=== PATIENT | male | born 1940 | race Caucasian/White ===

== ENCOUNTER 2019-12-25 21:37 | Emergency (ER) | payer MEDICARE, SELFPAY ==
[2019-12-25 21:41] VITALS: PULSE 103; RESP 22; TEMP 36.8; O2SAT 95; BMI 41.1
--- NOTE | 2019-12-25 21:55 | CTR_ITS ---
PROCEDURE INFORMATION: Exam: CT Abdomen And Pelvis With Contrast Exam date and time: 12/25/2019 10:38 PM Age: 79 years old Clinical indication: Abdominal pain; Generalized; Prior surgery; Surgery type: Gb TECHNIQUE: Imaging protocol: Computed tomography of the abdomen and pelvis with intravenous contrast. Radiation optimization: All CT scans at this facility use at least one of these dose optimization techniques: automated exposure control; mA and/or kV adjustment per patient size (includes targeted exams where dose is matched to clinical indication); or iterative reconstruction. Contrast material: 1853.59; Contrast volume: 95 ml; Contrast route: INTRAVENOUS (IV); COMPARISON: No relevant prior studies available. RADIATION DOSE METRICS: Total DLP (mGy-cm): 1853.59 FINDINGS: Lungs: Bilateral dependent atelectasis. Mediastinal space: Large hiatal hernia. Liver: Normal. No mass. Gallbladder and bile ducts: Cholecystectomy. Pancreas: Normal. No ductal dilation. Spleen: Normal. No splenomegaly. Adrenals: Normal. No mass. Kidneys and ureters: Left kidney benign cyst, negative for follow-up advised. Stomach and bowel: Constipation. Appendix: No evidence of appendicitis. Intraperitoneal space: Unremarkable. No free air. No significant fluid collection. Vasculature: Unremarkable. No abdominal aortic aneurysm. Lymph nodes: Unremarkable. No enlarged lymph nodes. Urinary bladder: Right posterior urinary bladder wall 8.8 mm subtle soft tissue density lesion somewhat concerning for mass, consider direct visualization. Reproductive: Unremarkable as visualized. Bones/joints: Unremarkable. No acute fracture. Soft tissues: Unremarkable. CT/CT abdomen pelvis w con* [id number] IMPRESSION: 1. Negative for acute inflammatory process in the abdomen or pelvis 2. Bilateral dependent atelectasis. 3. Cholecystectomy. 4. Large hiatal hernia. 5. Constipation. 6. Right posterior urinary bladder wall 8.8 mm subtle soft tissue density lesion somewhat concerning for mass, consider direct visualization. Radiation Dose CTDIVOL = (mGy): DLP = 1853.59 (mGy-cm)
--- NOTE | 2019-12-25 22:03 | W.ED.ABDPA2 ---
Documented by User: Tereza Borges 12/25/19 23:45 HPI - Abdominal Pain General: Chief Complaint: Abdominal Pain Stated Complaint: constipation Time Seen by Provider: 12/25/19 21:50 Source: patient Mode of arrival: ambulatory Limitations: no limitations History of Present Illness: HPI narrative: Ming is a 79-year-old male who comes in complaining of abdominal pain for the past 2 to 3 days. He has associated vomiting. He states anytime he eats or drinks makes his symptoms worse. He denies any fevers or chills. He also states he is had significant diarrhea. He does not describe any blood in his vomit or blood in his stools. Patient does not report any chest pain or shortness of breath. Patient denies having anything similar in the past. He denies any other complaints at this time. Associated Symptoms: Denies chills, coffee ground emesis, constipation, GI cramping, diarrhea, dysuria, fever(s), heartburn, hematochezia, hematuria, hematemesis, melena and syncope Review of Systems Const: Denies: fever(s), chills, body aches, fatigue, malaise or diaphoresis Eyes: Denies: change in vision, blurry vision, photophobia, eye discomfort, eye discharge, eye redness or yellow eyes ENMT: Denies: throat pain, odynophagia, hoarseness, swelling of lips/tongue, ear or mastoid pain, ear discharge, change in hearing or nasal discharge Card: Denies: chest pain, palpitations, irregular heart rhythm, edema, lightheadedness, syncope, pre-syncope, dyspnea on exertion or orthopnea Resp: Denies: dyspnea, productive cough, non-productive cough, wheezing, hemoptysis or chest congestion GI: Denies: hematemesis, coffee ground emesis, heartburn, diarrhea, constipation, GI cramping, hematochezia or melena : Denies: flank pain, dysuria, urinary frequency, urinary urgency or hematuria Musc: Denies: neck pain, back pain, extremity pain, extremity swelling, joint pain, joint swelling, joint redness, joint warmth or joint stiffness Skin/Breast: Denies: rash, pruritus, erythema, skin pain or skin tenderness Neuro: Denies: headache(s), numbness in extremities, weakness in extremities, sensory changes, lack of coordination, difficulty walking, dizziness, vertigo, confusion, Slurred speech present or seizure-like activity Alex/Lymph: Denies: easy bruising, easy bleeding, petechiae, purpura or enlarged lymph nodes All/Imm: Denies: urticaria, throat swelling, tongue swelling, facial swelling or acute wheezing PFSH ED PFSH: Medical History COPD (chronic obstructive pulmonary disease) Diabetes Hypertension Family History Other Cancer Diabetes Social History Smoking and tobacco status: never smoked Alcohol intake: never Current occupational status: unemployed and retired Financial difficulty paying for basics: Somewhat Hard Physical Exam Const: COMMON NORMALS: no acute distress, patient oriented x3, no limitations and alert GENERAL APPEARANCE: cooperative HENMT: COMMON NORMALS: normocephalic, atraumatic, external ears normal, EAC's normal and Normal external nose present HEAD & SCALP: normal to inspection, normocephalic and atraumatic FACE & SINUS: normal facial exam and face symmetric NOSE: Normal external nose present and Normal nares present EXTERNAL EAR: Yes external ears normal EXTERNAL AUDITORY CANAL: EAC's normal MOUTH: Normal oral and palatal mucosa present, lip normal and tongue normal Eye: COMMON NORMALS: Equal, round and reactive pupils present and conjunctivae normal GENERAL EYE: appearance normal, both eyes and all related structures ALIGNMENT: Yes alignment normal PERIORBITAL: periorbital findings normal EYELID: eyelids normal CONJUNCTIVA: Yes conjunctivae normal SCLERA: sclerae normal PUPIL: Yes Equal, round and reactive pupils present Neck/C-Spine: COMMON NORMALS: full ROM, no lymphadenopathy, supple, no meningeal signs and no JVD GENERAL: Yes normal visual inspection and Yes trachea midline Chest: COMMONS NORMALS: normal inspection of the chest and normal palpation of entire chest wall Resp: COMMON NORMALS: normal respiratory effort, No retractions, No use of accessory muscles and clear to auscultation bilaterally EFFORT & INSPECTION: Yes able to speak in complete sentences and Yes symmetric chest movement AUSCULTATION: clear to auscultation bilaterally, no crackles, no rales, no rhonchi and no wheezes Cardio: COMMON NORMALS: no JVD, regular rate, regular rhythm, S1 normal heart sound present and S2 normal heart sound present RATE: regular rate RHYTHM: regular rhythm HEART SOUNDS: S1 normal heart sound present, S2 normal heart sound present, no click, no gallops, no murmurs and no rubs GI: COMMON NORMALS: Soft to palpation and No hepatosplenomegaly present PALPATION: Yes Soft to palpation, Yes Tenderness to palpation present (GI) Details: other (Moderately throughout the abdomen. Patient states worse in the right lower quadrant), No Guarding due to palpation present (GI), No Rigid due to palpation, Yes No hepatosplenomegaly present, No Hernia present, No Palpable mass present and No Pulsatile mass present : COMMON NORMALS: Yes no CVA tenderness BLADDER/KIDNEY EXAM: Yes no CVA tenderness Back/Pelvis: COMMON NORMALS: no CVA tenderness, thoracic and lumbar spine normal to inspection, no thoracic nor lumbar tenderness and thoraco-lumbar ROM normal Extremity: COMMON NORMALS: normal to inspection, full ROM, capillary refill normal, no joint enlargement, no clubbing, cyanosis or edema and no calf tenderness Neuro: COMMON NORMALS: patient oriented x3, CN's II-XII intact bilaterally, moves all extremities, no focal motor deficits and no sensory deficits noted SENSORIUM/ORIENTATION: Yes alert MENINGEAL SIGNS: Yes no meningeal signs SPEECH: speech normal Psych: COMMON NORMALS: mental status grossly normal, Normal thought process present, cooperative, normal affect, speech normal and activity/motor behavior normal SPEECH: Yes normal speech THOUGHT PROCESS: Normal thought process present Skin: COMMON NORMALS: no rashes or lesions noted, turgor normal, no jaundice, no petechiae and no mottling GENERAL SKIN EXAM: no rashes or lesions noted and turgor normal Course Vital Signs: Vital signs: Vital Signs Temperature 98.3 F 12/25/19 21:41 Pulse Rate 87 12/26/19 02:40 Respiratory Rate 16 12/26/19 02:40 Blood Pressure 101/72 12/26/19 02:40 Pulse Oximetry 96 12/26/19 02:40 MDM - Abdominal Pain Lab Data: Attestation: I reviewed the patient's lab results. Labs: Lab Results 12/25/19 12/25/19 12/25/19 Range/Units 22:12 22:12 22:12 WBC 4.1 (4.0-10.0) 10^3/ uL RBC 4.89 (4.1-5.3) 10^6/u L Hgb 14.9 (11.7-16.6) g/dL Hct 44.7 (42.0-52.0) % MCV 91.4 (80-94) fL MCH 30.5 (28.0-34.0) pg MCHC 33.3 (30.0-36.0) g/dL RDW 12.8 (12.1-15.1) % Plt Count 163 (130-400) 10^3/c mm MPV 9.7 (7.4-10.4) fL Neut % (Auto) 71.2 % Lymph % (Auto) 19.8 % [place] % (Auto) 8.6 % Eos % (Auto) 0.0 % Baso % (Auto) 0.2 % Neut # (Auto) 2.91 (1.8-7.7) 10^3/u L Lymph # (Auto) 0.8 (0.8-4.8) 10^3/u L [place] # (Auto) 0.4 (0.2-0.9) 10^3/u L Eos # (Auto) 0.0 (0.0-0.8) 10^3/u L Baso # (Auto) 0.0 (0.0-0.1) 10^3/u L Nucleated RBC % (a uto) 0 % Nucleated RBCs # 0.0 /100WBC Sodium 130 L (136-145) mmol/L Potassium 4.3 (3.5-5.1) mmol/L Chloride 95 L (98-107) mmol/L Carbon Dioxide 19 L (22-29) mmol/L Anion Gap 20.3 H (5-19) BUN 20 (8-23) mg/dL Creatinine 1.6 H (0.7-1.2) mg/dL GFR Calculation Not Reportable Glucose 286 H (65-115) mg/dL Calculated Osmolal ity 283 L (285-295) mOsm/k g Lactic Acid 3.7 H (0.5-2.2) mmol/L Lactic Acid (Sepsi s) (0.5-2.2) mmol/L Calcium 9.1 (8.5-10.5) mg/dL Magnesium 1.7 (1.7-2.3) mg/dL Total Bilirubin 0.5 (0.15-1.2) mg/dL AST 20 (0-40) U/L ALT 14 (0-41) U/L Alkaline Phosphata se 69 (40-130) IU/L Troponin T Baselin e (0-15) ng/L Troponin T 120 Min [place] (0-15) ng/L Delta Troponin T (0-10) ABS# Total Protein 7.1 (6.6-8.7) g/dL Albumin 4.0 (3.5-5.2) g/dL Globulin 3.1 (1.3-4.6) g/dL Lipase 15 (13-60) U/L Urine Color (Yellow) Urine Appearance (CLEAR) Urine pH (5-7) Ur Specific Gravit y (1.005-1.030) Urine Protein (Negative) Urine Glucose (UA) (Normal) Urine Ketones (Negative) Urine Blood (Negative) Urine Nitrate (Negative) Urine Bilirubin (Negative) Urine Urobilinogen (Negative) mg/dL Ur Leukocyte Berenice ase (Negative) Urine RBC (0-2) /hpf Urine WBC (0-5) /hpf Ur Squamous Epith Cells (0-5) /hpf Amorphous Sediment Urine Bacteria (NONE) /hpf 12/25/19 12/26/19 12/26/19 Range/Units 22:12 00:38 01:02 WBC (4.0-10.0) 10^3/ uL RBC (4.1-5.3) 10^6/u L Hgb (11.7-16.6) g/dL Hct (42.0-52.0) % MCV (80-94) fL MCH (28.0-34.0) pg MCHC (30.0-36.0) g/dL RDW (12.1-15.1) % Plt Count (130-400) 10^3/c mm MPV (7.4-10.4) fL Neut % (Auto) % Lymph % (Auto) % [place] % (Auto) % Eos % (Auto) % Baso % (Auto) % Neut # (Auto) (1.8-7.7) 10^3/u L Lymph # (Auto) (0.8-4.8) 10^3/u L [place] # (Auto) (0.2-0.9) 10^3/u L Eos # (Auto) (0.0-0.8) 10^3/u L Baso # (Auto) (0.0-0.1) 10^3/u L Nucleated RBC % (a uto) % Nucleated RBCs # /100WBC Sodium (136-145) mmol/L Potassium (3.5-5.1) mmol/L Chloride (98-107) mmol/L Carbon Dioxide (22-29) mmol/L Anion Gap (5-19) BUN (8-23) mg/dL Creatinine (0.7-1.2) mg/dL GFR Calculation Glucose (65-115) mg/dL Calculated Osmolal ity (285-295) mOsm/k g Lactic Acid (0.5-2.2) mmol/L Lactic Acid (Sepsi s) (0.5-2.2) mmol/L Calcium (8.5-10.5) mg/dL Magnesium (1.7-2.3) mg/dL Total Bilirubin (0.15-1.2) mg/dL AST (0-40) U/L ALT (0-41) U/L Alkaline Phosphata se (40-130) IU/L Troponin T Baselin e 34 H (0-15) ng/L Troponin T 120 Min [place] 28.44 H (0-15) ng/L Delta Troponin T -5.56 L (0-10) ABS# Total Protein (6.6-8.7) g/dL Albumin (3.5-5.2) g/dL Globulin (1.3-4.6) g/dL Lipase (13-60) U/L Urine Color Yellow (Yellow) Urine Appearance Clear (CLEAR) Urine pH 5 (5-7) Ur Specific Gravit y 1.015 (1.005-1.030) Urine Protein Neg (Negative) Urine Glucose (UA) 4+ H (Normal) Urine Ketones Negative (Negative) Urine Blood 2+ H (Negative) Urine Nitrate Negative (Negative) Urine Bilirubin Neg (Negative) Urine Urobilinogen Norm (Negative) mg/dL Ur Leukocyte Berenice ase Negative (Negative) Urine RBC 0-4 H (0-2) /hpf Urine WBC None (0-5) /hpf Ur Squamous Epith Cells None (0-5) /hpf Amorphous Sediment Not Reportable Urine Bacteria None (NONE) /hpf 12/26/19 Range/Units 01:35 WBC (4.0-10.0) 10^3/ uL RBC (4.1-5.3) 10^6/u L Hgb (11.7-16.6) g/dL Hct (42.0-52.0) % MCV (80-94) fL MCH (28.0-34.0) pg MCHC (30.0-36.0) g/dL RDW (12.1-15.1) % Plt Count (130-400) 10^3/c mm MPV (7.4-10.4) fL Neut % (Auto) % Lymph % (Auto) % [place] % (Auto) % Eos % (Auto) % Baso % (Auto) % Neut # (Auto) (1.8-7.7) 10^3/u L Lymph # (Auto) (0.8-4.8) 10^3/u L [place] # (Auto) (0.2-0.9) 10^3/u L Eos # (Auto) (0.0-0.8) 10^3/u L Baso # (Auto) (0.0-0.1) 10^3/u L Nucleated RBC % (a uto) % Nucleated RBCs # /100WBC Sodium (136-145) mmol/L Potassium (3.5-5.1) mmol/L Chloride (98-107) mmol/L Carbon Dioxide (22-29) mmol/L Anion Gap (5-19) BUN (8-23) mg/dL Creatinine (0.7-1.2) mg/dL GFR Calculation Glucose (65-115) mg/dL Calculated Osmolal ity (285-295) mOsm/k g Lactic Acid (0.5-2.2) mmol/L Lactic Acid (Sepsi s) 1.6 (0.5-2.2) mmol/L Calcium (8.5-10.5) mg/dL Magnesium (1.7-2.3) mg/dL Total Bilirubin (0.15-1.2) mg/dL AST (0-40) U/L ALT (0-41) U/L Alkaline Phosphata se (40-130) IU/L Troponin T Baselin e (0-15) ng/L Troponin T 120 Min [place] (0-15) ng/L Delta Troponin T (0-10) ABS# Total Protein (6.6-8.7) g/dL Albumin (3.5-5.2) g/dL Globulin (1.3-4.6) g/dL Lipase (13-60) U/L Urine Color (Yellow) Urine Appearance (CLEAR) Urine pH (5-7) Ur Specific Gravit y (1.005-1.030) Urine Protein (Negative) Urine Glucose (UA) (Normal) Urine Ketones (Negative) Urine Blood (Negative) Urine Nitrate (Negative) Urine Bilirubin (Negative) Urine Urobilinogen (Negative) mg/dL Ur Leukocyte Berenice ase (Negative) Urine RBC (0-2) /hpf Urine WBC (0-5) /hpf Ur Squamous Epith Cells (0-5) /hpf Amorphous Sediment Urine Bacteria (NONE) /hpf Imaging Data ^: CT Abd/Pel: Radiologist's impression: [place] [address] CT Scan Report Signed Patient: Brad Blank Unit #: [id number] : 11/21/1977 Age/Sex: 42 / M ADM Date: 12/25/19 Loc: ER Room/Bed: Attending Dr: Ordering Provider/Ordering MD: Tereza Borges DO Date of Service: 12/25/19 Procedure(s): CT lumbar spine wo con* [id number] Accession Number(s): [id number] Report Number: [id number] PROCEDURE INFORMATION: Exam: CT Lumbar Spine Without Contrast Exam date and time: 12/25/2019 8:25 PM Age: 42 years old Clinical indication: Low back pain TECHNIQUE: Imaging protocol: Computed tomography images of the lumbar spine without contrast. Radiation optimization: All CT scans at this facility use at least one of these dose optimization techniques: automated exposure control; mA and/or kV adjustment per patient size (includes targeted exams where dose is matched to clinical indication); or iterative reconstruction. COMPARISON: [place] [id number] 01/12/2019 3:02 PM RADIATION DOSE METRICS: Total DLP (mGy-cm): 1523.99 FINDINGS: Vertebrae: No acute fracture. Normal alignment. No canal stenosis or neural foraminal narrowing is seen in the lumbar spine. Soft tissues: Unremarkable. Other findings: Chronic pancreatitis changes are appreciated. CT/CT lumbar spine wo con* [id number] IMPRESSION: 1. No acute abnormality is seen. 2. Chronic pancreatitis. Radiation Dose CTDIVOL = (mGy): DLP = 1523.99 (mGy-cm) Dictated By: Thanh Pinon MD Signed By: Thanh Pinon MD Signed Date/Time: 12/25/192057 DD/ 55 EKG Data ^: EKG 1: Attestation: I personally reviewed and interpreted this EKG as follows: EKG interpretation date: 12/25/19 EKG interpretation time: 23:38 Interpretation: Normal sinus rhythm with a ventricular rate of 92 beats a minute, nonspecific ST-T wave changes. Q waves inferiorly. No acute ST or T wave segment changes. Discharge Plan Discharge Patient Disposition: Home Clinical Impression: Acute dehydration Vomiting Qualifiers: Vomiting type: unspecified Vomiting Intractability: non-intractable Nausea presence: with nausea Qualified Code(s): R11.2 - Nausea with vomiting, unspecified Condition: Stable Prescriptions: New Zofran 4 mg tablet 4 mg PO Q6H PRN (Reason: nausea and vomiting) Qty: 10 RF: 0 No Action metformin 500 mg tablet 1,000 mg PO BID RF: 0 citalopram 20 mg tablet 20 mg PO DAILY RF: 0 oxycodone 5 mg capsule 5 mg PO DAILY PRNRF: 0 enoxaparin 30 mg/0.3 mL syringe 30 mg SUBCUT Q12H RF: 0 oxycodone-acetaminophen [Percocet] 5-325 mg tablet 1 tab PO Q6H PRNRF: 0 multivitamin Capsule 1 cap PO DAILY RF: 0 amlodipine 10 mg tablet 10 mg PO DAILY RF: 0 tramadol 50 mg tablet 100 mg PO BID PRNRF: 0 magnesium oxide 400 mg (241.3 mg magnesium) tablet 400 mg PO .hs RF: 0 ropinirole 1 mg tablet 1 mg PO .HS RF: 0 atorvastatin 40 mg tablet 40 mg PO .HS RF: 0 furosemide [Lasix] 20 mg tablet 10 mg PO QAM RF: 0 triamcinolone acetonide 0.1 % ointment 1 applic TOPICAL BID RF: 0 potassium chloride 20 mEq tablet,ER particles/crystals 20 meq PO DAILY RF: 0 valsartan-hydrochlorothiazide 320-12.5 mg tablet 1 tab PO DAILY RF: 0 terbinafine HCl 250 mg tablet 250 mg PO DAILY RF: 0 fluticasone propionate [Flonase Allergy Relief] 50 mcg/actuation spray,suspension 2 spray INTRANASAL DAILY RF: 0 loratadine [Allergy Relief (loratadine)] 10 mg tablet 10 mg PO DAILY RF: 0 aspirin 325 mg tablet 325 mg PO DAILY RF: 0 Levemir FlexTouch U-100 Insuln 100 unit/mL (3 mL) insulin pen 35 unit SUBCUT BID PRN (Reason: Diabetes) Qty: 15 RF: 3 insulin lispro [Humalog U-100 Insulin] 100 unit/mL solution 3 unit SUBCUT TID Qty: 10 RF: 3 Discharge Orders: Discharge Order (Routine); Ordered 12/26/19 Ordered By: Vladislav Shaw Discharge Diet: Advance as tolerated and Clear Liquid Discharge Activity: Increase activity as tolerated Patient Instructions: Dehydration (ED), Acute Nausea and Vomiting (ED) Activity Restrictions/Additional Instructions: Return for fever greater than 100, worsening pain despite treatment, worsening vomiting despite treatment, other concerning symptoms. Your CT scan showed a small possible growth on the bladder that will need further investigation at a later date. You should tell your primary care physician about this. 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 Comprehensive Documented by User: Vladislav Shaw DO 12/26/19 05:24 HPI - Abdominal Pain General: Chief Complaint: Abdominal Pain Stated Complaint: constipation Time Seen by Provider: 12/25/19 21:50 PFSH ED PFSH: Medical History COPD (chronic obstructive pulmonary disease) Diabetes Hypertension Family History Other Cancer Diabetes Social History Smoking and tobacco status: never smoked Alcohol intake: never Current occupational status: unemployed and retired Financial difficulty paying for basics: Somewhat Hard Course Vital Signs: Vital signs: Vital Signs Temperature 98.3 F 12/25/19 21:41 Pulse Rate 87 12/26/19 02:40 Respiratory Rate 16 12/26/19 02:40 Blood Pressure 101/72 12/26/19 02:40 Pulse Oximetry 96 12/26/19 02:40 MDM - Abdominal Pain MDM Narrative: Medical decision making narrative: 79-year-old male checked out to me by Dr. Caputo. He is experienced intractable vomiting with some belly pain. His white blood cell count is 4.1. His bicarbonate level is 19. He is received IV fluid. His initial lactic acid was elevated at 3.7, but repeat after fluid bolus is down to 1.6. CT of the abdomen pelvis is negative, save a possible spot on the posterior wall of his bladder which she was informed of. He will be discharged home with Zoan. Lab Data: Labs: Lab Results 12/25/19 12/25/19 12/25/19 Range/Units 22:12 22:12 22:12 WBC 4.1 (4.0-10.0) 10^3/ uL RBC 4.89 (4.1-5.3) 10^6/u L Hgb 14.9 (11.7-16.6) g/dL Hct 44.7 (42.0-52.0) % MCV 91.4 (80-94) fL MCH 30.5 (28.0-34.0) pg MCHC 33.3 (30.0-36.0) g/dL RDW 12.8 (12.1-15.1) % Plt Count 163 (130-400) 10^3/c mm MPV 9.7 (7.4-10.4) fL Neut % (Auto) 71.2 % Lymph % (Auto) 19.8 % [place] % (Auto) 8.6 % Eos % (Auto) 0.0 % Baso % (Auto) 0.2 % Neut # (Auto) 2.91 (1.8-7.7) 10^3/u L Lymph # (Auto) 0.8 (0.8-4.8) 10^3/u L [place] # (Auto) 0.4 (0.2-0.9) 10^3/u L Eos # (Auto) 0.0 (0.0-0.8) 10^3/u L Baso # (Auto) 0.0 (0.0-0.1) 10^3/u L Nucleated RBC % (a uto) 0 % Nucleated RBCs # 0.0 /100WBC Sodium 130 L (136-145) mmol/L Potassium 4.3 (3.5-5.1) mmol/L Chloride 95 L (98-107) mmol/L Carbon Dioxide 19 L (22-29) mmol/L Anion Gap 20.3 H (5-19) BUN 20 (8-23) mg/dL Creatinine 1.6 H (0.7-1.2) mg/dL GFR Calculation Not Reportable Glucose 286 H (65-115) mg/dL Calculated Osmolal ity 283 L (285-295) mOsm/k g Lactic Acid 3.7 H (0.5-2.2) mmol/L Lactic Acid (Sepsi s) (0.5-2.2) mmol/L Calcium 9.1 (8.5-10.5) mg/dL Magnesium 1.7 (1.7-2.3) mg/dL Total Bilirubin 0.5 (0.15-1.2) mg/dL AST 20 (0-40) U/L ALT 14 (0-41) U/L Alkaline Phosphata se 69 (40-130) IU/L Troponin T Baselin e (0-15) ng/L Troponin T 120 Min [place] (0-15) ng/L Delta Troponin T (0-10) ABS# Total Protein 7.1 (6.6-8.7) g/dL Albumin 4.0 (3.5-5.2) g/dL Globulin 3.1 (1.3-4.6) g/dL Lipase 15 (13-60) U/L Urine Color (Yellow) Urine Appearance (CLEAR) Urine pH (5-7) Ur Specific Gravit y (1.005-1.030) Urine Protein (Negative) Urine Glucose (UA) (Normal) Urine Ketones (Negative) Urine Blood (Negative) Urine Nitrate (Negative) Urine Bilirubin (Negative) Urine Urobilinogen (Negative) mg/dL Ur Leukocyte Berenice ase (Negative) Urine RBC (0-2) /hpf Urine WBC (0-5) /hpf Ur Squamous Epith Cells (0-5) /hpf Amorphous Sediment Urine Bacteria (NONE) /hpf 12/25/19 12/26/19 12/26/19 Range/Units 22:12 00:38 01:02 WBC (4.0-10.0) 10^3/ uL RBC (4.1-5.3) 10^6/u L Hgb (11.7-16.6) g/dL Hct (42.0-52.0) % MCV (80-94) fL MCH (28.0-34.0) pg MCHC (30.0-36.0) g/dL RDW (12.1-15.1) % Plt Count (130-400) 10^3/c mm MPV (7.4-10.4) fL Neut % (Auto) % Lymph % (Auto) % [place] % (Auto) % Eos % (Auto) % Baso % (Auto) % Neut # (Auto) (1.8-7.7) 10^3/u L Lymph # (Auto) (0.8-4.8) 10^3/u L [place] # (Auto) (0.2-0.9) 10^3/u L Eos # (Auto) (0.0-0.8) 10^3/u L Baso # (Auto) (0.0-0.1) 10^3/u L Nucleated RBC % (a uto) % Nucleated RBCs # /100WBC Sodium (136-145) mmol/L Potassium (3.5-5.1) mmol/L Chloride (98-107) mmol/L Carbon Dioxide (22-29) mmol/L Anion Gap (5-19) BUN (8-23) mg/dL Creatinine (0.7-1.2) mg/dL GFR Calculation Glucose (65-115) mg/dL Calculated Osmolal ity (285-295) mOsm/k g Lactic Acid (0.5-2.2) mmol/L Lactic Acid (Sepsi s) (0.5-2.2) mmol/L Calcium (8.5-10.5) mg/dL Magnesium (1.7-2.3) mg/dL Total Bilirubin (0.15-1.2) mg/dL AST (0-40) U/L ALT (0-41) U/L Alkaline Phosphata se (40-130) IU/L Troponin T Baselin e 34 H (0-15) ng/L Troponin T 120 Min [place] 28.44 H (0-15) ng/L Delta Troponin T -5.56 L (0-10) ABS# Total Protein (6.6-8.7) g/dL Albumin (3.5-5.2) g/dL Globulin (1.3-4.6) g/dL Lipase (13-60) U/L Urine Color Yellow (Yellow) Urine Appearance Clear (CLEAR) Urine pH 5 (5-7) Ur Specific Gravit y 1.015 (1.005-1.030) Urine Protein Neg (Negative) Urine Glucose (UA) 4+ H (Normal) Urine Ketones Negative (Negative) Urine Blood 2+ H (Negative) Urine Nitrate Negative (Negative) Urine Bilirubin Neg (Negative) Urine Urobilinogen Norm (Negative) mg/dL Ur Leukocyte Berenice ase Negative (Negative) Urine RBC 0-4 H (0-2) /hpf Urine WBC None (0-5) /hpf Ur Squamous Epith Cells None (0-5) /hpf Amorphous Sediment Not Reportable Urine Bacteria None (NONE) /hpf 12/25/ Range/Units 01:35 WBC (4.0-10.0) 10^3/ uL RBC (4.1-5.3) 10^6/u L Hgb (11.7-16.6) g/dL Hct (42.0-52.0) % MCV (80-94) fL MCH (28.0-34.0) pg MCHC (30.0-36.0) g/dL RDW (12.1-15.1) % Plt Count (130-400) 10^3/c mm MPV (7.4-10.4) fL Neut % (Auto) % Lymph % (Auto) % [place] % (Auto) % Eos % (Auto) % Baso % (Auto) % Neut # (Auto) (1.8-7.7) 10^3/u L Lymph # (Auto) (0.8-4.8) 10^3/u L [place] # (Auto) (0.2-0.9) 10^3/u L Eos # (Auto) (0.0-0.8) 10^3/u L Baso # (Auto) (0.0-0.1) 10^3/u L Nucleated RBC % (a uto) % Nucleated RBCs # /100WBC Sodium (136-145) mmol/L Potassium (3.5-5.1) mmol/L Chloride (98-107) mmol/L Carbon Dioxide (22-29) mmol/L Anion Gap (5-19) BUN (8-23) mg/dL Creatinine (0.7-1.2) mg/dL GFR Calculation Glucose (65-115) mg/dL Calculated Osmolal ity (285-295) mOsm/k g Lactic Acid (0.5-2.2) mmol/L Lactic Acid (Sepsi s) 1.6 (0.5-2.2) mmol/L Calcium (8.5-10.5) mg/dL Magnesium (1.7-2.3) mg/dL Total Bilirubin (0.15-1.2) mg/dL AST (0-40) U/L ALT (0-41) U/L Alkaline Phosphata se (40-130) IU/L Troponin T Baselin e (0-15) ng/L Troponin T 120 Min [place] (0-15) ng/L Delta Troponin T (0-10) ABS# Total Protein (6.6-8.7) g/dL Albumin (3.5-5.2) g/dL Globulin (1.3-4.6) g/dL Lipase (13-60) U/L Urine Color (Yellow) Urine Appearance (CLEAR) Urine pH (5-7) Ur Specific Gravit y (1.005-1.030) Urine Protein (Negative) Urine Glucose (UA) (Normal) Urine Ketones (Negative) Urine Blood (Negative) Urine Nitrate (Negative) Urine Bilirubin (Negative) Urine Urobilinogen (Negative) mg/dL Ur Leukocyte Berenice ase (Negative) Urine RBC (0-2) /hpf Urine WBC (0-5) /hpf Ur Squamous Epith Cells (0-5) /hpf Amorphous Sediment Urine Bacteria (NONE) /hpf Discharge Plan Discharge Patient Disposition: Home Clinical Impression: Acute dehydration Vomiting Qualifiers: Vomiting type: unspecified Vomiting Intractability: non-intractable Nausea presence: with nausea Qualified Code(s): R11.2 - Nausea with vomiting, unspecified Condition: Stable Prescriptions: New Zofran 4 mg tablet 4 mg PO Q6H PRN (Reason: nausea and vomiting) Qty: 10 RF: 0 No Action metformin 500 mg tablet 1,000 mg PO BID RF: 0 citalopram 20 mg tablet 20 mg PO DAILY RF: 0 oxycodone 5 mg capsule 5 mg PO DAILY PRNRF: 0 enoxaparin 30 mg/0.3 mL syringe 30 mg SUBCUT Q12H RF: 0 oxycodone-acetaminophen [Percocet] 5-325 mg tablet 1 tab PO Q6H PRNRF: 0 multivitamin Capsule 1 cap PO DAILY RF: 0 amlodipine 10 mg tablet 10 mg PO DAILY RF: 0 tramadol 50 mg tablet 100 mg PO BID PRNRF: 0 magnesium oxide 400 mg (241.3 mg magnesium) tablet 400 mg PO .hs RF: 0 ropinirole 1 mg tablet 1 mg PO .HS RF: 0 atorvastatin 40 mg tablet 40 mg PO .HS RF: 0 furosemide [Lasix] 20 mg tablet 10 mg PO QAM RF: 0 triamcinolone acetonide 0.1 % ointment 1 applic TOPICAL BID RF: 0 potassium chloride 20 mEq tablet,ER particles/crystals 20 meq PO DAILY RF: 0 valsartan-hydrochlorothiazide 320-12.5 mg tablet 1 tab PO DAILY RF: 0 terbinafine HCl 250 mg tablet 250 mg PO DAILY RF: 0 fluticasone propionate [Flonase Allergy Relief] 50 mcg/actuation spray,suspension 2 spray INTRANASAL DAILY RF: 0 loratadine [Allergy Relief (loratadine)] 10 mg tablet 10 mg PO DAILY RF: 0 aspirin 325 mg tablet 325 mg PO DAILY RF: 0 Levemir FlexTouch U-100 Insuln 100 unit/mL (3 mL) insulin pen 35 unit SUBCUT BID PRN (Reason: Diabetes) Qty: 15 RF: 3 insulin lispro [Humalog U-100 Insulin] 100 unit/mL solution 3 unit SUBCUT TID Qty: 10 RF: 3 Discharge Orders: Discharge Order (Routine); Ordered 12/26/19 Ordered By: Vladislav Shaw Discharge Diet: Advance as tolerated and Clear Liquid Discharge Activity: Increase activity as tolerated Patient Instructions: Dehydration (ED), Acute Nausea and Vomiting (ED) Activity Restrictions/Additional Instructions: Return for fever greater than 100, worsening pain despite treatment, worsening vomiting despite treatment, other concerning symptoms. Your CT scan showed a small possible growth on the bladder that will need further investigation at a later date. You should tell your primary care physician about this. 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
[2019-12-25 22:16] LABS: Basophils % 0.2 %; Hematocrit 44.7 % (42.0-52.0); Hemoglobin 14.9 g/dL (11.7-16.6); Lymphocytes # 0.8 10^3/uL (0.8-4.8); Lymphocytes % 19.8 %; Mean Corpuscular HGB Conc 33.3 g/dL (30.0-36.0); Mean Corpuscular Hemoglobin 30.5 pg (28.0-34.0); Mean Corpuscular Volume 91.4 fL (80-94); Mean Platelet Volume 9.7 fL (7.4-10.4); Monocytes # 0.4 10^3/uL (0.2-0.9); Monocytes % 8.6 %; Neutrophils # 2.91 10^3/uL (1.8-7.7); Neutrophils % 71.2 %; Nucleated Red Blood Cells % 0 %; Platelet Count 163 10^3/cmm (130-400); Red Blood Count 4.89 10^6/uL (4.1-5.3); Red Cell Distribution Width 12.8 % (12.1-15.1); White Blood Count 4.1 10^3/uL (4.0-10.0)
[2019-12-25 22:19] VITALS: RESP 18
[2019-12-25] MEDS: sodium chloride 0.9% 1,000 ML 999 ML IV (22:19)
[2019-12-25] MEDS: ondansetron 2 mg/ML SDV 2 mL 4 MG IVP (22:19)
[2019-12-25] MEDS: morphine 4 mg/mL SDV 1 mL IVP (22:19)
[2019-12-25 22:26] VITALS: BP 95/66; PULSE 82; RESP 20; O2SAT 88
[2019-12-25 22:27] VITALS: RESP 18; O2SAT 92
[2019-12-25 22:35] LABS: Anion Gap 20.3 (5-19); Blood Urea Nitrogen 20 mg/dL (8-23); Carbon Dioxide 19 mmol/L (22-29); Chloride 95 mmol/L (98-107); Potassium 4.3 mmol/L (3.5-5.1); Sodium 130 mmol/L (136-145)
[2019-12-25 22:36] LABS: Alanine Aminotransferase 14 U/L (0-41); Alkaline Phosphatase 69 IU/L (40-130); Aspartate Amino Transferase 20 U/L (0-40); Calcium 9.1 mg/dL (8.5-10.5); Globulin 3.1 g/dL (1.3-4.6); Glucose 286 mg/dL (65-115); Lipase 15 U/L (13-60); Magnesium 1.7 mg/dL (1.7-2.3); Osmolality Calculated 283 mOsm/kg (285-295); Total Bilirubin 0.5 mg/dL (0.15-1.2); Total Protein 7.1 g/dL (6.6-8.7)
[2019-12-25 22:37] LABS: Lactic Sepsis W/Reflex 3.7 mmol/L (0.5-2.2)
[2019-12-25] MEDS: iodixanol 320 mg/mL 100mL Btl IV (22:53)
--- NOTE | 2019-12-25 23:21 | ECG_ITS ---
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 Measurements Intervals [place] Rate: 92 P: 1 W[place]: 199 QRS: -9 QRSD: 100 T: -7 QT: 396 QTc: 490 Interpretive Statements SINUS RHYTHM WITH OCCASIONAL SUPRAVENTRICULAR PREMATURE COMPLEXES IN A BIGEMINAL PATTERN LOW QRS VOLTAGE IN PRECORDIAL LEADS [QRS DEFLECTION < 1.0 mV IN CHEST LEADS] NONSPECIFIC T-WAVE ABNORMALITY ABNORMAL RHYTHM ECG Compared to ECG 03/07/2018 08:54:17 T-wave abnormality now present Electronically Signed On 12-26-2019 16:37:04 CDT by Terry Dudley M.D. [id number] f
[2019-12-25] MEDS: ciprofloxacin 400 MG/200 ML PREMIX 200 MG IV (23:24)
[2019-12-26] LABS: Troponin(5th) Baseline 34 ng/L (0-15)
[2019-12-26 00:02] LABS: Reflex Lactate Order REFLEX LACTIC ORDERD
[2019-12-26 00:44] VITALS: BP 112/65; PULSE 76; RESP 16; O2SAT 94
[2019-12-26] MEDS: metroNIDAZOLE IV 500 MG/100 ML PREMIX 100 MG IV (00:45)
[2019-12-26 01:11] LABS: Troponin 5 2HR 28.44 ng/L (0-15)
[2019-12-26 01:17] LABS: Troponin 5 2HR Delta -5.56 ABS# (0-10)
--- NOTE | 2019-12-26 01:21 | ECG_ITS ---
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 Measurements Intervals [place] Rate: 91 P: 2 MS: 184 QRS: -4 QRSD: 91 T: -35 QT: 358 QTc: 442 Interpretive Statements SINUS RHYTHM WITH FREQUENT SUPRAVENTRICULAR PREMATURE COMPLEXES IN A BIGEMINAL PATTERN LOW QRS VOLTAGE IN PRECORDIAL LEADS [QRS DEFLECTION < 1.0 mV IN CHEST LEADS] INFERIOR MYOCARDIAL INFARCTION [40+ ms Q WAVE AND/OR ST/T ABNORMALITY IN II/aVF], OF INDETERMINATE AGE Compared to ECG 03/07/2018 08:54:17 Myocardial infarct finding now present Electronically Signed On 12-26-2019 16:40:09 CDT by Terry Dudley M.D. [email or web address] Consultingthree [email or web address]/store/[id number] f
[2019-12-26 01:23] VITALS: BP 138/83; PULSE 78; RESP 16; O2SAT 92
[2019-12-26 01:29] LABS: Bilirubin Urine Neg (Negative); Blood Urine 2+ (Negative); Glucose Urine UA 4+ (Normal); Ketones Urine Negative (Negative); Leukocyte Esterase Urine Negative (Negative); Nitrate Urine Negative (Negative); Protein Urine Neg (Negative); RBC Urine 0-4 /hpf (0-2); Specific Gravity, Urine 1.015 (1.005-1.030); Urine Appearance Clear (CLEAR); Urine Color Yellow (Yellow); Urobilinogen Urine Norm (Negative); pH Urine 5 (5-7)
[2019-12-26 01:59] LABS: Lactic Acid level (Lactate) 1.6 mmol/L (0.5-2.2)
[2019-12-26 02:40] VITALS: BP 101/72; PULSE 87; RESP 16; O2SAT 96
== END 2019-12-26 02:41 | disposition home or self-care (01) ==
PROVIDERS: Emergency Medicine; Emergency Provider Emergency Medicine
DX: R11.2 Nausea with vomiting, unspecified (principal); E86.0 Dehydration; Z79.82 Long term (current) use of aspirin; Z79.4 Long term (current) use of insulin; J44.9 Chronic obstructive pulmonary disease, unspecified; E11.9 Type 2 diabetes mellitus without complications; I10 Essential (primary) hypertension
CPT/HCPCS: 12345; 74177; 80053; 81001; 83605; 83690; 83735; 84484; 85025; 87040; 93005; 96361; 96365; 96367; 96375; 99283; 99284; J0744; J2270; J2405; J7030; Q9967; S0030

== ENCOUNTER 2019-12-29 13:27 | Emergency (ER) | payer MEDICARE, SELFPAY ==
[2019-12-29] VITALS (16 sets, daily range): BP systolic 95–144; BP diastolic 62–104; PULSE 87–134; RESP 14–36; TEMP 36.8–37.4; O2SAT 67–94; BMI 51.6
[2019-12-29] MEDS: succinylcholine 20 mg/mL SDV 10mL 120 MG IVP (13:43)
[2019-12-29] MEDS: dexamethasone 4 mg/mL INJ 6 MG IVP (13:50)
--- NOTE | 2019-12-29 13:50 | XRR_ITS ---
PROCEDURE INFORMATION: Exam: XR Chest, 1 View Exam date and time: 12/29/2019 2:11 PM Age: 79 years old Clinical indication: Condition or disease; Lung condition and disease; Respiratory failure; Status not specified; Patient HX: PT intubated; Additional info: Resp failure TECHNIQUE: Imaging protocol: XR of the chest Views: 1 view. COMPARISON: CR Chest 2 views* [id number] 03/07/2018 9:23 AM FINDINGS: Tubes, catheters and devices: NG tube is in the subdiaphragmatic tissues the tip is not visible. Endotracheal tube is in place 3.6 cm above the anne-marie Lungs: Bilateral perihilar and lower lobe parenchymal densities consistent with pneumonia or pulmonary edema. Pleural space: Unremarkable. No pleural effusion. No pneumothorax. Heart/Mediastinum: Unremarkable. No cardiomegaly. Bones/joints: Unremarkable. XR/XR chest 1V portable [id number] IMPRESSION: 1. Bilateral perihilar and lower lobe pneumonia or pulmonary edema 2. Endotracheal tube is in good position. 3. NG tube distal aspect is not visible
--- NOTE | 2019-12-29 13:55 | CT_ITS ---
WS: [id number] CT HEAD NONCONTRAST HISTORY: AMS TECHNIQUE: Contiguous axial imaging performed through the brain in 2.5 mm imaging. Bone and soft tiss ue windows. Sagittal and coronal reformats reviewed. All CT scans at [facility] use at le ast one of these dose optimization techniques: automated exposure control; mA and/or kV adjustment pe r patient size (includes targeted exams where dose is matched to clinical indication); or iterative r econstruction. DLP: 874.62 mGy.cm COMPARISON: None available. No acute intracranial hemorrhage, midline shift or mass effect. Moderate atrophy and chronic microvascular ischemic disease. 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 Mild cerebellar atrophy also. Ventricles: Normal size with no hydrocephalus. No inferior displacement of cerebellar tonsils. Paranasal sinuses: Complete opacification RIGHT maxillary sinus. Variable density within the maxillar y opacification. Small mucous retention cyst in the LEFT maxillary sinus. Mastoid air cells: Well pneumatized. Calvarium and scalp: Skull is intact with no soft tissue edema or swelling. Extensive calcification in the intracranial cerebral arteries and distal vertebral arteries. CT/CT head wo con* [id number] IMPRESSION: 1. No acute intracranial hemorrhage or edema. 2. Moderate atrophy and chronic microvascular ischemic disease. 3. RIGHT maxillary sinus opacification. Consider inspissated mucus secretions or fungal sinusitis based upon the appearance.
--- NOTE | 2019-12-29 13:55 | ECG_ITS ---
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 Measurements Intervals [place] Rate: 113 P: [place]: -1 QRS: -23 QRSD: 91 T: -29 QT: 309 QTc: 424 Interpretive Statements ATRIAL FIBRILLATION WITH RAPID VENTRICULAR RESPONSE LOW QRS VOLTAGE IN PRECORDIAL LEADS [QRS DEFLECTION < 1.0 mV IN CHEST LEADS] INFERIOR MYOCARDIAL INFARCTION [40+ ms Q WAVE AND/OR ST/T ABNORMALITY IN II/aVF], PROBABLY OLD Compared to ECG 12/26/2019 01:18:38 Sinus rhythm no longer present Myocardial infarct finding still present Electronically Signed On 12-29-2019 17:58:14 CDT by Edna Valentin M.D. [id number] f
[2019-12-29 14:08] LABS: Hemoglobin 13.9 g/dL (11.7-16.6); Lymphocytes # 0.6 10^3/uL (0.8-4.8); Lymphocytes % 11.8 %; Mean Corpuscular HGB Conc 33.1 g/dL (30.0-36.0); Mean Corpuscular Hemoglobin 30.7 pg (28.0-34.0); Mean Corpuscular Volume 92.7 fL (80-94); Mean Platelet Volume 10.6 fL (7.4-10.4); Monocytes # 0.4 10^3/uL (0.2-0.9); Monocytes % 7.8 %; Neutrophils % 79.5 %; Nucleated Red Blood Cells % 0 %; Platelet Count 193 10^3/cmm (130-400); Red Blood Count 4.53 10^6/uL (4.1-5.3); Red Cell Distribution Width 12.8 % (12.1-15.1); White Blood Count 5.4 10^3/uL (4.0-10.0)
[2019-12-29 14:10] LABS: ABG PCO2 38.7 mmHg (35-45); ABG PH Result 7.28 (7.35-7.45); Arterial Blood Gas Hematocrit 44.1 % (42-52); Base Excess ABG -8.1 mmol/L (-2.0-2.0); Blood Gas Allen Test Pos; Blood Gas Operator Identificat GD; Blood Gas Sample Site Radial, left; Blood Gas Sample Type Arterial; Blood Gas Tidal Volume 0.55; HCO3 ABG 18.1 mmol/L (22-26); Oxygen Device VENT; PO2 ABG 54.6 mmHg (80.0-100.0)
[2019-12-29] MEDS: vecuronium 10 mg SDV IVP (14:10)
[2019-12-29 14:14] LABS: Urine Appearance SL Hazy (CLEAR); Urine Color Yellow (Yellow)
[2019-12-29 14:15] LABS: Add Urine Microscopic? YES; Bilirubin Urine 1+ (Negative); Blood Urine Neg (Negative); Glucose Urine UA 4+ (Normal); Ketones Urine Negative (Negative); Leukocyte Esterase Urine Negative (Negative); Nitrate Urine Negative (Negative); Protein Urine 1+ (Negative); Urobilinogen Urine Norm (Negative); pH Urine 5 (5-7)
[2019-12-29 14:16] LABS: Add Urine Culture? No; Amorphous Sediment Urine 4+ /hpf; Bacteria Urine 1+ /hpf; Squamous Epithelial Cell Urine 0-4 /hpf (0-5); WBC Urine 0-4 /hpf (0-5)
[2019-12-29 14:23] LABS: INR 0.96 (0.8-1.2)
[2019-12-29 14:24] LABS: Fibrinogen 801 mg/dL (174-498)
[2019-12-29 14:27] LABS: D Dimer 1.61 ug/mIFEU (0-0.59); Lactic Sepsis W/Reflex 3.2 mmol/L (0.5-2.2)
[2019-12-29 14:28] LABS: SARS Covid-2 Antigen Positive (Negative)
[2019-12-29 14:31] LABS: Troponin(5th) Baseline 129 ng/L (0-15)
[2019-12-29 14:37] LABS: NT Pro B Type Natriuretic Pept 2892 pg/mL (0-450); Procalcitonin 1.06 ng/mL (0-0.5)
[2019-12-29 14:49] LABS: Alanine Aminotransferase 19 U/L (0-41); Albumin Level 3.5 g/dL (3.5-5.2); Alkaline Phosphatase 54 IU/L (40-130); Anion Gap 22.4 (5-19); Aspartate Amino Transferase 46 U/L (0-40); Blood Urea Nitrogen 36 mg/dL (8-23); Calcium 8.2 mg/dL (8.5-10.5); Carbon Dioxide 19 mmol/L (22-29); Chloride 96 mmol/L (98-107); Globulin 2.5 g/dL (1.3-4.6); Glucose 317 mg/dL (65-115); Magnesium 2.1 mg/dL (1.7-2.3); Osmolality Calculated 294 mOsm/kg (285-295); Potassium 5.4 mmol/L (3.5-5.1); Sodium 132 mmol/L (136-145); Total Bilirubin 0.6 mg/dL (0.15-1.2)
[2019-12-29 15:00] LABS: Creatine Phosphokinase 622 U/L (39-308); Ferritin 1541 ng/mL (30-400); Lactate Dehydrogenase 469 U/L (135-225)
[2019-12-29] MEDS: fentaNYL 50 mcg/mL INJ 2mL IVP (15:00)
--- NOTE | 2019-12-29 15:28 | ED_ITS ---
Documented by User: Jameel Isidro DO 12/31/19 16:26 HPI - Altered Mental Status General: Chief Complaint: Altered Mental Status Stated Complaint: AMS, HYPOTENSION Time Seen by Provider: 12/29/19 13:28 History of Present Illness: HPI narrative: 79-year-old male presents to the emergency room with complaint significant hypotension and hypoxia. He was emergently intubated of altered mental status. brought in by EMS. He is unable to answer questions when he arrives here he has further history received from old records and family members. MD complaint: altered mental status and decreased responsiveness Onset (ago): hour(s) Severity: severe Consistency of symptoms: Getting Worse Treatments prior to arrival: other (Acute respiratory failure) Review of Systems General: Reports: ROS unobtainable due to endotracheal tube and ROS unobtainable due to medical condition PFS ED PFSH: Medical History COPD (chronic obstructive pulmonary disease) Diabetes Hypertension Family History Other Cancer Diabetes Social History Smoking and tobacco status: never smoked Alcohol intake: never Current occupational status: unemployed and retired Financial difficulty paying for basics: Somewhat Hard Physical Exam HENMT: COMMON NORMALS: normocephalic and atraumatic HEAD & SCALP: normocephalic and atraumatic Neck/C-Spine: COMMON NORMALS: no JVD Resp: EFFORT & INSPECTION: Yes abnormal respiratory pattern, Yes respiratory distress and Yes decreased respiratory effort AUSCULTATION: crackles and diminished lung sounds Cardio: COMMON NORMALS: no JVD, regular rate, regular rhythm and No murmurs present (Cardio) RATE: regular rate RHYTHM: regular rhythm GI: COMMON NORMALS: Soft to palpation and No hepatosplenomegaly present AUSCULTATION: Yes normoactive bowel sounds PALPATION: Yes Soft to palpation, No Tenderness to palpation present (GI), No Guarding due to palpation present (GI) and Yes No hepatosplenomegaly present Extremity: COMMON NORMALS: capillary refill normal GENERAL: Yes edema (2+ lower extremity edema) Procedures Intubation Time out performed: Yes sedative: Etomidate Mg Given: 40 paralytic: Succinylcholine Mg Given: 120 Laryngoscope: fiber optic video scope Assist Device Used: fiber optic device ET Tube Size: 8 ET Tube Uncuffed: No Tube Secured Depth (cm): 22 Tube Placement Confirmation: visualized tube passing through cords, equal breath sounds bilaterally, no breath sounds over epigastrium and confirmation by capnometry Patient Tolerated Procedure: well Intubation Complications: none Course ED course: Patient remained with a marginal status throughout his stay in the emergency room he was intubated almost immediately upon arrival. His blood pressure improved with improved oxygenation and then his heart rate continued to stay elevated due to his A. fib Cardizem was started that controlled his A. fib and his blood pressure remained stable care turned over to Dr. Caputo at change of shift. Vital Signs: Vital signs: Vital Signs Temperature 98.2 F 12/29/19 18:15 Pulse Rate 87 12/29/19 21:24 Respiratory Rate 24 H 12/29/19 21:24 Blood Pressure 106/72 12/29/19 21:24 Pulse Oximetry 89 L 12/29/19 21:24 MDM - Altered Mental Status Lab Data: Labs: Lab Results 12/29/19 12/29/19 12/29/19 Range/Units 13:40 13:40 13:40 WBC 5.4 (4.0-10.0) 10^3/ uL RBC 4.53 (4.1-5.3) 10^6/u L Hgb 13.9 (11.7-16.6) g/dL Hct 42.0 (42.0-52.0) % MCV 92.7 (80-94) fL MCH 30.7 (28.0-34.0) pg MCHC 33.1 (30.0-36.0) g/dL RDW 12.8 (12.1-15.1) % Plt Count 193 (130-400) 10^3/c mm MPV 10.6 H (7.4-10.4) fL Neut % (Auto) 79.5 % Lymph % (Auto) 11.8 % [place] % (Auto) 7.8 % Eos % (Auto) 0.0 % Baso % (Auto) 0.0 % Neut # (Auto) 4.30 (1.8-7.7) 10^3/u L Lymph # (Auto) 0.6 L (0.8-4.8) 10^3/u L [place] # (Auto) 0.4 (0.2-0.9) 10^3/u L Eos # (Auto) 0.0 (0.0-0.8) 10^3/u L Baso # (Auto) 0.0 (0.0-0.1) 10^3/u L Nucleated RBC % (a uto) 0 % Nucleated RBCs # 0.0 /100WBC PT 13.10 (12.1-14.9) SECO NDS INR 0.96 (0.8-1.2) Fibrinogen 801 H (174-498) mg/dL D-Dimer 1.61 H (0-0.59) ug/mIFE U Specimen Type Sample Site ABG pH (7.35-7.45) ABG pCO2 (35-45) mmHg ABG pO2 (80.0-100.0) mmH g ABG HCO3 (22-26) mmol/L ABG Base Excess (-2.0-2.0) mmol/ L Manjeet Test Hematocrit (42-52) % O2 Delivery Device FiO2 % Tidal Volume PEEP cmH20 Teletypewriter Operator ID Sodium 132 L (136-145) mmol/L Potassium 5.4 H (3.5-5.1) mmol/L Chloride 96 L (98-107) mmol/L Carbon Dioxide 19 L (22-29) mmol/L Anion Gap 22.4 H (5-19) BUN 36 H (8-23) mg/dL Creatinine 2.6 H (0.7-1.2) mg/dL GFR Calculation Not Reportable Glucose 317 H (65-115) mg/dL Calculated Osmolal ity 294 (285-295) mOsm/k g Lactic Acid (0.5-2.2) mmol/L Lactic Acid (Sepsi s) (0.5-2.2) mmol/L Calcium 8.2 L (8.5-10.5) mg/dL Magnesium 2.1 (1.7-2.3) mg/dL Ferritin 1541 H (30-400) ng/mL Total Bilirubin 0.6 (0.15-1.2) mg/dL AST 46 H (0-40) U/L ALT 19 (0-41) U/L Alkaline Phosphata se 54 (40-130) IU/L Lactate Dehydrogen ase 469 H (135-225) U/L Creatine Kinase 622 H* (39-308) U/L Troponin T Baselin e (0-15) ng/L Troponin T 120 Min [place] (0-15) ng/L Delta Troponin T (0-10) ABS# C-Reactive Protein 191.0 H (0.0-4.9) mg/L NT-Pro-B Natriuret Pep 2892 H (0-450) pg/mL Total Protein 6.0 L (6.6-8.7) g/dL Albumin 3.5 (3.5-5.2) g/dL Globulin 2.5 (1.3-4.6) g/dL Procalcitonin 1.06 H (0-0.5) ng/mL Urine Color (Yellow) Urine Appearance (CLEAR) Urine pH (5-7) Ur Specific Gravit y (1.005-1.030) Urine Protein (Negative) Urine Glucose (UA) (Normal) Urine Ketones (Negative) Urine Blood (Negative) Urine Nitrate (Negative) Urine Bilirubin (Negative) Urine Urobilinogen (Negative) mg/dL Ur Leukocyte Berenice ase (Negative) Urine RBC (0-2) /hpf Urine WBC (0-5) /hpf Ur Squamous Epith Cells (0-5) /hpf Amorphous Sediment /hpf Urine Bacteria (NONE) /hpf SARS-CoV-2 Ag (Rap id) (Negative) 12/29/19 12/29/19 12/29/19 Range/Units 13:40 13:40 13:50 WBC (4.0-10.0) 10^3/ uL RBC (4.1-5.3) 10^6/u L Hgb (11.7-16.6) g/dL Hct (42.0-52.0) % MCV (80-94) fL MCH (28.0-34.0) pg MCHC (30.0-36.0) g/dL RDW (12.1-15.1) % Plt Count (130-400) 10^3/c mm MPV (7.4-10.4) fL Neut % (Auto) % Lymph % (Auto) % [place] % (Auto) % Eos % (Auto) % Baso % (Auto) % Neut # (Auto) (1.8-7.7) 10^3/u L Lymph # (Auto) (0.8-4.8) 10^3/u L [place] # (Auto) (0.2-0.9) 10^3/u L Eos # (Auto) (0.0-0.8) 10^3/u L Baso # (Auto) (0.0-0.1) 10^3/u L Nucleated RBC % (a uto) % Nucleated RBCs # /100WBC PT (12.1-14.9) SECO NDS INR (0.8-1.2) Fibrinogen (174-498) mg/dL D-Dimer (0-0.59) ug/mIFE U Specimen Type Sample Site ABG pH (7.35-7.45) ABG pCO2 (35-45) mmHg ABG pO2 (80.0-100.0) mmH g ABG HCO3 (22-26) mmol/L ABG Base Excess (-2.0-2.0) mmol/ L Manjeet Test Hematocrit (42-52) % O2 Delivery Device FiO2 % Tidal Volume PEEP cmH20 Teletypewriter Operator ID Sodium (136-145) mmol/L Potassium (3.5-5.1) mmol/L Chloride (98-107) mmol/L Carbon Dioxide (22-29) mmol/L Anion Gap (5-19) BUN (8-23) mg/dL Creatinine (0.7-1.2) mg/dL GFR Calculation Glucose (65-115) mg/dL Calculated Osmolal ity (285-295) mOsm/k g Lactic Acid 3.2 H (0.5-2.2) mmol/L Lactic Acid (Sepsi s) (0.5-2.2) mmol/L Calcium (8.5-10.5) mg/dL Magnesium (1.7-2.3) mg/dL Ferritin (30-400) ng/mL Total Bilirubin (0.15-1.2) mg/dL AST (0-40) U/L ALT (0-41) U/L Alkaline Phosphata se (40-130) IU/L Lactate Dehydrogen ase (135-225) U/L Creatine Kinase (39-308) U/L Troponin T Baselin e 129 H* (0-15) ng/L Troponin T 120 Min [place] (0-15) ng/L Delta Troponin T (0-10) ABS# C-Reactive Protein (0.0-4.9) mg/L NT-Pro-B Natriuret Pep (0-450) pg/mL Total Protein (6.6-8.7) g/dL Albumin (3.5-5.2) g/dL Globulin (1.3-4.6) g/dL Procalcitonin (0-0.5) ng/mL Urine Color (Yellow) Urine Appearance (CLEAR) Urine pH (5-7) Ur Specific Gravit y (1.005-1.030) Urine Protein (Negative) Urine Glucose (UA) (Normal) Urine Ketones (Negative) Urine Blood (Negative) Urine Nitrate (Negative) Urine Bilirubin (Negative) Urine Urobilinogen (Negative) mg/dL Ur Leukocyte Berenice ase (Negative) Urine RBC (0-2) /hpf Urine WBC (0-5) /hpf Ur Squamous Epith Cells (0-5) /hpf Amorphous Sediment /hpf Urine Bacteria (NONE) /hpf SARS-CoV-2 Ag (Rap id) Positive H (Negative) 12/29/19 12/29/19 12/29/19 Range/Units 13:50 13:52 15:52 WBC (4.0-10.0) 10^3/ uL RBC (4.1-5.3) 10^6/u L Hgb (11.7-16.6) g/dL Hct (42.0-52.0) % MCV (80-94) fL MCH (28.0-34.0) pg MCHC (30.0-36.0) g/dL RDW (12.1-15.1) % Plt Count (130-400) 10^3/c mm MPV (7.4-10.4) fL Neut % (Auto) % Lymph % (Auto) % [place] % (Auto) % Eos % (Auto) % Baso % (Auto) % Neut # (Auto) (1.8-7.7) 10^3/u L Lymph # (Auto) (0.8-4.8) 10^3/u L [place] # (Auto) (0.2-0.9) 10^3/u L Eos # (Auto) (0.0-0.8) 10^3/u L Baso # (Auto) (0.0-0.1) 10^3/u L Nucleated RBC % (a uto) % Nucleated RBCs # /100WBC PT (12.1-14.9) SECO NDS INR (0.8-1.2) Fibrinogen (174-498) mg/dL D-Dimer (0-0.59) ug/mIFE U Specimen Type Arterial Sample Site Radial, left ABG pH 7.28 L (7.35-7.45) ABG pCO2 38.7 (35-45) mmHg ABG pO2 54.6 L (80.0-100.0) mmH g ABG HCO3 18.1 L (22-26) mmol/L ABG Base Excess -8.1 L (-2.0-2.0) mmol/ L Manjeet Test Pos Hematocrit 44.1 (42-52) % O2 Delivery Device Vent FiO2 100.0 % Tidal Volume 0.55 PEEP 14.0 cmH20 Teletypewriter Operator ID Gd Sodium (136-145) mmol/L Potassium (3.5-5.1) mmol/L Chloride (98-107) mmol/L Carbon Dioxide (22-29) mmol/L Anion Gap (5-19) BUN (8-23) mg/dL Creatinine (0.7-1.2) mg/dL GFR Calculation Glucose (65-115) mg/dL Calculated Osmolal ity (285-295) mOsm/k g Lactic Acid (0.5-2.2) mmol/L Lactic Acid (Sepsi s) 3.3 H (0.5-2.2) mmol/L Calcium (8.5-10.5) mg/dL Magnesium (1.7-2.3) mg/dL Ferritin (30-400) ng/mL Total Bilirubin (0.15-1.2) mg/dL AST (0-40) U/L ALT (0-41) U/L Alkaline Phosphata se (40-130) IU/L Lactate Dehydrogen ase (135-225) U/L Creatine Kinase (39-308) U/L Troponin T Baselin e (0-15) ng/L Troponin T 120 Min [place] (0-15) ng/L Delta Troponin T (0-10) ABS# C-Reactive Protein (0.0-4.9) mg/L NT-Pro-B Natriuret Pep (0-450) pg/mL Total Protein (6.6-8.7) g/dL Albumin (3.5-5.2) g/dL Globulin (1.3-4.6) g/dL Procalcitonin (0-0.5) ng/mL Urine Color Yellow (Yellow) Urine Appearance Sl hazy (CLEAR) Urine pH 5 (5-7) Ur Specific Gravit y 1.020 (1.005-1.030) Urine Protein 1+ H (Negative) Urine Glucose (UA) 4+ H (Normal) Urine Ketones Negative (Negative) Urine Blood Neg (Negative) Urine Nitrate Negative (Negative) Urine Bilirubin 1+ H (Negative) Urine Urobilinogen Norm (Negative) mg/dL Ur Leukocyte Berenice ase Negative (Negative) Urine RBC None (0-2) /hpf Urine WBC 0-4 H (0-5) /hpf Ur Squamous Epith Cells 0-4 H (0-5) /hpf Amorphous Sediment 4+ /hpf Urine Bacteria 1+ H (NONE) /hpf SARS-CoV-2 Ag (Rap id) (Negative) 12/29/19 Range/Units 16:03 WBC (4.0-10.0) 10^3/ uL RBC (4.1-5.3) 10^6/u L Hgb (11.7-16.6) g/dL Hct (42.0-52.0) % MCV (80-94) fL MCH (28.0-34.0) pg MCHC (30.0-36.0) g/dL RDW (12.1-15.1) % Plt Count (130-400) 10^3/c mm MPV (7.4-10.4) fL Neut % (Auto) % Lymph % (Auto) % [place] % (Auto) % Eos % (Auto) % Baso % (Auto) % Neut # (Auto) (1.8-7.7) 10^3/u L Lymph # (Auto) (0.8-4.8) 10^3/u L [place] # (Auto) (0.2-0.9) 10^3/u L Eos # (Auto) (0.0-0.8) 10^3/u L Baso # (Auto) (0.0-0.1) 10^3/u L Nucleated RBC % (a uto) % Nucleated RBCs # /100WBC PT (12.1-14.9) SECO NDS INR (0.8-1.2) Fibrinogen (174-498) mg/dL D-Dimer (0-0.59) ug/mIFE U Specimen Type Sample Site ABG pH (7.35-7.45) ABG pCO2 (35-45) mmHg ABG pO2 (80.0-100.0) mmH g ABG HCO3 (22-26) mmol/L ABG Base Excess (-2.0-2.0) mmol/ L Manjeet Test Hematocrit (42-52) % O2 Delivery Device FiO2 % Tidal Volume PEEP cmH20 Teletypewriter Operator ID Sodium (136-145) mmol/L Potassium (3.5-5.1) mmol/L Chloride (98-107) mmol/L Carbon Dioxide (22-29) mmol/L Anion Gap (5-19) BUN (8-23) mg/dL Creatinine (0.7-1.2) mg/dL GFR Calculation Glucose (65-115) mg/dL Calculated Osmolal ity (285-295) mOsm/k g Lactic Acid (0.5-2.2) mmol/L Lactic Acid (Sepsi s) (0.5-2.2) mmol/L Calcium (8.5-10.5) mg/dL Magnesium (1.7-2.3) mg/dL Ferritin (30-400) ng/mL Total Bilirubin (0.15-1.2) mg/dL AST (0-40) U/L ALT (0-41) U/L Alkaline Phosphata se (40-130) IU/L Lactate Dehydrogen ase (135-225) U/L Creatine Kinase (39-308) U/L Troponin T Baselin e (0-15) ng/L Troponin T 120 [address] [place] 345.6 H (0-15) ng/L Delta Troponin T 216.6 H* (0-10) ABS# C-Reactive Protein (0.0-4.9) mg/L NT-Pro-B Natriuret Pep (0-450) pg/mL Total Protein (6.6-8.7) g/dL Albumin (3.5-5.2) g/dL Globulin (1.3-4.6) g/dL Procalcitonin (0-0.5) ng/mL Urine Color (Yellow) Urine Appearance (CLEAR) Urine pH (5-7) Ur Specific Gravit y (1.005-1.030) Urine Protein (Negative) Urine Glucose (UA) (Normal) Urine Ketones (Negative) Urine Blood (Negative) Urine Nitrate (Negative) Urine Bilirubin (Negative) Urine Urobilinogen (Negative) mg/dL Ur Leukocyte Berenice ase (Negative) Urine RBC (0-2) /hpf Urine WBC (0-5) /hpf Ur Squamous Epith Cells (0-5) /hpf Amorphous Sediment /hpf Urine Bacteria (NONE) /hpf SARS-CoV-2 Ag (Rap id) (Negative) Critical Care Time Critical Care Time: Critical Care Time: Yes Total Critical Care Time: 60 Attestation: This case had a high probability of a clinically significant, sudden, or life threatening deterioration of this patient's condition which required my full and direct attention, intervention and personal management. Discharge Plan Discharge Patient Disposition: Xfer Short-Term Hosp Clinical Impression: COVID-19 virus infection, Diabetes mellitus case management patient, COPD (chronic obstructive pulmonary disease), Acute respiratory failure, Hypertension, Morbid obesity, Atrial fibrillation with rapid ventricular response Condition: Stable Discharge Date/Time: 12/29/19 21:26 Coding Level of Care Code ED Process Safety Engineering Technologist for g Fwd Exam Detailed Documented by User: Katie Hernandez MD 01/01/20 06:20 HPI - Altered Mental Status General: Chief Complaint: Altered Mental Status Stated Complaint: AMS, HYPOTENSION Time Seen by Provider: 12/29/19 13:28 PFSH ED PFSH: Medical History COPD (chronic obstructive pulmonary disease) Diabetes Hypertension Family History Other Cancer Diabetes Social History Smoking and tobacco status: never smoked Alcohol intake: never Current occupational status: unemployed and retired Financial difficulty paying for basics: Somewhat Hard Course ED course: I assumed care of this patient from Dr. Oates while he was waiting for a bed assignment at [facility]. His was given updates regarding his condition and plan of care. She understands that he is to be transferred to [facility]. I was quite honest with her and telling her that he is not doing well and that he may not survive. While waiting for the bed assignment his oxygen requirements increased. He is currently on 100% FiO2 with a PEEP of 14 on the vent and his sats are in the high 80s ranging from about 87-89. His blood pressure also dropped into the 60s systolic. I had him stop his Cardizem drip and gave another 500 mL bolus of normal saline. That improved his blood pressure slightly into the 70s and then we started a Levophed drip. His blood pressure currently is 97/72. Heart rate is still 88. It appears to be sinus on the monitor with some PACs. His said they have never discussed end-of-life issues and he does not have an advanced directive for healthcare. I asked her to start thinking about these issues as that is possible that this will come up over the next few days. At this point he is a full code. He has had remdesivir here. He is on a Versed and fentanyl drip for sedation. Vital Signs: Vital signs: Vital Signs Temperature 98.2 F 12/29/19 18:15 Pulse Rate 87 12/29/19 21:24 Respiratory Rate 24 H 12/29/19 21:24 Blood Pressure 106/72 12/29/19 21:24 Pulse Oximetry 89 L 12/29/19 21:24 MDM - Altered Mental Status Lab Data: Labs: Lab Results 12/29/19 12/29/19 12/29/19 Range/Units 13:40 13:40 13:40 WBC 5.4 (4.0-10.0) 10^3/ uL RBC 4.53 (4.1-5.3) 10^6/u L Hgb 13.9 (11.7-16.6) g/dL Hct 42.0 (42.0-52.0) % MCV 92.7 (80-94) fL MCH 30.7 (28.0-34.0) pg MCHC 33.1 (30.0-36.0) g/dL RDW 12.8 (12.1-15.1) % Plt Count 193 (130-400) 10^3/c mm MPV 10.6 H (7.4-10.4) fL Neut % (Auto) 79.5 % Lymph % (Auto) 11.8 % [place] % (Auto) 7.8 % Eos % (Auto) 0.0 % Baso % (Auto) 0.0 % Neut # (Auto) 4.30 (1.8-7.7) 10^3/u L Lymph # (Auto) 0.6 L (0.8-4.8) 10^3/u L [place] # (Auto) 0.4 (0.2-0.9) 10^3/u L Eos # (Auto) 0.0 (0.0-0.8) 10^3/u L Baso # (Auto) 0.0 (0.0-0.1) 10^3/u L Nucleated RBC % (a uto) 0 % Nucleated RBCs # 0.0 /100WBC PT 13.10 (12.1-14.9) SECO NDS INR 0.96 (0.8-1.2) Fibrinogen 801 H (174-498) mg/dL D-Dimer 1.61 H (0-0.59) ug/mIFE U Specimen Type Sample Site ABG pH (7.35-7.45) ABG pCO2 (35-45) mmHg ABG pO2 (80.0-100.0) mmH g ABG HCO3 (22-26) mmol/L ABG Base Excess (-2.0-2.0) mmol/ L Manjeet Test Hematocrit (42-52) % O2 Delivery Device FiO2 % Tidal Volume PEEP cmH20 Teletypewriter Operator ID Sodium 132 L (136-145) mmol/L Potassium 5.4 H (3.5-5.1) mmol/L Chloride 96 L (98-107) mmol/L Carbon Dioxide 19 L (22-29) mmol/L Anion Gap 22.4 H (5-19) BUN 36 H (8-23) mg/dL Creatinine 2.6 H (0.7-1.2) mg/dL GFR Calculation Not Reportable Glucose 317 H (65-115) mg/dL Calculated Osmolal ity 294 (285-295) mOsm/k g Lactic Acid (0.5-2.2) mmol/L Lactic Acid (Sepsi s) (0.5-2.2) mmol/L Calcium 8.2 L (8.5-10.5) mg/dL Magnesium 2.1 (1.7-2.3) mg/dL Ferritin 1541 H (30-400) ng/mL Total Bilirubin 0.6 (0.15-1.2) mg/dL AST 46 H (0-40) U/L ALT 19 (0-41) U/L Alkaline Phosphata se 54 (40-130) IU/L Lactate Dehydrogen ase 469 H (135-225) U/L Creatine Kinase 622 H* (39-308) U/L Troponin T Baselin e (0-15) ng/L Troponin T 120 Min [place] (0-15) ng/L Delta Troponin T (0-10) ABS# C-Reactive Protein 191.0 H (0.0-4.9) mg/L NT-Pro-B Natriuret Pep 2892 H (0-450) pg/mL Total Protein 6.0 L (6.6-8.7) g/dL Albumin 3.5 (3.5-5.2) g/dL Globulin 2.5 (1.3-4.6) g/dL Procalcitonin 1.06 H (0-0.5) ng/mL Urine Color (Yellow) Urine Appearance (CLEAR) Urine pH (5-7) Ur Specific Gravit y (1.005-1.030) Urine Protein (Negative) Urine Glucose (UA) (Normal) Urine Ketones (Negative) Urine Blood (Negative) Urine Nitrate (Negative) Urine Bilirubin (Negative) Urine Urobilinogen (Negative) mg/dL Ur Leukocyte Berenice ase (Negative) Urine RBC (0-2) /hpf Urine WBC (0-5) /hpf Ur Squamous Epith Cells (0-5) /hpf Amorphous Sediment /hpf Urine Bacteria (NONE) /hpf SARS-CoV-2 Ag (Rap id) (Negative) 12/29/19 12/29/19 12/29/19 Range/Units 13:40 13:40 13:50 WBC (4.0-10.0) 10^3/ uL RBC (4.1-5.3) 10^6/u L Hgb (11.7-16.6) g/dL Hct (42.0-52.0) % MCV (80-94) fL MCH (28.0-34.0) pg MCHC (30.0-36.0) g/dL RDW (12.1-15.1) % Plt Count (130-400) 10^3/c mm MPV (7.4-10.4) fL Neut % (Auto) % Lymph % (Auto) % [place] % (Auto) % Eos % (Auto) % Baso % (Auto) % Neut # (Auto) (1.8-7.7) 10^3/u L Lymph # (Auto) (0.8-4.8) 10^3/u L [place] # (Auto) (0.2-0.9) 10^3/u L Eos # (Auto) (0.0-0.8) 10^3/u L Baso # (Auto) (0.0-0.1) 10^3/u L Nucleated RBC % (a uto) % Nucleated RBCs # /100WBC PT (12.1-14.9) SECO NDS INR (0.8-1.2) Fibrinogen (174-498) mg/dL D-Dimer (0-0.59) ug/mIFE U Specimen Type Sample Site ABG pH (7.35-7.45) ABG pCO2 (35-45) mmHg ABG pO2 (80.0-100.0) mmH g ABG HCO3 (22-26) mmol/L ABG Base Excess (-2.0-2.0) mmol/ L Manjeet Test Hematocrit (42-52) % O2 Delivery Device FiO2 % Tidal Volume PEEP cmH20 Teletypewriter Operator ID Sodium (136-145) mmol/L Potassium (3.5-5.1) mmol/L Chloride (98-107) mmol/L Carbon Dioxide (22-29) mmol/L Anion Gap (5-19) BUN (8-23) mg/dL Creatinine (0.7-1.2) mg/dL GFR Calculation Glucose (65-115) mg/dL Calculated Osmolal ity (285-295) mOsm/k g Lactic Acid 3.2 H (0.5-2.2) mmol/L Lactic Acid (Sepsi s) (0.5-2.2) mmol/L Calcium (8.5-10.5) mg/dL Magnesium (1.7-2.3) mg/dL Ferritin (30-400) ng/mL Total Bilirubin (0.15-1.2) mg/dL AST (0-40) U/L ALT (0-41) U/L Alkaline Phosphata se (40-130) IU/L Lactate Dehydrogen ase (135-225) U/L Creatine Kinase (39-308) U/L Troponin T Baselin e 129 H* (0-15) ng/L Troponin T 120 Min [place] (0-15) ng/L Delta Troponin T (0-10) ABS# C-Reactive Protein (0.0-4.9) mg/L NT-Pro-B Natriuret Pep (0-450) pg/mL Total Protein (6.6-8.7) g/dL Albumin (3.5-5.2) g/dL Globulin (1.3-4.6) g/dL Procalcitonin (0-0.5) ng/mL Urine Color (Yellow) Urine Appearance (CLEAR) Urine pH (5-7) Ur Specific Gravit y (1.005-1.030) Urine Protein (Negative) Urine Glucose (UA) (Normal) Urine Ketones (Negative) Urine Blood (Negative) Urine Nitrate (Negative) Urine Bilirubin (Negative) Urine Urobilinogen (Negative) mg/dL Ur Leukocyte Berenice ase (Negative) Urine RBC (0-2) /hpf Urine WBC (0-5) /hpf Ur Squamous Epith Cells (0-5) /hpf Amorphous Sediment /hpf Urine Bacteria (NONE) /hpf SARS-CoV-2 Ag (Rap id) Positive H (Negative) 12/29/19 12/29/19 12/29/19 Range/Units 13:50 13:52 15:52 WBC (4.0-10.0) 10^3/ uL RBC (4.1-5.3) 10^6/u L Hgb (11.7-16.6) g/dL Hct (42.0-52.0) % MCV (80-94) fL MCH (28.0-34.0) pg MCHC (30.0-36.0) g/dL RDW (12.1-15.1) % Plt Count (130-400) 10^3/c mm MPV (7.4-10.4) fL Neut % (Auto) % Lymph % (Auto) % [place] % (Auto) % Eos % (Auto) % Baso % (Auto) % Neut # (Auto) (1.8-7.7) 10^3/u L Lymph # (Auto) (0.8-4.8) 10^3/u L [place] # (Auto) (0.2-0.9) 10^3/u L Eos # (Auto) (0.0-0.8) 10^3/u L Baso # (Auto) (0.0-0.1) 10^3/u L Nucleated RBC % (a uto) % Nucleated RBCs # /100WBC PT (12.1-14.9) SECO NDS INR (0.8-1.2) Fibrinogen (174-498) mg/dL D-Dimer (0-0.59) ug/mIFE U Specimen Type Arterial Sample Site Radial, left ABG pH 7.28 L (7.35-7.45) ABG pCO2 38.7 (35-45) mmHg ABG pO2 54.6 L (80.0-100.0) mmH g ABG HCO3 18.1 L (22-26) mmol/L ABG Base Excess -8.1 L (-2.0-2.0) mmol/ L Manjeet Test Pos Hematocrit 44.1 (42-52) % O2 Delivery Device Vent FiO2 100.0 % Tidal Volume 0.55 PEEP 14.0 cmH20 Teletypewriter Operator ID Gd Sodium (136-145) mmol/L Potassium (3.5-5.1) mmol/L Chloride (98-107) mmol/L Carbon Dioxide (22-29) mmol/L Anion Gap (5-19) BUN (8-23) mg/dL Creatinine (0.7-1.2) mg/dL GFR Calculation Glucose (65-115) mg/dL Calculated Osmolal ity (285-295) mOsm/k g Lactic Acid (0.5-2.2) mmol/L Lactic Acid (Sepsi s) 3.3 H (0.5-2.2) mmol/L Calcium (8.5-10.5) mg/dL Magnesium (1.7-2.3) mg/dL Ferritin (30-400) ng/mL Total Bilirubin (0.15-1.2) mg/dL AST (0-40) U/L ALT (0-41) U/L Alkaline Phosphata se (40-130) IU/L Lactate Dehydrogen ase (135-225) U/L Creatine Kinase (39-308) U/L Troponin T Baselin e (0-15) ng/L Troponin T 120 Min [place] (0-15) ng/L Delta Troponin T (0-10) ABS# C-Reactive Protein (0.0-4.9) mg/L NT-Pro-B Natriuret Pep (0-450) pg/mL Total Protein (6.6-8.7) g/dL Albumin (3.5-5.2) g/dL Globulin (1.3-4.6) g/dL Procalcitonin (0-0.5) ng/mL Urine Color Yellow (Yellow) Urine Appearance Sl hazy (CLEAR) Urine pH 5 (5-7) Ur Specific Gravit y 1.020 (1.005-1.030) Urine Protein 1+ H (Negative) Urine Glucose (UA) 4+ H (Normal) Urine Ketones Negative (Negative) Urine Blood Neg (Negative) Urine Nitrate Negative (Negative) Urine Bilirubin 1+ H (Negative) Urine Urobilinogen Norm (Negative) mg/dL Ur Leukocyte Berenice ase Negative (Negative) Urine RBC None (0-2) /hpf Urine WBC 0-4 H (0-5) /hpf Ur Squamous Epith Cells 0-4 H (0-5) /hpf Amorphous Sediment 4+ /hpf Urine Bacteria 1+ H (NONE) /hpf SARS-CoV-2 Ag (Rap id) (Negative) 12/29/19 Range/Units 16:03 WBC (4.0-10.0) 10^3/ uL RBC (4.1-5.3) 10^6/u L Hgb (11.7-16.6) g/dL Hct (42.0-52.0) % MCV (80-94) fL MCH (28.0-34.0) pg MCHC (30.0-36.0) g/dL RDW (12.1-15.1) % Plt Count (130-400) 10^3/c mm MPV (7.4-10.4) fL Neut % (Auto) % Lymph % (Auto) % [place] % (Auto) % Eos % (Auto) % Baso % (Auto) % Neut # (Auto) (1.8-7.7) 10^3/u L Lymph # (Auto) (0.8-4.8) 10^3/u L [place] # (Auto) (0.2-0.9) 10^3/u L Eos # (Auto) (0.0-0.8) 10^3/u L Baso # (Auto) (0.0-0.1) 10^3/u L Nucleated RBC % (a uto) % Nucleated RBCs # /100WBC PT (12.1-14.9) SECO NDS INR (0.8-1.2) Fibrinogen (174-498) mg/dL D-Dimer (0-0.59) ug/mIFE U Specimen Type Sample Site ABG pH (7.35-7.45) ABG pCO2 (35-45) mmHg ABG pO2 (80.0-100.0) mmH g ABG HCO3 (22-26) mmol/L ABG Base Excess (-2.0-2.0) mmol/ L Manjeet Test Hematocrit (42-52) % O2 Delivery Device FiO2 % Tidal Volume PEEP cmH20 Teletypewriter Operator ID Sodium (136-145) mmol/L Potassium (3.5-5.1) mmol/L Chloride (98-107) mmol/L Carbon Dioxide (22-29) mmol/L Anion Gap (5-19) BUN (8-23) mg/dL Creatinine (0.7-1.2) mg/dL GFR Calculation Glucose (65-115) mg/dL Calculated Osmolal ity (285-295) mOsm/k g Lactic Acid (0.5-2.2) mmol/L Lactic Acid (Sepsi s) (0.5-2.2) mmol/L Calcium (8.5-10.5) mg/dL Magnesium (1.7-2.3) mg/dL Ferritin (30-400) ng/mL Total Bilirubin (0.15-1.2) mg/dL AST (0-40) U/L ALT (0-41) U/L Alkaline Phosphata se (40-130) IU/L Lactate Dehydrogen ase (135-225) U/L Creatine Kinase (39-308) U/L Troponin T Baselin e (0-15) ng/L Troponin T 120 Min [place] 345.6 H (0-15) ng/L Delta Troponin T 216.6 H* (0-10) ABS# C-Reactive Protein (0.0-4.9) mg/L NT-Pro-B Natriuret Pep (0-450) pg/mL Total Protein (6.6-8.7) g/dL Albumin (3.5-5.2) g/dL Globulin (1.3-4.6) g/dL Procalcitonin (0-0.5) ng/mL Urine Color (Yellow) Urine Appearance (CLEAR) Urine pH (5-7) Ur Specific Gravit y (1.005-1.030) Urine Protein (Negative) Urine Glucose (UA) (Normal) Urine Ketones (Negative) Urine Blood (Negative) Urine Nitrate (Negative) Urine Bilirubin (Negative) Urine Urobilinogen (Negative) mg/dL Ur Leukocyte Berenice ase (Negative) Urine RBC (0-2) /hpf Urine WBC (0-5) /hpf Ur Squamous Epith Cells (0-5) /hpf Amorphous Sediment /hpf Urine Bacteria (NONE) /hpf SARS-CoV-2 Ag (Rap id) (Negative) Discharge Plan Discharge Patient Disposition: Xfer Short-Term Hosp Clinical Impression: COVID-19 virus infection, Diabetes mellitus case management patient, COPD (chronic obstructive pulmonary disease), Acute respiratory failure, Hypertension, Morbid obesity, Atrial fibrillation with rapid ventricular response Condition: Stable Discharge Date/Time: 12/29/19 21:26 Coding Level of Care Code ED Process Safety Engineering Technologist for Malcolm Fwd Exam Detailed
[2019-12-29 15:47] LABS: Reflex Lactate Order REFLEX LACTIC ORDERD
--- NOTE | 2019-12-29 15:55 | ECG_ITS ---
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 Measurements Intervals [place] Rate: 132 P: VT: -1 QRS: 2 QRSD: 95 T: 28 QT: 290 QTc: 430 Interpretive Statements ATRIAL FIBRILLATION WITH RAPID VENTRICULAR RESPONSE LOW QRS VOLTAGE IN PRECORDIAL LEADS [QRS DEFLECTION < 1.0 mV IN CHEST LEADS] ABNORMAL RHYTHM ECG Compared to ECG 12/29/2019 13:40:48 Myocardial infarct finding no longer present Electronically Signed On 12-29-2019 18:03:04 CDT by Edna Valentin M.D. [id number]
[2019-12-29] MEDS: enoxaparin 80 mg/0.8 mL Syringe 150 MG SUBCUT (16:20)
[2019-12-29 16:22] LABS: Lactic Acid level (Lactate) 3.3 mmol/L (0.5-2.2)
[2019-12-29 16:58] LABS: Troponin 5 2HR 345.6 ng/L (0-15); Troponin 5 2HR Delta 216.6 ABS# (0-10)
--- NOTE | 2019-12-29 17:01 | PC.NURSE ---
Read and agree with assessment.
[2019-12-29] MEDS: sodium chloride 0.9% 1,000 ML 75 ML IV (19:31)
--- NOTE | 2019-12-29 19:55 | ECG_ITS ---
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 Measurements Intervals [place] Rate: 116 P: IN: -1 QRS: 12 QRSD: 99 T: 53 QT: 296 QTc: 412 Interpretive Statements ATRIAL FIBRILLATION WITH RAPID VENTRICULAR RESPONSE LOW QRS VOLTAGE [QRS DEFLECTION < 0.5/1.0 mV IN LIMB/CHEST LEADS] Compared to ECG 12/29/2019 15:48:57 No significant changes Electronically Signed On 12-30-2019 10:51:58 CDT by Terry Dudley M.D. [email or web address]/[id number] f
[2019-12-29] MEDS: sodium chloride 0.9% 500 ML 999 ML IV (20:07)
--- NOTE | 2019-12-29 21:21 | PC.NURSE ---
patient on arrival into room, was not sedated, orders received for sedation, after sedation medication started patient started to become hypotensive, MD stated order for levophed,, drip started patient became more stable, EMS arrived, able to take patient to [facility]
--- NOTE | 2019-12-31 08:36 | PC.NURSE ---
Skip mccormick called and informed of the preliminary blood culture results. results given to
== END 2019-12-29 21:26 | disposition short-term general hospital (02) ==
PROVIDERS: Family Medicine; Emergency Provider Emergency Medicine; PCP Family Medicine
DX: U07.1 COVID-19 (principal); E11.9 Type 2 diabetes mellitus without complications; J44.9 Chronic obstructive pulmonary disease, unspecified; J96.00 Acute respiratory failure, unspecified whether with hypoxia or hypercapnia; I10 Essential (primary) hypertension; E66.01 Morbid (severe) obesity due to excess calories; I48.20 Chronic atrial fibrillation, unspecified
CPT/HCPCS: 12345; 31500; 36600; 70450; 71045; 80053; 81001; 82550; 82728; 82803; 83605; 83615; 83735; 83880; 84145; 84484; 85025; 85378; 85384; 85610; 86140; 87040; 87070; 87205; 87426; 93005; 94002; 94799; 96365; 96366; 96367; 96368; 96375; 96376; 99284; 99291; J0330; J1100; J1650; J2250; J3010; J3490; J7030; J7040

== ENCOUNTER 2020-03-30 23:09 | Inpatient (IN) | payer MEDICARE, SELFPAY ==
[2020-03-30 23:14] VITALS: BP 114/75; PULSE 97; RESP 32; TEMP 37.6; O2SAT 94; BMI 42.3
--- NOTE | 2020-03-30 23:19 | XRR_ITS ---
PROCEDURE INFORMATION: Exam: XR Chest, 1 View Exam date and time: 03/30/2020 11:27 PM Age: 80 years old Clinical indication: Shortness of breath; Patient HX: SOB. Prior covid + history. Tracheostomy in place. TECHNIQUE: Imaging protocol: XR of the chest Views: 1 view. COMPARISON: CR XR chest 1V portable [id number] 12/29/2019 1:43 PM FINDINGS: Lungs: There is increasing airspace opacity in the right lung especially the right lower lobe and right middle lobe compared to the prior exam. There is continued but improving airspace opacity in the left lung. There is vascular congestion with cephalization of flow, interstitial edema and ground-glass opacities compatible with CHF. Pleural space: There are trace pleural effusions. Heart/Mediastinum: The heart is enlarged. There is a tracheostomy in good position. Bones/joints: No acute abnormality. XR/XR chest 1V portable [id number] IMPRESSION: 1. There is vascular congestion with cephalization of flow, interstitial edema and ground-glass opacities compatible with CHF. 2. Waxing and waning airspace opacities in the lungs.
[2020-03-30 23:23] VITALS: BP 114/75; PULSE 94; RESP 22; O2SAT 100
--- NOTE | 2020-03-30 23:30 | W.ED.SOB ---
HPI - SOB/Dyspnea General: Chief Complaint: Shortness of Breath/Dyspnea Stated Complaint: RESP DISTRESS Time Seen by Provider: 03/30/20 23:12 Source: patient and EMS Mode of arrival: EMS Limitations: no limitations History of Present Illness: HPI Narrative: 80-year-old male has history of Covid months ago and was intubated for quite a while and had a trach. Patient states that he had difficulty breathing and his trach was filled with secretions. Patient had suction on the way here and is feeling improved. He states he has had increasing dyspnea. He denies any cough or fever. Associated symptoms: Deny abdominal pain, chest pain, fever(s), nausea or vomiting Review of Systems Const: Denies: fever(s), chills, body aches or change in appetite Eyes: Denies: blurry vision or eye discomfort ENMT: Denies: throat pain or dental pain Card: Denies: chest pain Resp: Reports: dyspnea GI: Denies: abdominal pain, nausea, vomiting or diarrhea : Denies: dysuria Musc: Denies: neck pain or back pain Skin/Breast: Denies: rash Neuro: Denies: headache(s) Psych: Denies: depression Alex/Lymph: Denies: easy bruising All/Imm: Denies: urticaria PFSH ED PFSH: Medical History (Updated 03/31/20 @ 02:57 by Jj Harley MD) COPD (chronic obstructive pulmonary disease) Diabetes Hypertension Family History Other Cancer Diabetes Social History Smoking and tobacco status: never smoked Alcohol intake: never Current occupational status: unemployed and retired Financial difficulty paying for basics: Somewhat Hard Physical Exam Const: COMMON NORMALS: no acute distress, patient oriented x3 and healthy appearing HENMT: COMMON NORMALS: normocephalic and atraumatic HEAD & SCALP: normocephalic and atraumatic Eye: COMMON NORMALS: Equal, round and reactive pupils present and EOMs intact bilaterally PUPIL: Yes Equal, round and reactive pupils present Neck/C-Spine: COMMON NORMALS: full ROM and supple Chest: COMMONS NORMALS: normal inspection of the chest and normal palpation of entire chest wall Resp: COMMON NORMALS: normal respiratory effort, No retractions, No use of accessory muscles and clear to auscultation bilaterally AUSCULTATION: clear to auscultation bilaterally OTHER: Trach in place with no distress at this time. Cardio: COMMON NORMALS: regular rate, regular rhythm and No murmurs present (Cardio) RATE: regular rate RHYTHM: regular rhythm GI: COMMON NORMALS: Normal to inspection, nondistended, normoactive bowel sounds present, Soft to palpation, non-tender and no masses PALPATION: Yes Soft to palpation Extremity: COMMON NORMALS: normal to inspection and full ROM Neuro: COMMON NORMALS: patient oriented x3, moves all extremities and no focal motor deficits Psych: COMMON NORMALS: mental status grossly normal, Normal thought process present and cooperative THOUGHT PROCESS: Normal thought process present Skin: COMMON NORMALS: no rashes or lesions noted and no wounds GENERAL SKIN EXAM: no rashes or lesions noted Course Vital Signs: Vital signs: Vital Signs Temperature 100.0 F H 03/31/20 02:02 Pulse Rate 89 03/31/20 02:02 Respiratory Rate 28 H 03/31/20 02:02 Blood Pressure 103/68 03/31/20 02:02 Pulse Oximetry 94 03/31/20 02:02 MDM - SOB/Dyspnea MDM Narrative: Medical decision making narrative: Patient presents here with congestive heart failure along with acute cystitis. Patient does have a slightly elevated white count and x-ray shows congestive heart failure. Worried patient could have a pneumonia as well and he does have a cystitis. Patient had blood cultures drawn and IV antibiotics started. Patient admitted at this time and has no signs of sepsis. Lab Data: Labs: Lab Results 03/30/20 03/30/20 03/31/20 Range/Units 22:52 22:52 00:30 WBC 10.9 H (4.0-10.0) 10^3/ uL RBC 3.49 L (4.1-5.3) 10^6/u L Hgb 10.5 L (11.7-16.6) g/dL Hct 32.9 L (42.0-52.0) % MCV 94.3 H (80-94) fL MCH 30.1 (28.0-34.0) pg MCHC 31.9 (30.0-36.0) g/dL RDW 14.8 (12.1-15.1) % Plt Count 419 H (130-400) 10^3/c mm MPV 9.0 (7.4-10.4) fL Neut % (Auto) 78.6 % Lymph % (Auto) 10.4 % [place] % (Auto) 9.7 % Eos % (Auto) 0.5 % Baso % (Auto) 0.4 % Neut # (Auto) 8.58 H (1.8-7.7) 10^3/u L Lymph # (Auto) 1.1 (0.8-4.8) 10^3/u L [place] # (Auto) 1.1 H (0.2-0.9) 10^3/u L Eos # (Auto) 0.1 (0.0-0.8) 10^3/u L Baso # (Auto) 0.0 (0.0-0.1) 10^3/u L Nucleated RBC % (a uto) 0 % Nucleated RBCs # 0.0 /100WBC Sodium 137 (136-145) mmol/L Potassium 4.5 (3.5-5.1) mmol/L Chloride 103 (98-107) mmol/L Carbon Dioxide 23 (22-29) mmol/L Anion Gap 15.5 (5-19) BUN 12 (8-23) mg/dL Creatinine 0.8 (0.7-1.2) mg/dL GFR Calculation Not Reportable Glucose 174 H (65-115) mg/dL Calculated Osmolal ity 288 (285-295) mOsm/k g Calcium 8.7 (8.5-10.5) mg/dL NT-Pro-B Natriuret Pep 1185 H (0-450) pg/mL Urine Color Yellow (Yellow) Urine Appearance Cloudy A (CLEAR) Urine pH 5.0 (5-7) Ur Specific Gravit y 1.020 (1.005-1.030) Urine Protein 2+ H (Negative) Urine Glucose (UA) Norm (Normal) Urine Ketones 1+ H (Negative) Urine Blood 3+ H (Negative) Urine Nitrate Positive H (Negative) Urine Bilirubin Neg (Negative) Urine Urobilinogen 1 H (Negative) mg/dL Ur Leukocyte Berenice ase 2+ H (Negative) Urine RBC None (0-2) /hpf Urine WBC Too numerous to c nt H (0-5) /hpf Ur Squamous Epith Cells None (0-5) /hpf Amorphous Sediment Not Reportable Urine Bacteria 3+ H (NONE) /hpf Urine Yeast Trace /hpf Imaging Data^: CXR: Attestation: I personally reviewed and interpreted this imaging study as follows: Radiologist's impression: [facility] [address] [place] [address] XRay Report Signed Patient: Ming Sanchez Unit #: [id number] : 1940 Age/Sex: 80 / M ADM Date: 03/30/20 Loc: ER Room/Bed: Attending Dr: Ordering Provider/Ordering MD: Jj Harley MD Date of Service: 03/30/20 Procedure(s): XR chest 1V portable [id number] Accession Number(s): [id number] Report Number: [id number] PROCEDURE INFORMATION: Exam: XR Chest, 1 View Exam date and time: 03/30/2020 11:27 PM Age: 80 years old Clinical indication: Shortness of breath; Patient HX: SOB. Prior covid + history. Tracheostomy in place. TECHNIQUE: Imaging protocol: XR of the chest Views: 1 view. COMPARISON: CR XR chest 1V portable [id number] 12/29/2019 1:43 PM FINDINGS: Lungs: There is increasing airspace opacity in the right lung especially the right lower lobe and right middle lobe compared to the prior exam. There is continued but improving airspace opacity in the left lung. There is vascular congestion with cephalization of flow, interstitial edema and ground-glass opacities compatible with CHF. Pleural space: There are trace pleural effusions. Heart/Mediastinum: The heart is enlarged. There is a tracheostomy in good position. Bones/joints: No acute abnormality. XR/XR chest 1V portable [id number] IMPRESSION: 1. There is vascular congestion with cephalization of flow, interstitial edema and ground-glass opacities compatible with CHF. 2. Waxing and waning airspace opacities in the lungs. Discharge Plan Discharge Patient Disposition: Admitted As Inpatient Admit Provider: Mag Cain Clinical Impression: Congestive heart failure, Acute cystitis Condition: Stable Coding Level of Care Code ED Director Of Community Education for Chg Fwd Exam Comprehensive
[2020-03-30 23:36] LABS: Basophils % 0.4 %; Eosinophils # 0.1 10^3/uL (0.0-0.8); Eosinophils % 0.5 %; Hematocrit 32.9 % (42.0-52.0); Hemoglobin 10.5 g/dL (11.7-16.6); Lymphocytes # 1.1 10^3/uL (0.8-4.8); Lymphocytes % 10.4 %; Mean Corpuscular HGB Conc 31.9 g/dL (30.0-36.0); Mean Corpuscular Hemoglobin 30.1 pg (28.0-34.0); Mean Corpuscular Volume 94.3 fL (80-94); Monocytes # 1.1 10^3/uL (0.2-0.9); Monocytes % 9.7 %; Neutrophils # 8.58 10^3/uL (1.8-7.7); Neutrophils % 78.6 %; Nucleated Red Blood Cells % 0 %; Platelet Count 419 10^3/cmm (130-400); Red Blood Count 3.49 10^6/uL (4.1-5.3); Red Cell Distribution Width 14.8 % (12.1-15.1); White Blood Count 10.9 10^3/uL (4.0-10.0)
[2020-03-30 23:45] VITALS: PULSE 77; O2SAT 98
[2020-03-30 23:54] LABS: Blood Urea Nitrogen 12 mg/dL (8-23); Calcium 8.7 mg/dL (8.5-10.5); Carbon Dioxide 23 mmol/L (22-29); Chloride 103 mmol/L (98-107); Glucose 174 mg/dL (65-115); NT Pro B Type Natriuretic Pept 1185 pg/mL (0-450); Osmolality Calculated 288 mOsm/kg (285-295); Sodium 137 mmol/L (136-145)
[2020-03-31] VITALS (27 sets, daily range): BP systolic 93–169; BP diastolic 49–97; PULSE 82–106; RESP 12–30; TEMP 35.9–37.9; O2SAT 88–100
[2020-03-31 00:04] LABS: Anion Gap 15.5 (5-19); Potassium 4.5 mmol/L (3.5-5.1)
[2020-03-31] MEDS: FUROsemide 10 mg/mL SDV 4mL 40 MG IVP ×2 (00:32→18:35)
[2020-03-31 00:43] LABS: Glucose Urine UA Norm (Normal); Protein Urine 2+ (Negative); Urine Appearance Cloudy (CLEAR); Urine Color Yellow (Yellow)
[2020-03-31 00:44] LABS: Add Urine Microscopic? YES; Bilirubin Urine Neg (Negative); Blood Urine 3+ (Negative); Ketones Urine 1+ (Negative); Leukocyte Esterase Urine 2+ (Negative); Nitrate Urine Positive (Negative); Urobilinogen Urine 1 mg/dL (Negative); WBC Urine TOO NUMEROUS TO CNT /hpf (0-5)
[2020-03-31 00:45] LABS: Add Urine Culture? Yes; Bacteria Urine 3+ /hpf
[2020-03-31] MEDS: vancomycin 1,000 MG in sodium chloride 0.9% 250 ML 250 MG IV (01:46)
[2020-03-31] MEDS: aztreonam 2,000 MG in sodium chloride 0.9% (plus) 100 ML 200 MG IV (03:08)
--- NOTE | 2020-03-31 04:48 | PC.NURSE ---
NURSE NOTE: ADMISSION: PT ARRIVED TO UNIT AT 0230 TODAY. ALERT AND ORIENTED X4, MOVES ALL EXTREMITIES AND FOLLOWS COMMANDS. DENIES PAIN AT THIS TIME. 02 PER TRACHEOSTOMY /28% 02. CURRENTLY RESTING WITH EYES CLOSED; ALL VS AND ASSESSMENTS CHARTED. DENIES NEEDS AT THIS TIME.
--- NOTE | 2020-03-31 13:26 | CTR_ITS ---
PROCEDURE INFORMATION: Exam: CT Chest Without Contrast; Diagnostic Exam date and time: 03/31/2020 1:36 PM Age: 80 years old Clinical indication: Shortness of breath; Prior surgery; Surgery type: Trach; Additional info: Hypoxia, b/l chets infiltrates TECHNIQUE: Imaging protocol: Diagnostic computed tomography of the chest without contrast. Radiation optimization: All CT scans at this facility use at least one of these dose optimization techniques: automated exposure control; mA and/or kV adjustment per patient size (includes targeted exams where dose is matched to clinical indication); or iterative reconstruction. COMPARISON: CR XR chest 1V portable [id number] 03/30/2020 11:19 PM RADIATION DOSE METRICS: Total DLP (mGy-cm): 1035.16 FINDINGS: Tubes, catheters and devices: Trach tube with tip in the midthoracic trachea. Lungs: Diffuse mixed interstitial and ground-glass opacities in both lungs. No consolidation. Pleural space: Small right and trace left pleural effusions. Heart: Coronary artery calcifications. Mild cardiomegaly. Mediastinal space: Large hiatal hernia. Aorta: Unremarkable. No aortic aneurysm. Lymph nodes: Prominent mediastinal and hilar lymph nodes are most likely reactive. Gallbladder and bile ducts: Cholecystectomy. Kidneys and ureters: Perinephric stranding is most likely chronic. Bones/joints: Old healed left rib fractures. Soft tissues: Unremarkable. CT/CT chest wo con [id number] IMPRESSION: 1. Mixed interstitial and ground-glass opacities in both lungs is most likely congestive heart failure with pulmonary edema. Less likely this could represent pneumonia. 2. Small right and trace left pleural effusions. Radiation Dose CTDIVOL = (mGy): DLP = 1035.16 (mGy-cm)
--- NOTE | 2020-03-31 13:33 | P.HP_ITS ---
Providers/Chief Complaint Admitting Physician: Karen Marroquin MD Primary Care Provider: Rudi Lima MD Chief Complaint: RESP DISTRESS History of Present Illness Ming Sanchez is a 80 year old male Medications/Allergies Home Medications Medication Instructions Recorded Confirmed Last Taken Type amlodipine 10 mg tablet 10 mg PO DAILY 12/11/19 03/31/20 Unknown History atorvastatin 40 mg tablet 40 mg PO BEDTIME tab 12/11/19 03/31/20 Unknown History citalopram 20 mg tablet 20 mg PO DAILY 12/11/19 03/31/20 Unknown History enoxaparin 30 mg/0.3 mL 30 mg SUBCUT Q12H 12/11/19 03/31/20 Unknown History subcutaneous syringe fluticasone propionate 50 2 spray INTRANASAL DAILY 12/11/19 03/31/20 Unknown History mcg/actuation nasal spray,suspension furosemide 20 mg tablet 20 mg PO EVERY OTHER DAY 12/11/19 03/31/20 Unknown History insulin detemir U-100 100 unit/mL 35 unit SUBCUT BID PRN #15 ml 12/11/19 03/31/20 Unknown Rx (3 mL) subcutaneous pen insulin lispro 100 unit/mL 3 unit SUBCUT TID #10 ml 12/11/19 03/31/20 Unknown Rx subcutaneous solution loratadine 10 mg tablet 10 mg PO DAILY 12/11/19 03/31/20 Unknown History magnesium oxide 400 mg (241.3 mg 400 mg PO BEDTIME tab 12/11/19 03/31/20 Unknown History magnesium) tablet metformin 500 mg tablet 1,000 mg PO BID tab 12/11/19 03/31/20 Unknown History multivitamin 1 cap PO DAILY 12/11/19 03/31/20 Unknown History potassium chloride 20 mEq 20 meq PO EVERY OTHER DAY 12/11/19 03/31/20 Unknown History tablet,extended release(part/cryst) ropinirole 1 mg tablet 1 mg PO BEDTIME tab 12/11/19 03/31/20 Unknown History tramadol 50 mg tablet 100 mg PO BID PRN tab 12/11/19 03/31/20 Unknown History valsartan 320 1 tab PO DAILY 12/11/19 03/31/20 Unknown History mg-hydrochlorothiazide 12.5 mg tablet ondansetron HCl [Zofran] 4 mg PO Q6H PRN #10 tab 12/26/19 03/31/20 Unknown Rx apixaban [Eliquis] 5 mg PO BID 03/31/20 03/31/20 Unknown History diltiazem HCl [Cartia XT] 240 mg PO DAILY 03/31/20 03/31/20 Unknown History gabapentin 200 mg PO Q8H 03/31/20 03/31/20 Unknown History losartan 100 mg PO DAILY 03/31/20 03/31/20 Unknown History tamsulosin [Flomax] 0.4 mg PO DAILY 03/31/20 03/31/20 Unknown History Allergies Allergy/AdvReac Type Severity Reaction Status Date / Time Penicillins Allergy Unknown Verified 12/25/19 22:18 PFSH Acute PFSH: Medical History (Updated 03/31/20 @ 02:57 by Jj Harley MD) COPD (chronic obstructive pulmonary disease) Diabetes Hypertension Family History Other Cancer Diabetes Social History Smoking and tobacco status: never smoked Alcohol intake: never Current occupational status: unemployed and retired Financial difficulty paying for basics: Somewhat Hard Vitals/I&O/Wt Last Vital Signs Temp 96.8 F L 03/31/20 11:17 Pulse 94 03/31/20 11:17 Resp 12 03/31/20 11:17 BP 169/96 03/31/20 11:17 Pulse Ox 95 03/31/20 11:17 03/30/20 03/31/20 03/31/20 22:59 06:59 14:59 Intake Total 470 / 470 Output Total 1250 / 1250 Balance 470 / 470 -1250 / -1250 Weight last 48 hrs Weight 133.81 kg Data : 03/30/20 22:52 03/30/20 22:52 Micro: Microbiology 03/31/20 01:25 Blood Culture - Preliminary Blood SPECIMEN COLLECTED 03/31/20 01:20 Blood Culture - Preliminary Blood SPECIMEN COLLECTED Coding Level of Care Code Acute Minibus Driver for Malcolm Tenorio
[2020-03-31] MEDS: amlodipine 10 mg Tablet PO (14:59)
[2020-03-31] MEDS: gabapentin 100 mg Capsule 200 MG PO ×2 (14:59→21:07)
[2020-03-31] MEDS: cefepime 2,000 MG in sodium chloride 0.9% (plus) 50 ML 100 MG IV (15:29)
--- NOTE | 2020-03-31 15:35 | P.HP_ITS ---
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 Daughter stated that he had quit breathing and had to stand him up to get him to breathe, and then he coughed something up that flew across the room; the daughter saved that and gave it to the paramedics when they arrived. Daughter stated he had been coughing more than usual starting yesterday morning and had to clean his suction mask that morning because it had gooey, sticky gunk in it with red splotches that looked like blood. She reported that he been having trouble breathing all day, and later that afternoon he had a fever of 100.2 to 100.4. She was going to give him some oxygen to calm him down before suctioning him, but he started choking and that was when she called EMS. Pt was unable to give me a complete history, so I called his daughter to get more information. She said he was being [place] for [place] [facility] [place] he was flown to [facility] in [place] for COVID infection on December 28. Pt stated he was at 20% oxygen saturation at one point. Daughter reports he was then transferred to [facility] in [place], and then was transferred again to [facility] for rehab for his tracheostomy. The duration of his entire hospital stay was 3 months, where he underwent a tracheostomy, and was diagnosed with CHF. He also underwent catherization about 1 month ago due to cystitis, which lead to urinary retention. Both he and his daughter said that they had to drain 2-3 L of urine from his bladder. Pt stated his catherization required a urologist and had to be done in the ED at [facility]. He is supposed to see a urologist in [place] next month to discuss it, but his catheter has not been changed since then. Daughter reports that he also had a PEG tube inserted during his hospital stay, which was removed on March 26 before he was discharged on March 27. His daughter says that the pt is allowed to eat anything as long as it is mashed or ground up into fine pieces; she said that's how they fed him at [facility]. She also states that he will mix food with sour cream and gravy to help his food slide down his throat better. As mentioned above, he uses a suction machine at home to help him with his secretions. Daughter reports that he uses oxygen at night through a CPAP mask, the one that has a moisturizer bottle attached. She says he has oxygen for the daytime but he doesn't use it. She also reports that he has had a hydrocele for over 10 years and he has never gotten it drained. She also reports that he has had diarrhea since getting out of the hospital but that he has always had soft stools. She says he occasionally has accidents when he can't make it to the bathroom, so he wears pull up briefs. Review of Systems General: Reports: 10 or more systems reviewed and unremarkable except in HPI and below Const: Reports: fever(s); Denies: chills Card: Reports: edema, swelling of feet/ankles and orthopnea Resp: Reports: dyspnea and productive cough GI: Reports: dysphagia and other (diarrhea); Denies: abdominal pain or vomiting : Reports: difficulty urinating and scrotal swelling Medications/Allergies Home Medications Medication Instructions Recorded Confirmed Last Taken Type atorvastatin 40 mg tablet 40 mg PO BEDTIME tab 12/11/19 03/31/20 Unknown History citalopram 20 mg tablet 20 mg PO DAILY 12/11/19 03/31/20 Unknown History fluticasone propionate 50 2 spray INTRANASAL DAILY 12/11/19 03/31/20 Unknown History mcg/actuation nasal spray,suspension furosemide 20 mg tablet 20 mg PO EVERY OTHER DAY 12/11/19 03/31/20 Unknown History insulin lispro 100 unit/mL 3 unit SUBCUT TID #10 ml 12/11/19 03/31/20 Unknown Rx subcutaneous solution multivitamin 1 cap PO DAILY 12/11/19 03/31/20 Unknown History apixaban [Eliquis] 5 mg PO BID 03/31/20 03/31/20 Unknown History aspirin 81 mg PO DAILY 03/31/20 03/31/20 Unknown History calcium polycarbophil [FiberCon] 625 mg PO DAILY 03/31/20 03/31/20 Unknown History cholecalciferol (vitamin D3) 100 mcg PO DAILY 03/31/20 03/31/20 Unknown History [Vitamin D3] diltiazem HCl [Cartia XT] 240 mg PO DAILY 03/31/20 03/31/20 Unknown History famotidine 20 mg PO BID 03/31/20 03/31/20 Unknown History gabapentin 200 mg PO Q8H 03/31/20 03/31/20 Unknown History guaifenesin [Mucinex] 600 mg PO Q12H PRN 03/31/20 03/31/20 Unknown History guaifenesin [Robitussin] 200 mg PO Q6H PRN 03/31/20 03/31/20 Unknown History insulin glargine [Lantus Solostar 20 unit SUBCUT BID 03/31/20 03/31/20 Unknown History U-100 Insulin] ketotifen fumarate [Refresh Eye 1 drp OPHTHALMIC (EYE) Q8H PRN 03/31/20 03/31/20 Unknown History Itch Relief] losartan 100 mg PO DAILY 03/31/20 03/31/20 Unknown History magnesium oxide 400 mg PO BID 03/31/20 03/31/20 Unknown History potassium bicarb-citric acid 20 meq PO DAILY 03/31/20 03/31/20 Unknown History tamsulosin [Flomax] 0.4 mg PO DAILY 03/31/20 03/31/20 Unknown History thiamine HCl (vitamin B1) [Vitamin 100 mg PO DAILY 03/31/20 03/31/20 Unknown History B-1] Allergies Allergy/AdvReac Type Severity Reaction Status Date / Time Penicillins Allergy Unknown Verified 12/25/19 22:18 PFSH Acute PFSH: Medical History COPD (chronic obstructive pulmonary disease) Diabetes Hypertension Family History Other Cancer Diabetes Social History Smoking and tobacco status: never smoked Alcohol intake: never Current occupational status: unemployed and retired Financial difficulty paying for basics: Somewhat Hard Supplemental PFSH Information: Pt is taken care of by and daughter. Daughter checks on him in the mornings and after she gets off work. Vitals/I&O/Wt Last Vital Signs Temp 96.6 F L 03/31/20 14:31 Pulse 106 H 03/31/20 14:31 Resp 22 H 03/31/20 14:31 BP 156/97 03/31/20 14:31 Pulse Ox 94 03/31/20 14:31 03/31/20 03/31/20 03/31/20 06:59 14:59 22:59 Intake Total 470 / 470 Output Total 1250 / 1250 Balance 470 / 470 -1250 / -1250 Weight last 48 hrs Weight 133.81 kg Physical Exam Const: COMMON NORMALS: patient oriented x3 GENERAL APPEARANCE: cooperative, in distress and Edematous NUTRITIONAL APPEARANCE: obese HENMT: COMMON NORMALS: normocephalic, atraumatic and hearing grossly normal bilaterally HEAD & SCALP: normal to inspection NOSE: Normal external nose present, Normal nares present and Normal nasal mucous membranes and turbinates present Eye: COMMON NORMALS: Equal, round and reactive pupils present, EOMs intact bilaterally, conjunctivae normal, no scleral icterus and no papilledema GENERAL EYE: appearance normal, both eyes and all related structures and normal light reflex Resp: COMMON NORMALS: clear to auscultation bilaterally; negative for normal respiratory effort EFFORT & INSPECTION: No able to speak in complete sentences, Yes labored, Yes uses accessory muscles and Yes other (Pt will say one word, and has to take a deep breath to say the next word) AUSCULTATION: clear to auscultation bilaterally Cardio: COMMON NORMALS: regular rate, regular rhythm, S1 normal heart sound present, S2 normal heart sound present and Peripheral pulses 2+ throughout PERIPHERAL PULSES: Peripheral pulses 2+ throughout OTHER: 2+ pitting edema GI: COMMON NORMALS: Normal to inspection, nondistended, normoactive bowel sounds present, Soft to palpation, non-tender, No hepatosplenomegaly present and no masses INSPECTION: Yes normal to inspection PALPATION: Yes Soft to palpation and No Guarding due to palpation present (GI) : COMMON NORMALS: No scrotum normal and No no scrotal swelling SCROTUM: Yes erythematous and Yes scrotal swelling TESTES: Yes testicular swelling Data : 03/30/20 22:52 03/30/20 22:52 Micro: Microbiology 03/31/20 01:25 Blood Culture - Preliminary Blood SPECIMEN COLLECTED 03/31/20 01:20 Blood Culture - Preliminary Blood SPECIMEN COLLECTED Attestations Medical Necessity Statement*: Pt will need continued hospitalization until his fever resolves and will need to be evaluated for aspiration pneumonia. Coding Level of Care Code Acute Leading Firefighter for Chg Fwd Exam Detailed Documented by User: Karen Marroquin MD 03/31/20 17:28 Providers/Chief Complaint Chief Complaint: RESP DISTRESS Medications/Allergies Home Medications Medication Instructions Recorded Confirmed Last Taken Type atorvastatin 40 mg tablet 40 mg PO BEDTIME tab 12/11/19 03/31/20 Unknown History citalopram 20 mg tablet 20 mg PO DAILY 12/11/19 03/31/20 Unknown History fluticasone propionate 50 2 spray INTRANASAL DAILY 12/11/19 03/31/20 Unknown History mcg/actuation nasal spray,suspension furosemide 20 mg tablet 20 mg PO EVERY OTHER DAY 12/11/19 03/31/20 Unknown History insulin lispro 100 unit/mL 3 unit SUBCUT TID #10 ml 12/11/19 03/31/20 Unknown Rx subcutaneous solution multivitamin 1 cap PO DAILY 12/11/19 03/31/20 Unknown History apixaban [Eliquis] 5 mg PO BID 03/31/20 03/31/20 Unknown History aspirin 81 mg PO DAILY 03/31/20 03/31/20 Unknown History calcium polycarbophil [FiberCon] 625 mg PO DAILY 03/31/20 03/31/20 Unknown History cholecalciferol (vitamin D3) 100 mcg PO DAILY 03/31/20 03/31/20 Unknown History [Vitamin D3] diltiazem HCl [Cartia XT] 240 mg PO DAILY 03/31/20 03/31/20 Unknown History famotidine 20 mg PO BID 03/31/20 03/31/20 Unknown History gabapentin 200 mg PO Q8H 03/31/20 03/31/20 Unknown History guaifenesin [Mucinex] 600 mg PO Q12H PRN 03/31/20 03/31/20 Unknown History guaifenesin [Robitussin] 200 mg PO Q6H PRN 03/31/20 03/31/20 Unknown History insulin glargine [Lantus Solostar 20 unit SUBCUT BID 03/31/20 03/31/20 Unknown History U-100 Insulin] ketotifen fumarate [Refresh Eye 1 drp OPHTHALMIC (EYE) Q8H PRN 03/31/20 03/31/20 Unknown History Itch Relief] losartan 100 mg PO DAILY 03/31/20 03/31/20 Unknown History magnesium oxide 400 mg PO BID 03/31/20 03/31/20 Unknown History potassium bicarb-citric acid 20 meq PO DAILY 03/31/20 03/31/20 Unknown History tamsulosin [Flomax] 0.4 mg PO DAILY 03/31/20 03/31/20 Unknown History thiamine HCl (vitamin B1) [Vitamin 100 mg PO DAILY 03/31/20 03/31/20 Unknown History B-1] Allergies Allergy/AdvReac Type Severity Reaction Status Date / Time Penicillins Allergy Unknown Verified 12/25/19 22:18 PFSH Acute PFSH: Medical History COPD (chronic obstructive pulmonary disease) Diabetes Hypertension Family History Other Cancer Diabetes Social History Smoking and tobacco status: never smoked Alcohol intake: never Current occupational status: unemployed and retired Financial difficulty paying for basics: Somewhat Hard Data : 03/30/20 22:52 03/30/20 22:52 A&P Additional A&P Information Patient seen and examined with medical student. Agree with H&P as noted above. 80-year-old male with Covid pneumonia 3 months ago with a protracted illness course and prolonged hospitalization initially at [facility] followed by a month-long stay at [facility] rehab. Her hospital course has been complicated by respiratory failure, he is now trach dependent, had a PEG up until about Marisabel, had been started feeds in a modified GI soft consistency over the past 2 months, came in yesterday with chief complaint of choking episode noted at 8 PM by the daughter. Apparently he was eating very before this episode. He has also been noted to have low-grade fever of 100.4 earlier during the day. He has had increasing lower extremity edema orthopnea over the same timeframe. Reportedly course of admission was also complicated by what sounds like NSTEMI, following which his last known EF per the daughter is at 30%. He is on Lasix per review of home medications. States he has not missed any medications however just came home on 27 March and does not know if any recent medication changes were made at the rehab. He also is known to have complications associated with urinary retention, states that the urologist had to place a Carlson at [facility] about 2 months ago. He does not believe his catheter has been changed in the last month. UA over here is noted to be with positive leuk esterase positive nitrates and innumerable WBCs, however this has been taken from an indwelling catheter that has been in for about a month therefore may or may not correlate necessarily with a UTI. Cultures from this are expected to be polymicrobial. # fever, source under evaluation # likely aspiration PNA given history, CXR with B/L infiltrates, pre existing since 12/2019, may be residual fibrosis from COVID. Chect CT chest for better characterization supplemental 02 cefepime 2g iv q12h sputum cx, bacterial ag , flu a & B ag, speech eval PEG removed 03/26 # UA +, however from chronic Carlson ?cannot exclude UTI , will need change, requested records, reportedly placed by urologist at [facility] # CHF, systolic last known EF 30% , LE edema , lasix 40mg iv q12h # CAD continue ASA, statin # A fib, rate controlled, continue diltiazem and eliquis full code DVT ppx: eliquis Admission expected to cross >2MN Karen Marroquin MD Hospitalist Coding Level of Care Code Acute Leading Firefighter for Chg Fwd Exam Detailed
[2020-03-31 15:52] LABS: Influenza A by IFA Negative (Negative); Influenza B by IFA Negative (Negative)
[2020-03-31 17:11] LABS: Glucose Point of Care 276 mg/dL (70-110)
[2020-03-31] MEDS: apixaban 5 mg Tablet PO (18:35)
--- NOTE | 2020-03-31 20:33 | PC.NURSE ---
[facility] around trach changed using sterile technique.
[2020-03-31] MEDS: TRAMadol 50 mg Tablet 100 MG PO (21:06)
[2020-03-31] MEDS: atorvastatin 40 mg Tablet PO (21:07)
[2020-03-31] MEDS: ropinirole 1 mg Tablet PO (21:07)
[2020-03-31 21:19] LABS: Glucose Point of Care 177 mg/dL (70-110)
--- NOTE | 2020-03-31 21:56 | PC.NURSE ---
Patient is currently alert and oriented x 4. Bed alarm is set.
--- NOTE | 2020-03-31 22:13 | ECG_ITS ---
[facility] Test Date: 2020-04-01 Pat Name: Ming Sanchez Department: Room: 104 Gender: Male Vice President Of Nursing: : 1940 Requested By: Karen Marroquin Order Number: [id number] Gustavo MD: Terry Dudley M.D. Measurements Intervals [place] Rate: 86 P: 5 TN: 163 QRS: -17 QRSD: 105 T: -11 QT: 412 QTc: 494 Interpretive Statements Atrial fibrillation NONSPECIFIC T-WAVE ABNORMALITY ABNORMAL RHYTHM ECG Compared to ECG 12/29/2019 17:26:03 T-wave abnormality now present Electronically Signed On 04-01-2020 15:12:16 SQL MANAGER by Terry Dudley M.D. [email or web address] Beautyselect specialty hospitalAudigencemer[facility].[email or web address]/[id number]
[2020-04-01] VITALS (14 sets, daily range): BP systolic 83–150; BP diastolic 47–88; PULSE 74–95; RESP 18–26; TEMP 35.6–36.7; O2SAT 93–99
[2020-04-01] MEDS: cefepime 2,000 MG in sodium chloride 0.9% (plus) 50 ML 100 MG IV ×2 (02:21→14:54)
[2020-04-01 03:52] LABS: Basophils % 0.5 %; Eosinophils # 0.1 10^3/uL (0.0-0.8); Eosinophils % 0.9 %; Hematocrit 33.7 % (42.0-52.0); Hemoglobin 10.3 g/dL (11.7-16.6); Lymphocytes # 0.9 10^3/uL (0.8-4.8); Lymphocytes % 12.8 %; Mean Corpuscular HGB Conc 30.6 g/dL (30.0-36.0); Mean Corpuscular Hemoglobin 29.1 pg (28.0-34.0); Mean Corpuscular Volume 95.2 fL (80-94); Mean Platelet Volume 8.9 fL (7.4-10.4); Monocytes # 0.9 10^3/uL (0.2-0.9); Monocytes % 11.9 %; Neutrophils # 5.41 10^3/uL (1.8-7.7); Neutrophils % 73.5 %; Nucleated Red Blood Cells % 0 %; Platelet Count 369 10^3/cmm (130-400); Red Blood Count 3.54 10^6/uL (4.1-5.3); Red Cell Distribution Width 14.5 % (12.1-15.1); White Blood Count 7.4 10^3/uL (4.0-10.0)
[2020-04-01 04:20] LABS: Alanine Aminotransferase 9 U/L (0-41); Albumin Level 3.1 g/dL (3.5-5.2); Alkaline Phosphatase 67 IU/L (40-130); Aspartate Amino Transferase 8 U/L (0-40); Blood Urea Nitrogen 16 mg/dL (8-23); Calcium 8.4 mg/dL (8.5-10.5); Carbon Dioxide 27 mmol/L (22-29); Chloride 104 mmol/L (98-107); Glucose 150 mg/dL (65-115); Osmolality Calculated 294 mOsm/kg (285-295); Sodium 140 mmol/L (136-145); Total Bilirubin 0.4 mg/dL (0.15-1.2); Total Protein 6.1 g/dL (6.6-8.7)
[2020-04-01 04:25] LABS: Iron 34 ug/dL (59-158); Percent Saturation 19.3 % (20-50); Total Iron Binding Capacity 176 mcg/dl; Unsaturated Iron Binding 142 ug/dL (112-347)
[2020-04-01 04:34] LABS: Vitamin B12 761 pg/mL (232-1245)
[2020-04-01] MEDS: FUROsemide 10 mg/mL SDV 4mL 40 MG IVP ×2 (04:52→17:17)
[2020-04-01] MEDS: gabapentin 100 mg Capsule 200 MG PO ×3 (04:52→20:41)
--- NOTE | 2020-04-01 04:56 | PC.NURSE ---
[facility] around trach changed using sterile technique.
[2020-04-01 06:08] LABS: Folate Level 10.2 ng/mL (4.5-32.2)
[2020-04-01 06:50] LABS: Glucose Point of Care 133 mg/dL (70-110)
[2020-04-01] MEDS: tamsulosin 0.4 mg Capsule PO (08:45)
[2020-04-01] MEDS: losartan 50 mg Tablet 100 MG PO (08:45)
[2020-04-01] MEDS: citalopram 20 mg Tablet PO (08:46)
[2020-04-01] MEDS: dilTIAZem ER (24HR) 240 mg Capsule PO (08:46)
[2020-04-01] MEDS: amlodipine 10 mg Tablet PO (08:46)
[2020-04-01] MEDS: apixaban 5 mg Tablet PO ×2 (08:46→17:17)
[2020-04-01 11:56] LABS: Glucose Point of Care 339 mg/dL (70-110)
--- NOTE | 2020-04-01 13:20 | P.PN_ITS ---
Documented by User: ZE Knutson STDNT 04/01/20 15:37 Subjective Subjective: Interval history: Mr. Sanchez is a 80 yo male with h/o CHF, COVID pneumonia, and tracheostomy presented to ED March 30 for choking. Today he says he feels okay. He denies fever, headache, SOB, chest pain, dyspnea, nausea, vomiting, diarrhea, or abdominal pain. Dr. Marroquin discussed with patient about having a speech therapist evaluate him for swallowing function and to talk to h im about how he eats his food. Vitals/I&O/Wt Last Vital Signs Temp 96.2 F L 04/01/20 11:10 Pulse 95 04/01/20 11:10 Resp 24 H 04/01/20 11:10 BP 95/72 04/01/20 11:10 Pulse Ox 96 04/01/20 11:10 03/31/20 04/01/20 04/01/20 22:59 06:59 14:59 Intake Total 710 / 710 46.667 / 756.667 240 / 240 Output Total 1600 / 2850 1000 / 3850 Balance -890 / -2140 -953.333 / -3093.333 240 / 240 Weight last 48 hrs Weight 133.81 kg Physical Exam Const: COMMON NORMALS: no acute distress, patient oriented x3 and healthy appearing GENERAL APPEARANCE: cooperative, in distress and Edematous NUTRITIONAL APPEARANCE: obese HENMT: COMMON NORMALS: normocephalic, atraumatic, hearing grossly normal bilaterally, Normal external nose present and Normal nasal mucous membranes and turbinates present HEAD & SCALP: normal to inspection, normocephalic and atraumatic NOSE: Normal external nose present, Normal nares present and Normal nasal mucous membranes and turbinates present Eye: COMMON NORMALS: Equal, round and reactive pupils present, EOMs intact bilaterally, conjunctivae normal, no scleral icterus and no papilledema GENERAL EYE: appearance normal, both eyes and all related structures and normal light reflex CONJUNCTIVA: Yes conjunctivae normal PUPIL: Yes Equal, round and reactive pupils present DIRECT OPHTHALMOSCOPY: Yes normal light reflex and Yes no papilledema Neck/C-Spine: COMMON NORMALS: full ROM and supple Chest: COMMONS NORMALS: normal inspection of the chest and normal palpation of entire chest wall Resp: COMMON NORMALS: No retractions, No use of accessory muscles and clear to auscultation bilaterally; negative for normal respiratory effort EFFORT & INSPECTION: No able to speak in complete sentences, Yes labored, Yes uses accessory muscles and Yes other (Pt will say one word, and has to take a deep breath to say the next word) AUSCULTATION: clear to auscultation bilaterally Cardio: COMMON NORMALS: regular rate, regular rhythm, S1 normal heart sound present, S2 normal heart sound present, No murmurs present (Cardio) and Peripheral pulses 2+ throughout RATE: regular rate RHYTHM: regular rhythm HEART SOUNDS: S1 normal heart sound present and S2 normal heart sound present PERIPHERAL PULSES: Peripheral pulses 2+ throughout OTHER: 1+ pitting edema GI: COMMON NORMALS: Normal to inspection, nondistended, normoactive bowel sounds present, Soft to palpation, non-tender, No hepatosplenomegaly present and no masses INSPECTION: Yes normal to inspection PALPATION: Yes Soft to palpation, No Guarding due to palpation present (GI) and Yes No hepatosplenomegaly present : COMMON NORMALS: No scrotum normal and No no scrotal swelling SCROTUM: Yes erythematous and Yes scrotal swelling TESTES: Yes testicular swelling OTHER: Scrotal swelling has decreased from yesterday Extremity: COMMON NORMALS: normal to inspection and full ROM Neuro: COMMON NORMALS: patient oriented x3, moves all extremities and no focal motor deficits Psych: COMMON NORMALS: mental status grossly normal, Normal thought process present and cooperative THOUGHT PROCESS: Normal thought process present Skin: COMMON NORMALS: no rashes or lesions noted and no wounds GENERAL SKIN EXAM: no rashes or lesions noted Data : 04/01/20 03:30 04/01/20 03:30 Micro: Microbiology 03/31/20 01:20 Blood Culture - Preliminary Blood Coagulase negativ staphylococc 03/31/20 00:30 Urine Culture - Preliminary Urine,Clean Catch Gram Negative Rods 03/31/20 01:25 Blood Culture - Preliminary Blood NEGATIVE TO DATE 03/31/20 15:00 Bacterial Antigens - Final Urine,Clean Catch 03/31/20 15:00 Legionella Urinary Antigen - Final Urine Catheterized A&P Additional A&P Information # fever, source under evaluation #Aspiration PNA-chest CT was more consistent of CHF with pulmonary edema, less likely this is PNA Continue supplemental 02 Continue cefepime 2g iv q12h sputum cx, bacterial ag , flu a & B ag, speech eval for swallow function and adjusting dietary habits PEG removed 03/26 # UA +, however from chronic Pickering cannot exclude UTI. Chronic pickering will need to be changed, pt has appointment with his urologist in April, requested records, reportedly placed by urologist at [facility] # CHF, systolic last known EF 30% , LE edema , lasix 40mg iv q12h # CAD continue ASA, statin # A fib, rate controlled, continue diltiazem and eliquis full code DVT ppx: eliquis Attestations Medical Necessity Statement*: will need 2 more midnights Coding Level of Care Code Acute Gas Engine Operator Compressors for Chg Fwd Exam Comprehensive Documented by User: Karen Marroquin MD 04/01/20 17:06 Data : 04/01/20 03:30 04/01/20 03:30 A&P Additional A&P Information patient seen and examined with medical student. Agree with A&P as above Continue lasix 40mg iv q12h for CHF Encourage PT/OT ambulation Cefepime to continue to cover for aspiration Coding Level of Care Code Acute Gas Engine Operator Compressors for Chg Fwd Exam Comprehensive
[2020-04-01 17:23] LABS: Glucose Point of Care 318 mg/dL (70-110)
--- NOTE | 2020-04-01 17:58 | PC.NURSE ---
pickering bag not closed so leak all over floor
[2020-04-01] MEDS: ropinirole 1 mg Tablet PO (20:41)
[2020-04-01] MEDS: atorvastatin 40 mg Tablet PO (20:41)
[2020-04-01 21:10] LABS: Glucose Point of Care 228 mg/dL (70-110)
[2020-04-02] VITALS (11 sets, daily range): BP systolic 95–127; BP diastolic 60–88; PULSE 76–110; RESP 17–32; TEMP 36.3–36.8; O2SAT 91–98
[2020-04-02] MEDS: cefepime 2,000 MG in sodium chloride 0.9% (plus) 50 ML 100 MG IV ×2 (02:13→15:00)
[2020-04-02] MEDS: FUROsemide 10 mg/mL SDV 4mL 40 MG IVP (04:35)
[2020-04-02] MEDS: gabapentin 100 mg Capsule 200 MG PO ×3 (04:35→21:38)
[2020-04-02 04:43] LABS: Basophils % 0.3 %; Eosinophils # 0.1 10^3/uL (0.0-0.8); Eosinophils % 1.1 %; Hematocrit 34.3 % (42.0-52.0); Hemoglobin 10.5 g/dL (11.7-16.6); Lymphocytes # 0.8 10^3/uL (0.8-4.8); Lymphocytes % 12.5 %; Mean Corpuscular HGB Conc 30.6 g/dL (30.0-36.0); Mean Corpuscular Hemoglobin 29.1 pg (28.0-34.0); Mean Platelet Volume 8.8 fL (7.4-10.4); Monocytes # 0.7 10^3/uL (0.2-0.9); Monocytes % 11.1 %; Neutrophils # 4.64 10^3/uL (1.8-7.7); Neutrophils % 74.4 %; Nucleated Red Blood Cells % 0 %; Platelet Count 342 10^3/cmm (130-400); Red Blood Count 3.61 10^6/uL (4.1-5.3); Red Cell Distribution Width 14.4 % (12.1-15.1); White Blood Count 6.2 10^3/uL (4.0-10.0)
[2020-04-02 05:16] LABS: Alanine Aminotransferase 8 U/L (0-41); Alkaline Phosphatase 59 IU/L (40-130); Anion Gap 13.8 (5-19); Aspartate Amino Transferase 8 U/L (0-40); Blood Urea Nitrogen 20 mg/dL (8-23); Calcium 8.5 mg/dL (8.5-10.5); Carbon Dioxide 26 mmol/L (22-29); Chloride 104 mmol/L (98-107); Globulin 2.9 g/dL (1.3-4.6); Glucose 167 mg/dL (65-115); Osmolality Calculated 296 mOsm/kg (285-295); Potassium 3.8 mmol/L (3.5-5.1); Sodium 140 mmol/L (136-145); Total Bilirubin 0.4 mg/dL (0.15-1.2); Total Protein 5.9 g/dL (6.6-8.7)
[2020-04-02 06:56] LABS: Glucose Point of Care 159 mg/dL (70-110)
[2020-04-02] MEDS: tamsulosin 0.4 mg Capsule PO (09:14)
[2020-04-02] MEDS: apixaban 5 mg Tablet PO ×2 (09:15→17:22)
[2020-04-02] MEDS: losartan 50 mg Tablet 100 MG PO (09:15)
[2020-04-02] MEDS: dilTIAZem ER (24HR) 240 mg Capsule PO (09:15)
[2020-04-02] MEDS: citalopram 20 mg Tablet PO (09:15)
[2020-04-02 12:11] LABS: Glucose Point of Care 320 mg/dL (70-110)
--- NOTE | 2020-04-02 13:54 | PM.PN ---
Subjective Subjective: Interval history: Patient states feeling better, however objectively he is now on 10 L/min supplemental O2. He is noted to be suctioning intermittently. He is afebrile, hemodynamically stable. No acute events on telemetry. Medications: Reviewed: Yes Vitals/I&O/Wt Last Vital Signs Temp 97.4 F L 04/02/20 08:00 Pulse 110 H 04/02/20 08:00 Resp 22 H 04/02/20 08:00 BP 95/62 04/02/20 09:15 Pulse Ox 94 04/02/20 08:00 04/01/20 04/02/20 04/02/20 22:59 06:59 14:59 Intake Total 50 / 650 480 / 480 Output Total 450 / 450 800 / 1250 Balance -400 / 200 -800 / -600 480 / 480 Weight last 48 hrs Weight 134.263 kg Physical Exam Narrative: EXAM NARRATIVE: GEN: Awake, alert and oriented, no acute distress CVS: S1S2 N RS: CTA B/L except crackles over RUL Abd: Soft, nt/nd , bs+ STAFF RADIATION THERAPIST: no focal neuro deficits Data : 04/02/20 04:20 04/02/20 04:20 Micro: Microbiology 03/31/20 00:30 Urine Culture - Final Urine,Clean Catch Pseudomonas aeruginosa 03/31/20 01:20 Blood Culture - Preliminary Blood Coagulase negativ staphylococc A&P Additional A&P Information # fever, now resolved Likely secondary to aspiration pneumonia versus UTI from chronic suprapubic catheter. Urine culture growing Pseudomonas aeruginosa, which is currently appropriately covered with cefepime. Cefepime also additionally following for possible aspiration pneumonia, will add Flagyl at this time given increased oxygen requirement, will do believe this is secondary to needing aggressive pulmonary toilet. Underwent swallow evaluation, appreciate recommendations. Blood culture from admission showing coagulase-negative staph, likely to be a contaminant. Bacterial antigen panel and urine Legionella antigen negative. MRSA screen unable to be obtained as the analyzer is currently not working. #Aspiration PNA-chest CT was more consistent of CHF with pulmonary edema, less likely this is PNA Continue supplemental 02 Continue cefepime 2g iv q12h # UA +, however from chronic Pickering cannot exclude UTI. Chronic pickering will need to be changed, pt has appointment with his urologist in April, requested records, reportedly placed by urologist at [facility]. Unable to obtain changing of the suprapubic catheter right now as Dr. Navarro is presently away. Will defer this to as an outpatient. # CHF, systolic last known EF 30% , LE edema , lasix 40mg iv q12h, changed to 60 mg p.o. every 12 hours today. # CAD continue ASA, statin # A fib, rate controlled, continue diltiazem and eliquis Attestations Medical Necessity Statement*: Need for ongoing diuresis, change IV Lasix to oral and monitor for response, likely discharge in the upcoming 24 to 48 hours. Coding Level of Care Code Acute Metal Engraver for Malcolm Tenorio
[2020-04-02 17:02] LABS: Glucose Point of Care 151 mg/dL (70-110)
[2020-04-02] MEDS: TRAMadol 50 mg Tablet 100 MG PO (17:22)
[2020-04-02] MEDS: FUROsemide 40 mg Tablet 60 MG PO (17:23)
[2020-04-02] MEDS: metroNIDAZOLE 500 MG Tablet PO (17:23)
[2020-04-02 20:27] LABS: Glucose Point of Care 201 mg/dL (70-110)
[2020-04-02] MEDS: ropinirole 1 mg Tablet PO (21:38)
[2020-04-02] MEDS: atorvastatin 40 mg Tablet PO (21:38)
[2020-04-03] VITALS (11 sets, daily range): BP systolic 90–114; BP diastolic 49–93; PULSE 72–111; RESP 16–30; TEMP 36.6–36.7; O2SAT 93–100
[2020-04-03] MEDS: cefepime 2,000 MG in sodium chloride 0.9% (plus) 50 ML 100 MG IV ×2 (01:23→18:18)
--- NOTE | 2020-04-03 01:51 | PC.NURSE ---
PT IS RESTING IN BED. PT DENIES PAIN. SUCTION DONE. WILL CONTINUE TO MONITOR.
--- NOTE | 2020-04-03 04:29 | PC.NURSE ---
PT HAD AN UNEVENTFUL NIGHT. PT DENIES PAIN. WILL CONTINUE TO MONITOR.
[2020-04-03 04:32] LABS: Basophils % 0.5 %; Eosinophils # 0.1 10^3/uL (0.0-0.8); Eosinophils % 1.1 %; Hematocrit 34.3 % (42.0-52.0); Hemoglobin 10.7 g/dL (11.7-16.6); Lymphocytes # 0.9 10^3/uL (0.8-4.8); Lymphocytes % 15.1 %; Mean Corpuscular HGB Conc 31.2 g/dL (30.0-36.0); Mean Corpuscular Hemoglobin 29.8 pg (28.0-34.0); Mean Corpuscular Volume 95.5 fL (80-94); Mean Platelet Volume 9.1 fL (7.4-10.4); Monocytes # 0.8 10^3/uL (0.2-0.9); Monocytes % 12.7 %; Neutrophils # 4.31 10^3/uL (1.8-7.7); Neutrophils % 70.1 %; Nucleated Red Blood Cells % 0 %; Platelet Count 356 10^3/cmm (130-400); Red Blood Count 3.59 10^6/uL (4.1-5.3); Red Cell Distribution Width 14.4 % (12.1-15.1); White Blood Count 6.2 10^3/uL (4.0-10.0)
[2020-04-03 05:18] LABS: Alanine Aminotransferase 7 U/L (0-41); Alkaline Phosphatase 58 IU/L (40-130); Anion Gap 11.7 (5-19); Aspartate Amino Transferase 7 U/L (0-40); Blood Urea Nitrogen 24 mg/dL (8-23); Calcium 8.4 mg/dL (8.5-10.5); Carbon Dioxide 28 mmol/L (22-29); Chloride 103 mmol/L (98-107); Globulin 2.9 g/dL (1.3-4.6); Glucose 176 mg/dL (65-115); Osmolality Calculated 296 mOsm/kg (285-295); Potassium 3.7 mmol/L (3.5-5.1); Sodium 139 mmol/L (136-145); Total Bilirubin 0.3 mg/dL (0.15-1.2); Total Protein 5.9 g/dL (6.6-8.7)
[2020-04-03] MEDS: gabapentin 100 mg Capsule 200 MG PO ×3 (05:43→21:11)
[2020-04-03 06:43] LABS: Glucose Point of Care 187 mg/dL (70-110)
[2020-04-03] MEDS: losartan 50 mg Tablet 100 MG PO (08:23)
[2020-04-03] MEDS: citalopram 20 mg Tablet PO (08:24)
[2020-04-03] MEDS: dilTIAZem ER (24HR) 240 mg Capsule PO (08:24)
[2020-04-03] MEDS: amlodipine 10 mg Tablet PO (08:24)
[2020-04-03] MEDS: metroNIDAZOLE 500 MG Tablet PO ×2 (08:24→18:14)
[2020-04-03] MEDS: FUROsemide 40 mg Tablet 60 MG PO ×2 (08:24→18:00)
[2020-04-03] MEDS: tamsulosin 0.4 mg Capsule PO (08:24)
[2020-04-03] MEDS: apixaban 5 mg Tablet PO ×2 (08:24→18:17)
--- NOTE | 2020-04-03 09:32 | PC.SOCIAL ---
IM reviewed with patient and he verbalized understanding. States when I am discharged will be ready to go . No questions.
--- NOTE | 2020-04-03 10:40 | XRR_ITS ---
PROCEDURE INFORMATION: Exam: XR Chest, 1 View Exam date and time: 04/03/2020 10:41 AM Age: 80 years old Clinical indication: Shortness of breath; Additional info: Follow up infiltrates TECHNIQUE: Imaging protocol: XR of the chest Views: 1 view. COMPARISON: CT chest con [id number] 03/31/2020 7:57 PM FINDINGS: Lungs: The lung volumes are low. There is patchy lung opacification which has improved in the interval. Pleural space: Unremarkable. No pleural effusion. No pneumothorax. Heart/Mediastinum: There is a tracheostomy. Cardiomegaly is identified. Bones/joints: Unremarkable. XR/XR chest 1V portable [id number] IMPRESSION: There is patchy lung opacification which has improved when compared with 03/30/20
[2020-04-03 11:53] LABS: Glucose Point of Care 235 mg/dL (70-110)
--- NOTE | 2020-04-03 13:50 | PC.NURSE ---
Patient's son has arrived. Discussed concerns that patient has about going home and if son's friend will be able to help. Son states friend will probably have to work. Informed son that patient needed to people to assist her to BSC and back to bed. Patient and son were previously offered opportunity for patient to be referred to SNF for rehhab. They want to reconsider this option. I called the physician regarding their request for patient to go to SNF.
[2020-04-03] MEDS: vancomycin 1,500 MG/300 ML PIGGYBACK 200 MG IV (14:05)
--- NOTE | 2020-04-03 16:23 | PM.PN ---
Subjective Subjective: Interval history: Oxygen requirement up at 10 L/min today, however patient appears to be comfortable overall. Afebrile, hemodynamically stable MRSA PCR from nares returned positive today. Urine output at 1.1 L today net -3.5 L since admission Medications: Reviewed: Yes Vitals/I&O/Wt Last Vital Signs Temp 98.0 F 04/03/20 08:00 Pulse 82 04/03/20 14:00 Resp 20 H 04/03/20 14:00 BP 97/49 04/03/20 14:00 Pulse Ox 93 04/03/20 14:00 04/03/20 04/03/20 04/03/20 06:59 14:59 22:59 Intake Total 50 / 1180 720 / 720 Output Total 800 / 2270 Balance -750 / -1090 720 / 720 Weight last 48 hrs Weight 126.099 kg Weight 134.263 kg Physical Exam Narrative: EXAM NARRATIVE: GEN: Awake, alert and oriented, no acute distress CVS: S1S2 N RS: Bilateral coarse conducted sounds to auscultation Abd: Soft, nt/nd , bs+ 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 Urine culture growing Pseudomonas aeruginosa, which is currently appropriately covered with cefepime. Cefepime also additionally following for possible aspiration pneumonia, will add Flagyl at this time given increased oxygen requirement, will do believe this is secondary to needing aggressive pulmonary toilet. MRSA nasal PCR test returned positive today, vancomycin added given increasing oxygen requirements Underwent swallow evaluation, appreciate recommendations. Blood culture from admission showing coagulase-negative staph, likely to be a contaminant. Bacterial antigen panel and urine Legionella antigen negative. #Aspiration PNA-chest CT was more consistent of CHF with pulmonary edema, less likely this is PNA Continue supplemental 02 Continue cefepime 2g iv q12h # UA +, however from chronic Pickering cannot exclude UTI. Chronic pickering will need to be changed, pt has appointment with his urologist in April, requested records, reportedly placed by urologist at [facility]. Unable to obtain changing of the suprapubic catheter right now as Dr. Navarro is presently away. Will defer this to as an outpatient. # CHF, systolic last known EF 30% , LE edema , lasix 40mg iv q12h, changed to 60 mg p.o. every 12 hours. Continue to monitor urine output and daily weight # CAD continue ASA, statin # A fib, rate controlled, continue diltiazem and eliquis Dispo plan for discharge back to home with home health Attestations Medical Necessity Statement*: Addition of vancomycin given MRSA nares positive, increasing oxygen requirement Coding Level of Care Code Acute Eligibility Examiner for Malcolm Tenorio
[2020-04-03 17:06] LABS: Glucose Point of Care 244 mg/dL (70-110)
[2020-04-03 20:50] LABS: Glucose Point of Care 287 mg/dL (70-110)
[2020-04-03] MEDS: atorvastatin 40 mg Tablet PO (21:11)
[2020-04-03] MEDS: ropinirole 1 mg Tablet PO (21:11)
[2020-04-04] VITALS (12 sets, daily range): BP systolic 105–137; BP diastolic 50–91; PULSE 70–98; RESP 18–24; TEMP 36.1–36.8; O2SAT 92–98
[2020-04-04] MEDS: cefepime 2,000 MG in sodium chloride 0.9% (plus) 50 ML 100 MG IV ×2 (02:18→14:53)
--- NOTE | 2020-04-04 04:14 | PC.NURSE ---
PT HAD AN UNEVENTFUL NIGHT. PT DENIES PAIN. WILL CONTINUE TO MONITOR.
[2020-04-04 06:24] LABS: Glucose Point of Care 187 mg/dL (70-110)
[2020-04-04] MEDS: gabapentin 100 mg Capsule 200 MG PO ×3 (06:33→21:11)
--- NOTE | 2020-04-04 07:20 | PC.NURSE ---
patient resting in bed. patient dirty and cleaned up. new linens placed and daya care done.
[2020-04-04] MEDS: vancomycin 1,500 MG/300 ML PIGGYBACK 200 MG IV (07:59)
[2020-04-04] MEDS: FUROsemide 40 mg Tablet 60 MG PO (07:59)
[2020-04-04] MEDS: metroNIDAZOLE 500 MG Tablet PO ×2 (08:00→17:26)
[2020-04-04] MEDS: apixaban 5 mg Tablet PO ×2 (08:00→17:26)
[2020-04-04] MEDS: amlodipine 10 mg Tablet PO (08:00)
[2020-04-04] MEDS: losartan 50 mg Tablet 100 MG PO (08:00)
[2020-04-04] MEDS: citalopram 20 mg Tablet PO (08:00)
[2020-04-04] MEDS: dilTIAZem ER (24HR) 240 mg Capsule PO (08:00)
[2020-04-04] MEDS: tamsulosin 0.4 mg Capsule PO (08:00)
--- NOTE | 2020-04-04 08:30 | PC.NURSE ---
patient worked with physical therapy and had several accidents of loose bowel movement. patient was cleaned up each time. patient resting in the chair at this time.
[2020-04-04 11:51] LABS: Glucose Point of Care 272 mg/dL (70-110)
[2020-04-04] MEDS: FUROsemide 10 mg/mL SDV 4mL 40 MG IVP (16:43)
--- NOTE | 2020-04-04 17:06 | PC.NURSE ---
patient resting on the side of the bed with family at bedside. patient is sitting up to eat dinner. call light and table within reach.
--- NOTE | 2020-04-04 17:24 | PM.PN ---
Subjective Subjective: Interval history: 02 requirements incrased to 12lpm on HAG, increased LE swelling today, afebrile, urine output 1.4L . reports multipel episodes of diarrhea overnight and since this am Medications: Reviewed: Yes Vitals/I&O/Wt Last Vital Signs Temp 97.0 F L 04/04/20 08:00 Pulse 80 04/04/20 16:10 Resp 18 04/04/20 16:10 BP 110/67 04/04/20 13:20 Pulse Ox 94 04/04/20 16:10 04/04/20 04/04/20 04/04/20 06:59 14:59 22:59 Intake Total 50 / 1580 780 / 780 Output Total 800 / 800 Balance 50 / 920 -20 / -20 Weight last 48 hrs Weight 126.734 kg Weight 126.099 kg Physical Exam Narrative: EXAM NARRATIVE: GEN: Awake, alert and oriented, no acute distress HEENT: copious secretions at trach site CVS: S1S2 N RS: Bilateral coarse conducted sounds to auscultation Abd: Soft, nt/nd , bs+ 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 Urine culture growing Pseudomonas aeruginosa, which is currently appropriately covered with cefepime. Cefepime also additionally following for possible aspiration pneumonia, will add Flagyl at this time given increased oxygen requirement, will do believe this is secondary to needing aggressive pulmonary toilet. MRSA nasal PCR test returned positive, vancomycin added given increasing oxygen requirements Underwent swallow evaluation, appreciate recommendations. suspect ongoing aspiration, modified ba swallow ordered Blood culture from admission showing coagulase-negative staph, likely to be a contaminant. Bacterial antigen panel and urine Legionella antigen negative. #Aspiration PNA-chest CT was more consistent of CHF with pulmonary edema, less likely this is PNA Continue supplemental 02 Continue cefepime 2g iv q12h,flagyl and vancomycin improving CXR but incraesing 02 requirements ,check procal # UA +, however from chronic Pickering cannot exclude UTI. Chronic pickering will need to be changed, pt has appointment with his urologist in April, requested records, reportedly placed by urologist at [facility]. Unable to obtain changing of the suprapubic catheter right now as Dr. Navarro is presently away. Will defer this to as an outpatient. # CHF, systolic last known EF 30% , LE edema , lasix 40mg iv q12h, changed to 60 mg p.o. every 12 hours, however now with incrased swelling, change to iv lasix 40mg iv q12h Continue to monitor urine output and daily weight records requested from [facility] [place], awaited # CAD continue ASA, statin # A fib, rate controlled, continue diltiazem and eliquis Dispo plan for discharge back to home with home health Attestations Medical Necessity Statement*: increasing 02 requirements, incrased swelling , needs iv diuresis, swallow studies Coding Level of Care Code Acute Customer Care Coordinator for Malcolm Tenorio
[2020-04-04 18:11] LABS: Glucose Point of Care 368 mg/dL (70-110)
[2020-04-04] MEDS: atorvastatin 40 mg Tablet PO (21:11)
[2020-04-04] MEDS: ropinirole 1 mg Tablet PO (21:11)
[2020-04-04 21:15] LABS: Glucose Point of Care 284 mg/dL (70-110)
--- NOTE | 2020-04-04 21:25 | PC.NURSE ---
PT RESTING IN BED. RT SUCTIONED PT. PT WAS REPOSITIONED. PT DENIES PAIN. WILL CONTINUE TO MONITOR.
[2020-04-05] VITALS (17 sets, daily range): BP systolic 100–122; BP diastolic 52–70; PULSE 77–93; RESP 12–32; TEMP 36.3–36.6; O2SAT 95–99
[2020-04-05] MEDS: vancomycin 1,500 MG/300 ML PIGGYBACK 200 MG IV ×2 (00:26→19:39)
--- NOTE | 2020-04-05 00:30 | PC.RESP ---
0010: PT called stating he was having trouble breathing. Suctioned pt's trach twice producing a fair amount of yellow/pink tinged sputum. Pt still complained of shortness of breath, breath sounds were wheezy. Albuterol neb given. Wheezing cleared up and pt stated he felt better. Pt now has albuterol tx prn. Pt is resting quietly will continue to monitor.
[2020-04-05] MEDS: ipratropium-albuterol 3 mL Neb INHALATION ×2 (00:35→09:35)
[2020-04-05] MEDS: cefepime 2,000 MG in sodium chloride 0.9% (plus) 50 ML 100 MG IV ×2 (02:50→15:41)
[2020-04-05] MEDS: FUROsemide 10 mg/mL SDV 4mL 40 MG IVP ×2 (04:13→15:41)
[2020-04-05 04:41] LABS: Basophils # 0.1 10^3/uL (0.0-0.1); Basophils % 0.8 %; Eosinophils # 0.1 10^3/uL (0.0-0.8); Eosinophils % 1.2 %; Hematocrit 33.4 % (42.0-52.0); Lymphocytes # 1.1 10^3/uL (0.8-4.8); Lymphocytes % 14.2 %; Mean Corpuscular HGB Conc 29.9 g/dL (30.0-36.0); Mean Corpuscular Hemoglobin 29.2 pg (28.0-34.0); Mean Corpuscular Volume 97.4 fL (80-94); Mean Platelet Volume 8.9 fL (7.4-10.4); Monocytes # 0.7 10^3/uL (0.2-0.9); Monocytes % 9.5 %; Neutrophils % 73.9 %; Nucleated Red Blood Cells % 0 %; Platelet Count 320 10^3/cmm (130-400); Red Blood Count 3.43 10^6/uL (4.1-5.3); Red Cell Distribution Width 14.3 % (12.1-15.1); White Blood Count 7.6 10^3/uL (4.0-10.0)
--- NOTE | 2020-04-05 05:07 | PC.NURSE ---
PT HAD AN EPISODE LAST NIGHT. PT KEPT COUGHING AND FELT LIKE HE COULDN'T CATCH HIS BREATH. RT CAME AND SUCTIONED PT. PT O2 STATS REMAINED ABOVE 90%. AFTER PT CALMED DOWN STATS WERE ABOVE 95%. WILL CONTINUE TO MONITOR.
[2020-04-05 05:20] LABS: Procalcitonin 0.32 ng/mL (0-0.5)
[2020-04-05 05:31] LABS: Alanine Aminotransferase 6 U/L (0-41); Alkaline Phosphatase 54 IU/L (40-130); Anion Gap 15.4 (5-19); Aspartate Amino Transferase 8 U/L (0-40); Blood Urea Nitrogen 18 mg/dL (8-23); Calcium 8.5 mg/dL (8.5-10.5); Carbon Dioxide 23 mmol/L (22-29); Chloride 104 mmol/L (98-107); Globulin 2.7 g/dL (1.3-4.6); Glucose 154 mg/dL (65-115); Osmolality Calculated 293 mOsm/kg (285-295); Potassium 3.4 mmol/L (3.5-5.1); Sodium 139 mmol/L (136-145); Total Bilirubin 0.3 mg/dL (0.15-1.2); Total Protein 5.7 g/dL (6.6-8.7)
[2020-04-05] MEDS: gabapentin 100 mg Capsule 200 MG PO ×3 (05:50→21:17)
[2020-04-05 06:43] LABS: Glucose Point of Care 171 mg/dL (70-110)
--- NOTE | 2020-04-05 07:21 | PC.RESP ---
0030: Pt had an episode of shortness of breath and harsh coughing. Pt was suctioned twice with a large amount of yellow secretions present. Pt still complained of shortness of breath, breath sounds were wheezy throughout. Received order from Dr. Cain to give duoneb Q6prn. Pt's breath sounds cleared up and pt stated he felt better. Will continue to monitor.
[2020-04-05] MEDS: apixaban 5 mg Tablet PO ×2 (08:42→17:09)
[2020-04-05] MEDS: metroNIDAZOLE 500 MG Tablet PO ×2 (08:42→17:09)
[2020-04-05] MEDS: citalopram 20 mg Tablet PO (08:43)
[2020-04-05] MEDS: tamsulosin 0.4 mg Capsule PO (08:43)
[2020-04-05] MEDS: dilTIAZem ER (24HR) 240 mg Capsule PO (08:43)
[2020-04-05] MEDS: losartan 50 mg Tablet 100 MG PO (08:44)
[2020-04-05] MEDS: amlodipine 10 mg Tablet PO (08:44)
[2020-04-05 12:02] LABS: Glucose Point of Care 297 mg/dL (70-110)
--- NOTE | 2020-04-05 13:44 | PM.PN ---
Documented by User: ZE Knutson STDNT 04/05/20 14:07 Subjective Subjective: Interval history: Mr. Sanchez is a 80 yo male who presented March 30 for respiratory distress secondary to choking. Today he noted that he was having trouble breathing at 4am this morning; he said that he felt like he couldn't breathe. One of the nurses told me that the night worker nurse had found a mucus plug in his trach, but his oxygen saturation had stayed the same the entire time. When I was in the room, some white mucus came out of his trach. He has no other complaints at this time. Medications: Reviewed: Yes Vitals/I&O/Wt Last Vital Signs Temp 97.4 F L 04/05/20 08:00 Pulse 84 04/05/20 09:39 Resp 20 H 04/05/20 09:35 BP 109/68 04/05/20 08:44 Pulse Ox 98 04/05/20 09:35 04/04/20 04/05/20 04/05/20 22:59 06:59 14:59 Intake Total 340 / 1120 50 / 1170 240 / 240 Output Total 950 / 1750 1600 / 3350 775 / 775 Balance -610 / -630 -1550 / -2180 -535 / -535 Weight last 48 hrs Weight 126.552 kg Weight 126.734 kg Physical Exam Narrative: EXAM NARRATIVE: GEN: Awake, alert and oriented, no acute distress HEENT: copious secretions at trach site CVS: S1S2 N RS: Bilateral coarse conducted sounds to auscultation Abd: Soft, nt/nd , bs+ 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 Const: COMMON NORMALS: patient oriented x3 GENERAL APPEARANCE: cooperative and in distress NUTRITIONAL APPEARANCE: obese ORIENTATION/CONSCIOUSNESS: Yes awake, Yes oriented to person, Yes oriented to place and Yes oriented to time HENMT: COMMON NORMALS: normocephalic, atraumatic, hearing grossly normal bilaterally, Normal external nose present and Normal nasal mucous membranes and turbinates present HEAD & SCALP: normal to inspection, normocephalic and atraumatic NOSE: Normal external nose present, Normal nares present and Normal nasal mucous membranes and turbinates present Eye: COMMON NORMALS: Equal, round and reactive pupils present, EOMs intact bilaterally, conjunctivae normal, no scleral icterus and no papilledema GENERAL EYE: appearance normal, both eyes and all related structures and normal light reflex CONJUNCTIVA: Yes conjunctivae normal PUPIL: Yes Equal, round and reactive pupils present DIRECT OPHTHALMOSCOPY: Yes normal light reflex and Yes no papilledema Neck/C-Spine: COMMON NORMALS: full ROM and supple Chest: COMMONS NORMALS: normal inspection of the chest and normal palpation of entire chest wall Resp: COMMON NORMALS: No retractions, No use of accessory muscles and clear to auscultation bilaterally; negative for normal respiratory effort EFFORT & INSPECTION: No able to speak in complete sentences, Yes labored, Yes uses accessory muscles and Yes other (Pt will say one word, and has to take a deep breath to say the next word) AUSCULTATION: clear to auscultation bilaterally Cardio: COMMON NORMALS: regular rate, regular rhythm, S1 normal heart sound present, S2 normal heart sound present, No murmurs present (Cardio) and Peripheral pulses 2+ throughout RATE: regular rate RHYTHM: regular rhythm HEART SOUNDS: S1 normal heart sound present and S2 normal heart sound present PERIPHERAL PULSES: Peripheral pulses 2+ throughout OTHER: 1+ pitting edema GI: COMMON NORMALS: Normal to inspection, nondistended, normoactive bowel sounds present, Soft to palpation, non-tender, No hepatosplenomegaly present and no masses INSPECTION: Yes normal to inspection PALPATION: Yes Soft to palpation, No Guarding due to palpation present (GI) and Yes No hepatosplenomegaly present : COMMON NORMALS: No scrotum normal and No no scrotal swelling SCROTUM: Yes erythematous and Yes scrotal swelling TESTES: Yes testicular swelling OTHER: Scrotal swelling has decreased from yesterday Extremity: COMMON NORMALS: normal to inspection and full ROM Neuro: COMMON NORMALS: patient oriented x3, moves all extremities and no focal motor deficits SENSORIUM/ORIENTATION: Yes oriented to person, Yes oriented to place and Yes oriented to time Psych: COMMON NORMALS: mental status grossly normal, Normal thought process present and cooperative THOUGHT PROCESS: Normal thought process present Skin: COMMON NORMALS: no rashes or lesions noted and no wounds GENERAL SKIN EXAM: no rashes or lesions noted Urinary Catheter Management^: Pickering: Cath Placed During This Visit: no Reason for Continuing Indwelling Catheter: Acute Urinary Retention or Obstruction Data : 04/05/20 04:32 04/05/20 04:32 Micro: Microbiology 03/31/20 01:25 Blood Culture - Final Blood NO GROWTH AFTER 5 DAYS A&P Additional A&P Information # fever, now resolved Likely secondary to aspiration pneumonia versus UTI from chronic suprapubic catheter. Urine culture growing Pseudomonas aeruginosa, which is currently appropriately covered with cefepime. Cefepime also additionally following for possible aspiration pneumonia, will add Flagyl at this time given increased oxygen requirement, will do believe this is secondary to needing aggressive pulmonary toilet. MRSA nasal PCR test returned positive, vancomycin added given increasing oxygen requirements Underwent swallow evaluation, appreciate recommendations. suspect ongoing aspiration, modified ba swallow ordered Blood culture from admission showing coagulase-negative staph, likely to be a contaminant. Bacterial antigen panel and urine Legionella antigen negative. #Aspiration PNA-chest CT was more consistent of CHF with pulmonary edema, less likely this is PNA Continue supplemental 02 Continue cefepime 2g iv q12h,flagyl and vancomycin improving CXR but incraesing 02 requirements ,check procal Will consult seed yeast operator about recurrent mucus plugs and trach. # UA +, however from chronic Pickering cannot exclude UTI. Chronic pickering will need to be changed, pt has appointment with his urologist in April, requested records, reportedly placed by urologist at [facility]. Unable to obtain changing of the suprapubic catheter right now as Dr. Navarro is presently away. Will defer this to as an outpatient. # CHF, systolic last known EF 30% , LE edema , lasix 40mg iv q12h, changed to 60 mg p.o. every 12 hours, however now with incrased swelling, change to iv lasix 40mg iv q12h Continue to monitor urine output and daily weight records requested from [facility], awaited # CAD continue ASA, statin # A fib, rate controlled, continue diltiazem and eliquis Dispo plan for discharge back to home with home health patient seen and examined with medical student. Agree with A&P as above Continue lasix 40mg iv q12h for CHF Encourage PT/OT ambulation Cefepime to continue to cover for aspiration Attestations Medical Necessity Statement*: Increasing oxygen need, medical need for diuresis Coding Level of Care Code Acute Fuel House Attendant for Chg Fwd Exam Comprehensive Documented by User: Karen Marroquin MD 04/05/20 17:33 Physical Exam Urinary Catheter Management^: Pickering: Cath Placed During This Visit: no Data : 04/05/20 04:32 04/05/20 04:32 A&P Additional A&P Information Agree with A&P as above by medical student Increasing copious secretions, add chest PT and glycopyrrolate, pulmonary consult [facility] Coding Level of Care Code Acute Fuel House Attendant for Chg Fwd Exam Comprehensive
--- NOTE | 2020-04-05 14:06 | DCPLANNER ---
IMM completed 04/05/20 at 1344. Copy of rights given to pt.
[2020-04-05 16:35] LABS: Glucose Point of Care 284 mg/dL (70-110)
--- NOTE | 2020-04-05 17:29 | USCV_ITS ---
Ming Sanchez Age: 80 Gender: M : 1940 Exam Date: 04/05/2020 06:39 Ordering Phys: Karen Marroquin MD Technologist: Noemi Easton Exam Location: [facility] [place] Indication: EF EVALUATION BP: 105 / 79 HR: 78 Rhythm: Sinus Technical Quality: Adequate MEASUREMENTS (Male / Female) Normal Values 2D ECHO LV Diastolic Diameter PLAX 5.0 cm 4.2 - 5.9 / 3.9 - 5.3 cm LV Systolic Diameter PLAX 3.6 cm LV Chamber Size 4.5 cm IVS Diastolic Thickness 1.3 cm 0.6 - 1.0 / 0.6 - 0.9 cm IVS Systolic Thickness 2.0 cm LVPW Diastolic Thickness 1.3 cm 0.6 - 1.0 / 0.6 - 0.9 cm LVPW Systolic Thickness 2.0 cm RV Chamber Size 1.9 cm LVOT Diameter 2.0 cm LV Ejection Fraction 2D Teich 54.7 % LV Ejection Fraction MOD 2C 72.9 % LV Ejection Fraction 2C AL 74.5 % LA Diameter 4.4 cm LA Width 3.0 cm LA Height 5.2 cm RA Width 3.5 cm RA Height 4.2 cm Aorta at Sinotubular Diameter 3.6 cm M-MODE LV Diastolic Diameter MM 7.0 cm 4.2 - 5.9 / 3.9 - 5.3 cm LV Systolic Diameter MM 5.4 cm LV Ejection Fraction MM Teich 44.6 % IVS Diastolic Thickness MM 1.3 cm 0.6 - 1.0 / 0.6 - 0.9 cm IVS Systolic Thickness MM 1.4 cm LVPW Diastolic Thickness MM 1.5 cm 0.6 - 1.0 / 0.6 - 0.9 cm LVPW Systolic Thickness MM 1.6 cm RV Diastolic Diameter MM 1.3 cm Aortic Annulus Diameter 4.1 cm LA Ao Ratio MM 1.4 MV E Point Septal Separation 0.7 cm FINDINGS Left Ventricle Normal left ventricular cavity size. Moderately reduced left ventricular systolic function. Left ventricular ejection fraction is estimated at 44 %. Global left ventricular hypokinesis. Right Ventricle The right ventricle is normal in size and function. RVSP could not be calculated due to incomplete tricuspid regurgitation velocity profile. Right Atrium The right atrium is normal in size. Left Atrium The left atrium is normal in size. Mitral Valve Structurally normal mitral valve without significant stenosis or prolapse. There is no mitral regurgitation. Aortic Valve Moderate aortic valve calcification. No aortic valve stenosis. No aortic valve regurgitation. Tricuspid Valve Structurally normal tricuspid valve without significant stenosis or regurgitation. Pulmonic Valve Structurally normal pulmonic valve without significant stenosis. There is no pulmonic regurgitation. Pericardium Normal pericardium without effusion. Aorta Normal ascending aorta dimension. CONCLUSIONS 1-Normal left ventricular cavity size. Moderately reduced left ventricular systolic function. Left ventricular ejection fraction is estimated at 44 %. Global left ventricular hypokinesis. 2-No significant valve abnormalities. 3-There is no pericardial effusion. 4-The right ventricle is normal in size and function. RVSP could not be calculated due to incomplete tricuspid regurgitation velocity profile. 5-Right atrial pressure is around 5 mm of mercury. 6-There are no prior echocardiogram studies to compare. Mag Arita MD (Electronically Signed) Final Date: 05 April 2020 20:28 S
[2020-04-05 18:58] LABS: Vancomycin Trough 14.8 ug/mL (10-15)
[2020-04-05 21:15] LABS: Glucose Point of Care 261 mg/dL (70-110)
[2020-04-05] MEDS: ropinirole 1 mg Tablet PO (21:17)
[2020-04-05] MEDS: atorvastatin 40 mg Tablet PO (21:17)
[2020-04-06] VITALS (13 sets, daily range): BP systolic 100–129; BP diastolic 55–70; PULSE 55–94; RESP 18–21; TEMP 36.2–36.8; O2SAT 92–100
[2020-04-06] MEDS: cefepime 2,000 MG in sodium chloride 0.9% (plus) 50 ML 100 MG IV ×2 (00:56→15:56)
--- NOTE | 2020-04-06 03:34 | PC.NURSE ---
NURSES NOTE: SHIFT SUMMARY: PT ALERT AND ORIENTED X4; MOVES ALL EXTREMITIES AND FOLLOWS COMMANDS. HRR IN THE 70'S MOST OF SHIFT. SHOWED BRADYCARDIC IN THE 30'S A FEW TIMES, BUT WHEN CHECKED ON PT, ALL LEADS WERE OFF. WHEN PUT BACK ON, HR MAINTAINED IN THE 70'S . PT DENIES PAIN. RESTED WITH EYES CLOSED MOST OF SHIFT. ALL VS AND ASSESSMENTS CHARTED. NO DISTRESS NOTED AT THIS TIME.
[2020-04-06] MEDS: FUROsemide 10 mg/mL SDV 4mL 40 MG IVP ×2 (05:49→15:56)
[2020-04-06] MEDS: gabapentin 100 mg Capsule 200 MG PO ×3 (05:50→22:12)
[2020-04-06 06:45] LABS: Glucose Point of Care 177 mg/dL (70-110)
[2020-04-06] MEDS: ipratropium-albuterol 3 mL Neb INHALATION ×2 (08:43→23:38)
[2020-04-06] MEDS: dilTIAZem ER (24HR) 240 mg Capsule PO (09:19)
[2020-04-06] MEDS: losartan 50 mg Tablet 100 MG PO (09:19)
[2020-04-06] MEDS: apixaban 5 mg Tablet PO ×2 (09:19→17:22)
[2020-04-06] MEDS: metroNIDAZOLE 500 MG Tablet PO ×2 (09:19→17:22)
[2020-04-06] MEDS: amlodipine 10 mg Tablet PO (09:19)
[2020-04-06] MEDS: citalopram 20 mg Tablet PO (09:19)
[2020-04-06] MEDS: tamsulosin 0.4 mg Capsule PO (09:27)
[2020-04-06 12:26] LABS: Glucose Point of Care 346 mg/dL (70-110)
--- NOTE | 2020-04-06 13:04 | P.PN_ITS ---
Documented by User: ZE Knutson STDNT 04/06/20 14:03 Subjective Subjective: Interval history: Mr. Sanchez is a 80 yo male with h/o COVID pneumonia, tracheostomy, and CHF who presented on March 30 due to respiratory distress. Today he says he feels better and was able to walk down the hallway without his trach collar. He says he spit up a 2 in mucus glob this morning, which was sent for sputum culture. He denies SOB, chest pain, nausea, vomiting, and diarrhea. Preliminary sputum culture shows gram positive diplococci, a rare gram positive tetrade, and many WBCs. Medications: Reviewed: Yes Vitals/I&O/Wt Last Vital Signs Temp 97.1 F L 04/06/20 11:40 Pulse 82 04/06/20 11:40 Resp 20 H 04/06/20 11:40 BP 109/55 04/06/20 11:40 Pulse Ox 100 04/06/20 11:40 04/05/20 04/06/20 04/06/20 22:59 06:59 14:59 Intake Total 830 / 1310 50 / 1360 360 / 360 Output Total 1700 / 2475 1000 / 3475 1800 / 1800 Balance -870 / -1165 -950 / -2115 -1440 / -1440 Weight last 48 hrs Weight 125.963 kg Weight 126.552 kg Physical Exam Narrative: EXAM NARRATIVE: GEN: Awake, alert and oriented, no acute distress CVS: S1S2 N RS: Bilateral coarse conducted sounds to auscultation Abd: Soft, nt/nd , bs+ 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 Const: COMMON NORMALS: no acute distress, patient oriented x3 and healthy appearing GENERAL APPEARANCE: cooperative, in distress and Edematous NUTRITIONAL APPEARANCE: obese ORIENTATION/CONSCIOUSNESS: Yes awake, Yes oriented to person, Yes oriented to place and Yes oriented to time HENMT: COMMON NORMALS: normocephalic, atraumatic, hearing grossly normal bilaterally, Normal external nose present and Normal nasal mucous membranes and turbinates present HEAD & SCALP: normal to inspection, normocephalic and atraumatic NOSE: Normal external nose present, Normal nares present and Normal nasal mucous membranes and turbinates present Eye: COMMON NORMALS: Equal, round and reactive pupils present, EOMs intact bilaterally, conjunctivae normal, no scleral icterus and no papilledema GENERAL EYE: appearance normal, both eyes and all related structures and normal light reflex CONJUNCTIVA: Yes conjunctivae normal PUPIL: Yes Equal, round and reactive pupils present DIRECT OPHTHALMOSCOPY: Yes normal light reflex and Yes no papilledema Neck/C-Spine: COMMON NORMALS: full ROM and supple Chest: COMMONS NORMALS: normal inspection of the chest and normal palpation of entire chest wall Resp: COMMON NORMALS: No retractions, No use of accessory muscles and clear to auscultation bilaterally; negative for normal respiratory effort EFFORT & INSPECTION: No able to speak in complete sentences, Yes labored, Yes uses accessory muscles and Yes other (Pt will say one word, and has to take a deep breath to say the next word) AUSCULTATION: clear to auscultation bilaterally Cardio: COMMON NORMALS: regular rate, regular rhythm, S1 normal heart sound present, S2 normal heart sound present, No murmurs present (Cardio) and Peripheral pulses 2+ throughout RATE: regular rate RHYTHM: regular rhythm HEART SOUNDS: S1 normal heart sound present and S2 normal heart sound present PERIPHERAL PULSES: Peripheral pulses 2+ throughout OTHER: No pitting edema GI: COMMON NORMALS: Normal to inspection, nondistended, normoactive bowel so unds present, Soft to palpation, non-tender, No hepatosplenomegaly present and no masses INSPECTION: Yes normal to inspection PALPATION: Yes Soft to palpation, No Guarding due to palpation present (GI) and Yes No hepatosplenomegaly present : COMMON NORMALS: No scrotum normal and No no scrotal swelling SCROTUM: Yes erythematous and Yes scrotal swelling TESTES: Yes testicular swelling Extremity: COMMON NORMALS: normal to inspection and full ROM Neuro: COMMON NORMALS: patient oriented x3, moves all extremities and no focal motor deficits SENSORIUM/ORIENTATION: Yes oriented to person, Yes oriented to place and Yes oriented to time Psych: COMMON NORMALS: mental status grossly normal, Normal thought process present and cooperative THOUGHT PROCESS: Normal thought process present Skin: COMMON NORMALS: no rashes or lesions noted and no wounds GENERAL SKIN EXAM: no rashes or lesions noted Urinary Catheter Management^: Pickering: Cath Placed During This Visit: no Reason for Continuing Indwelling Catheter: Accurate Measurement of Urinary Output in Critically Ill Patients Data : 04/05/20 04:32 04/05/20 04:32 Micro: Microbiology 04/05/20 22:45 Sputum Culture - Preliminary Sputum - Expectorated Sputum A&P Additional A&P Information # fever, now resolved Likely secondary to aspiration pneumonia versus UTI from chronic suprapubic catheter. Urine culture growing Pseudomonas aeruginosa, which is currently appropriately covered with cefepime. Cefepime also additionally following for possible aspiration pneumonia, will add Flagyl at this time given increased oxygen requirement, will do believe this is secondary to needing aggressive pulmonary toilet. MRSA nasal PCR test returned positive, vancomycin added given increasing oxygen requirements Underwent swallow evaluation, pt is able to swallow. Records from [facility] show b arium swallow w/o esophagram on 01-29-20 that says barium swallow shows pentration. There is transient penetration. There is no evidence of aspiration. Impression: Oropharyngeal dysphagia with penetration. Blood culture from admission showing coagulase-negative staph, likely to be a contaminant. Bacterial antigen panel and urine Legionella antigen negative. #Aspiration PNA-chest CT was more consistent of CHF with pulmonary edema, less likely this is PNA Continue supplemental 02 Continue cefepime 2g iv q12h,flagyl and vancomycin Procalcitonin levels normal, pt is off HAG and is using trach collar Add chest PT and glycopyrrolate for increasing copious secretions per pulmonology consult. I reviewed his previous medical records from [facility] and found that thick hendrickson mucous secretions are normal for him (noted on 03-04-20). Pt had been put on a trial of decannulation (02-29-20) but ended up with having his trach downsized (02-20-20). 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 The ENT note said, Due to stridor, TVC paralysis and subglottic granulation tissue with stenosis will not atttempt to progress to decannulation at this time. New 5XLTUP [place] proximal trach placed this visit. ENT f/u in 6-[address] Valencia to determine need for surgery to improve airway. Pt has been scheduled for ENT f/u with Keeley Bravo NP on 04-28 for trach decannulation and scheduled for pulmonology f/u 1- [address] Rik Jenkins. # UA +, however from chronic Pickering cannot exclude UTI. Chronic pickering will need to be changed, pt has appointment with his urologist Dr. Lakia Miranda on 04-08-20. Unable to obtain changing of the suprapubic catheter right now as Dr. Navarro is presently away. Will defer this to as an outpatient. # CHF-Echo findings Left Ventricle Normal left ventricular cavity size. Moderately reduced left ventricular systolic function. Left ventricular ejection fraction is estimated at 44 %. Global left ventricular hypokinesis. Right Ventricle The right ventricle is normal in size and function. RVSP could not be calculated due to incomplete tricuspid regurgitation velocity profile. Right Atrium The right atrium is normal in size. Left Atrium The left atrium is normal in size. Mitral Valve Structurally normal mitral valve without significant stenosis or prolapse. There is no mitral regurgitation. Aortic Valve Moderate aortic valve calcification. No aortic valve stenosis. No aortic valve regurgitation. Tricuspid Valve Structurally normal tricuspid valve without significant stenosis or regurgitation. Pulmonic Valve Structurally normal pulmonic valve without significant stenosis. There is no pulmonic regurgitation. Pericardium Normal pericardium without effusion. Aorta Normal ascending aorta dimension. CONCLUSIONS 1-Normal left ventricular cavity size. Moderately reduced left ventricular systolic function. Left ventricular ejection fraction is estimated at 44 %. Global left ventricular hypokinesis. 2-No significant valve abnormalities. 3-There is no pericardial effusion. 4-The right ventricle is normal in size and function. RVSP could not be calculated due to incomplete tricuspid regurgitation velocity profile. 5-Right atrial pressure is around 5 mm of mercury. 6-There are no prior echocardiogram studies to compare. Decreased LE edema today, continue lasix 40mg iv q12h. Continue to monitor urine output and daily weight [facility] records say pt had moderate to severe aortic stenosis per echo 12-30-19 per juárez. Normal LVEF per limited echo 01-14-20 Juárez. Awaiting echo results from [facility] and EKG records from [facility]. 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 [facility] Fwd Exam Comprehensive Diagnoses Congestive heart failure I50.9 COPD (chronic obstructive pulmonary disease) J44.9 Aspiration into lower respiratory tract T17.800A Ischemic cardiomyopathy I25.5 Diabetes mellitus E11.9 Documented by User: Karen Marroquin MD 04/06/20 16:58 Physical Exam Urinary Catheter Management^: Pickering: Cath Placed During This Visit: no Data : 04/05/20 04:32 04/05/20 04:32 A&P Assessment and plan (1) Congestive heart failure: Status: Acute (2) COPD (chronic obstructive pulmonary disease): Status: Acute (3) Aspiration into lower respiratory tract: Status: Acute (4) Ischemic cardiomyopathy: Status: Acute (5) Diabetes mellitus: Status: Acute Additional A&P Information Agree with assessment and plan as documented by medical student above. Change 40 mg IV every 12 hours Lasix to 80 mg p.o. every 12 hours Patient reports significant improvement with addition of glycopyrrolate and starting chest PT. At home would likely benefit from chest PT. 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
[2020-04-06] MEDS: vancomycin 1,500 MG/300 ML PIGGYBACK 200 MG IV (13:09)
[2020-04-06 16:59] LABS: Glucose Point of Care 248 mg/dL (70-110)
[2020-04-06] MEDS: lidocaine 1% 5 ML in potassium chloride premix 100 ML 25 ML IV (17:28)
--- NOTE | 2020-04-06 19:24 | PC.NURSE ---
patient had an unevenful shift. patient up to chair this am and respiratory titrating oxygen down.
--- NOTE | 2020-04-06 20:01 | PM.CONSULT ---
Providers/Reason For Consult Consulting Physican/Specialty*: Alek Darby MD /Pulmonology Reason for Consult*: Patient with trach s/p Covid with copious secretions Attending Physician: Karen Marroquin MD Primary Care Provider: Rudi Lima MD History of Present Illness History of Present Illness Ming Sanchez is a 80 year old male with h/o DM, HTN, COVID pneumonia 12/29/2019, CHF with LVEF of 30% (as of late December/early February 2020), and tracheostomy due to COVID that presented to ED with dyspnea due to choking and built up secretions from his trach.Daughter stated he had been coughing more than usual starting yesterday morning and had to clean his suction mask that morning because it had gooey, sticky gunk in it with red splotches that looked like blood. She reported that he been having trouble breathing all day, and later that afternoon he had a fever of 100.2 to 100.4. And he started choking and that was when she called EMS. Pt treated for an MA at [facility] before he was flown to [facility] in [place] for COVID infection on December 28. Later transferred to [facility] in [place], and then was transferred again to [facility] for rehab for his tracheostomy. The duration of his entire hospital stay was 3 months, where he underwent a tracheostomy, and was diagnosed with CHF. He also underwent catherization about 1 month ago due to cystitis, which lead to urinary retention and had to drain 2-3 L of urine from his bladder.He is supposed to see a urologist in [place] next month to discuss it, but his catheter has not been changed since then. Daughter reports that he also had a PEG tube inserted during his hospital stay, which was removed on March 26 before he was discharged on March 27. As mentioned above, he uses a suction machine at home to help him with his secretions.Daughter reports that he uses oxygen at night through a CPAP mask,. Patient is currently on 10 L supplemental oxygen, afebrile and hemodynamically stable. MRSA PCR nares positive. Currently on cefepime, Flagyl and vancomycin for suspected aspiration pneumonia although CT chest is more consistent with CHF with pulmonary edema. Pulmonary consulted for recurrent mucous plugs and trach. Patient seen at bedside, on 6 L trach collar, denied any new complaints. Says that his breathing is better and improving Review of Systems General: Reports: 10 or more systems reviewed and unremarkable except in HPI and below Meds/Allergies Home Medications and Allergies Home Medications Medication Instructions Recorded Confirmed Last Taken Type atorvastatin 40 mg tablet 40 mg PO BEDTIME tab 12/11/19 03/31/20 Unknown History citalopram 20 mg tablet 20 mg PO DAILY 12/11/19 03/31/20 Unknown History fluticasone propionate 50 2 spray INTRANASAL DAILY 12/11/19 03/31/20 Unknown History mcg/actuation nasal spray,suspension furosemide 20 mg tablet 20 mg PO EVERY OTHER DAY 12/11/19 03/31/20 Unknown History insulin lispro 100 unit/mL 3 unit SUBCUT TID #10 ml 12/11/19 03/31/20 Unknown Rx subcutaneous solution multivitamin 1 cap PO DAILY 12/11/19 03/31/20 Unknown History apixaban [Eliquis] 5 mg PO BID 03/31/20 03/31/20 Unknown History aspirin 81 mg PO DAILY 03/31/20 03/31/20 Unknown History calcium polycarbophil [FiberCon] 625 mg PO DAILY 03/31/20 03/31/20 Unknown History cholecalciferol (vitamin D3) 100 mcg PO DAILY 03/31/20 03/31/20 Unknown History [Vitamin D3] diltiazem HCl [Cartia XT] 240 mg PO DAILY 03/31/20 03/31/20 Unknown History famotidine 20 mg PO BID 03/31/20 03/31/20 Unknown History gabapentin 200 mg PO Q8H 03/31/20 03/31/20 Unknown History guaifenesin [Mucinex] 600 mg PO Q12H PRN 03/31/20 03/31/20 Unknown History guaifenesin [Robitussin] 200 mg PO Q6H PRN 03/31/20 03/31/20 Unknown History insulin glargine [Lantus Solostar 20 unit SUBCUT BID 03/31/20 03/31/20 Unknown History U-100 Insulin] ketotifen fumarate [Refresh Eye 1 drp OPHTHALMIC (EYE) Q8H PRN 03/31/20 03/31/20 Unknown History Itch Relief] losartan 100 mg PO DAILY 03/31/20 03/31/20 Unknown History magnesium oxide 400 mg PO BID 03/31/20 03/31/20 Unknown History potassium bicarb-citric acid 20 meq PO DAILY 03/31/20 03/31/20 Unknown History tamsulosin [Flomax] 0.4 mg PO DAILY 03/31/20 03/31/20 Unknown History thiamine HCl (vitamin B1) [Vitamin 100 mg PO DAILY 03/31/20 03/31/20 Unknown History B-1] Allergies Allergy/AdvReac Type Severity Reaction Status Date / Time Penicillins Allergy Unknown Verified 12/25/19 22:18 Current Medications Current Medications Generic Name Dose Route Start Last Admin Trade Name Freq PRN Reason Stop Dose Admin Albuterol/Ipratropium 3 ml 04/05/20 01:34 04/06/20 08:43 Ipratropium-Albuterol 3 Ml Neb INHALATION 3 ml Q6H PRN Administration SHORTNESS OF BREATH Amlodipine Besylate 10 mg 03/31/20 13:30 04/06/20 09:19 Amlodipine 10 Mg Tablet PO 10 mg DAILY ERICKA Administration Apixaban 5 mg 03/31/20 18:00 04/06/20 17:22 Apixaban 5 Mg Tablet PO 5 mg BID ERICKA Administration Atorvastatin Calcium 40 mg 03/31/20 21:00 04/05/20 21:17 Atorvastatin 40 Mg Tablet PO 40 mg BEDTIME ERICKA Administration Citalopram Hydrobromide 20 mg 04/01/20 09:00 04/06/20 09:19 Citalopram 20 Mg Tablet PO 20 mg DAILY ERICKA Administration Diltiazem HCl 240 mg 04/01/20 09:00 04/06/20 09:19 Diltiazem Er (24hr) 240 Mg Capsule PO 240 mg DAILY ERICKA Administration Gabapentin 200 mg 03/31/20 13:30 04/06/20 13:09 Gabapentin 100 Mg Capsule PO 200 mg Q8H ERICKA Administration Cefepime HCl 2,000 mg/ Sodium 50 mls @ 100 mls/hr 03/31/20 14:00 04/06/20 16:26 Chloride IV Infused Q12H ERICKA Infusion Protocol Vancomycin/PEG/NADA/Lysine/Water 1,500 mg in 300 mls @ 200 mls/hr 04/03/20 13:15 04/06/20 14:39 Vancocin IV Infused Q18H ERICKA Infusion Lidocaine HCl 5 ml/ Potassium 105 mls @ 25 mls/hr 04/06/20 17:15 04/06/20 17:28 Chloride IV 04/06/20 21:26 25 mls/hr ONCE ONE Administration Insulin Aspart 0 unit 03/31/20 18:00 04/06/20 17:22 Insulin Aspart 100 Unit/1 Ml SUBCUT 8 unit WM&BEDTIME ERICKA Administration Protocol Losartan Potassium 100 mg 04/01/20 09:00 04/06/20 09:19 Losartan 50 Mg Tablet PO 100 mg DAILY ERICKA Administration Metronidazole 500 mg 04/02/20 18:00 04/06/20 17:22 Metronidazole 500 Mg Tablet PO 500 mg BID ERICKA Administration Ropinirole HCl 1 mg 03/31/20 21:00 04/05/20 21:17 Ropinirole 1 Mg Tablet PO 1 mg BEDTIME ERICKA Administration Tamsulosin HCl 0.4 mg 04/01/20 09:00 04/06/20 09:27 Tamsulosin 0.4 Mg Capsule PO 0.4 mg DAILY ERICKA Administration Vancomycin HCl 125 mg 04/04/20 17:00 04/06/20 17:21 Vancomycin 1,000 Mg Oral Angella (Btl) PO 1.25 ml QID ERICKA Administration PFSH Acute PFSH: Medical History COPD (chronic obstructive pulmonary disease) Depression Diabetes HTN (hypertension) Hyperlipidemia Hypertension Osteoarthritis Restless legs syndrome (RLS) Surgical History History of cholecystectomy History of total left knee replacement Hx of tonsillectomy Family History Other Cancer Diabetes Social History Smoking and tobacco status: never smoked Alcohol intake: never Current occupational status: unemployed and retired Financial difficulty paying for basics: Somewhat Hard Vitals/I&O/Wt Last Vital Signs Temp 98 F 04/06/20 19:29 Pulse 79 04/06/20 19:29 Resp 20 H 04/06/20 19:29 BP 111/70 04/06/20 19:29 Pulse Ox 100 04/06/20 19:29 04/06/20 04/06/20 04/06/20 06:59 14:59 22:59 Intake Total 50 / 1360 900 / 900 290 / 1190 Output Total 1000 / 3475 1800 / 1800 850 / 2650 Balance -950 / -2115 -900 / -900 -560 / -1460 Weight last 48 hrs Weight 277 lb 11.2 oz Weight 279 lb Physical Exam Narrative: EXAM NARRATIVE: General: alert, NAD HEENT: conj clear, EOMI, PERRL, mmm, Neck: supple, no meningismus Heme: no cervical LAP Pulmonary: Bilateral air entry present, coarse rhonchi bilaterally some diffuse crackles bibasilar Cardiovascular: rrr, nl s1s2, no mrg Abdomen: soft, nt, nd, no r/g, bs+ Extremities: pulses +, 2+ pedal edema, no c/c : no CVA tenderness Skin: intact, no rash MSK: no back or neck pain Neurologic: grossly intact Urinary Catheter Management^: Carlson: Cath Placed During This Visit: no Reason for Continuing Indwelling Catheter: Acute Urinary Retention or Obstruction Data Micro: Micro: Microbiology 04/05/20 22:45 Sputum Culture - P reliminary Sputum - Expector ated Sputum Other Data: Other data: reviewed in Hum A&P Assessment and plan (1) COVID-19 virus infection: Status: Acute (2) Congestive heart failure: Status: Acute Qualifiers: Heart failure type: systolic Heart failure chronicity: acute on chronic Qualified Code(s): I50.23 - Acute on chronic systolic (congestive) heart failure (3) COPD (chronic obstructive pulmonary disease): Status: Acute Qualifiers: COPD type: unspecified COPD Qualified Code(s): J44.9 - Chronic obstructive pulmonary disease, unspecified (4) Aspiration into lower respiratory tract: Status: Acute Qualifiers: Encounter type: subsequent encounter Qualified Code(s): T17.800D - Unspecified foreign body in other parts of respiratory tract causing asphyxiation, subsequent encounter (5) Tracheostomy care: Status: Acute (6) LAYTON (obstructive sleep apnea): Status: Acute #COVID-19 pneumonia in December 2019-prolonged hospitalization for 3 months-s/p tracheostomy # recurrent thick mucus secretions - MRSA nares positive -secondary to CHF #CT showed diffuse GGO's likely secondary to CHF exacerbation # large hiatal hernia - high risk for recurrent aspiration #Reported history of COPD -patient non-smoker and does not have any PFTs to verify #Obstructive sleep apnea -Currently on 6 L nasal cannula; as per daughter patient is not on oxygen at [facility] and nighttime uses 45% FiO2 -Chest x-ray 04/03/2020:There is patchy lung opacification which has improved when compared with 03/30/20 -Recommended chest physiotherapy and n acetyl cysteine for thick secretions to loosen up and frequent suctioning -Some of the secretions are pinkish in color are likely due to CHF related pulmonary edema -Currently on Lasix 80 p.o. twice daily for CHF -DuoNeb nebulization every 6 hours as patient has coarse rhonchi and has episodes of bronchospasm -MRSA nares positive and patient is on vancomycin -PFTs as outpatient to rule out COPD -Sleep study from 2016 showed severe obstructive sleep apnea; but daughter reported patient is using CPAP at night since Covid discharge and could not tell the exact settings. -Place on aspiration precautions -Records from [facility] reported thick hendrickson mucous secretions are normal for him (noted on 03-04-20). - - Pt had been put on a trial of decannulation (02-29-20) but ended up with having his trach downsized (02-20-20). And follow-up ENT consult on 03-03-20 with laryngoscopy showed bilateral TVF paresis with narrowing of glottic airway, subglottic granulation tissue formation/narrowing, stridor, and hoarseness. ENT decided due to stridor, TVC paralysis and subglottic granulation tissue with stenosis will not atttempt to progress to decannulation at this time and placed new 5XLTUP [place] proximal trach. -Patient to follow-up with ENT in 6-[address] Valencia to determine need for surgery to improve airway. - Pt has been scheduled for ENT f/u with Keeley Bravo NP on 04-28 for trach decannulation and also scheduled for pulmonology f/u 04-[address] Rik Jenkins. Recommendations conveyed to hospitalist taking care of the patient Consult Attestations Medical Necessity Statement: Patient with tracheostomy s/p COVID-19 pneumonia with recurrent thick mucus secretions and CHF exacerbation requiring oxygen supplementation Time Spent in Patient Care: Greater than 35 minutes (>than 50% of time spent in counselling and/or direct pt care on unit). 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
[2020-04-06] MEDS: ropinirole 1 mg Tablet PO (20:09)
[2020-04-06] MEDS: atorvastatin 40 mg Tablet PO (20:09)
[2020-04-06 20:39] LABS: Glucose Point of Care 351 mg/dL (70-110)
[2020-04-07] VITALS (12 sets, daily range): BP systolic 105–125; BP diastolic 55–70; PULSE 61–89; RESP 16–22; TEMP 36.3–37; O2SAT 95–100
[2020-04-07] MEDS: cefepime 2,000 MG in sodium chloride 0.9% (plus) 50 ML 100 MG IV (01:42)
--- NOTE | 2020-04-07 03:34 | PC.NURSE ---
NURSE NOTE: SHIFT SUMMARY: PT ALERT AND ORIENTED X4; MOVES ALL EXTREMITIES AND FOLLOWS COMMANDS. RESTING QUIETLY WITH EYES CLOSED MOST OF SHIFT. AT APPROXIMATELY 0210 THIS MORNING, LEFT WRIST IV WOULD NOT FLUSH. SLIGHT REDNESS AT SITE BUT NO SWELLING NOTED. INITIATED IV TO RIGHT FA/22G X1 ATTEMPT. PT TOLERATED PROCEDURE WELL. IV SITE WITHOUT REDNESS OR SWELLING. FLUSHES EASILY. CURRENTLY RESTING WITH EYES CLOSED. NO DISTRESS NOTED. SHEPPARD PATENT TO DD. TRACH INTACT/ NO BRONCHOSPASM NOTED THIS SHIFT. ALL VS AN ASSESSMENTS CHARTED. WILL CONTINUE TO MONITOR.
[2020-04-07 04:29] LABS: Basophils % 0.7 %; Eosinophils # 0.1 10^3/uL (0.0-0.8); Eosinophils % 2.4 %; Hematocrit 32.8 % (42.0-52.0); Hemoglobin 10.4 g/dL (11.7-16.6); Lymphocytes # 1.3 10^3/uL (0.8-4.8); Lymphocytes % 22.9 %; Mean Corpuscular HGB Conc 31.7 g/dL (30.0-36.0); Mean Corpuscular Hemoglobin 29.6 pg (28.0-34.0); Mean Corpuscular Volume 93.4 fL (80-94); Mean Platelet Volume 9.4 fL (7.4-10.4); Monocytes # 0.7 10^3/uL (0.2-0.9); Monocytes % 11.2 %; Neutrophils # 3.61 10^3/uL (1.8-7.7); Neutrophils % 62.3 %; Nucleated Red Blood Cells % 0 %; Platelet Count 304 10^3/cmm (130-400); Red Blood Count 3.51 10^6/uL (4.1-5.3); Red Cell Distribution Width 14.2 % (12.1-15.1); White Blood Count 5.8 10^3/uL (4.0-10.0)
[2020-04-07 04:55] LABS: Alanine Aminotransferase 10 U/L (0-41); Albumin Level 3.1 g/dL (3.5-5.2); Alkaline Phosphatase 52 IU/L (40-130); Anion Gap 11.3 (5-19); Aspartate Amino Transferase 13 U/L (0-40); Blood Urea Nitrogen 13 mg/dL (8-23); Calcium 8.5 mg/dL (8.5-10.5); Carbon Dioxide 27 mmol/L (22-29); Chloride 104 mmol/L (98-107); Globulin 2.7 g/dL (1.3-4.6); Glucose 145 mg/dL (65-115); Osmolality Calculated 291 mOsm/kg (285-295); Potassium 3.3 mmol/L (3.5-5.1); Sodium 139 mmol/L (136-145); Total Bilirubin 0.3 mg/dL (0.15-1.2); Total Protein 5.8 g/dL (6.6-8.7)
[2020-04-07] MEDS: gabapentin 100 mg Capsule 200 MG PO ×2 (05:50→14:37)
[2020-04-07 06:38] LABS: Glucose Point of Care 175 mg/dL (70-110)
[2020-04-07] MEDS: vancomycin 1,500 MG/300 ML PIGGYBACK 200 MG IV (09:04)
[2020-04-07] MEDS: dilTIAZem ER (24HR) 240 mg Capsule PO (09:04)
[2020-04-07] MEDS: metroNIDAZOLE 500 MG Tablet PO (09:05)
[2020-04-07] MEDS: apixaban 5 mg Tablet PO ×2 (09:05→18:05)
[2020-04-07] MEDS: tamsulosin 0.4 mg Capsule PO (09:05)
[2020-04-07] MEDS: FUROsemide 40 mg Tablet 80 MG PO ×2 (09:05→18:04)
[2020-04-07] MEDS: losartan 50 mg Tablet 100 MG PO (09:05)
[2020-04-07] MEDS: citalopram 20 mg Tablet PO (09:05)
[2020-04-07] MEDS: amlodipine 10 mg Tablet PO (09:05)
[2020-04-07] MEDS: ipratropium-albuterol 3 mL Neb INHALATION ×2 (10:46→15:24)
[2020-04-07] MEDS: acetylcysteine 200 mg/mL SDV 4 mL 100 MG INHALATION ×2 (10:46→15:24)
--- NOTE | 2020-04-07 10:53 | PC.NURSE ---
blood sugar is 344
--- NOTE | 2020-04-07 12:03 | PM.PN ---
Documented by User: ZE Knutson STDNT 04/07/20 12:18 Subjective Subjective: Interval history: Mr. Sanchez is a 80 yo male with h/o COVID pneumonia, trach, and CHF with EF of 44%. Today he says he has been coughing more and had 5 episodes of diarrhea. He has no other complaints at this time. Medications: Reviewed: Yes Vitals/I&O/Wt Last Vital Signs Temp 97.8 F 04/07/20 10:46 Pulse 74 04/07/20 10:55 Resp 20 H 04/07/20 10:46 BP 105/55 04/07/20 10:46 Pulse Ox 96 04/07/20 10:46 04/06/20 04/07/20 04/07/20 22:59 06:59 14:59 Intake Total 290 / 1190 440 / 1630 480 / 480 Output Total 1550 / 3350 450 / 3800 Balance -1260 / -2160 -10 / -2170 480 / 480 Weight last 48 hrs Weight 125.872 kg Weight 125.963 kg Physical Exam Narrative: EXAM NARRATIVE: GEN: Awake, alert and oriented, no acute distress CVS: S1S2 N RS: Bilateral coarse conducted sounds to auscultation Abd: Soft, nt/nd , bs+ REFRIGERATOR TESTER: no focal neuro deficits Const: COMMON NORMALS: no acute distress, patient oriented x3 and healthy appearing GENERAL APPEARANCE: cooperative, in distress and Edematous NUTRITIONAL APPEARANCE: obese ORIENTATION/CONSCIOUSNESS: Yes awake, Yes oriented to person, Yes oriented to place and Yes oriented to time HENMT: COMMON NORMALS: normocephalic, atraumatic, hearing grossly normal bilaterally, Normal external nose present and Normal nasal mucous membranes and turbinates present HEAD & SCALP: normal to inspection, normocephalic and atraumatic NOSE: Normal external nose present, Normal nares present and Normal nasal mucous membranes and turbinates present Eye: COMMON NORMALS: Equal, round and reactive pupils present, EOMs intact bilaterally, conjunctivae normal, no scleral icterus and no papilledema GENERAL EYE: appearance normal, both eyes and all related structures and normal light reflex CONJUNCTIVA: Yes conjunctivae normal PUPIL: Yes Equal, round and reactive pupils present DIRECT OPHTHALMOSCOPY: Yes normal light reflex and Yes no papilledema Neck/C-Spine: COMMON NORMALS: full ROM and supple Chest: COMMONS NORMALS: normal inspection of the chest and normal palpation of entire chest wall Resp: COMMON NORMALS: No retractions, No use of accessory muscles and clear to auscultation bilaterally; negative for normal respiratory effort EFFORT & INSPECTION: No able to speak in complete sentences, Yes labored, Yes uses accessory muscles and Yes other (Pt will say one word, and has to take a deep breath to say the next word) AUSCULTATION: clear to auscultation bilaterally Cardio: COMMON NORMALS: regular rate, regular rhythm, S1 normal heart sound present, S2 normal heart sound present, No murmurs present (Cardio) and Peripheral pulses 2+ throughout RATE: regular rate RHYTHM: regular rhythm HEART SOUNDS: S1 normal heart sound present and S2 normal heart sound present PERIPHERAL PULSES: Peripheral pulses 2+ throughout OTHER: No pitting edema GI: COMMON NORMALS: Normal to inspection, nondistended, normoactive bowel sounds present, Soft to palpation, non-tender, No hepatosplenomegaly present and no masses INSPECTION: Yes normal to inspection PALPATION: Yes Soft to palpation, No Guarding due to palpation present (GI) and Yes No hepatosplenomegaly present : COMMON NORMALS: No scrotum normal and No no scrotal swelling SCROTUM: Yes erythematous and Yes scrotal swelling TESTES: Yes testicular swelling OTHER: Scrotal swelling has decreased from yesterday Extremity: COMMON NORMALS: normal to inspection and full ROM Neuro: COMMON NORMALS: patient oriented x3, moves all extremities and no focal motor deficits SENSORIUM/ORIENTATION: Yes oriented to person, Yes oriented to place and Yes oriented to time Psych: COMMON NORMALS: mental status grossly normal, Normal thought process present and cooperative THOUGHT PROCESS: Normal thought process present Skin: COMMON NORMALS: no rashes or lesions noted and no wounds GENERAL SKIN EXAM: no rashes or lesions noted Urinary Catheter Management^: Carlson: Cath Placed During This Visit: no Reason for Continuing Indwelling Catheter: Accurate Measurement of Urinary Output in Critically Ill Patients Data : 04/07/20 03:02 04/07/20 03:02 Micro: Microbiology 04/05/20 22:45 Sputum Culture - Preliminary Sputum - Expectorated Sputum Staphylococcus aureus 03/31/20 01:20 Blood Culture - Final Blood Coagulase negativ staphylococc A&P Assessment and plan (1) Congestive heart failure: systolic, with EF of 44% per echo 04-05-20 at [facility] [place]. Continue to give 80 mg Lasix po every 12 hours Status: Acute Qualifiers: Heart failure chronicity: acute on chronic Heart failure type: systolic Qualified Code(s): I50.23 - Acute on chronic systolic (congestive) heart failure (2) COPD (chronic obstructive pulmonary disease): Pt needs PFTs as outpatient to rule out COPD. Status: Acute Qualifiers: COPD type: unspecified COPD Qualified Code(s): J44.9 - Chronic obstructive pulmonary disease, unspecified (3) Aspiration into lower respiratory tract: Nares positive for MRSA, secondary to CHF; patient is currently on vancomycin Significant improvement with glycopyrrolate and starting chest PT. Treasury Director recommended chest physiotherapy and n acetyl cysteine to loosen up thick secretions and frequent suctioning. Pulmonolgist stated some of the secretions are pinkish in color which was likely due to CHF related pulmonary edema. DuoNeb nebulization every 6 hours as patient has coarse rhonchi and has episodes of bronchospasm. Status: Acute Qualifiers: Encounter type: subsequent encounter Qualified Code(s): T17.800D - Unspecified foreign body in other parts of respiratory tract causing asphyxiation, subsequent encounter (4) Ischemic cardiomyopathy: Status: Acute (5) Diabetes mellitus: Status: Acute Attestations Medical Necessity Statement*: will be discharged today Coding Level of Care Code Acute Technical Product Manager for [facility] Fwd Exam Comprehensive Diagnoses Congestive heart failure I50.23 Heart failure chronicity: acute on chronic Heart failure type: systolic COPD (chronic obstructive pulmonary disease) J44.9 COPD type: unspecified COPD Aspiration into lower respiratory tract T17.800D Encounter type: subsequent encounter Ischemic cardiomyopathy I25.5 Diabetes mellitus E11.9 Documented by User: Karen Marroquin MD 04/07/20 16:10 Physical Exam Urinary Catheter Management^: Carlson: Cath Placed During This Visit: no Data : 04/07/20 03:02 04/07/20 03:02 A&P Additional A&P Information Please see dictated discharge summary for today. patient has had at least 2 occasions in the last 3 months where he has needed to use IV antibiotics for pneumonia and failure of suctioning to maintain clearance of secretions with trach in place, not a candidate for Acapella given tracheostomy in place,underlying COPD, it is my opinion that he would benefit from a chest vest at home. Coding Level of Care Code Acute Technical Product Manager for [facility] Fwd Exam Comprehensive Diagnoses Congestive heart failure I50.23 Heart failure chronicity: acute on chronic Heart failure type: systolic COPD (chronic obstructive pulmonary disease) J44.9 COPD type: unspecified COPD Aspiration into lower respiratory tract T17.800D Encounter type: subsequent encounter Ischemic cardiomyopathy I25.5 Diabetes mellitus E11.9
[2020-04-07] MEDS: lidocaine 1% 5 ML in potassium chloride premix 100 ML 25 ML IV (12:39)
--- NOTE | 2020-04-07 14:04 | P.DS_ITS ---
Discharge Providers Date of Admission: 03/31/20 02:05 Date of Discharge: April 07, 2020 Attending Provider at Admission: Karen Marroquin MD Attending Provider at Discharge: Karen Marroquin MD Primary Care Provider: Rudi Lima MD Diagnoses at Discharge Discharge Diagnosis (1) Congestive heart failure: Status: Acute Qualifiers: Heart failure chronicity: acute on chronic Heart failure type: systolic Qualified Code(s): I50.23 - Acute on chronic systolic (congestive) heart failure (2) COPD (chronic obstructive pulmonary disease): Status: Acute Qualifiers: COPD type: unspecified COPD Qualified Code(s): J44.9 - Chronic obstructive pulmonary disease, unspecified (3) Aspiration into lower respiratory tract: Status: Acute Qualifiers: Encounter type: subsequent encounter Qualified Code(s): T17.800D - Unspecified foreign body in other parts of respiratory tract causing asphyxiation, subsequent encounter (4) Ischemic cardiomyopathy: Status: Acute (5) Diabetes mellitus: Status: Acute (6) Status post tracheostomy: Status: Acute (7) Healthcare-associated pneumonia: Status: Acute Reason for Visit Reason for Visit: RESP DISTRESS Hospital Course Hospital Course Ming Sanchez is a 80 year old male with h/o DM, HTN, COVID pneumonia Sept 2019, CHF with LVEF of 30% (as of late December/early February 2020), and 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 He has recently had an extended hospital admission at [facility] in December and then he was transferred to [facility] rehab in January, finally returning home on March 27. He had Covid related ARDS, ventilator dependence eventually need a tracheostomy, weaned off the ventilator, hospital course significant for myocardial infarction with EF of 30%, CHF, urinary retention and cystitis for which she currently has a Carlson catheter in place. Catheterization was performed by a urologist due to difficulty in placement. At the time of discharge when his PEG was reversed, he was cleared to eat mashed and ground food. He has been using a suction machine at home to help him with his secretions but it does not appear to be helping very much. He has needed some oxygen at home, however his requirements have remained around 2 to 3 L/min. Upon presentation to the ER his oxygen requirement increased to 5 L/min, and during the course of admission increased to up to 10 to 12 L/min on trach collar. CT of the chest and x-ray were repeated which showed bilateral infiltrates, appearing to be related to CHF versus pneumonitis, hard to know if these are lingering changes from his recent Covid infection versus development of interim aspiration and pneumonia. His MRSA screen did return positive. Given fever and leukocytosis along with bilateral infiltrates on the chest, he was treated for possibility of aspiration versus healthcare associated pneumonia with cefepime, vancomycin and metronidazole. Fevers did resolve during admission. However we have had increasing difficulty managing his pulmonary secretions and with pulmonary toileting. More on multiple occasions at nighttime he was noted to have mucous plugging with acute dyspnea which was not adequately relieved with suctioning alone. His pulmonary secretions are extremely thick and suctioning is unable to keep up with the production. Eventually we tried glycopyrrolate and then based on pulmonary recommendations NAC inhalation and chest PT were added, following which he has had improvement in his secretions and improved pulmonary toileting. With initiation of the latter he was able to be weaned down from 12 L/min to 5 L/min on oxygen. Given that patient has had at least 2 occasions in the last 3 months where he has needed to use IV antibiotics for pneumonia and failure of suctioning to maintain clearance of secretions, not a candidate for Acapella given tracheostomy in place, it is my opinion that he would benefit from a chest vest at home. Other notable hospital events included CHF exacerbation, he was diuresed with Lasix 60 mg IV every 12 and at the time of discharge is being transitioned to po lasix. F/up with PCP within 7-10 days to see if lasix dose needs to be readjusted. he underwent a fluoroscopic swallow study additionally which showed thick mucus impaction but gross aspiration. He can continue a mechanical diet with ground food. Physical Exam Narrative: EXAM NARRATIVE: GEN: Awake, alert and oriented, no acute distress , chronically ill appearing male HEENT: tarch in place, thick secretions CVS: S1S2 N RS: B/L conducted sounds with coarse crackles Abd: Soft, nt/nd , bs+ LEAD FRONT DESK AGENT: no focal neuro deficits Urinary Catheter Management^: Carlson: Cath Placed During This Visit: no Reason for Continuing Indwelling Catheter: Accurate Measurement of Urinary Output in Critically Ill Patients Discharge Data Data Completed and Pending: Completed Studies During Hospitalization Category Date Time Status CT chest wo con 7 1250 Routine Cat Scan 03/31/20 13:26 Completed XR chest 1V ganesh ble [id number] Routine Exams 04/03/20 10:40 Completed XR chest 1V ganesh ble [id number] Stat Exams 03/30/20 23:19 Completed CV echo limited 9 3308 Routine Ultrasound 04/05/20 17:29 Completed Pending at discharge Category Date Time Status Clostridioides Di fficile PCR Routin e Lab 04/06/20 16:52 Ordered Miscellaneous Janki t Routine Lab 04/06/20 09:50 Ordered Sputum Culture Ro utine Lab 04/05/20 22:45 Results Labs from last 24 hours 04/07/20 04/07/20 04/07/20 06:17 03:02 03:02 WBC 5.8 RBC 3.51 L Hgb 10.4 L Hct 32.8 L MCV 93.4 MCH 29.6 MCHC 31.7 RDW 14.2 Plt Count 304 MPV 9.4 Neut % (Auto) 62.3 Lymph % (Auto) 22.9 [place] % (Auto) 11.2 Eos % (Auto) 2.4 Baso % (Auto) 0.7 Neut # (Auto) 3.61 Lymph # (Auto) 1.3 [place] # (Auto) 0.7 Eos # (Auto) 0.1 Baso # (Auto) 0.0 Nucleated RBC % (a uto) 0 Nucleated RBCs # 0.0 Sodium 139 Potassium 3.3 L Chloride 104 Carbon Dioxide 27 Anion Gap 11.3 BUN 13 Creatinine 0.8 GFR Calculation Not Reportable Glucose 145 H POC Glucose 175 H Calculated Osmolal ity 291 Calcium 8.5 Total Bilirubin 0.3 AST 13 ALT 10 Alkaline Phosphata se 52 Total Protein 5.8 L Albumin 3.1 L Globulin 2.7 04/06/20 04/06/20 19:32 16:45 WBC RBC Hgb Hct MCV MCH MCHC RDW Plt Count MPV Neut % (Auto) Lymph % (Auto) [place] % (Auto) Eos % (Auto) Baso % (Auto) Neut # (Auto) Lymph # (Auto) [place] # (Auto) Eos # (Auto) Baso # (Auto) Nucleated RBC % (a uto) Nucleated RBCs # Sodium Potassium Chloride Carbon Dioxide Anion Gap BUN Creatinine GFR Calculation Glucose POC Glucose 351 H 248 H Calculated Osmolal ity Calcium Total Bilirubin AST ALT Alkaline Phosphata se Total Protein Albumin Globulin Vitals: Last Vital Signs Temp 97.8 F 04/07/20 10:46 Pulse 74 04/07/20 10:55 Resp 20 H 04/07/20 10:46 BP 105/55 04/07/20 10:46 Pulse Ox 96 04/07/20 10:46 Discharge Plan Discharge Patient Disposition: Home Condition: Stable Prescriptions: New furosemide 40 mg Tablet 80 mg PO BID@08,16 14 Days Qty: 30 RF: 0 acetylcysteine 200 mg/mL (20 %) Solution 100 mg inhalation TID 14 Days Qty: 21 RF: 0 ipratropium-albuterol 0.5 mg-3 mg(2.5 mg base)/3 mL Solution For Nebulization 3 ml inhalation Q6H.RESPIRATORY 30 Days Qty: 180 RF: 0 losartan 50 mg Tablet 100 mg PO DAILY Qty: 0 RF: 0 vancomycin 125 mg capsule 125 mg PO QID 14 Days Qty: 56 RF: 0 ropinirole 1 mg Tablet 1 mg PO BEDTIME Qty: 0 RF: 0 Continued citalopram 20 mg tablet 20 mg PO DAILY RF: 0 atorvastatin 40 mg tablet 40 mg PO BEDTIME RF: 0 fluticasone propionate [Flonase Allergy Relief] 50 mcg/actuation spray,suspension 2 spray INTRANASAL DAILY RF: 0 Cartia XT 240 mg Capsule,Extended Release 24hr 240 mg PO DAILY RF: 0 Flomax 0.4 mg Capsule 0.4 mg PO DAILY RF: 0 gabapentin 100 mg capsule 200 mg PO Q8H RF: 0 Eliquis 5 mg Tablet 5 mg PO BID RF: 0 Robitussin 100 mg/5 mL Liquid 200 mg PO Q6H PRN (Reason: Cough) RF: 0 famotidine 20 mg Tablet 20 mg PO BID RF: 0 FiberCon 625 mg Tablet 625 mg PO DAILY RF: 0 aspirin 81 mg Tablet 81 mg PO DAILY RF: 0 Vitamin D3 100 mcg (4,000 unit) Capsule 100 mcg PO DAILY RF: 0 Mucinex 600 mg Tablet Extended Release 12hr 600 mg PO Q12H PRN (Reason: Congestion) RF: 0 Discontinued furosemide [Lasix] 20 mg tablet 20 mg PO EVERY OTHER DAY RF: 0 No Action multivitamin Capsule 1 cap PO DAILY RF: 0 insulin lispro [Humalog U-100 Insulin] 100 unit/mL solution 3 unit SUBCUT TID Qty: 10 RF: 3 Refresh Eye Itch Relief 0.025 % (0.035 %) Drops 1 drp OPHTHALMIC (EYE) Q8H PRN (Reason: Dry Eyes) RF: 0 Vitamin B-1 100 mg Tablet 100 mg PO DAILY RF: 0 losartan 100 mg Tablet 100 mg PO DAILY RF: 0 Lantus Solostar U-100 Insulin 100 unit/mL (3 mL) Insulin Pen 20 unit SUBCUT BID RF: 0 potassium bicarb-citric acid 20 mEq Tablet, Effervescent 20 meq PO DAILY RF: 0 magnesium oxide 400 mg magnesium Tablet 400 mg PO BID RF: 0 Discharge Orders: Discharge Order (Routine); Ordered 04/07/20 Ordered By: Karen Marroquin Other Ambulatory Orders: DME: Miscellaneous (Order) Location: None Selected Ordered By: Karen Marroquin DME: Nebulizer with Neb Kit (Order) Location: None Selected Ordered By: Karen Marroquin Referrals: Rudi Lima MD [Primary Care Provider] - 4-7 days (You will have a follow up with Dr. Lima on Friday, April 12, 2019 at 1030 am. If you have any questions or need to reschedule please call them at [phone]. ) Rik Navarro MD [Physician] - 1 week (change of Carlson catheter ) Familia Smiley MD [Physician] - 2 weeks Mag Arita MD [Physician] - 2 weeks Alek Darby MD [Physician] - 1 month Discharge Diet: Soft Mechanical Discharge Activity: Resume usual activity Patient Instructions: Type 2 Diabetes, Furosemide (By mouth), Ipratropium (By breathing), Losartan (By mouth), Ropinirole (By mouth), Acetylcysteine (By breathing), Vancomycin (By mouth), Tracheotomy (DC) Discharge Attestations Time Spent in Discharge Care*: greater than 30 min Specific Discharge Activities: educating patient, educating and/or supporting family/caregiver, discussing with pcp/other providers and discussing with child welfare caseworker/social workers/dc planners Quality Metrics Clinical Quality Measures During this hospital stay, did patient experience: None Coding Level of Care Code Acute Ribbon Tier for [place] Fwd Diagnoses Congestive heart failure I50.23 Heart failure chronicity: acute on chronic Heart failure type: systolic COPD (chronic obstructive pulmonary disease) J44.9 COPD type: unspecified COPD Aspiration into lower respiratory tract T17.800D Encounter type: subsequent encounter Ischemic cardiomyopathy I25.5 Diabetes mellitus E11.9 Status post tracheostomy Z93.0 Healthcare-associated pneumonia J18.9
--- NOTE | 2020-04-07 18:12 | PC.NURSE ---
discharge instructions given to . verbalized an understanding. patient was assisted in getting dressed. iv removed, tip intact, patient tolerated well. transferred to wheelchair and escorted to exit with all personal belongings.
--- NOTE | 2020-04-19 12:15 | PC.SOCIAL ---
Late Entry for 04/09/2020. Notified Dr Marroquin that Sputum returned positive for MRSA and Pseudomonas and also C Diff was positive. Per Dr Marroquin via email: Patient was discharged on PO Vanc and nothing further needed. Followed up with patient today since was told he was on this medicaiton already to let them know will be sending information to PCP as well however couldn't reach patient. Called daughter she indicates taht patient was only sent home on breathing tx meds. Called outpatient pharmacy and Sabi indicates that that the Lasix and two breathing medications were sent home on the she then indicates the Vancomycin was sent in on the but was put on hold due to patient being dc'd and needed an auth. Asked her to resubmit and will do auth. Unfortunately no one was called to update about this medication therefore pt was not started on it appropriately and this nurse did not get to followup timely but was told appropriate medications had been prescribed already. Will submit for auth for medication and update daughter once complete so this can be started. Will also send results to Dr Lima along with DC summary.
--- NOTE | 2020-04-19 14:10 | PC.SOCIAL ---
Arielle approved for Vancomycin. Updated pharmacy. Called daughter Loan and reveiwed information. She will pharmacy picking tech medication. Sent culture reports and DC summary to Dr Lima with update indicating patient on Vancomycin now. Daughter will followup with provider regarding the Ropironole since this was not transmitted to pharmacy.
== END 2020-04-07 18:13 | disposition home or self-care (01) | DRG 291 ==
LOC: ER 23:16 → CSU 03-31 02:57
PROVIDERS: Admitting Provider Student in an Organized Health Care Education/Training Program; Emergency Provider Emergency Medicine; PCP Family Medicine; Visit Provider Student in an Organized Health Care Education/Training Program
DX: I11.0 Hypertensive heart disease with heart failure (principal); J69.0 Pneumonitis due to inhalation of food and vomit; T83.518A Infection and inflammatory reaction due to other urinary catheter, initial encounter; J95.03 Malfunction of tracheostomy stoma; A04.72 Enterocolitis due to Clostridium difficile, not specified as recurrent; I50.23 Acute on chronic systolic (congestive) heart failure; Z86.19 Personal history of other infectious and parasitic diseases; E11.9 Type 2 diabetes mellitus without complications; I25.2 Old myocardial infarction; T17.990A Other foreign object in respiratory tract, part unspecified in causing asphyxiation, initial encounter; X58.XXXA Exposure to other specified factors, initial encounter; R33.9 Retention of urine, unspecified; Z96.0 Presence of urogenital implants; J44.9 Chronic obstructive pulmonary disease, unspecified; Z87.01 Personal history of pneumonia (recurrent); I25.10 Atherosclerotic heart disease of native coronary artery without angina pectoris; I48.91 Unspecified atrial fibrillation; Y73.1 Therapeutic (nonsurgical) and rehabilitative gastroenterology and urology devices associated with adverse incidents; B95.62 Methicillin resistant Staphylococcus aureus infection as the cause of diseases classified elsewhere; M19.90 Unspecified osteoarthritis, unspecified site; G25.81 Restless legs syndrome; Z96.652 Presence of left artificial knee joint; Z79.82 Long term (current) use of aspirin; Z79.01 Long term (current) use of anticoagulants; G47.33 Obstructive sleep apnea (adult) (pediatric); K44.9 Diaphragmatic hernia without obstruction or gangrene
CPT/HCPCS: 12345; 36415; 36416; 71045; 71250; 80048; 80053; 80202; 81001; 82607; 82746; 82962; 83540; 83550; 83880; 84145; 85025; 86403; 87040; 87070; 87077; 87081; 87086; 87186; 87205; 87449; 87493; 87804; 92522; 92610; 92612; 93005; 93308; 94640; 94669; 96372; 97110; 97116; 97161; 97530; 99283; J0692; J1815; J1940; J3370; J3480; J3490; J7050; J7608

== ENCOUNTER 2020-04-20 11:39 | Emergency (ER) | payer MEDICARE, SELFPAY ==
[2020-04-20] VITALS (8 sets, daily range): BP systolic 85–115; BP diastolic 42–84; PULSE 74–106; RESP 20–25; TEMP 36.6; O2SAT 83–98; BMI 41.5
--- NOTE | 2020-04-20 12:05 | XRR_ITS ---
PROCEDURE INFORMATION: Exam: XR Chest, 1 View Exam date and time: 04/20/2020 12:07 PM Age: 80 years old Clinical indication: Other: Hypotension, lightheadedness TECHNIQUE: Imaging protocol: XR of the chest Views: 1 view. COMPARISON: CR (CHEST, ) 04/03/2020 1:00 PM FINDINGS: Tubes, catheters and devices: Tracheostomy tube is in place the tip is 5.8 cm above the anne-marie. Lungs: Low lung volumes are present. Patchy parenchymal density is seen in the right mid lung field. This finding is suspicious for pneumonia. Pleural space: Unremarkable. No pleural effusion. No pneumothorax. Heart/Mediastinum: Unremarkable. No cardiomegaly. Bones/joints: Unremarkable. XR/XR chest 1V portable [id number] IMPRESSION: 1. Low lung volumes. 2. Right perihilar pneumonia 3. Tracheostomy tube is in position as described
--- NOTE | 2020-04-20 12:06 | ECG_ITS ---
[facility] Test Date: 2020-04-20 Pat Name: Ming Sanchez Department: Room: Gender: Male [employer] Lead: : 1940 Requested By: Tapan Mccarty Order Number: [id number] Gustavo MD: Terry Dudley M.D. Measurements Intervals Frannie Rate: 85 P: 13 AL: 198 QRS: -15 QRSD: 85 T: -8 QT: 410 QTc: 488 Interpretive Statements Atrial fibrillation LOW QRS VOLTAGE IN PRECORDIAL LEADS [QRS DEFLECTION < 1.0 mV IN CHEST LEADS] INFERIOR MYOCARDIAL INFARCTION , PROBABLY OLD [40+ ms Q WAVE AND/OR ST/T ABNORMALITY IN II/aVF] Compared to ECG 04/01/2020 01:40:06 Low QRS voltage now present Myocardial infarct finding now present Atrial fibrillation no longer present T-wave abnormality no longer present Electronically Signed On 04-21-2020 18:09:33 PILLOW AGENT by Terry Dudley M.D. [email or web address]
[2020-04-20 12:13] LABS: Basophils # 0.1 10^3/uL (0.0-0.1); Basophils % 0.7 %; Eosinophils # 0.4 10^3/uL (0.0-0.8); Eosinophils % 5.8 %; Hematocrit 36.2 % (42.0-52.0); Hemoglobin 11.5 g/dL (11.7-16.6); Lymphocytes # 1.4 10^3/uL (0.8-4.8); Lymphocytes % 20.4 %; Mean Corpuscular HGB Conc 31.8 g/dL (30.0-36.0); Mean Corpuscular Hemoglobin 29.4 pg (28.0-34.0); Mean Corpuscular Volume 92.6 fL (80-94); Mean Platelet Volume 9.2 fL (7.4-10.4); Monocytes # 0.8 10^3/uL (0.2-0.9); Monocytes % 10.8 %; Neutrophils # 4.35 10^3/uL (1.8-7.7); Neutrophils % 62.2 %; Nucleated Red Blood Cells % 0 %; Platelet Count 261 10^3/cmm (130-400); Red Blood Count 3.91 10^6/uL (4.1-5.3)
--- NOTE | 2020-04-20 12:35 | ED_ITS ---
HPI - General Adult General: Chief complaint: General Medical Stated complaint: DIZZY Time Seen by Provider: 04/20/20 11:48 History of Present Illness: HPI narrative: Patient is a well-appearing 80-year-old male from home seen for near syncope. He has a trach but does not typically require oxygen and also has a chronic Carlson placed. He denies recent sickness or fever, cough, chest pain, nausea, vomiting, headache, visual disturbance. He states that when he tried to stand up and walk to his bed, he felt lightheaded. He was able to make it to the bed before passing out. EMS reported hypoxia and started him on blow-by tracheal oxygen. Nursing staff at the emergency department found him to be in the mid 80s on room air without obvious signs of respiratory distress. He is now saturating 97% with blow-by oxygen. He has no other acute complaints and states that he has been compliant with his home medication regimen. Review of Systems General: Reports: 10 or more systems reviewed and unremarkable except in HPI and below PFSH ED PFSH: Medical History (Updated 04/20/20 @ 15:32 by Tapan Mccarty MD) COPD (chronic obstructive pulmonary disease) Depression Diabetes HTN (hypertension) Hyperlipidemia Hypertension Osteoarthritis Restless legs syndrome (RLS) Surgical History (Updated 04/07/20 @ 15:53 by Karen Marroquin MD) History of cholecystectomy History of total left knee replacement Hx of tonsillectomy Family History Other Cancer Diabetes Social History Smoking and tobacco status: never smoked Alcohol intake: never Current occupational status: unemployed and retired Financial difficulty paying for basics: Somewhat Hard Physical Exam Const: COMMON NORMALS: no acute distress, patient oriented x3 and alert HENMT: COMMON NORMALS: normocephalic and atraumatic HEAD & SCALP: normocephalic and atraumatic Eye: COMMON NORMALS: Equal, round and reactive pupils present, EOMs intact bilaterally and no scleral icterus PUPIL: Yes Equal, round and reactive pupils present Neck/C-Spine: COMMON NORMALS: supple GENERAL: Yes other (Tracheostomy tube in place with no surrounding redness. Patient breathing ) Resp: COMMON NORMALS: normal respiratory effort and No retractions OTHER: Mild stridor from trachea. Lungs clear otherwise. Cardio: COMMON NORMALS: regular rate, S1 normal heart sound present, S2 normal heart sound present and No murmurs present (Cardio) RATE: regular rate RHYTHM: abnormal rhythm (Irregular rhythm.) HEART SOUNDS: S1 normal heart sound present, S2 normal heart sound present and no murmurs GI: COMMON NORMALS: Normal to inspection, nondistended, normoactive bowel sounds present, Soft to palpation and non-tender PALPATION: Yes Soft to palpation Extremity: OTHER: Trace edema on the lower legs Neuro: COMMON NORMALS: patient oriented x3 SENSORIUM/ORIENTATION: Yes alert Skin: COMMON NORMALS: no rashes or lesions noted GENERAL SKIN EXAM: no rashes or lesions noted Course Vital Signs: Vital signs: Vital Signs Temperature 97.9 F 04/20/20 11:41 Pulse Rate 78 04/20/20 15:11 Respiratory Rate 22 H 04/20/20 15:11 Blood Pressure 109/84 04/20/20 15:11 Pulse Oximetry 98 04/20/20 15:11 MDM - General Adult MDM Narrative: Medical decision making narrative: Patient arrived mildly hypotensive, and laboratory evaluation shows mild MARYLOU. He was given 500 mL bolus of normal saline. After this, blood pressure improved and he no longer felt near syncopal when standing up. I suspect mild dehydration as the proximal cause for his symptoms today. I do not suspect infection, ACS, or any other emergent process warranting further work-up at this time. I urged him to follow-up closely with primary care to see whether changes medications would be warranted. They showed understanding agreed to the plan, knowing he is always welcome back in the emergency department should his symptoms get worse before outpatient follow-up. Lab Data: Labs: Lab Results 04/20/20 04/20/20 04/20/20 Range/Units 12:07 12:07 12:07 WBC 7.0 (4.0-10.0) 10^3/ uL RBC 3.91 L (4.1-5.3) 10^6/u L Hgb 11.5 L (11.7-16.6) g/dL Hct 36.2 L (42.0-52.0) % MCV 92.6 (80-94) fL MCH 29.4 (28.0-34.0) pg MCHC 31.8 (30.0-36.0) g/dL RDW 14.0 (12.1-15.1) % Plt Count 261 (130-400) 10^3/c mm MPV 9.2 (7.4-10.4) fL Neut % (Auto) 62.2 % Lymph % (Auto) 20.4 % Knott % (Auto) 10.8 % Eos % (Auto) 5.8 % Baso % (Auto) 0.7 % Neut # (Auto) 4.35 (1.8-7.7) 10^3/u L Lymph # (Auto) 1.4 (0.8-4.8) 10^3/u L Knott # (Auto) 0.8 (0.2-0.9) 10^3/u L Eos # (Auto) 0.4 (0.0-0.8) 10^3/u L Baso # (Auto) 0.1 (0.0-0.1) 10^3/u L Nucleated RBC % (a uto) 0 % Nucleated RBCs # 0.0 /100WBC Sodium 134 L (136-145) mmol/L Potassium 4.4 (3.5-5.1) mmol/L Chloride 100 (98-107) mmol/L Carbon Dioxide 25 (22-29) mmol/L Anion Gap 13.4 (5-19) BUN 20 (8-23) mg/dL Creatinine 1.4 H (0.7-1.2) mg/dL GFR Calculation Not Reportable Glucose 229 H (65-115) mg/dL Calculated Osmolal ity 288 (285-295) mOsm/k g Calcium 9.1 (8.5-10.5) mg/dL Total Bilirubin 0.5 (0.15-1.2) mg/dL AST 11 (0-40) U/L ALT 8 (0-41) U/L Alkaline Phosphata se 65 (40-130) IU/L Troponin T Baselin e 85 H (0-15) ng/L Troponin T 120 Min [place] (0-15) ng/L Delta Troponin T (0-10) ABS# NT-Pro-B Natriuret Pep 474 H (0-450) pg/mL Total Protein 6.4 L (6.6-8.7) g/dL Albumin 3.5 (3.5-5.2) g/dL Globulin 2.9 (1.3-4.6) g/dL Urine Color (Yellow) Urine Appearance (CLEAR) Urine pH (5-7) Ur Specific Gravit y (1.005-1.030) Urine Protein (Negative) Urine Glucose (UA) (Normal) Urine Ketones (Negative) Urine Blood (Negative) Urine Nitrate (Negative) Urine Bilirubin (Negative) Urine Urobilinogen (Negative) mg/dL Ur Leukocyte Berenice ase (Negative) Urine RBC (0-2) /hpf Urine WBC (0-5) /hpf Ur Squamous Epith Cells (0-5) /hpf Amorphous Sediment Urine Bacteria (NONE) /hpf Urine Yeast /hpf SARS-CoV-2 Ag (Rap id) (Negative) 04/20/20 04/20/20 04/20/20 Range/Units 12:30 13:40 14:18 WBC (4.0-10.0) 10^3/ uL RBC (4.1-5.3) 10^6/u L Hgb (11.7-16.6) g/dL Hct (42.0-52.0) % MCV (80-94) fL MCH (28.0-34.0) pg MCHC (30.0-36.0) g/dL RDW (12.1-15.1) % Plt Count (130-400) 10^3/c mm MPV (7.4-10.4) fL Neut % (Auto) % Lymph % (Auto) % Knott % (Auto) % Eos % (Auto) % Baso % (Auto) % Neut # (Auto) (1.8-7.7) 10^3/u L Lymph # (Auto) (0.8-4.8) 10^3/u L Knott # (Auto) (0.2-0.9) 10^3/u L Eos # (Auto) (0.0-0.8) 10^3/u L Baso # (Auto) (0.0-0.1) 10^3/u L Nucleated RBC % (a uto) % Nucleated RBCs # /100WBC Sodium (136-145) mmol/L Potassium (3.5-5.1) mmol/L Chloride (98-107) mmol/L Carbon Dioxide (22-29) mmol/L Anion Gap (5-19) BUN (8-23) mg/dL Creatinine (0.7-1.2) mg/dL GFR Calculation Glucose (65-115) mg/dL Calculated Osmolal ity (285-295) mOsm/k g Calcium (8.5-10.5) mg/dL Total Bilirubin (0.15-1.2) mg/dL AST (0-40) U/L ALT (0-41) U/L Alkaline Phosphata se (40-130) IU/L Troponin T Baselin e (0-15) ng/L Troponin T 120 Min [place] 70.33 H (0-15) ng/L Delta Troponin T -14.67 L (0-10) ABS# NT-Pro-B Natriuret Pep (0-450) pg/mL Total Protein (6.6-8.7) g/dL Albumin (3.5-5.2) g/dL Globulin (1.3-4.6) g/dL Urine Color Yellow (Yellow) Urine Appearance Cloudy (CLEAR) Urine pH 5 (5-7) Ur Specific Gravit y 1.020 (1.005-1.030) Urine Protein Trace (Negative) Urine Glucose (UA) Norm (Normal) Urine Ketones Negative (Negative) Urine Blood 3+ H (Negative) Urine Nitrate Negative (Negative) Urine Bilirubin 1+ H (Negative) Urine Urobilinogen Norm (Negative) mg/dL Ur Leukocyte Berenice ase 2+ H (Negative) Urine RBC 5-10 H (0-2) /hpf Urine WBC 15-25 H (0-5) /hpf Ur Squamous Epith Cells 0-4 H (0-5) /hpf Amorphous Sediment Not Reportable Urine Bacteria 2+ H (NONE) /hpf Urine Yeast 4+ H /hpf SARS-CoV-2 Ag (Rap id) Negative (Negative) EKG Data^: EKG 1: EKG interpretation date: 04/20/20 EKG interpretation time: 12:08 Interpretation: Sinus rhythm with frequent PACs, rate of 85, no ST elevation or depression, intervals within normal limits. No change from prior on 04/01/2020 Computer generated interpretation: Chest X-Ray 04/20/20 12:05 IMPRESSION: 1. Low lung volumes. 2. Right perihilar pneumonia 3. Tracheostomy tube is in position as described Discharge Plan Discharge Patient Disposition: Home Clinical Impression: MARYLOU (acute kidney injury), Orthostasis Condition: Stable Prescriptions: No Action citalopram 20 mg tablet 20 mg PO BEDTIME RF: 0 atorvastatin 40 mg tablet 40 mg PO BEDTIME RF: 0 diltiazem HCl [Cartia XT] 240 mg Capsule,Extended Release 24hr 240 mg PO QAM RF: 0 tamsulosin [Flomax] 0.4 mg Capsule 0.4 mg PO QPM RF: 0 gabapentin 100 mg capsule 200 mg PO Q8H RF: 0 Eliquis 5 mg Tablet 5 mg PO BID RF: 0 thiamine HCl (vitamin B1) [Vitamin B-1] 100 mg Tablet 100 mg PO DAILY RF: 0 guaifenesin 100 mg/5 mL Liquid 200 mg PO Q6H PRN (Reason: Cough) RF: 0 famotidine 20 mg Tablet 20 mg PO BID RF: 0 calcium polycarbophil [FiberCon] 625 mg Tablet 625 mg PO QAM RF: 0 losartan 100 mg Tablet 100 mg PO QAM RF: 0 Lantus Solostar U-100 Insulin 100 unit/mL (3 mL) Insulin Pen 20 unit SUBCUT BID RF: 0 Vitamin D3 100 mcg (4,000 unit) Capsule 100 mcg PO DAILY RF: 0 guaifenesin [Mucinex] 600 mg Tablet Extended Release 12hr 600 mg PO Q12H PRN (Reason: Congestion) RF: 0 magnesium oxide 400 mg magnesium Tablet 400 mg PO BID RF: 0 ropinirole 1 mg Tablet 1 mg PO BEDTIME Qty: 0 RF: 0 furosemide 40 mg Tablet 80 mg PO BID@08,16 14 Days Qty: 30 RF: 0 acetylcysteine 200 mg/mL (20 %) Solution 100 mg inhalation TID 14 Days Qty: 21 RF: 0 vancomycin 125 mg capsule 125 mg PO QID 14 Days Qty: 56 RF: 0 multivitamin Tablet 1 tab PO DAILY RF: 0 Tylenol 325 mg Tablet 650 mg PO Q6H PRN (Reason: Pain) RF: 0 Aspir-81 81 mg Tablet,Delayed Release (Dr/Ec) 81 mg PO QAM RF: 0 potassium chloride 20 mEq tablet,ER particles/crystals 20 meq PO EVERY OTHER DAY RF: 0 Refresh Plus 0.5 % Dropperette 1 drp OPHTHALMIC (EYE) TID RF: 0 chlorhexidine gluconate 0.12 % Mouthwash See Rx Instructions .ROUTE .COMPLEX RF: 0 Narcan 4 mg/actuation [place],Non-Aerosol See Rx Instructions .ROUTE .COMPLEX RF: 0 ipratropium-albuterol 0.5 mg-3 mg(2.5 mg base)/3 mL solution for nebulization 3 ml inhalation Q6H RF: 0 Humalog U-100 Insulin 100 unit/mL solution See Rx Instructions .ROUTE .COMPLEX RF: 0 Discharge Orders: Discharge ED (Routine); Ordered 04/20/20 Ordered By: Tapan Mccarty Referrals: Rudi Lima MD [Primary Care Provider] - Discharge Diet: Usual diet Discharge Activity: Resume usual activity Patient Instructions: Dehydration - Adult Activity Restrictions/Additional Instructions: Your blood test showed that you are mildly dehydrated. It is very hard to keep perfectly hydrated when you take water pills and blood pressure medication. The combination of dehydration and effect of blood pressure medicine caused her blood pressures to be lower than normal, which is the proximal cause for your lightheadedness when you stood up this morning. You can combat this by either taking lower doses of water pill and blood pressure medication or else drinking more water. Please consult with your primary care physician prior to making medication changes. Coding Level of Care Code ED Surfboard Designer for Malcolm Fwsulema Exam Comprehensive
[2020-04-20 12:41] LABS: Troponin(5th) Baseline 85 ng/L (0-15)
[2020-04-20 12:47] LABS: Alanine Aminotransferase 8 U/L (0-41); Albumin Level 3.5 g/dL (3.5-5.2); Alkaline Phosphatase 65 IU/L (40-130); Anion Gap 13.4 (5-19); Aspartate Amino Transferase 11 U/L (0-40); Blood Urea Nitrogen 20 mg/dL (8-23); Calcium 9.1 mg/dL (8.5-10.5); Carbon Dioxide 25 mmol/L (22-29); Chloride 100 mmol/L (98-107); Globulin 2.9 g/dL (1.3-4.6); Glucose 229 mg/dL (65-115); NT Pro B Type Natriuretic Pept 474 pg/mL (0-450); Osmolality Calculated 288 mOsm/kg (285-295); Potassium 4.4 mmol/L (3.5-5.1); Sodium 134 mmol/L (136-145); Total Bilirubin 0.5 mg/dL (0.15-1.2); Total Protein 6.4 g/dL (6.6-8.7)
[2020-04-20 13:30] LABS: SARS Covid-2 Antigen Negative (Negative)
--- NOTE | 2020-04-20 13:50 | PC.PHAR ---
pts daughter luis alberto states the pt takes the medications entered-pts daughter luis alberto states the pt has the lasix 80mg bid and has a rx for 20mg every other day but is only taking the 80mg tabs-humalog filled as 3 units tid on 03/29/2020 but takes 8 units tid ac meals <100 give 1/2 dose (4 units)-kcl 20meq filled on 03/27/2020 for 20meq every other day-but takes 20meq daily-pts daughter also states they didnt get the rx for ropinirole-pts daughter states the pt just started the vancomycin yesterday 04/19/20 and has 2 doses and then one dose today
[2020-04-20 14:20] LABS: Urine Appearance Cloudy (CLEAR); Urine Color Yellow (Yellow); pH Urine 5 (5-7)
[2020-04-20 14:21] LABS: Add Urine Microscopic? YES; Bilirubin Urine 1+ (Negative); Blood Urine 3+ (Negative); Glucose Urine UA Norm (Normal); Ketones Urine Negative (Negative); Leukocyte Esterase Urine 2+ (Negative); Nitrate Urine Negative (Negative); Protein Urine Trace (Negative); Urobilinogen Urine Norm (Negative)
[2020-04-20 14:27] LABS: Add Urine Culture? Yes; Bacteria Urine 2+ /hpf; Squamous Epithelial Cell Urine 0-4 /hpf (0-5); WBC Urine 15-25 /hpf (0-5)
[2020-04-20 15:09] LABS: Troponin 5 2HR 70.33 ng/L (0-15)
[2020-04-20] MEDS: sodium chloride 0.9% 500 ML 999 ML IV (15:10)
== END 2020-04-20 15:55 | disposition home or self-care (01) ==
PROVIDERS: Emergency Provider Student in an Organized Health Care Education/Training Program; PCP Family Medicine
DX: N17.9 Acute kidney failure, unspecified (principal); I95.1 Orthostatic hypotension; Z79.01 Long term (current) use of anticoagulants; Z79.82 Long term (current) use of aspirin; Z79.4 Long term (current) use of insulin; J44.9 Chronic obstructive pulmonary disease, unspecified; E11.9 Type 2 diabetes mellitus without complications; I10 Essential (primary) hypertension; E78.5 Hyperlipidemia, unspecified; Z79.899 Other long term (current) drug therapy
CPT/HCPCS: 12345; 36415; 71045; 80053; 81001; 83880; 84484; 85025; 87077; 87086; 87186; 87426; 93005; 99283; 99284; J7040

== ENCOUNTER → 2020-04-21 14:27 | Outpatient (BNVA) | payer MEDICARE, SELFPAY | PROVIDERS: PCP Family Medicine; Visit Provider Internal Medicine | DX: I50.23 Acute on chronic systolic (congestive) heart failure (principal) | CPT/HCPCS: 80048; 83880 ==

== ENCOUNTER → 2020-06-04 13:24 | Outpatient (BNVA) | payer MEDICARE, SELFPAY | PROVIDERS: PCP Family Medicine; Visit Provider Urology | DX: N47.1 Phimosis (principal) | CPT/HCPCS: 88304 ==

== ENCOUNTER 2020-06-16 03:27 | Emergency (ER) | payer MEDICARE, SELFPAY ==
--- NOTE | 2020-06-16 03:34 | ED_ITS ---
HPI - General Adult General: Chief complaint: Urogenital-Male Stated complaint: issues with cathider Time Seen by Provider: 06/16/20 03:28 Source: patient, family, RN notes reviewed and old records reviewed Limitations: no limitations History of Present Illness: HPI narrative: Patient presents to the emergency department for malfunctioning indwelling Carlson catheter. Catheter does have sediment in place. Patient was sent to the emergency department by Dr. Navarro patient's urologist. Dr. Navarro discussed with me on the phone about patient's recent circumcision. Patient also had placement of Carlson catheter. Patient does have tracheostomy. Dr. Navarro request nursing staff to replace urinary Carlson catheter and irrigate if needed. Will obtain a UA also while the patient's ride. Patient states that he quit having urinary output proximally 5 to 6 hours ago and feels distended in the abdomen. Denies fever Onset (ago): day(s) (5) Pain Consistency: intermittent Associated symptoms: Deny chest pain, dyspnea, headache(s), nausea, rash, palpitations or vomiting Review of Systems General: Reports: 10 or more systems reviewed and unremarkable except in HPI and below Const: Denies: fever(s), chills, body aches or fatigue Eyes: Denies: change in vision or blurry vision ENMT: Denies: throat pain, hoarseness or mouth pain Card: Denies: chest pain or palpitations Resp: Denies: dyspnea GI: Denies: nausea or vomiting : Reports: flank pain, urinary urgency and oliguria; Denies: dysuria, urinary frequency or urinary hesitancy Musc: Denies: neck pain, back pain, extremity pain, extremity swelling, joint pain, joint swelling, joint redness, joint warmth or limited range of motion Skin/Breast: Denies: rash Neuro: Denies: headache(s) Psych: Denies: anxiety or depression PFSH ED PFSH: Medical History COPD (chronic obstructive pulmonary disease) Depression Diabetes Carlson catheter in place HTN (hypertension) Hyperlipidemia Hypertension Osteoarthritis Restless legs syndrome (RLS) Urinary retention Surgical History History of cholecystectomy History of total left knee replacement Hx of tonsillectomy Status post routine circumcision Family History Other Cancer Diabetes Social History Smoking and tobacco status: never smoked Alcohol intake: never Current occupational status: unemployed and retired Financial difficulty paying for basics: Somewhat Hard Physical Exam Const: COMMON NORMALS: no acute distress, average body habitus, patient o riented x3, no limitations, healthy appearing, alert and well nourished HENMT: COMMON NORMALS: normocephalic, atraumatic, external ears normal, EAC's normal, TM's normal bilaterally, Normal external nose present and Normal nasal mucous membranes and turbinates present HEAD & SCALP: normocephalic and atraumatic NOSE: Normal external nose present and Normal nasal mucous membranes and turbinates present EXTERNAL EAR: Yes external ears normal EXTERNAL AUDITORY CANAL: EAC's normal TYMPANIC MEMBRANE: TM's normal bilaterally Neck/C-Spine: COMMON NORMALS: full ROM, no lymphadenopathy, supple, no meningeal signs, no JVD, Thyroid normal and No carotid bruits THYROID: Thyroid normal Chest: COMMONS NORMALS: normal inspection of the chest, normal palpation of entire chest wall, normal inspection of the breasts and normal palpation of the breasts Breast/axilla inspection: Yes normal inspection of the breasts BREAST/AXILLA PALPATION: Yes normal palpation of the breasts Resp: COMMON NORMALS: normal respiratory effort, No retractions, No use of accessory muscles, clear to auscultation bilaterally and percussion normal AUSCULTATION: clear to auscultation bilaterally PERCUSSION: percussion normal Cardio: COMMON NORMALS: no JVD, regular rate, regular rhythm, S1 normal heart sound present, S2 normal heart sound present, No gallops present (Cardio), No clicks present (Cardio), No murmurs present (Cardio), No rub (Cardio) and Peripheral pulses 2+ throughout RATE: regular rate RHYTHM: regular rhythm HEART SOUNDS: S1 normal heart sound present and S2 normal heart sound present PERIPHERAL PULSES: Peripheral pulses 2+ throughout GI: COMMON NORMALS: Normal to inspection, nondistended, normoactive bowel sounds present, Soft to palpation, non-tender, No hepatosplenomegaly present, no masses and no bruits PALPATION: Yes Soft to palpation, Yes No hepatosplenomegaly present and Yes Bladder palpation abnormal (Carlson catheter is not draining.) : COMMON NORMALS: Yes no CVA tenderness BLADDER/KIDNEY EXAM: Yes catheter in place, Yes no CVA tenderness and Yes Bladder palpation abnormal (Carlson catheter is not draining.) Bladder abnormal details: tender and distended midway to the umbilicus Back/Pelvis: COMMON NORMALS: no CVA tenderness, thoracic and lumbar spine normal to inspection, no thoracic nor lumbar tenderness, thoraco-lumbar ROM normal and straight leg raise negative bilaterally Extremity: COMMON NORMALS: normal to inspection, full ROM, capillary refill normal, no joint enlargement, no clubbing, cyanosis or edema, no calf tenderness and no pedal edema Neuro: COMMON NORMALS: patient oriented x3 SENSORIUM/ORIENTATION: Yes alert MENINGEAL SIGNS: Yes no meningeal signs Course Reevaluation(s): Reevaluation #1: Carlson catheter changed 1200 cc and urine output. Flowing good at this time. Patient has urinary tract infection on exam patient will be given Levaquin 500 mg in the emergency department and subsequently sent home with a antibiotics. Patient is to follow-up with Dr. Navarro urology as instructed. Time: 04:35 Vital Signs: Vital signs: Vital Signs Temperature 98.2 F 06/16/20 03:35 Pulse Rate 87 06/16/20 03:40 Respiratory Rate 25 H 06/16/20 03:40 Blood Pressure 110/56 06/16/20 03:40 Pulse Oximetry 96 06/16/20 03:40 MDM - General Adult Differential Diagnosis: Differential Diagnosis: Urinary retention dysuria Medical Records: Attestation: I reviewed the patient's medical records. Lab Data: Attestation: I reviewed the patient's lab results. Labs: Lab Results 06/16/20 Range/Units 03:54 Urine Color Yellow (Yellow) Urine Appearance Cloudy (CLEAR) Urine pH 9 H (5-7) Ur Specific Gravit y 1.010 (1.005-1.030) Urine Protein Neg (Negative) Urine Glucose (UA) Norm (Normal) Urine Ketones Negative (Negative) Urine Blood Trace H (Negative) Urine Nitrate Positive H (Negative) Urine Bilirubin Neg (Negative) Prot Sulfosalicyli c Acd Negative (Negative) Urine Urobilinogen Norm (Negative) mg/dL Ur Leukocyte Berenice ase 2+ H (Negative) Urine RBC 10-15 H (0-2) /hpf Urine WBC 15-25 H (0-5) /hpf Ur Transition Epit h Cell 0-4 /hpf Uric Acid Crystals 0-4 /hpf Amorphous Sediment 2+ /hpf Urine Bacteria 3+ H (NONE) /hpf Discharge Plan Discharge Patient Disposition: Home Clinical Impression: Urinary retention, Acute UTI Condition: Stable Prescriptions: New ciprofloxacin HCl [Cipro] 500 mg tablet 500 mg PO BID Qty: 14 RF: 0 No Action lubricants Gel 1 ea topical ONCE Qty: 1 RF: 0 bupivacaine (PF) 0.5 % (5 mg/mL) solution 5 mg intravesical ONCE Qty: 1 RF: 0 lidocaine (PF) 10 mg/mL (1 %) solution 10 mg Infiltration ONCE Qty: 1 RF: 0 doxycycline hyclate 100 mg tablet 100 mg PO BID Qty: 14 RF: 0 citalopram 20 mg tablet 20 mg PO BEDTIME RF: 0 atorvastatin 40 mg tablet 40 mg PO BEDTIME RF: 0 lidocaine HCl 2 % jelly 1 applic intra-urethral ONCE Qty: 1 RF: 0 tamsulosin [Flomax] 0.4 mg capsule 0.4 mg PO QPM Qty: 30 RF: 12 furosemide 20 mg tablet 40 mg PO BID RF: 0 diltiazem HCl [Cartia XT] 240 mg capsule,extended release 24hr 240 mg PO QAM Qty: 90 RF: 3 Eliquis 5 mg tablet 5 mg PO BID Qty: 180 RF: 3 gabapentin 100 mg capsule 200 mg PO Q8H RF: 0 thiamine HCl (vitamin B1) [Vitamin B-1] 100 mg Tablet 100 mg PO DAILY RF: 0 guaifenesin 100 mg/5 mL Liquid 200 mg PO Q6H PRN (Reason: Cough) RF: 0 famotidine 20 mg Tablet 20 mg PO BID RF: 0 calcium polycarbophil [FiberCon] 625 mg Tablet 625 mg PO QAM RF: 0 losartan 100 mg Tablet 100 mg PO QAM RF: 0 Lantus Solostar U-100 Insulin 100 unit/mL (3 mL) Insulin Pen 20 unit SUBCUT BID RF: 0 Vitamin D3 100 mcg (4,000 unit) Capsule 100 mcg PO DAILY RF: 0 guaifenesin [Mucinex] 600 mg Tablet Extended Release 12hr 600 mg PO Q12H PRN (Reason: Congestion) RF: 0 ropinirole 1 mg Tablet 1 mg PO BEDTIME Qty: 0 RF: 0 magnesium oxide 400 mg magnesium tablet 400 mg PO DAILY RF: 0 multivitamin Tablet 1 tab PO DAILY RF: 0 Tylenol 325 mg Tablet 650 mg PO Q6H PRN (Reason: Pain) RF: 0 Aspir-81 81 mg Tablet,Delayed Release (Dr/Ec) 81 mg PO QAM RF: 0 potassium chloride 20 mEq tablet,ER particles/crystals 20 meq PO EVERY OTHER DAY RF: 0 Refresh Plus 0.5 % Dropperette 1 drp OPHTHALMIC (EYE) TID RF: 0 chlorhexidine gluconate 0.12 % Mouthwash See Rx Instructions .ROUTE .COMPLEX RF: 0 Narcan 4 mg/actuation [place],Non-Aerosol See Rx Instructions .ROUTE .COMPLEX RF: 0 ipratropium-albuterol 0.5 mg-3 mg(2.5 mg base)/3 mL solution for nebulization 3 ml inhalation Q6H RF: 0 Humalog U-100 Insulin 100 unit/mL solution See Rx Instructions .ROUTE .COMPLEX RF: 0 Discharge Orders: Discharge ED (Routine); Ordered 06/16/20 Ordered By: Kolton Prieto Referrals: Rudi Lima MD [Primary Care Provider] - Discharge Diet: Advance as tolerated Discharge Activity: Resume usual activity Patient Instructions: Opioid Safety Activity Restrictions/Additional Instructions: Encourage p.o. fluids. Take medications as instructed. Follow-up with urology as instructed. Coding Level of Care Code ED Staff Physical Therapy Assistant for Malcolm Fwd Exam Comprehensive
[2020-06-16 03:35] VITALS: BP 110/56; PULSE 53; RESP 23; TEMP 36.8; O2SAT 98; BMI 39.3
[2020-06-16 03:40] VITALS: BP 110/56; PULSE 87; RESP 25; O2SAT 96
--- NOTE | 2020-06-16 04:14 | PC.NURSE ---
Removed indwelling catheter and replaced with new catheter as charted
[2020-06-16 04:31] LABS: Urine Appearance Cloudy (CLEAR); Urine Color Yellow (Yellow); pH Urine 9 (5-7)
[2020-06-16 04:32] LABS: Add Urine Microscopic? YES; Bilirubin Urine Neg (Negative); Blood Urine Trace (Negative); Glucose Urine UA Norm (Normal); Ketones Urine Negative (Negative); Leukocyte Esterase Urine 2+ (Negative); Nitrate Urine Positive (Negative); Protein Urine Neg (Negative); Sulfosalicylic Acid Urine Negative (Negative); Urobilinogen Urine Norm (Negative); WBC Urine 15-25 /hpf (0-5)
[2020-06-16 04:33] LABS: Amorphous Sediment Urine 2+ /hpf; Bacteria Urine 3+ /hpf; Transitional Epi Cells Urine 0-4 /hpf
[2020-06-16 04:34] LABS: Add Urine Culture? Yes; Uric Acid Crystals Urine 0-4 /hpf
[2020-06-16] MEDS: levoFLOXacin 500 mg Tablet PO (04:44)
[2020-06-16 04:55] VITALS: BP 106/64; PULSE 64; RESP 18; O2SAT 99
== END 2020-06-16 04:56 | disposition home or self-care (01) ==
PROVIDERS: Emergency Provider Emergency Medicine; PCP Family Medicine
DX: R33.9 Retention of urine, unspecified (principal); N39.0 Urinary tract infection, site not specified; Z79.4 Long term (current) use of insulin; Z79.01 Long term (current) use of anticoagulants; J44.9 Chronic obstructive pulmonary disease, unspecified; E11.9 Type 2 diabetes mellitus without complications; I10 Essential (primary) hypertension; E78.5 Hyperlipidemia, unspecified
CPT/HCPCS: 51702; 81001; 87077; 87086; 87186; 99283

== ENCOUNTER 2020-07-24 22:58 | Emergency (ER) | payer MEDICARE, SELFPAY ==
[2020-07-24 23:02] VITALS: BP 97/56; PULSE 99; RESP 26; TEMP 36.6; O2SAT 100; BMI 40.0
--- NOTE | 2020-07-24 23:11 | XRR_ITS ---
PROCEDURE INFORMATION: Exam: XR Chest Exam date and time: 07/24/2020 11:33 PM Age: 80 years old Clinical indication: Dyspnea; Additional info: SOB TECHNIQUE: Imaging protocol: XR of the chest. Views: 1 view. COMPARISON: CR XR chest 1V portable [id number] 04/20/2020 12:31 PM FINDINGS: Tubes, catheters and devices: Tracheostomy tube. Lungs: Interstitial edema. Bibasilar atelectasis versus infiltrate. Pleural spaces: Unremarkable. No pleural effusion. No pneumothorax. Heart/Mediastinum: Cardiomegaly. Bones/joints: Unremarkable. XR/XR chest 1V portable [id number] IMPRESSION: 1. Tracheostomy tube. 2. Cardiomegaly. 3. Interstitial edema. 4. Bibasilar atelectasis versus infiltrate.
[2020-07-24 23:12] VITALS: BP 97/56; PULSE 77; RESP 27; O2SAT 100
[2020-07-24 23:15] VITALS: BP 97/56; PULSE 83; RESP 21; O2SAT 100
[2020-07-24 23:21] LABS: Basophils # 0.1 10^3/uL (0.0-0.1); Basophils % 0.7 %; Eosinophils # 0.4 10^3/uL (0.0-0.8); Eosinophils % 5.8 %; Hemoglobin 13.8 g/dL (11.7-16.6); Lymphocytes # 1.6 10^3/uL (0.8-4.8); Lymphocytes % 23.3 %; Mean Corpuscular HGB Conc 32.1 g/dL (30.0-36.0); Mean Corpuscular Hemoglobin 28.8 pg (28.0-34.0); Mean Corpuscular Volume 89.8 fL (80-94); Mean Platelet Volume 9.4 fL (7.4-10.4); Monocytes # 0.7 10^3/uL (0.2-0.9); Monocytes % 10.5 %; Neutrophils # 4.19 10^3/uL (1.8-7.7); Neutrophils % 59.4 %; Nucleated Red Blood Cells % 0 %; Platelet Count 283 10^3/cmm (130-400); Red Blood Count 4.79 10^6/uL (4.1-5.3); Red Cell Distribution Width 15.3 % (12.1-15.1); White Blood Count 7.1 10^3/uL (4.0-10.0)
[2020-07-24 23:30] VITALS: BP 85/64; PULSE 78; RESP 23; O2SAT 100
[2020-07-24 23:33] LABS: Alanine Aminotransferase 8 U/L (0-41); Alkaline Phosphatase 74 IU/L (40-130); Anion Gap 17.3 (5-19); Aspartate Amino Transferase 11 U/L (0-40); Blood Urea Nitrogen 24 mg/dL (8-23); Calcium 8.8 mg/dL (8.5-10.5); Carbon Dioxide 24 mmol/L (22-29); Chloride 106 mmol/L (98-107); Globulin 2.5 g/dL (1.3-4.6); Glucose 159 mg/dL (65-115); Osmolality Calculated 303 mOsm/kg (285-295); Potassium 4.3 mmol/L (3.5-5.1); Sodium 143 mmol/L (136-145); Total Bilirubin 0.3 mg/dL (0.15-1.2); Total Protein 6.5 g/dL (6.6-8.7)
[2020-07-24 23:35] LABS: Troponin(5th) Baseline 41 ng/L (0-15)
[2020-07-24 23:45] LABS: Lactic Sepsis W/Reflex 2.4 mmol/L (0.5-2.2)
[2020-07-24 23:57] LABS: ABG PCO2 28.5 mmHg (35-45); ABG PH Result 7.51 (7.35-7.45); Arterial Blood Gas Hematocrit 40.1 % (42-52); Base Excess ABG 0.4 mmol/L (-2.0-2.0); Blood Gas Sample Site Brachial, right; Blood Gas Sample Type Arterial; Carboxyhemoglobin 0.9 %THgb (0.4-20.1); HCO3 ABG 22.5 mmol/L (22-26); HGB O2 Sat 88.9 % (95-100); Methemoglobin 0.9 % (0.4-1.5); Oxygen Device HAG; PO2 ABG 53.9 mmHg (80.0-100.0); Total Hemoglobin 13.1 g/dL (14-18)
[2020-07-25 00:15] VITALS: BP 102/51; PULSE 75; RESP 18; O2SAT 96
[2020-07-25 01:00] VITALS: BP 100/58; PULSE 73; RESP 13; O2SAT 94
--- NOTE | 2020-07-25 01:12 | ECG_ITS ---
[facility] Test Date: 2020-07-25 Pat Name: Ming Sanchez Department: Room: Gender: Male Carpenter Ship: : [id number] Requested By: Vladislav Middleton Order Number: [id number] Reading MD: JOAN TATUM Measurements Intervals [place] Rate: 72 P: 51 [place]: 253 QRS: -18 QRSD: 109 T: 3 QT: 415 QTc: 456 Interpretive Statements SINUS RHYTHM WITH FIRST DEGREE AV BLOCK NONSPECIFIC T-WAVE ABNORMALITY Compared to ECG 04/20/2020 12:07:47 First degree AV block now present T-wave abnormality now present Atrial fibrillation no longer present Myocardial infarct finding no longer present Electronically Signed On 07-25-2020 21:17:01 CDT by JOAN TATUM [email or web address]
[2020-07-25 01:13] LABS: Reflex Lactate Order REFLEX LACTIC ORDERD
[2020-07-25 02:00] VITALS: BP 117/70; PULSE 73; RESP 17; O2SAT 98
[2020-07-25 02:20] LABS: Troponin 5 2HR 38.55 ng/L (0-15)
[2020-07-25 02:24] LABS: Troponin 5 2HR Delta -2.45 ABS# (0-10)
[2020-07-25 02:30] VITALS: BP 140/102; PULSE 75; RESP 17; O2SAT 98
--- NOTE | 2020-07-25 02:46 | W.ED.SOB ---
HPI - SOB/Dyspnea General: Chief Complaint: Shortness of Breath/Dyspnea Stated Complaint: diff breathing Time Seen by Provider: 07/24/20 23:10 History of Present Illness: HPI Narrative: 80-year-old male with a history of pneumonia and heart failure. He presents with acute onset of respiratory distress, associated with his changing out his tracheostomy cannula this evening. He says that he felt well earlier in the day MD elicited complaint: shortness of breath Onset (ago): minute(s) Timing: constant Severity: moderate Exacerbating factors: other Relieving factors: nothing Known history of: recurrent pneumonia Associated symptoms: Reports cough; Deny abdominal pain, chest pain, fever(s) or nausea Review of Systems Const: Denies: fever(s) Card: Denies: chest pain Resp: Reports: dyspnea and productive cough GI: Denies: abdominal pain or nausea Neuro: Denies: confusion or behavioral changes PFSH ED PFSH: Medical History COPD (chronic obstructive pulmonary disease) Depression Diabetes Carlson catheter in place HTN (hypertension) Hyperlipidemia Hypertension Osteoarthritis Restless legs syndrome (RLS) Urinary retention Surgical History History of cholecystectomy History of total left knee replacement Hx of tonsillectomy Status post routine circumcision Family History Other Cancer Diabetes Social History Smoking and tobacco status: never smoked Alcohol intake: never Current occupational status: unemployed and retired Financial difficulty paying for basics: Somewhat Hard Physical Exam Const: COMMON NORMALS: alert GENERAL APPEARANCE: ill appearing and frail appearing ORIENTATION/CONSCIOUSNESS: Yes awake, Yes oriented to person, Yes oriented to place and Yes oriented to time Chest: COMMONS NORMALS: normal inspection of the chest Resp: EFFORT & INSPECTION: Yes tachypneic, Yes respiratory distress, Yes labored, Yes grunting and Yes Actively coughing AUSCULTATION: rales and diminished lung sounds Cardio: COMMON NORMALS: regular rate and regular rhythm RATE: regular rate RHYTHM: regular rhythm GI: COMMON NORMALS: Soft to palpation and non-tender PALPATION: Yes Soft to palpation Neuro: SENSORIUM/ORIENTATION: Yes alert, Yes oriented to person, Yes oriented to place and Yes oriented to time Course Vital Signs: Vital signs: Vital Signs Temperature 97.9 F 07/25/20 03:11 Pulse Rate 78 07/25/20 03:11 Respiratory Rate 17 07/25/20 03:11 Blood Pressure 139/88 07/25/20 03:11 Pulse Oximetry 98 07/25/20 03:11 MDM - SOB/Dyspnea MDM Narrative: Medical decision making narrative: 80-year-old male with a acute onset of shortness of breath. He was found to have a partially dislodged tracheostomy tube in the ER. This was replaced by respiratory shortly after arrival. The patient did well and recovered quickly following replacement. His chest x-ray does not show a definite infiltrate. He does have some mild interstitial edema, for which she was given Lasix in the ambulance prior to arrival. His laboratory is otherwise benign. His troponin did not elevate. He will be allowed discharge Lab Data: Labs: Lab Results 07/24/20 07/24/20 07/24/20 Range/Units 23:03 23:03 23:03 WBC 7.1 (4.0-10.0) 10^3/ uL RBC 4.79 (4.1-5.3) 10^6/u L Hgb 13.8 (11.7-16.6) g/dL Hct 43.0 (42.0-52.0) % MCV 89.8 (80-94) fL MCH 28.8 (28.0-34.0) pg MCHC 32.1 (30.0-36.0) g/dL RDW 15.3 H (12.1-15.1) % Plt Count 283 (130-400) 10^3/c mm MPV 9.4 (7.4-10.4) fL Neut % (Auto) 59.4 % Lymph % (Auto) 23.3 % Park % (Auto) 10.5 % Eos % (Auto) 5.8 % Baso % (Auto) 0.7 % Neut # (Auto) 4.19 (1.8-7.7) 10^3/u L Lymph # (Auto) 1.6 (0.8-4.8) 10^3/u L Park # (Auto) 0.7 (0.2-0.9) 10^3/u L Eos # (Auto) 0.4 (0.0-0.8) 10^3/u L Baso # (Auto) 0.1 (0.0-0.1) 10^3/u L Nucleated RBC % (a uto) 0 % Nucleated RBCs # 0.0 /100WBC Specimen Type Sample Site ABG pH (7.35-7.45) ABG pCO2 (35-45) mmHg ABG pO2 (80.0-100.0) mmH g ABG HCO3 (22-26) mmol/L ABG Base Excess (-2.0-2.0) mmol/ L Manjeet Test Hematocrit (42-52) % Hgb O2 Saturation (95-100) % Carboxyhemoglobin (0.4-20.1) %THgb Methemoglobin (0.4-1.5) % Total Hemoglobin (14-18) g/dL O2 Delivery Device FiO2 % Automotive Hardware Engineer ID Sodium 143 (136-145) mmol/L Potassium 4.3 (3.5-5.1) mmol/L Chloride 106 (98-107) mmol/L Carbon Dioxide 24 (22-29) mmol/L Anion Gap 17.3 (5-19) BUN 24 H (8-23) mg/dL Creatinine 1.2 (0.7-1.2) mg/dL GFR Calculation Not Reportable Glucose 159 H (65-115) mg/dL Calculated Osmolal ity 303 H (285-295) mOsm/k g Lactic Acid (0.5-2.2) mmol/L Calcium 8.8 (8.5-10.5) mg/dL Total Bilirubin 0.3 (0.15-1.2) mg/dL AST 11 (0-40) U/L ALT 8 (0-41) U/L Alkaline Phosphata se 74 (40-130) IU/L Troponin T Baselin e 41 H (0-15) ng/L Troponin T 120 Min [place] (0-15) ng/L Delta Troponin T (0-10) ABS# Total Protein 6.5 L (6.6-8.7) g/dL Albumin 4.0 (3.5-5.2) g/dL Globulin 2.5 (1.3-4.6) g/dL 04/24/21 04/24/21 04/25/21 Range/Units 23:15 23:46 01:30 WBC (4.0-10.0) 10^3/ uL RBC (4.1-5.3) 10^6/u L Hgb (11.7-16.6) g/dL Hct (42.0-52.0) % MCV (80-94) fL MCH (28.0-34.0) pg MCHC (30.0-36.0) g/dL RDW (12.1-15.1) % Plt Count (130-400) 10^3/c mm MPV (7.4-10.4) fL Neut % (Auto) % Lymph % (Auto) % Park % (Auto) % Eos % (Auto) % Baso % (Auto) % Neut # (Auto) (1.8-7.7) 10^3/u L Lymph # (Auto) (0.8-4.8) 10^3/u L [place] # (Auto) (0.2-0.9) 10^3/u L Eos # (Auto) (0.0-0.8) 10^3/u L Baso # (Auto) (0.0-0.1) 10^3/u L Nucleated RBC % (a uto) % Nucleated RBCs # /100WBC Specimen Type Arterial Sample Site Brachial, right ABG pH 7.51 H (7.35-7.45) ABG pCO2 28.5 L (35-45) mmHg ABG pO2 53.9 L (80.0-100.0) mmH g ABG HCO3 22.5 (22-26) mmol/L ABG Base Excess 0.4 (-2.0-2.0) mmol/ L Manjeet Test N/a Hematocrit 40.1 L (42-52) % Hgb O2 Saturation 88.9 L (95-100) % Carboxyhemoglobin 0.9 (0.4-20.1) %THgb Methemoglobin 0.9 (0.4-1.5) % Total Hemoglobin 13.1 L (14-18) g/dL O2 Delivery Device Hag FiO2 28.0 % Automotive Hardware Engineer ID Jlg Sodium (136-145) mmol/L Potassium (3.5-5.1) mmol/L Chloride (98-107) mmol/L Carbon Dioxide (22-29) mmol/L Anion Gap (5-19) BUN (8-23) mg/dL Creatinine (0.7-1.2) mg/dL GFR Calculation Glucose (65-115) mg/dL Calculated Osmolal ity (285-295) mOsm/k g Lactic Acid 2.4 H (0.5-2.2) mmol/L Calcium (8.5-10.5) mg/dL Total Bilirubin (0.15-1.2) mg/dL AST (0-40) U/L ALT (0-41) U/L Alkaline Phosphata se (40-130) IU/L Troponin T Baselin e (0-15) ng/L Troponin T 120 Min [place] 38.55 H (0-15) ng/L Delta Troponin T -2.45 L (0-10) ABS# Total Protein (6.6-8.7) g/dL Albumin (3.5-5.2) g/dL Globulin (1.3-4.6) g/dL Discharge Plan Discharge Patient Disposition: Home Clinical Impression: Tracheostomy malfunction Condition: Stable Prescriptions: No Action lubricants Gel 1 ea topical ONCE Qty: 1 RF: 0 bupivacaine (PF) 0.5 % (5 mg/mL) solution 5 mg intravesical ONCE Qty: 1 RF: 0 lidocaine (PF) 10 mg/mL (1 %) solution 10 mg Infiltration ONCE Qty: 1 RF: 0 doxycycline hyclate 100 mg tablet 100 mg PO BID Qty: 14 RF: 0 citalopram 20 mg tablet 20 mg PO BEDTIME RF: 0 atorvastatin 40 mg tablet 40 mg PO BEDTIME RF: 0 lidocaine HCl 2 % jelly 1 applic intra-urethral ONCE Qty: 1 RF: 0 tamsulosin [Flomax] 0.4 mg capsule 0.4 mg PO QPM Qty: 30 RF: 12 furosemide 20 mg tablet 40 mg PO BID RF: 0 diltiazem HCl [Cartia XT] 240 mg capsule,extended release 24hr 240 mg PO QAM Qty: 90 RF: 3 Eliquis 5 mg tablet 5 mg PO BID Qty: 180 RF: 3 Humalog U-100 Insulin 100 unit/mL solution See Rx Instructions .ROUTE .COMPLEX Qty: 10 RF: 0 gabapentin 100 mg capsule 200 mg PO Q8H RF: 0 thiamine HCl (vitamin B1) [Vitamin B-1] 100 mg Tablet 100 mg PO DAILY RF: 0 guaifenesin 100 mg/5 mL Liquid 200 mg PO Q6H PRN (Reason: Cough) RF: 0 famotidine 20 mg Tablet 20 mg PO BID RF: 0 calcium polycarbophil [FiberCon] 625 mg Tablet 625 mg PO QAM RF: 0 losartan 100 mg Tablet 100 mg PO QAM RF: 0 Lantus Solostar U-100 Insulin 100 unit/mL (3 mL) Insulin Pen 20 unit SUBCUT BID RF: 0 Vitamin D3 100 mcg (4,000 unit) Capsule 100 mcg PO DAILY RF: 0 guaifenesin [Mucinex] 600 mg Tablet Extended Release 12hr 600 mg PO Q12H PRN (Reason: Congestion) RF: 0 ropinirole 1 mg Tablet 1 mg PO BEDTIME Qty: 0 RF: 0 magnesium oxide 400 mg magnesium tablet 400 mg PO DAILY RF: 0 multivitamin Tablet 1 tab PO DAILY RF: 0 Tylenol 325 mg Tablet 650 mg PO Q6H PRN (Reason: Pain) RF: 0 Aspir-81 81 mg Tablet,Delayed Release (Dr/Ec) 81 mg PO QAM RF: 0 potassium chloride 20 mEq tablet,ER particles/crystals 20 meq PO EVERY OTHER DAY RF: 0 Refresh Plus 0.5 % Dropperette 1 drp OPHTHALMIC (EYE) TID RF: 0 chlorhexidine gluconate 0.12 % Mouthwash See Rx Instructions .ROUTE .COMPLEX RF: 0 Narcan 4 mg/actuation [place],Non-Aerosol See Rx Instructions .ROUTE .COMPLEX RF: 0 ipratropium-albuterol 0.5 mg-3 mg(2.5 mg base)/3 mL solution for nebulization 3 ml inhalation Q6H RF: 0 Cipro 500 mg tablet 500 mg PO BID Qty: 14 RF: 0 Discharge Orders: Discharge ED (Routine); Ordered 07/25/20 Ordered By: Vladislav Shaw Referrals: Rudi Lima MD [Primary Care Provider] - Activity Restrictions/Additional Instructions: Return for worsening shortness of breath, fever, chest discomfort, any other concerning symptoms. Coding Level of Care Code ED Cured Meats Supervisor for Chg Fwd Exam Detailed
[2020-07-25 03:11] VITALS: BP 139/88; PULSE 78; RESP 17; TEMP 36.6; O2SAT 98
== END 2020-07-25 03:12 | disposition home or self-care (01) ==
PROVIDERS: Emergency Provider Emergency Medicine; PCP Family Medicine
DX: J95.03 Malfunction of tracheostomy stoma (principal); Z79.01 Long term (current) use of anticoagulants; Z79.82 Long term (current) use of aspirin; Z79.4 Long term (current) use of insulin
CPT/HCPCS: 36600; 71045; 80053; 82805; 83605; 84484; 85025; 87040; 87070; 87077; 87186; 87205; 93005; 99283

== ENCOUNTER → 2020-07-29 14:17 | Outpatient (BNVA) | payer MEDICARE, SELFPAY | PROVIDERS: PCP Family Medicine; Visit Provider Family Medicine Adult Medicine | DX: E11.9 Type 2 diabetes mellitus without complications (principal); E66.01 Morbid (severe) obesity due to excess calories; Z68.41 Body mass index [BMI] 40.0-44.9, adult; E78.5 Hyperlipidemia, unspecified; I10 Essential (primary) hypertension; F32.9 Major depressive disorder, single episode, unspecified; K21.9 Gastro-esophageal reflux disease without esophagitis; G62.9 Polyneuropathy, unspecified; G25.81 Restless legs syndrome; I50.23 Acute on chronic systolic (congestive) heart failure; G47.33 Obstructive sleep apnea (adult) (pediatric) | CPT/HCPCS: 80061; 83036; 84443 ==

== ENCOUNTER 2020-09-09 22:43 | Emergency (ER) | payer MEDICARE, SELFPAY ==
[2020-09-09 22:57] VITALS: BP 94/57; PULSE 96; RESP 30; TEMP 36.6; O2SAT 96; BMI 47.9
--- NOTE | 2020-09-09 23:08 | ED_ITS ---
HPI - General Adult General: Chief complaint: General Medical Stated complaint: bleeding from both ends Time Seen by Provider: 09/09/20 23:04 History of Present Illness: HPI narrative: Patient complains about dark- colored urine. This is only been going on today. Has chronic shortness of breath COPD said he is coughing some stuff up. He does have a trach. MD complaint: T colored urine. Onset (ago): hour(s) Associated symptoms: Reports no associated symptoms and dyspnea (Chronic); Deny chest pain, headache(s), nausea, rash or vomiting Treatments prior to arrival: none Review of Systems Const: Denies: fever(s), chills or body aches Eyes: Denies: change in vision or blurry vision ENMT: Denies: throat pain or nasal congestion Card: Denies: chest pain or dyspnea on exertion Resp: Reports: dyspnea (Chronic) and chest congestion; Denies: productive cough or non-productive cough GI: Denies: abdominal pain, nausea or vomiting : Reports: other (Patient does cath. Tea colored urine today); Denies: difficulty urinating Musc: Denies: extremity pain Skin/Breast: Denies: rash Neuro: Denies: headache(s) Psych: Denies: anxiety or depression Alex/Lymph: Denies: easy bruising PFSH ED PFSH: Medical History Acute cystitis Aspiration into lower respiratory tract COPD (chronic obstructive pulmonary disease) Depression Diabetes mellitus case management patient Fatigue Carlson catheter in place GERD (gastroesophageal reflux disease) Healthcare-associated pneumonia HTN (hypertension) Hyperlipidemia Hypertension Male circumcision Morbid obesity with BMI of 40.0-44.9, adult Neuropathy Osteoarthritis Phimosis Restless legs syndrome (RLS) Tracheostomy care Urinary retention Surgical History History of cholecystectomy History of total left knee replacement Hx of tonsillectomy Status post routine circumcision Status post tracheostomy Family History Other Cancer Diabetes Social History Smoking and tobacco status: never smoked Alcohol intake: never Current occupational status: unemployed and retired Financial difficulty paying for basics: Somewhat Hard Physical Exam Const: COMMON NORMALS: no acute distress, average body habitus and patient oriented x3 HENMT: COMMON NORMALS: normocephalic HEAD & SCALP: normal to inspection and normocephalic FACE & SINUS: normal facial exam Eye: COMMON NORMALS: conjunctivae normal GENERAL EYE: appearance normal, both eyes and all related structures CONJUNCTIVA: Yes conjunctivae normal Neck/C-Spine: COMMON NORMALS: no JVD Chest: COMMONS NORMALS: normal inspection of the chest Resp: EFFORT & INSPECTION: Yes labored AUSCULTATION: rhonchi OTHER: Trach appears to be intact some mucoid substance around it. Cardio: COMMON NORMALS: no JVD, regular rate and regular rhythm RATE: regular rate RHYTHM: regular rhythm GI: COMMON NORMALS: Normal to inspection, nondistended, normoactive bowel sounds present Extremity: COMMON NORMALS: normal to inspection and full ROM Neuro: COMMON NORMALS: patient oriented x3 Course Vital Signs: Vital signs: Vital Signs Temperature 97.8 F 09/09/20 22:57 Pulse Rate 96 09/09/20 22:57 Respiratory Rate 30 H 09/09/20 22:57 Blood Pressure 94/57 09/09/20 22:57 Pulse Oximetry 96 09/09/20 22:57 Discharge Plan Discharge Prescriptions: No Action atorvastatin 40 mg tablet 40 mg PO BEDTIME Qty: 30 RF: 5 citalopram 20 mg tablet 20 mg PO BEDTIME Qty: 30 RF: 5 famotidine 20 mg tablet 20 mg PO BID Qty: 60 RF: 5 gabapentin 100 mg capsule 200 mg PO Q8H Qty: 90 RF: 5 Lantus Solostar U-100 Insulin 100 unit/mL (3 mL) insulin pen 20 unit SUBCUT BID Qty: 15 RF: 5 losartan 100 mg tablet 100 mg PO QAM Qty: 30 RF: 5 potassium chloride 20 mEq tablet,ER particles/crystals 20 meq PO EVERY OTHER DAY Qty: 30 RF: 5 ropinirole 1 mg tablet 1 mg PO BEDTIME Qty: 30 RF: 5 lubricants Gel 1 ea topical ONCE Qty: 1 RF: 0 bupivacaine (PF) 0.5 % (5 mg/mL) solution 5 mg intravesical ONCE Qty: 1 RF: 0 lidocaine (PF) 10 mg/mL (1 %) solution 10 mg Infiltration ONCE Qty: 1 RF: 0 doxycycline hyclate 100 mg tablet 100 mg PO BID Qty: 14 RF: 0 lidocaine HCl 2 % jelly 1 applic intra-urethral ONCE Qty: 1 RF: 0 tamsulosin [Flomax] 0.4 mg capsule 0.4 mg PO QPM Qty: 30 RF: 12 furosemide 20 mg tablet 40 mg PO BID RF: 0 diltiazem HCl [Cartia XT] 240 mg capsule,extended release 24hr 240 mg PO QAM Qty: 90 RF: 3 Eliquis 5 mg tablet 5 mg PO BID Qty: 180 RF: 3 insulin lispro 100 unit/mL solution See Rx Instructions .ROUTE .COMPLEX Qty: 10 RF: 0 thiamine HCl (vitamin B1) [Vitamin B-1] 100 mg Tablet 100 mg PO DAILY RF: 0 guaifenesin 100 mg/5 mL Liquid 200 mg PO Q6H PRN (Reason: Cough) RF: 0 calcium polycarbophil [FiberCon] 625 mg Tablet 625 mg PO QAM RF: 0 Vitamin D3 100 mcg (4,000 unit) Capsule 100 mcg PO DAILY RF: 0 guaifenesin [Mucinex] 600 mg Tablet Extended Release 12hr 600 mg PO Q12H PRN (Reason: Congestion) RF: 0 magnesium oxide 400 mg magnesium tablet 400 mg PO DAILY RF: 0 multivitamin Tablet 1 tab PO DAILY RF: 0 Tylenol 325 mg Tablet 650 mg PO Q6H PRN (Reason: Pain) RF: 0 Aspir-81 81 mg Tablet,Delayed Release (Dr/Ec) 81 mg PO QAM RF: 0 Refresh Plus 0.5 % Dropperette 1 drp OPHTHALMIC (EYE) TID RF: 0 chlorhexidine gluconate 0.12 % Mouthwash See Rx Instructions .ROUTE .COMPLEX RF: 0 Narcan 4 mg/actuation [place],Non-Aerosol See Rx Instructions .ROUTE .COMPLEX RF: 0 ipratropium-albuterol 0.5 mg-3 mg(2.5 mg base)/3 mL solution for nebulization 3 ml inhalation Q6H RF: 0 Coding Level of Care Code ED Associate Professor Of Pathology for Chg Fwd
--- NOTE | 2020-09-09 23:11 | XRR_ITS ---
PROCEDURE INFORMATION: Exam: XR Chest Exam date and time: 09/09/2020 11:11 PM Age: 80 years old Clinical indication: Cough and shortness of breath; Prior surgery; Surgery type: Trach; Additional info: Cough, SOB. PT woke up with blood in his trach. TECHNIQUE: Imaging protocol: XR of the chest. Views: 1 view. COMPARISON: CR XR chest 1V portable [id number] 07/24/2020 11:23 PM FINDINGS: Tubes, catheters and devices: Tracheostomy tube is in satisfactory position. Lungs: Increased interstitial markings and peribronchial thickening may represent interstitial edema or bronchitis. Pleural spaces: Unremarkable. No pleural effusion. No pneumothorax. Heart/Mediastinum: There is moderate cardiomegaly. Moderate size hiatal hernia is present. Bones/joints: Unremarkable. XR/XR chest 1V portable [id number] IMPRESSION: Findings which may represent some interstitial edema or bronchitis.
[2020-09-09 23:42] LABS: Basophils % 0.4 %; Eosinophils # 0.3 10^3/uL (0.0-0.8); Hematocrit 39.2 % (42.0-52.0); Hemoglobin 12.7 g/dL (11.7-16.6); Lymphocytes # 1.5 10^3/uL (0.8-4.8); Lymphocytes % 16.4 %; Mean Corpuscular HGB Conc 32.4 g/dL (30.0-36.0); Mean Corpuscular Hemoglobin 29.5 pg (28.0-34.0); Mean Platelet Volume 9.4 fL (7.4-10.4); Monocytes # 1.2 10^3/uL (0.2-0.9); Monocytes % 13.6 %; Neutrophils # 5.99 10^3/uL (1.8-7.7); Neutrophils % 66.4 %; Nucleated Red Blood Cells % 0 %; Platelet Count 235 10^3/cmm (130-400); Red Blood Count 4.31 10^6/uL (4.1-5.3); Red Cell Distribution Width 14.6 % (12.1-15.1)
[2020-09-10 00:07] LABS: Alanine Aminotransferase 9 U/L (0-41); Albumin Level 3.8 g/dL (3.5-5.2); Alkaline Phosphatase 66 IU/L (40-130); Anion Gap 15.4 (5-19); Aspartate Amino Transferase 10 U/L (0-40); Blood Urea Nitrogen 21 mg/dL (8-23); Calcium 8.5 mg/dL (8.5-10.5); Carbon Dioxide 22 mmol/L (22-29); Chloride 104 mmol/L (98-107); Globulin 2.9 g/dL (1.3-4.6); Glucose 102 mg/dL (65-115); Osmolality Calculated 287 mOsm/kg (285-295); Potassium 4.4 mmol/L (3.5-5.1); Sodium 137 mmol/L (136-145); Total Bilirubin 0.4 mg/dL (0.15-1.2); Total Protein 6.7 g/dL (6.6-8.7)
[2020-09-10 00:37] LABS: Add Urine Microscopic? YES; Bilirubin Urine Neg (Negative); Blood Urine 3+ (Negative); Glucose Urine UA Norm (Normal); Ketones Urine Negative (Negative); Leukocyte Esterase Urine 1+ (Negative); Nitrate Urine Positive (Negative); Protein Urine 1+ (Negative); Specific Gravity, Urine 1.005 (1.005-1.030); Urine Appearance Cloudy (CLEAR); Urine Color Amber (Yellow); Urobilinogen Urine Norm (Negative); pH Urine 7 (5-7)
[2020-09-10 00:39] LABS: Add Urine Culture? Yes; Bacteria Urine 3+ /hpf; RBC Urine >100 /hpf (0-2); Squamous Epithelial Cell Urine 0-4 /hpf (0-5); WBC Urine 0-4 /hpf (0-5)
[2020-09-10] MEDS: cefTRIAXone 1,000 MG in lidocaine 1% 2.1 ML 2.1 MG IM (01:02)
[2020-09-10 01:28] VITALS: BP 145/80; PULSE 89; RESP 18; TEMP 36.6; O2SAT 91
== END 2020-09-10 01:15 | disposition home or self-care (01) ==
PROVIDERS: Emergency Provider Nurse Practitioner Family; PCP Family Medicine
DX: R82.90 Unspecified abnormal findings in urine (principal); R05 Cough; Z79.4 Long term (current) use of insulin; Z79.01 Long term (current) use of anticoagulants; Z79.82 Long term (current) use of aspirin; J44.9 Chronic obstructive pulmonary disease, unspecified; E11.40 Type 2 diabetes mellitus with diabetic neuropathy, unspecified; I10 Essential (primary) hypertension; E78.5 Hyperlipidemia, unspecified
CPT/HCPCS: 71045; 80053; 81001; 85025; 87077; 87086; 87186; 96372; 99283; J0696

== ENCOUNTER 2020-11-26 16:10 | Inpatient (IN) | payer MEDICARE, SELFPAY ==
[2020-11-26 16:13] VITALS: BP 90/57; PULSE 104; RESP 24; TEMP 37.3; O2SAT 84; BMI 44.1
--- NOTE | 2020-11-26 16:24 | ECG_ITS ---
[facility] Test Date: 2020-11-26 Pat Name: Ming Sanchez Department: Room: Gender: Male Dust Collector: : 1940 Requested By: Ilana Orlando Order Number: [id number] Reading MD: Terry Dudley M.D. Measurements Intervals [place] Rate: 96 P: 61 UT: 247 QRS: -15 QRSD: 100 T: -13 QT: 355 QTc: 451 Interpretive Statements SINUS RHYTHM WITH FIRST DEGREE AV BLOCK LOW QRS VOLTAGE IN PRECORDIAL LEADS [QRS DEFLECTION < 1.0 mV IN CHEST LEADS] POSSIBLE RIGHT VENTRICULAR CONDUCTION DELAY [RSR (QR) IN V1/V2] POSSIBLE ANTERIOR MYOCARDIAL INFARCTION , PROBABLY OLD [30 ms Q WAVE IN V3/V4, OR R < 0.2 mV IN V4] Compared to ECG 07/25/2020 01:37:23 Low QRS voltage now present Myocardial infarct finding now present T-wave abnormality no longer present Electronically Signed On 11-26-2020 18:01:36 CDT by Terry Dudley M.D. [email or web address]
--- NOTE | 2020-11-26 16:25 | XRR_ITS ---
PROCEDURE INFORMATION: Exam: XR Chest Exam date and time: 11/26/2020 4:25 PM Age: 80 years old Clinical indication: Shortness of breath; Additional info: Covid pna TECHNIQUE: Imaging protocol: XR of the chest. Views: 1 view. COMPARISON: CR XR chest 1V portable [id number] 04/20/2020 12:31 PM FINDINGS: Tubes, catheters and devices: Tracheostomy tube is in place above the [place]. Lungs: Low lung volumes seen. There is bilateral lower lobe interstitial congestion No consolidation. Pleural spaces: Unremarkable. No pleural effusion. No pneumothorax. Heart/Mediastinum: Unremarkable. No cardiomegaly. Bones/joints: Unremarkable. XR/XR chest 1V portable [id number] IMPRESSION: 1. No acute findings. 2. Bilateral lower lobe interstitial congestion 3. Tracheostomy tube is above the [place]
[2020-11-26 16:26] VITALS: O2SAT 100; O2SAT 96
[2020-11-26 16:45] LABS: ABG PCO2 31.1 mmHg (35-45); ABG PH Result 7.45 (7.35-7.45); Arterial Blood Gas Hematocrit 39.3 % (42-52); Base Excess ABG -1.5 mmol/L (-2.0-2.0); Blood Gas Allen Test Pos; Blood Gas Operator Identificat ED; Blood Gas Sample Site Brachial, right; Blood Gas Sample Type Arterial; HCO3 ABG 21.7 mmol/L (22-26); Oxygen Device NRB
[2020-11-26 16:49] LABS: Basophils % 0.3 %; Eosinophils % 0.1 %; Hematocrit 39.2 % (42.0-52.0); Hemoglobin 12.9 g/dL (11.7-16.6); Lymphocytes # 0.5 10^3/uL (0.8-4.8); Lymphocytes % 3.4 %; Mean Corpuscular HGB Conc 32.9 g/dL (30.0-36.0); Mean Corpuscular Hemoglobin 29.9 pg (28.0-34.0); Mean Platelet Volume 9.7 fL (7.4-10.4); Monocytes % 7.4 %; Neutrophils # 11.61 10^3/uL (1.8-7.7); Neutrophils % 87.4 %; Nucleated Red Blood Cells % 0 %; Platelet Count 212 10^3/cmm (130-400); Red Blood Count 4.31 10^6/uL (4.1-5.3); Red Cell Distribution Width 14.7 % (12.1-15.1); White Blood Count 13.3 10^3/uL (4.0-10.0)
--- NOTE | 2020-11-26 17:00 | PC.PHAR ---
pts daughter luis alberto verified the pts medications-pts daughter luis alberto states the pt refused to take lantus this am states the pt said he already took luis alberto states she doesnt think the pt actually took-notes are made in the pharmacy comments
[2020-11-26 17:10] LABS: Lactic Sepsis W/Reflex 2.2 mmol/L (0.5-2.2)
[2020-11-26 17:11] LABS: INR 1.48 (0.8-1.2)
[2020-11-26 17:12] LABS: Partial Thromboplastin Time 40.3 SECONDS (23.9-36.7)
[2020-11-26 17:15] LABS: D Dimer <= 0.27 ug/mIFEU (0-0.59)
--- NOTE | 2020-11-26 17:21 | PC.NURSE ---
portable xray at bedside
[2020-11-26 17:26] LABS: SARS Covid-2 Antigen Negative (Negative)
[2020-11-26] MEDS: cefepime 1,000 MG in sodium chloride 0.9% (plus) 50 ML 100 MG IV (17:30)
[2020-11-26] MEDS: vancomycin 1,000 MG in sodium chloride 0.9% 250 ML 250 MG IV (17:30)
--- NOTE | 2020-11-26 17:30 | W.ED.GENADLT ---
HPI - General Adult General: Chief complaint: ER Hold Stated complaint: respiratory distress, covid exposure Time Seen by Provider: 11/26/20 16:24 History of Present Illness: HPI narrative: Patient is a 80-year-old male atrial fibrillation on eliquis, diabetes, hypertension, prior hospitalization last year for Covid, chronically trach dependent presenting to the emergency room for evaluation of shortness of breath, malaise, and generalized weakness. Patient has had family members were tested Covid positive for Covid this earlier this week. Yesterday, patient felt so lightheaded and fell. Patient denies hitting his head. Reports b/l shoulder pain. Patient denies any associated chest pain or palpitation. Patient reports some nausea, denies vomiting, and endorses diarrhea Onset:4 days ago Duration:4 days Location:home Severity:moderate Review of Systems Narrative: Constitutional: No fever, no chills. HEENT: No vision changes CV: No chest pain, no palpitations PULM: +cough, +dyspnea. GI: No abdominal pain, +N/-V/+D. : No dysuria MSKEL: No muscle pain, +b/l shoulder pain SKIN: No new rashes, no lesions. NEURO: No headache, no focal weakness. HEME: No visible bruises PSYCH: Normal mood PFSH ED PFSH: Medical History Acute cystitis Aspiration into lower respiratory tract CKD (chronic kidney disease) stage 2, GFR 60-89 ml/min COPD (chronic obstructive pulmonary disease) Depression Diabetes mellitus case management patient Fatigue Carlson catheter in place GERD (gastroesophageal reflux disease) Healthcare-associated pneumonia HTN (hypertension) Hyperlipidemia Hypertension Male circumcision Morbid obesity with BMI of 40.0-44.9, adult Neuropathy Osteoarthritis Phimosis Restless legs syndrome (RLS) Tracheostomy care Urinary retention Surgical History History of cholecystectomy History of total left knee replacement Hx of tonsillectomy Status post routine circumcision Status post tracheostomy Family History Other Cancer Diabetes Social History Smoking and tobacco status: never smoked Alcohol intake: never Current occupational status: unemployed and retired Financial difficulty paying for basics: Somewhat Hard Physical Exam Narrative: EXAM NARRATIVE: Head: Atraumatic Eyes: PERRL, conjunctiva without injection ENT: Dry membrane moist NECK: Supple, ROM intact, +trach midline with mild greenish discharge LUNGS: Coarse breath sounds bilaterally CV: RRR ABDOMEN: Soft, nontender in all quadrants, no guarding or rebound tenderness EXTREMITY: Normal ROM of the shoulders b/l SKIN: No rash or erythema NEURO: Awake and alert, no focal motor deficits PSYCH: Normal mood and affect Course Vital Signs: Vital signs: Vital Signs Temperature 99.1 F 11/26/20 16:13 Pulse Rate 78 11/27/20 01:45 Respiratory Rate 12 11/27/20 01:45 Blood Pressure 128/72 11/27/20 01:45 Pulse Oximetry 95 11/27/20 01:45 MDM - General Adult MDM Narrative: Medical decision making narrative: Patient is a 80-year-old male with a history of afib on eliquis, hypertension, diabetes, prior prolonged hospitalization for Covid last year presenting to the emergency room for acute dyspnea. On arrival, patient is satting at 93% on 12 L nasal cannula. Patient is able to verbalize upon covering for his trach. Patient does not have any signs of increased work of breathing. On arrival, heart pressures are soft and 100/50. White count of 13 K, L0.69, D-dimer within normal limit, troponin mildly elevated at 40, proBNP of 680. Patient is Covid antigen negative. Chest x-ray is consistent with diffuse interstitial pattern. At the present time, given findings on trach, story of Covid exposure, treated CHF, suspect mixed respiratory distress. Patient continues to be satting well at 12 L at 94%. Trach aspirate sent. CT brain negative for brain bleed. XR shoulders negative for acute fractures. CTA negative for PE, however noted ground-glass opacitiy Decision: Admission for serial reevaluation. Lab Data: Labs: Lab Results 11/26/20 11/26/20 11/26/20 Range/Units 16:25 16:25 16:25 WBC 13.3 H (4.0-10.0) 10^3/ uL RBC 4.31 (4.1-5.3) 10^6/u L Hgb 12.9 (11.7-16.6) g/dL Hct 39.2 L (42.0-52.0) % MCV 91.0 (80-94) fl MCH 29.9 (28.0-34.0) pg MCHC 32.9 (30.0-36.0) g/dL RDW 14.7 (12.1-15.1) % Plt Count 212 (130-400) 10^3/c mm MPV 9.7 (7.4-10.4) fL Neut % (Auto) 87.4 % Lymph % (Auto) 3.4 % Pennington % (Auto) 7.4 % Eos % (Auto) 0.1 % Baso % (Auto) 0.3 % Neut # (Auto) 11.61 H (1.8-7.7) 10^3/u L Lymph # (Auto) 0.5 L (0.8-4.8) 10^3/u L Pennington # (Auto) 1.0 H (0.2-0.9) 10^3/u L Eos # (Auto) 0.0 (0.0-0.8) 10^3/u L Baso # (Auto) 0.0 (0.0-0.1) 10^3/u L Nucleated RBC % (a uto) 0 % Nucleated RBCs # 0.0 /100WBC PT 18.30 H (12.1-14.9) SECO NDS INR 1.48 H (0.8-1.2) APTT 40.3 H (23.9-36.7) SECO NDS Fibrinogen 477 (174-498) mg/dL D-Dimer <= 0.27 (0-0.59) ug/mIFE U Specimen Type Sample Site ABG pH (7.35-7.45) ABG pCO2 (35-45) mmHg ABG pO2 (80.0-100.0) mmH g ABG HCO3 (22-26) mmol/L ABG Base Excess (-2.0-2.0) mmol/ L Manjeet Test Hematocrit (42-52) % O2 Delivery Device O2 Liters/Min % Air Drill Operator ID Sodium 135 L (136-145) mmol/L Potassium 5.0 (3.5-5.1) mmol/L Chloride 102 (98-107) mmol/L Carbon Dioxide 19 L (22-29) mmol/L Anion Gap 19.0 (5-19) BUN 20 (8-23) mg/dL Creatinine 1.3 H (0.7-1.2) mg/dL GFR Calculation Not Reportable Glucose 220 H (65-115) mg/dL Estimat Average Gl ucose Hemoglobin A1c (4.0-6.0) % Calculated Osmolal ity 289 (285-295) mOsm/k g Lactic Acid (0.5-2.2) mmol/L Calcium 8.3 L (8.5-10.5) mg/dL Ferritin 58 (30-400) ng/mL Total Bilirubin 0.7 (0.15-1.2) mg/dL AST 16 (0-40) U/L ALT 12 (0-41) U/L Alkaline Phosphata se 66 (40-130) IU/L Creatine Kinase (39-308) U/L Troponin T Gen 5 n g/L (0-15) ng/L C-Reactive Protein 43.5 H (0.0-4.9) mg/L NT-Pro-B Natriuret Pep 627 H (0-450) pg/mL Total Protein 6.1 L (6.6-8.7) g/dL Albumin 3.7 (3.5-5.2) g/dL Globulin 2.4 (1.3-4.6) g/dL Lipase 10 L (13-60) U/L Procalcitonin 0.69 H (0-0.5) ng/mL TSH (0.27-4.20) uIU/ mL SARS-CoV-2 Ag (Rap id) (Negative) 11/26/20 11/26/20 11/26/20 Range/Units 16:25 16:25 16:25 WBC (4.0-10.0) 10^3/ uL RBC (4.1-5.3) 10^6/u L Hgb (11.7-16.6) g/dL Hct (42.0-52.0) % MCV (80-94) fl MCH (28.0-34.0) pg MCHC (30.0-36.0) g/dL RDW (12.1-15.1) % Plt Count (130-400) 10^3/c mm MPV (7.4-10.4) fL Neut % (Auto) % Lymph % (Auto) % Pennington % (Auto) % Eos % (Auto) % Baso % (Auto) % Neut # (Auto) (1.8-7.7) 10^3/u L Lymph # (Auto) (0.8-4.8) 10^3/u L Pennington # (Auto) (0.2-0.9) 10^3/u L Eos # (Auto) (0.0-0.8) 10^3/u L Baso # (Auto) (0.0-0.1) 10^3/u L Nucleated RBC % (a uto) % Nucleated RBCs # /100WBC PT (12.1-14.9) SECO NDS INR (0.8-1.2) APTT (23.9-36.7) SECO NDS Fibrinogen (174-498) mg/dL D-Dimer (0-0.59) ug/mIFE U Specimen Type Sample Site ABG pH (7.35-7.45) ABG pCO2 (35-45) mmHg ABG pO2 (80.0-100.0) mmH g ABG HCO3 (22-26) mmol/L ABG Base Excess (-2.0-2.0) mmol/ L Manjeet Test Hematocrit (42-52) % O2 Delivery Device O2 Liters/Min % Air Drill Operator ID Sodium (136-145) mmol/L Potassium (3.5-5.1) mmol/L Chloride (98-107) mmol/L Carbon Dioxide (22-29) mmol/L Anion Gap (5-19) BUN (8-23) mg/dL Creatinine (0.7-1.2) mg/dL GFR Calculation Glucose (65-115) mg/dL Estimat Average Gl ucose Hemoglobin A1c (4.0-6.0) % Calculated Osmolal ity (285-295) mOsm/k g Lactic Acid 2.2 (0.5-2.2) mmol/L Calcium (8.5-10.5) mg/dL Ferritin (30-400) ng/mL Total Bilirubin (0.15-1.2) mg/dL AST (0-40) U/L ALT (0-41) U/L Alkaline Phosphata se (40-130) IU/L Creatine Kinase 121 (39-308) U/L Troponin T Gen 5 n g/L 43 H (0-15) ng/L C-Reactive Protein (0.0-4.9) mg/L NT-Pro-B Natriuret Pep (0-450) pg/mL Total Protein (6.6-8.7) g/dL Albumin (3.5-5.2) g/dL Globulin (1.3-4.6) g/dL Lipase (13-60) U/L Procalcitonin (0-0.5) ng/mL TSH (0.27-4.20) uIU/ mL SARS-CoV-2 Ag (Rap id) (Negative) 11/26/20 11/26/20 11/26/20 Range/Units 16:25 16:25 16:30 WBC (4.0-10.0) 10^3/ uL RBC (4.1-5.3) 10^6/u L Hgb (11.7-16.6) g/dL Hct (42.0-52.0) % MCV (80-94) fl MCH (28.0-34.0) pg MCHC (30.0-36.0) g/dL RDW (12.1-15.1) % Plt Count (130-400) 10^3/c mm MPV (7.4-10.4) fL Neut % (Auto) % Lymph % (Auto) % Pennington % (Auto) % Eos % (Auto) % Baso % (Auto) % Neut # (Auto) (1.8-7.7) 10^3/u L Lymph # (Auto) (0.8-4.8) 10^3/u L Pennington # (Auto) (0.2-0.9) 10^3/u L Eos # (Auto) (0.0-0.8) 10^3/u L Baso # (Auto) (0.0-0.1) 10^3/u L Nucleated RBC % (a uto) % Nucleated RBCs # /100WBC PT (12.1-14.9) SECO NDS INR (0.8-1.2) APTT (23.9-36.7) SECO NDS Fibrinogen (174-498) mg/dL D-Dimer (0-0.59) ug/mIFE U Specimen Type Arterial Sample Site Brachial, right ABG pH 7.45 (7.35-7.45) ABG pCO2 31.1 L (35-45) mmHg ABG pO2 105.0 H (80.0-100.0) mmH g ABG HCO3 21.7 L (22-26) mmol/L ABG Base Excess -1.5 (-2.0-2.0) mmol/ L Manjeet Test Pos Hematocrit 39.3 L (42-52) % O2 Delivery Device Nrb O2 Liters/Min 15.0 % Air Drill Operator ID Ed Sodium (136-145) mmol/L Potassium (3.5-5.1) mmol/L Chloride (98-107) mmol/L Carbon Dioxide (22-29) mmol/L Anion Gap (5-19) BUN (8-23) mg/dL Creatinine (0.7-1.2) mg/dL GFR Calculation Glucose (65-115) mg/dL Estimat Average Gl ucose 157 Hemoglobin A1c 7.1 H (4.0-6.0) % Calculated Osmolal ity (285-295) mOsm/k g Lactic Acid (0.5-2.2) mmol/L Calcium (8.5-10.5) mg/dL Ferritin (30-400) ng/mL Total Bilirubin (0.15-1.2) mg/dL AST (0-40) U/L ALT (0-41) U/L Alkaline Phosphata se (40-130) IU/L Creatine Kinase (39-308) U/L Troponin T Gen 5 n g/L (0-15) ng/L C-Reactive Protein (0.0-4.9) mg/L NT-Pro-B Natriuret Pep (0-450) pg/mL Total Protein (6.6-8.7) g/dL Albumin (3.5-5.2) g/dL Globulin (1.3-4.6) g/dL Lipase (13-60) U/L Procalcitonin (0-0.5) ng/mL TSH 0.88 (0.27-4.20) uIU/ mL SARS-CoV-2 Ag (Rap id) (Negative) 11/26/20 Range/Units 16:30 WBC (4.0-10.0) 10^3/ uL RBC (4.1-5.3) 10^6/u L Hgb (11.7-16.6) g/dL Hct (42.0-52.0) % MCV (80-94) fl MCH (28.0-34.0) pg MCHC (30.0-36.0) g/dL RDW (12.1-15.1) % Plt Count (130-400) 10^3/c mm MPV (7.4-10.4) fL Neut % (Auto) % Lymph % (Auto) % Pennington % (Auto) % Eos % (Auto) % Baso % (Auto) % Neut # (Auto) (1.8-7.7) 10^3/u L Lymph # (Auto) (0.8-4.8) 10^3/u L Pennington # (Auto) (0.2-0.9) 10^3/u L Eos # (Auto) (0.0-0.8) 10^3/u L Baso # (Auto) (0.0-0.1) 10^3/u L Nucleated RBC % (a uto) % Nucleated RBCs # /100WBC PT (12.1-14.9) SECO NDS INR (0.8-1.2) APTT (23.9-36.7) SECO NDS Fibrinogen (174-498) mg/dL D-Dimer (0-0.59) ug/mIFE U Specimen Type Sample Site ABG pH (7.35-7.45) ABG pCO2 (35-45) mmHg ABG pO2 (80.0-100.0) mmH g ABG HCO3 (22-26) mmol/L ABG Base Excess (-2.0-2.0) mmol/ L Manjeet Test Hematocrit (42-52) % O2 Delivery Device O2 Liters/Min % Air Drill Operator ID Sodium (136-145) mmol/L Potassium (3.5-5.1) mmol/L Chloride (98-107) mmol/L Carbon Dioxide (22-29) mmol/L Anion Gap (5-19) BUN (8-23) mg/dL Creatinine (0.7-1.2) mg/dL GFR Calculation Glucose (65-115) mg/dL Estimat Average Gl ucose Hemoglobin A1c (4.0-6.0) % Calculated Osmolal ity (285-295) mOsm/k g Lactic Acid (0.5-2.2) mmol/L Calcium (8.5-10.5) mg/dL Ferritin (30-400) ng/mL Total Bilirubin (0.15-1.2) mg/dL AST (0-40) U/L ALT (0-41) U/L Alkaline Phosphata se (40-130) IU/L Creatine Kinase (39-308) U/L Troponin T Gen 5 n g/L (0-15) ng/L C-Reactive Protein (0.0-4.9) mg/L NT-Pro-B Natriuret Pep (0-450) pg/mL Total Protein (6.6-8.7) g/dL Albumin (3.5-5.2) g/dL Globulin (1.3-4.6) g/dL Lipase (13-60) U/L Procalcitonin (0-0.5) ng/mL TSH (0.27-4.20) uIU/ mL SARS-CoV-2 Ag (Rap id) Negative (Negative) Imaging Data^: Other Imaging: Radiologist's impression: [address] [id number] ReportSigned Patient: Ming Sanchez #: [id number]: 2Acct#:[id number]/Sex: 80 / MADM Date: 11/26/20Loc: ERRoom/Bed:Attending Dr: Ordering Provider/Ordering MD: Ilana Orlando MD Date of Service: 11/26/20 Procedure(s): XR chest 1V portable [id number] Accession Number(s): [id number] Report Number: [id number] PROCEDURE INFORMATION: Exam: XR Chest Exam date and time: 11/26/2020 4:25 PM Age: 80 years old Clinical indication: Shortness of breath; Additional info: Covid pna TECHNIQUE: Imaging protocol: XR of the chest. Views: 1 view. COMPARISON: CR XR chest 1V portable [id number] 04/20/2020 12:31 PM FINDINGS: Tubes, catheters and devices: Tracheostomy tube is in place above the anne-marie. Lungs: Low lung volumes seen. There is bilateral lower lobe interstitial congestion No consolidation. Pleural spaces: Unremarkable. No pleural effusion. No pneumothorax. Heart/Mediastinum: Unremarkable. No cardiomegaly. Bones/joints: Unremarkable. XR/XR chest 1V portable [id number] IMPRESSION: 1. No acute findings. 2. Bilateral lower lobe interstitial congestion 3. Tracheostomy tube is above the anne-marie Dictated By:Venita Mccarty By:Venita Mccarty Date/Time:11/26/20 1751DD/ [address] [address]BSce ReportSigned Patient: Ming Sanchez #: [id number]: 1940cct#:[id number]/Sex: 80 / MADM Date: 11/26/20Loc: ERRoom/Bed:Attending Dr: Ordering Provider/Ordering MD: Ilana Orlando MD Date of Service: 11/26/20 Procedure(s): XR shoulder RT 1V 59644 Accession Number(s): [id number] Report Number: [id number] PROCEDURE INFORMATION: Exam: XR Right Shoulder Exam date and time: 11/26/2020 6:03 PM Age: 80 years old Clinical indication: Pain; Shoulder; Right; Additional info: Pain with fall TECHNIQUE: Imaging protocol: XR Right shoulder. Views: 1 view. COMPARISON: CR (CHEST, ) 11/26/2020 5:13 PM FINDINGS: Bones/joints: Negative for acute abnormality Soft tissues: Tracheostomy tube is seen in good position. XR/XR shoulder RT 1V [id number] IMPRESSION: 1. No acute bone abnormality. 2. Tracheostomy tube in good position Dictated By:Venita Mccarty By:Venita Mccarty Date/Time:11/26/20 1831DD/ [address] [place], [place] [address]GMgh ReportSigned Patient: Ming Sanchez #: [id number]: [id number]#:[id number]/Sex: MADM Date: 11/26/20Loc: ERRoom/Bed:Attending Dr: Ordering Provider/Ordering MD: Ilana Orlando MD Date of Service: 11/26/20 Procedure(s): XR shoulder LT 1V 54301 Accession Number(s): [id number] Report Number: [id number] PROCEDURE INFORMATION: Exam: XR Left Shoulder Exam date and time: 11/26/2020 6:03 PM Age: 80 years old Clinical indication: Pain; Shoulder; Left; Additional info: Pain with fall TECHNIQUE: Imaging protocol: XR Left shoulder. Views: 2 or more views. COMPARISON: CR (CHEST, ) 11/26/2020 5:13 PM FINDINGS: Bones/joints: Negative for acute bony abnormality Soft tissues: Tracheostomy tube is in good position XR/XR shoulder LT 1V [id number] IMPRESSION: 1. No acute bone abnormality. 2. Tracheostomy tube is in good position Dictated By:Venita Mccarty By:Venita Mccarty Date/Time:11/26/20 1832DD/ [address] [id number] Scan ReportSigned Patient: Ming Sanchez #: [id number]: 1940cct#:[id number]/Sex: MAD Date: 11/26/20Loc: ERRoom/Bed:Attending Dr: Ordering Provider/Ordering MD: Ilana Orlando MD Date of Service: 11/26/20 Procedure(s): CT neck wo con [id number] Accession Number(s): [id number] Report Number: [id number] PROCEDURE INFORMATION: Exam: CT Neck Without Contrast Exam date and time: 11/26/2020 6:02 PM Age: 80 years old Clinical indication: Device placement; Trach; Prior surgery; Additional info: Evaluate for trach infection TECHNIQUE: Imaging protocol: Computed tomography images of the neck without contrast. Radiation optimization: All CT scans at this facility use at least one of these dose optimization techniques: automated exposure control; mA and/or kV adjustment per patient size (includes targeted exams where dose is matched to clinical indication); or iterative reconstruction. COMPARISON: CT head wo con* [id number] 11/26/2020 7:18 PM RADIATION DOSE METRICS: Total DLP (mGy-cm): 470.01 FINDINGS: Sinuses: There is complete opacity in the left maxillary sinus. A partially calcified density is seen in the medial aspect of the right maxillary sinus extending through the medial wall. The differential diagnosis for this finding includes mucocele, and polyps. Nasopharynx: Unremarkable. Oropharynx: Unremarkable. No significant tonsillar enlargement. Hypopharynx: Unremarkable. Larynx: Unremarkable. Normal epiglottis. Retropharyngeal space: Unremarkable. Submandibular/Parotid glands: Normal. Glands are normal in size. Thyroid: Normal. No enlarged or calcified nodules. Lymph nodes: Unremarkable. No lymphadenopathy. Trachea: Visualized trachea is unremarkable. Lungs: Unremarkable as visualized. Bones/joints: Unremarkable. No acute fracture. Soft tissues: Unremarkable. No significant soft tissue swelling. Tracheostomy tube is in place in good position. CT/CT neck wo con [id number] IMPRESSION: 1. Complete opacity right maxillary sinus possible mucocele or polyp 2. Tracheostomy tube is in good position. 3. Otherwise negative examination of the neck Radiation Dose CTDIVOL = (mGy): DLP = 470.01 (mGy-cm) Dictated By:Venita Mccarty By:Venita Mccarty Date/Time:11/26/202001DD/ [address] [id number] Scan ReportSigned Patient: Ming Sanchez [facility] #: [id number]: 1940cc#:[id number]/Sex: 80 / MADM Date: 11/26/20Loc: ERRoom/Bed:Attending Dr: Ordering Provider/Ordering MD: Ilana Orlando MD Date of Service: 11/26/20 Procedure(s): CT angio chest PE protcl [id number] Accession Number(s): [id number] Report Number: [id number] PROCEDURE INFORMATION: Exam: CTA Chest With Contrast Exam date and time: 11/26/2020 6:02 PM Age: 80 years old Clinical indication: Patient HX: Respiratory distress, evaluate for pathologies TECHNIQUE: Imaging protocol: Computed tomographic angiography of the chest with contrast. 3D rendering (Not supervised by radiologist): MIP and/or 3D reconstructed images were created by the technologist. Radiation optimization: All CT scans at this facility use at least one of these dose optimization techniques: automated exposure control; mA and/or kV adjustment per patient size (includes targeted exams where dose is matched to clinical indication); or iterative reconstruction. Contrast material: VISI 320; Contrast volume: 82 ml; Contrast route: INTRAVENOUS (IV); COMPARISON: CT chest wo con [id number] 03/31/2020 7:57 PM RADIATION DOSE METRICS: Total DLP (mGy-cm): 562.83 FINDINGS: Tubes, catheters and devices: Midline tracheostomy with unremarkable position. Pulmonary arteries: Normal. No pulmonary emboli. Aorta: Unremarkable. No aortic aneurysm. No aortic dissection. Lungs: Moderate severity emphysema. Scattered patchy ground-glass changes throughout lung gomez. Negative for significant airspace consolidation. Mild diffuse bronchial wall thickening. Negative for bronchiectasis. Mosaic attenuation parenchymal pattern of the lungs. Pleural spaces: Unremarkable. No pneumothorax. No pleural effusion. Heart: Unremarkable. No cardiomegaly. No pericardial effusion. Mediastinal space: Large hiatal hernia. No thoracic esophageal wall thickening. Lymph nodes: Unremarkable. No enlarged lymph nodes. Gallbladder and bile ducts: Cholecystectomy. Bones/joints: Unremarkable. No acute fracture. Soft tissues: Unremarkable. CT/CT angio chest PE protcl [id number] IMPRESSION: 1. Negative for pulmonary embolism. 2. Mosaic attenuation changes of the lungs with scattered ground-glass opacities. This could represent pneumonitis changes, or alternatively air trapping changes secondary to underlying small airways disease. Radiation Dose CTDIVOL = (mGy): DLP = 562.83 (mGy-cm) Dictated By:Suraj ConleyinSmaryjane By:Pepe Conley Date/Time:11/26/202007 [address] [place], [place] [address]BM Scan ReportSigned Patient: Ming Sanchez #: [id number]: 1940cct#:[id number]/Sex: 80 / MADM Date: 11/26/20Loc: ERRoom/Bed:Attending Dr: Ordering Provider/Ordering MD: Ilana Orlando MD Date of Service: 11/26/20 Procedure(s): CT head wo con* [id number] Accession Number(s): [id number] Report Number: [id number] PROCEDURE INFORMATION: Exam: CT Head Without Contrast Exam date and time: 11/26/2020 5:32 PM Age: 80 years old Clinical indication: Injury or trauma; Fall; Blunt trauma (contusions or hematomas); Injury date: 11/25/20; Additional info: Rule out brain bleed, fall yesterday TECHNIQUE: Imaging protocol: Computed tomography of the head without contrast. Radiation optimization: All CT scans at this facility use at least one of these dose optimization techniques: automated exposure control; mA and/or kV adjustment per patient size (includes targeted exams where dose is matched to clinical indication); or iterative reconstruction. COMPARISON: No relevant prior studies available. RADIATION DOSE METRICS: Total DLP (mGy-cm): 1006.58 FINDINGS: Brain: Prominent cortical sulci consistent with cerebral atrophic changes.. No hemorrhage. Unremarkable white matter. No mass effect. Cerebral ventricles: Moderate ventriculomegaly appropriate for age. Paranasal sinuses: Visualized sinuses are unremarkable. No fluid levels. Mastoid air cells: Visualized mastoid air cells are well aerated. Bones/joints: Unremarkable. No acute fracture. Soft tissues: Unremarkable. CT/CT head wo con* [id number] IMPRESSION: 1. No acute intracranial abnormality. 2. Cerebral atrophic changes appropriate for age 3. Moderate ventriculomegaly appropriate for age Radiation Dose CTDIVOL = (mGy): DLP = 1006.58 (mGy-cm) Dictated By:Venita Mccarty By:Venita Mccarty Date/Time:11/26/201955DD/ 54 Discharge Plan Discharge Patient Disposition: Admitted As Inpatient Admit Provider: Brandon Madrigal Clinical Impression: Hypoxemia, CHF (congestive heart failure), Suspected severe acute respiratory syndrome coronavirus 2 (SARS-CoV-2) infection, Suspected 2019-nCoV infection, Infection of tracheostomy Condition: Stable Coding Level of Care Code ED Forging Dies Final Finisher for Sharmila Coby
[2020-11-26 17:32] LABS: Troponin T (5th) Once 43 ng/L (0-15)
[2020-11-26 17:39] VITALS: BP 116/62; PULSE 83; RESP 29; O2SAT 94
[2020-11-26 17:42] LABS: NT Pro B Type Natriuretic Pept 627 pg/mL (0-450); Procalcitonin 0.69 ng/mL (0-0.5)
[2020-11-26 17:53] LABS: Alanine Aminotransferase 12 U/L (0-41); Albumin Level 3.7 g/dL (3.5-5.2); Alkaline Phosphatase 66 IU/L (40-130); Chloride 102 mmol/L (98-107); Sodium 135 mmol/L (136-145)
--- NOTE | 2020-11-26 18:02 | CTR_ITS ---
PROCEDURE INFORMATION: Exam: CTA Chest With Contrast Exam date and time: 11/26/2020 6:02 PM Age: 80 years old Clinical indication: Patient HX: Respiratory distress, evaluate for pathologies TECHNIQUE: Imaging protocol: Computed tomographic angiography of the chest with contrast. 3D rendering (Not supervised by radiologist): MIP and/or 3D reconstructed images were created by the technologist. Radiation optimization: All CT scans at this facility use at least one of these dose optimization techniques: automated exposure control; mA and/or kV adjustment per patient size (includes targeted exams where dose is matched to clinical indication); or iterative reconstruction. Contrast material: VISI 320; Contrast volume: 82 ml; Contrast route: INTRAVENOUS (IV); COMPARISON: CT chest [facility] [id number] 03/31/2020 7:57 PM RADIATION DOSE METRICS: Total DLP (mGy-cm): 562.83 FINDINGS: Tubes, catheters and devices: Midline tracheostomy with unremarkable position. Pulmonary arteries: Normal. No pulmonary emboli. Aorta: Unremarkable. No aortic aneurysm. No aortic dissection. Lungs: Moderate severity emphysema. Scattered patchy ground-glass changes throughout lung gomez. Negative for significant airspace consolidation. Mild diffuse bronchial wall thickening. Negative for bronchiectasis. Mosaic attenuation parenchymal pattern of the lungs. Pleural spaces: Unremarkable. No pneumothorax. No pleural effusion. Heart: Unremarkable. No cardiomegaly. No pericardial effusion. Mediastinal space: Large hiatal hernia. No thoracic esophageal wall thickening. Lymph nodes: Unremarkable. No enlarged lymph nodes. Gallbladder and bile ducts: Cholecystectomy. Bones/joints: Unremarkable. No acute fracture. Soft tissues: Unremarkable. CT/CT angio chest PE protcl [id number] IMPRESSION: 1. Negative for pulmonary embolism. 2. Mosaic attenuation changes of the lungs with scattered ground-glass opacities. This could represent pneumonitis changes, or alternatively air trapping changes secondary to underlying small airways disease. Radiation Dose CTDIVOL = (mGy): DLP = 562.83 (mGy-cm)
--- NOTE | 2020-11-26 18:02 | CTR_ITS ---
PROCEDURE INFORMATION: Exam: CT Neck Without Contrast Exam date and time: 11/26/2020 6:02 PM Age: 80 years old Clinical indication: Device placement; Trach; Prior surgery; Additional info: Evaluate for trach infection TECHNIQUE: Imaging protocol: Computed tomography images of the neck without contrast. Radiation optimization: All CT scans at this facility use at least one of these dose optimization techniques: automated exposure control; mA and/or kV adjustment per patient size (includes targeted exams where dose is matched to clinical indication); or iterative reconstruction. COMPARISON: CT head wo con* [id number] 11/26/2020 7:18 PM RADIATION DOSE METRICS: Total DLP (mGy-cm): 470.01 FINDINGS: Sinuses: There is complete opacity in the left maxillary sinus. A partially calcified density is seen in the medial aspect of the right maxillary sinus extending through the medial wall. The differential diagnosis for this finding includes mucocele, and polyps. Nasopharynx: Unremarkable. Oropharynx: Unremarkable. No significant tonsillar enlargement. Hypopharynx: Unremarkable. Larynx: Unremarkable. Normal epiglottis. Retropharyngeal space: Unremarkable. Submandibular/Parotid glands: Normal. Glands are normal in size. Thyroid: Normal. No enlarged or calcified nodules. Lymph nodes: Unremarkable. No lymphadenopathy. Trachea: Visualized trachea is unremarkable. Lungs: Unremarkable as visualized. Bones/joints: Unremarkable. No acute fracture. Soft tissues: Unremarkable. No significant soft tissue swelling. Tracheostomy tube is in place in good position. CT/CT neck wo con [id number] IMPRESSION: 1. Complete opacity right maxillary sinus possible mucocele or polyp 2. Tracheostomy tube is in good position. 3. Otherwise negative examination of the neck Radiation Dose CTDIVOL = (mGy): DLP = 470.01 (mGy-cm)
--- NOTE | 2020-11-26 18:03 | XRR_ITS ---
PROCEDURE INFORMATION: Exam: XR Left Shoulder Exam date and time: 11/26/2020 6:03 PM Age: 80 years old Clinical indication: Pain; Shoulder; Left; Additional info: Pain with fall TECHNIQUE: Imaging protocol: XR Left shoulder. Views: 2 or more views. COMPARISON: CR (CHEST, ) 11/26/2020 5:13 PM FINDINGS: Bones/joints: Negative for acute bony abnormality Soft tissues: Tracheostomy tube is in good position XR/XR shoulder LT 1V [id number] IMPRESSION: 1. No acute bone abnormality. 2. Tracheostomy tube is in good position
--- NOTE | 2020-11-26 18:03 | XRR_ITS ---
PROCEDURE INFORMATION: Exam: XR Right Shoulder Exam date and time: 11/26/2020 6:03 PM Age: 80 years old Clinical indication: Pain; Shoulder; Right; Additional info: Pain with fall TECHNIQUE: Imaging protocol: XR Right shoulder. Views: 1 view. COMPARISON: CR (CHEST, ) 11/26/2020 5:13 PM FINDINGS: Bones/joints: Negative for acute abnormality Soft tissues: Tracheostomy tube is seen in good position. XR/XR shoulder RT 1V [id number] IMPRESSION: 1. No acute bone abnormality. 2. Tracheostomy tube in good position
[2020-11-26 18:22] VITALS: PULSE 84; O2SAT 95
[2020-11-26 18:33] LABS: Reflex Lactate Order REFLEX LACTIC ORDERD
[2020-11-26 18:38] LABS: Fibrinogen 477 mg/dL (174-498)
--- NOTE | 2020-11-26 18:45 | PM.HP ---
Providers/Chief Complaint Primary Care Provider: Rudi Lima MD Chief Complaint: COVID, RESP DISTRESS, SEPSIS History of Present Illness Ming Sanchez is a 80 year old male with a past medical history of insulin-dependent type 2 diabetes mellitus, morbid obesity, diabetic neuropathy, GERD, depression, hyperlipidemia, atrial fibrillation on Eliquis, history of urinary tension, LAYTON, history of ischemic cardiomyopathy, systolic CHF, status post [place], on aspirin, statin, hospitalization for COVID-19 pneumonia 12/21/2019, with tracheostomy placement, chronically on 6 L, PEG placement with PEG reversal 03/26/2021, hospitalization March 2021 for aspiration pneumonia, discharged on a ground mechanical soft diet, recent follow-up with cardiology showed an improved ejection fraction of 40 to 45%, who presents to [facility] due to shortness of breath, cough, and a fall. Patient tells me that he has been experiencing more shortness of breath with exertion recently, more productive cough, increased sputum production from his tracheostomy site, he has been trying to adhere to his dysphagia diet, no fevers, but does have positive Covid contacts in his house, has not received the Covid vaccine as of yet. He tells me that when he is walking to the bathroom, he felt a bit winded, he felt weak, both of his legs gave out, and he fell to the floor, no pain currently, no hip pain, no back pain, he tells me that he takes Lasix for his bilateral extremity edema, the edema is minimal today Review of Systems Const: Denies: fever(s), chills or body aches Eyes: Denies: change in vision or blurry vision ENMT: Reports: nasal discharge; Denies: nasal congestion Card: Denies: chest pain, palpitations, edema or lightheadedness Resp: Reports: dyspnea, non-productive cough and wheezing; Denies: productive cough GI: Denies: abdominal pain, nausea, vomiting, hematemesis, diarrhea, constipation, hematochezia or melena : Reports: difficulty urinating; Denies: flank pain, dysuria or urinary frequency Musc: Denies: neck pain or back pain Skin/Breast: Denies: rash Neuro: Denies: headache(s), dizziness or vertigo Endo: Denies: polyuria or polydipsia Medications/Allergies Home Medications Medication Instructions Recorded Confirmed Last Taken Type calcium polycarbophil [FiberCon] 625 mg PO DAILY PRN 03/31/20 11/26/20 04/20/20 History aspirin [Aspir-81] 81 mg PO QAM 04/20/20 11/26/20 11/26/20 12:00 History carboxymethylcellulose sodium 1 drp OPHTHALMIC (EYE) TID PRN 04/20/20 11/26/20 Unknown History [Refresh Plus] chlorhexidine gluconate 15 ml PO BID PRN 04/20/20 11/26/20 Unknown History magnesium oxide 400 mg PO BEDTIME tab 04/22/20 11/26/20 11/25/20 History furosemide 20 mg tablet See Rx Instructions .ROUTE 04/30/20 11/26/20 11/26/20 13:00 History .COMPLEX tab 20 mg apixaban 5 mg tablet 5 mg PO BID #180 tab 05/05/20 11/26/20 11/26/20 12:00 Rx diltiazem HCl 240 mg 240 mg PO QAM #90 cap 05/05/20 11/26/20 11/26/20 12:00 Rx capsule,extended release 24 hr atorvastatin 40 mg tablet 40 mg PO BEDTIME #30 tab 07/29/20 11/26/20 11/25/20 Rx citalopram 20 mg tablet 20 mg PO BEDTIME #30 tab 07/29/20 11/26/20 11/25/20 Rx famotidine 20 mg tablet 20 mg PO BID #60 tab 07/29/20 11/26/20 11/26/20 12:00 Rx losartan 100 mg tablet 100 mg PO QAM #30 tab 07/29/20 11/26/20 11/26/20 12:00 Rx potassium chloride 20 mEq 20 meq PO EVERY OTHER DAY #30 tab 07/29/20 11/26/20 11/26/20 12:00 Rx tablet,extended release(part/cryst) ropinirole 1 mg tablet 1 mg PO BEDTIME #30 tab 07/29/20 11/26/20 11/25/20 Rx guaifenesin 600 mg tablet, 600 mg PO Q12H PRN #60 tab 10/28/20 11/26/20 11/26/20 12:00 Rx extended release 12 hr insulin lispro 100 unit/mL See Rx Instructions .ROUTE 07/11/26/20 11/26/20 12:00 Rx subcutaneous solution .COMPLEX #10 ml 8 units gabapentin 100 mg capsule 200 mg PO Q8H #90 cap 11/22/20 11/26/20 11/26/20 12:00 Rx Flomax 0.4 mg PO QAM 11/26/20 11/26/20 11/26/20 12:00 History acetaminophen [Tylenol Arthritis] 650 mg PO Q8H PRN 11/26/20 11/26/20 11/26/20 11:00 History cholecalciferol (vitamin D3) 25 mcg PO QAM 11/26/20 11/26/20 11/26/20 12:00 History [Vitamin D3] insulin glargine [Lantus Solostar 20 unit SUBCUT BID 11/26/20 11/26/20 Unknown History U-100 Insulin] ipratropium-albuterol 3 ml INHALATION Q6H PRN 11/26/20 11/26/20 Unknown History pyridoxine (vitamin B6) [Vitamin 100 mg PO QAM 11/26/20 11/26/20 11/26/20 12:00 History B-6] Allergies Allergy/AdvReac Type Severity Reaction Status Date / Time Penicillins Allergy Unknown Verified 11/26/20 17:02 PFSH Acute PFSH: Medical History Acute cystitis Aspiration into lower respiratory tract CKD (chronic kidney disease) stage 2, GFR 60-89 ml/min COPD (chronic obstructive pulmonary disease) Depression Diabetes mellitus case management patient Fatigue Carlson catheter in place GERD (gastroesophageal reflux disease) Healthcare-associated pneumonia HTN (hypertension) Hyperlipidemia Hypertension Male circumcision Morbid obesity with BMI of 40.0-44.9, adult Neuropathy Osteoarthritis Phimosis Restless legs syndrome (RLS) Tracheostomy care Urinary retention Surgical History History of cholecystectomy History of total left knee replacement Hx of tonsillectomy Status post routine circumcision Status post tracheostomy Family History Other Cancer Diabetes Social History Smoking and tobacco status: never smoked Alcohol intake: never Current occupational status: unemployed and retired Financial difficulty paying for basics: Somewhat Hard Vitals/I&O/Wt Last Vital Signs Temp 99.1 F 11/26/20 16:13 Pulse 84 11/26/20 18:22 Resp 29 H 11/26/20 17:39 BP 116/62 11/26/20 17:39 Pulse Ox 95 11/26/20 18:22 Weight last 48 hrs Weight 127.913 kg Physical Exam Const: COMMON NORMALS: no acute distress and patient oriented x3 Eye: COMMON NORMALS: Equal, round and reactive pupils present and EOMs intact bilaterally GENERAL EYE: appearance normal, both eyes and all related structures PUPIL: Yes Equal, round and reactive pupils present Neck/C-Spine: COMMON NORMALS: full ROM and no lymphadenopathy THYROID: Thyroid normal OTHER: Tracheostomy in place, with some mucoid discharge Lymph: LYMPHATIC: no lymphadenopathy noted Resp: COMMON NORMALS: normal respiratory effort and No retractions AUSCULTATION: crackles and wheezes Cardio: COMMON NORMALS: regular rate, regular rhythm, S1 normal heart sound present, S2 normal heart sound present, No gallops present (Cardio), No clicks present (Cardio) and No murmurs present (Cardio) RHYTHM: regular rhythm HEART SOUNDS: S1 normal heart sound present and S2 normal heart sound present GI: COMMON NORMALS: Normal to inspection, nondistended, normoactive bowel sounds present, Soft to palpation and non-tender Extremity: COMMON NORMALS: no pedal edema Neuro: COMMON NORMALS: patient oriented x3, CN's II-XII intact bilaterally, moves all extremities and no focal motor deficits Psych: COMMON NORMALS: mental status grossly normal, Normal thought process present and cooperative THOUGHT PROCESS: Normal thought process present Data : 11/26/20 16:25 11/26/20 16:25 Micro: Microbiology 11/26/20 16:35 Blood Culture - Preliminary Blood SPECIMEN COLLECTED 11/26/20 16:25 Blood Culture - Preliminary Blood SPECIMEN COLLECTED A&P Assessment and plan (1) Acute and chronic respiratory failure with hypoxia: Acute respiratory failure with hypoxia -Likely secondary to multifocal pneumonia -Highly suspicious for recurrent aspiration events -However does have a thick discharge around tracheostomy site -Does have Covid positive contacts, rapid Covid negative Plan -Continue Covid isolation, await Covid PCR -Oxygen protocol, wean oxygen as tolerated -Aspiration precautions, consult speech therapy, dysphagia diet -Hold off on remdesivir -Hold off on Decadron -Vancomycin, Primaxin -Sputum cultures, blood cultures, urine bacterial antigens, MRSA nares -Albuterol, budesonide -CT of the chest, and the neck ordered -Full code -SCDs and Eliquis for DVT prophylaxis Ischemic cardiomyopathy, recent ejection fraction shows EF of 44%, BNP 627 -Does not clinically look fluid overload, does not clinically look like it is a CHF exacerbation -Has received Lasix in the ER -Follow creatinine, monitor urine output, monitor creatinine, continue Lasix 40 twice daily -Fluid restriction 1500 cc Fall, no pain complaints, sounds like it is mechanical, PT OT Acute urinary retention, follow UA Insulin-dependent type 2 diabetes mellitus, decrease Lantus to 10 units twice daily, insulin sliding scale CKD, creatinine 1.3 CAD, status post [place] -Troponin 43, no complaints of chest pain -No acute ST-T wave changes, did show Q waves in anterior leads -Continue aspirin, statin, telemetry monitoring, serial EKGs -echo 04/2020 1-Normal left ventricular cavity size. Moderately reduced left ventricular systolic function. Left ventricular ejection fraction is estimated at 44 %. Global left ventricular hypokinesis. 2-No significant valve abnormalities. 3-There is no pericardial effusion. 4-The right ventricle is normal in size and function. RVSP could not be calculated due to incomplete tricuspid regurgitation velocity profile. Paroxysmal atrial fibrillation, continue Cardizem, continue Eliquis MARYLOU, creatinine 1.3, status post 1 L, monitor CPK Status: Acute (2) Pneumonia: Status: Acute (3) Paroxysmal A-fib: Status: Acute (4) Hypertension: Status: Acute (5) Urinary retention: Status: Acute (6) LAYTON (obstructive sleep apnea): Status: Acute (7) Diabetes mellitus: Status: Acute (8) Ischemic cardiomyopathy: Status: Acute (9) Congestive heart failure: Status: Acute Qualifiers: Heart failure chronicity: acute on chronic Heart failure type: systolic Qualified Code(s): I50.23 - Acute on chronic systolic (congestive) heart failure (10) COPD (chronic obstructive pulmonary disease): Status: Acute Qualifiers: COPD type: chronic bronchitis Chronic bronchitis type: mixed simple and mucopurulent Qualified Code(s): J41.8 - Mixed simple and mucopurulent chronic bronchitis (11) CHF (congestive heart failure): Status: Acute (12) CKD (chronic kidney disease) stage 2, GFR 60-89 ml/min: Status: Acute (13) GERD (gastroesophageal reflux disease): Status: Acute (14) Depression: Status: Acute (15) Hyperlipidemia: Status: Acute (16) Morbid obesity with BMI of 40.0-44.9, adult: Status: Acute Attestations Medical Necessity Statement*: Patient requires hospitalization for acute respiratory failure secondary to aspiration pneumonia, multifocal pneumonia, inpatient, greater than 2 midnights Coding Level of Care Code Acute [employer]urbine [employer] for [facility] Fwd Exam Comprehensive Diagnoses Acute and chronic respiratory failure with hypoxia J96.21 Pneumonia J18.9 Paroxysmal A-fib I48.0 Hypertension I10 Urinary retention R33.9 LAYTON (obstructive sleep apnea) G47.33 Diabetes mellitus E11.9 Ischemic cardiomyopathy I25.5 Congestive heart failure I50.23 Heart failure chronicity: acute on chronic Heart failure type: systolic COPD (chronic obstructive pulmonary disease) J41.8 COPD type: chronic bronchitis Chronic bronchitis type: mixed simple and mucopurulent CHF (congestive heart failure) I50.9 CKD (chronic kidney disease) stage 2, GFR 60-89 ml/min N18.2 GERD (gastroesophageal reflux disease) K21.9 Depression F32.9 Hyperlipidemia E78.5 Morbid obesity with BMI of 40.0-44.9, adult E66.01; Z68.41
[2020-11-26 18:47] LABS: Aspartate Amino Transferase 16 U/L (0-40); Blood Urea Nitrogen 20 mg/dL (8-23); C Reactive Protein 43.5 mg/L (0.0-4.9); Calcium 8.3 mg/dL (8.5-10.5); Carbon Dioxide 19 mmol/L (22-29); Ferritin 58 ng/mL (30-400); Globulin 2.4 g/dL (1.3-4.6); Glucose 220 mg/dL (65-115); Lipase 10 U/L (13-60); Osmolality Calculated 289 mOsm/kg (285-295); Total Bilirubin 0.7 mg/dL (0.15-1.2); Total Protein 6.1 g/dL (6.6-8.7)
--- NOTE | 2020-11-26 19:12 | PC.NURSE ---
Report from RUBEN Vazquez
[2020-11-26 19:19] LABS: Troponin 5 2HR 41.41 ng/L (0-15)
[2020-11-26 19:20] LABS: Creatine Phosphokinase 121 U/L (39-308)
--- NOTE | 2020-11-26 19:40 | ECG_ITS ---
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 Measurements Intervals [place] Rate: 80 P: UT: QRS: -12 QRSD: 94 T: -20 QT: 402 QTc: 465 Interpretive Statements SINUS RHYTHM WITH FIRST DEGREE AV BLOCK INFERIOR MYOCARDIAL INFARCTION , OF INDETERMINATE AGE [40+ ms Q WAVE AND/OR ST/T ABNORMALITY IN II/aVF] Compared to ECG 11/26/2020 16:36:32 Myocardial infarct finding still present Electronically Signed On 11-27-2020 22:09:55 CDT by Terry Duldey M.D. [email or web address].[employer]/store/[id number]
[2020-11-26] MEDS: iodixanol 320 mg/mL 100mL Btl IV (19:41)
[2020-11-26] MEDS: aspirin 325 mg Tablet PO (19:51)
[2020-11-26] MEDS: FUROsemide 10 mg/mL SDV 4mL 40 MG IVP (19:52)
[2020-11-26 19:53] VITALS: BP 170/101; PULSE 81; RESP 20; O2SAT 98
--- NOTE | 2020-11-26 20:04 | PC.NURSE ---
Given warm blanket. Denies further needs at this time.
[2020-11-26 20:10] LABS: Lactic Acid level (Lactate) 1.2 mmol/L (0.5-2.2)
--- NOTE | 2020-11-26 21:02 | PC.NURSE ---
When report was given to this RN from previous RN Chandler at shift change, she advised that hospitalist had ordered that the meds that were previously ordered were to be held and not given, with the exception of ASA and lasix; and the ones that had already been administered.
[2020-11-26 22:10] VITALS: BP 154/90; PULSE 80; RESP 20; O2SAT 98
[2020-11-26 23:00] LABS: Troponin 5 6HR 40.19 ng/L (0-15)
[2020-11-27] VITALS (14 sets, daily range): BP systolic 105–137; BP diastolic 60–78; PULSE 70–81; RESP 12–25; TEMP 36.6–36.7; O2SAT 94–100; BMI 44.1
[2020-11-27 00:18] LABS: Estmated Average Glucose 157; Hemoglobin A1C 7.1 % (4.0-6.0)
[2020-11-27 00:26] LABS: Thyroid Stimulating Hormone 0.88 uIU/mL (0.27-4.20)
--- NOTE | 2020-11-27 00:29 | PC.PHAR ---
Pharmacokinetic dosing service Date: 11/27/20 Time: 29 Objective: Patient: Ming Sanchez Floor: ED-11 Age: 80 yo Serum creatinine: 1.3 mg/dL Height: 67.0 Inches Weight (kg): 127.913 Diagnosis: Relevant medical/social history: Cultures and sensitivities: Other labs: Assessment: IBW (kg): 66.10 Dosing wt(kg): 127.913 Estimated Creatinine clearance (ml/min): 43.8 CRCL method: Cockcroft and Gault using ibw(default). Drug selected: Vancomycin Loading dose (mg): 0 Vd (liters): 115.1 (factor used: 0.9 L/kg) Jesse (hr-1): 0.041 Half life (hrs): 16.91 Recommended dose: 2000 mg Interval: 24 hrs Infusion time (hrs): 1.5 Predicted peak (mcg/mL): 26.9 Predicted trough (mcg/mL): 10.69 Total body weight is being used for vancomycin dosing. Renal function is stable [ ] /unstable [ ] Recommendations: Give Vancomycin 2000 mg q 24 hrs with an expected Cpeak of 26.9 mcg/ml and an expected Ctrough of 10.69 mcg/ml Renal dosing of other antibiotics (review renal dosing of other medications and list guidelines here): Thank you for the consult, will continue to follow. Signature: Ana Laura Pantoja [facility]
[2020-11-27] MEDS: citalopram 20 mg Tablet PO ×2 (01:11→21:20)
[2020-11-27] MEDS: atorvastatin 40 mg Tablet PO ×2 (01:11→21:20)
[2020-11-27] MEDS: ropinirole 1 mg Tablet PO ×2 (01:13→21:20)
[2020-11-27] MEDS: gabapentin 100 mg Capsule 200 MG PO ×4 (01:13→23:53)
[2020-11-27] MEDS: magnesium oxide 400 mg tablet PO ×2 (01:15→21:20)
[2020-11-27] MEDS: insulin glargine 100 units/1 mL 10 UNIT SUBCUT ×2 (01:15→14:40)
[2020-11-27 01:37] LABS: Glucose Point of Care 281 mg/dL (70-110)
--- NOTE | 2020-11-27 01:39 | PC.NURSE ---
Gave pt more warm blankets and a pillow. Medications administered. No further needs identifed at this time.
--- NOTE | 2020-11-27 04:08 | PC.NURSE ---
Morning labs drawn and taken to lab
[2020-11-27 04:53] LABS: Basophils % 0.2 %; Hematocrit 38.5 % (42.0-52.0); Hemoglobin 12.4 g/dL (11.7-16.6); Lymphocytes # 0.6 10^3/uL (0.8-4.8); Lymphocytes % 4.8 %; Mean Corpuscular HGB Conc 32.2 g/dL (30.0-36.0); Mean Corpuscular Hemoglobin 29.7 pg (28.0-34.0); Mean Corpuscular Volume 92.3 fl (80-94); Mean Platelet Volume 9.8 fL (7.4-10.4); Monocytes # 0.4 10^3/uL (0.2-0.9); Monocytes % 3.2 %; Neutrophils # 10.97 10^3/uL (1.8-7.7); Nucleated Red Blood Cells % 0 %; Platelet Count 201 10^3/cmm (130-400); Red Blood Count 4.17 10^6/uL (4.1-5.3); Red Cell Distribution Width 14.6 % (12.1-15.1); White Blood Count 12.1 10^3/uL (4.0-10.0)
[2020-11-27 05:14] LABS: Lactate (Lactic Acid level) 1.1 mmol/L (0.5-2.2)
[2020-11-27 05:18] LABS: Alanine Aminotransferase 12 U/L (0-41); Albumin Level 3.4 g/dL (3.5-5.2); Alkaline Phosphatase 62 IU/L (40-130); Anion Gap 13.8 (5-19); Aspartate Amino Transferase 18 U/L (0-40); Blood Urea Nitrogen 21 mg/dL (8-23); C Reactive Protein 143.7 mg/L (0.0-4.9); Calcium 8.5 mg/dL (8.5-10.5); Carbon Dioxide 23 mmol/L (22-29); Chloride 104 mmol/L (98-107); Globulin 3.2 g/dL (1.3-4.6); Glucose 286 mg/dL (65-115); Magnesium 2.3 mg/dL (1.7-2.3); Osmolality Calculated 295 mOsm/kg (285-295); Potassium 4.8 mmol/L (3.5-5.1); Sodium 136 mmol/L (136-145); Total Bilirubin 0.6 mg/dL (0.15-1.2); Total Protein 6.6 g/dL (6.6-8.7)
[2020-11-27 05:31] LABS: NT Pro B Type Natriuretic Pept 1725 pg/mL (0-450); Procalcitonin 1.28 ng/mL (0-0.5)
[2020-11-27] MEDS: aspirin 81 mg EC Tablet PO (05:34)
[2020-11-27] MEDS: cholecalciferol (vitamin D3) 1,000 unit Tablet 1000 UNIT PO (05:34)
[2020-11-27] MEDS: dilTIAZem ER (24HR) 240 mg Capsule PO (05:35)
[2020-11-27] MEDS: tamsulosin 0.4 mg Capsule PO (05:35)
[2020-11-27] MEDS: pyridoxine 50 mg Tablet 100 MG PO (05:35)
--- NOTE | 2020-11-27 06:00 | ECG_ITS ---
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 Measurements Intervals [place] Rate: 73 P: 38 ME: 279 QRS: -18 QRSD: 102 T: -41 QT: 403 QTc: 445 Interpretive Statements SINUS RHYTHM WITH FIRST DEGREE AV BLOCK LOW QRS VOLTAGE IN PRECORDIAL LEADS [QRS DEFLECTION < 1.0 mV IN CHEST LEADS] INCOMPLETE RIGHT BUNDLE BRANCH BLOCK [90+ ms QRS DURATION, TERMINAL R IN V1/V2, 40+ ms S IN I/aVL/V4/V5/V6] Compared to ECG 11/26/2020 22:10:38 First degree AV block now present Low QRS voltage now present Incomplete right bundle-branch block now present Atrial fibrillation no longer present Myocardial infarct finding no longer present Electronically Signed On 11-27-2020 22:07:45 CDT by Terry Dudley M.D. [id number]
[2020-11-27 06:33] LABS: INR 1.47 (0.8-1.2)
[2020-11-27 06:38] LABS: Fibrinogen 560 mg/dL (174-498)
[2020-11-27 06:40] LABS: D Dimer 0.52 ug/mIFEU (0-0.59)
--- NOTE | 2020-11-27 07:00 | XRR_ITS ---
PROCEDURE INFORMATION: Exam: XR Chest Exam date and time: 11/27/2020 7:00 AM Age: 80 years old Clinical indication: Shortness of breath; Prior surgery; Surgery type: Gb. Tracheostomy. ; Patient HX: F/u resp distress. ; Additional info: SOB TECHNIQUE: Imaging protocol: XR of the chest. Views: 1 view. Total images: 1 COMPARISON: CR (CHEST, ) 11/26/2020 5:13 PM FINDINGS: Tubes, catheters and devices: Tracheostomy tube in satisfactory location. Lungs: Bilateral pulmonary opacities are again noted and appear unchanged. Pleural spaces: Unremarkable. No pleural effusion. No pneumothorax. Heart/Mediastinum: Heart is enlarged but stable when compared to the prior exam. Bones/joints: Osseous structures are unchanged from the prior exam. XR/XR chest 1V portable [id number] IMPRESSION: 1. Heart is enlarged but stable when compared to the prior exam. 2. Bilateral pulmonary opacities are again noted and appear unchanged.
[2020-11-27 07:43] LABS: Glucose Point of Care 311 mg/dL (70-110)
[2020-11-27] MEDS: famotidine 20 mg Tablet PO ×2 (08:10→17:13)
[2020-11-27] MEDS: apixaban 5 mg Tablet PO ×2 (08:10→17:13)
[2020-11-27] MEDS: FUROsemide 10 mg/mL SDV 4mL 40 MG IVP ×2 (08:12→21:20)
[2020-11-27] MEDS: ipratropium-albuterol 3 mL Neb INHALATION ×2 (08:58→20:52)
[2020-11-27] MEDS: budesonide 0.5 mg/2 mL Neb INHALATION ×2 (08:58→20:52)
[2020-11-27 10:07] LABS: Add Urine Microscopic? YES; Bilirubin Urine Neg (Negative); Blood Urine 2+ (Negative); Glucose Urine UA 4+ (Normal); Ketones Urine 1+ (Negative); Leukocyte Esterase Urine Trace (Negative); Nitrate Urine Positive (Negative); Protein Urine Neg (Negative); Urine Appearance Clear (CLEAR); Urine Color Yellow (Yellow); Urobilinogen Urine Norm (Negative); pH Urine 5 (5-7)
[2020-11-27 10:08] LABS: Add Urine Culture? Yes; Bacteria Urine 1+ /hpf; RBC Urine 0-4 /hpf (0-2); Squamous Epithelial Cell Urine RARE /hpf (0-5); WBC Urine 25-40 /hpf (0-5)
[2020-11-27 11:51] LABS: Glucose Point of Care 376 mg/dL (70-110)
--- NOTE | 2020-11-27 14:42 | P.PN_ITS ---
Subjective Subjective: Interval history: Patient was seen in the emergency room today, he is waiting a bed in the emergency room, respiratory therapy is at bedside, he is down to 6 L, he tells me he is feeling better, no chest pain, no significant swelling of his lower extremities, he is remained in bed, no fevers overnight Vitals/I&O/Wt Last Vital Signs Temp 99.1 F 11/26/20 16:13 Pulse 76 11/27/20 12:00 Resp 17 11/27/20 12:00 BP 105/60 11/27/20 12:00 Pulse Ox 97 11/27/20 13:49 11/26/20 11/27/20 11/27/20 22:59 06:59 14:59 Intake Total 300 / 300 100 / 400 100 / 100 Output Total 900 / 900 Balance 300 / 300 100 / 400 -800 / -800 Weight last 48 hrs Weight 127.913 kg Physical Exam Const: COMMON NORMALS: no acute distress and patient oriented x3 Neck/C-Spine: OTHER: Tracheostomy in place Resp: COMMON NORMALS: normal respiratory effort, No retractions, No use of accessory muscles and clear to auscultation bilaterally AUSCULTATION: clear to auscultation bilaterally Cardio: COMMON NORMALS: regular rate, regular rhythm, S1 normal heart sound present, S2 normal heart sound present, No gallops present (Cardio), No clicks present (Cardio) and No murmurs present (Cardio) RATE: regular rate RHYTHM: regular rhythm HEART SOUNDS: S1 normal heart sound present and S2 nor mal heart sound present GI: COMMON NORMALS: Normal to inspection, nondistended, normoactive bowel sounds present, Soft to palpation and non-tender PALPATION: Yes Soft to palpation Extremity: COMMON NORMALS: no pedal edema Neuro: COMMON NORMALS: patient oriented x3 Psych: COMMON NORMALS: mental status grossly normal, Normal thought process present and cooperative THOUGHT PROCESS: Normal thought process present Data : 11/27/20 04:05 11/27/20 04:05 Micro: Microbiology 11/26/20 20:16 MRSA Culture - Final Nose 11/26/20 16:35 Blood Culture - Preliminary Blood SPECIMEN COLLECTED 11/26/20 16:25 Blood Culture - Preliminary Blood SPECIMEN COLLECTED A&P Assessment and plan (1) Acute and chronic respiratory failure with hypoxia: Acute respiratory failure with hypoxia -Likely secondary to multifocal pneumonia -Highly suspicious for recurrent aspiration events -However does have a thick discharge around tracheostomy site -Does have Covid positive contacts, rapid Covid negative -CT of the neck negative for pulmonary emboli,Mosaic attenuation changes of the lungs with scattered ground-glas opacities. This could represent pneumonitis changes, or alternatively air trapping changes secondary to underlying small airways disease. Plan -Continue Covid isolation, await Covid PCR -Oxygen protocol, wean oxygen as tolerated -Aspiration precautions, consult speech therapy, dysphagia diet -Hold off on remdesivir -Hold off on Decadron -Vancomycin, Primaxin -Sputum cultures, blood cultures, urine bacterial antigens, MRSA nares -Albuterol, budesonide -Full code -SCDs and Eliquis for DVT prophylaxis Ischemic cardiomyopathy, recent ejection fraction shows EF of 44%, BNP 627 -Does not clinically look fluid overload, -Continue Lasix 40 mg IV twice daily -Follow creatinine, monitor urine output, monitor creatinine, -Fluid restriction 1500 cc Fall, no pain complaints, sounds like it is mechanical, PT OT Acute urinary retention, follow UA positive for UTI, on Primaxin as above Insulin-dependent type 2 diabetes mellitus, decrease Lantus to 10 units twice daily, insulin sliding scale CKD, creatinine 1.1 CAD, status post OH -Troponin 43, no complaints of chest pain -No acute ST-T wave changes, did show Q waves in anterior leads -Continue aspirin, statin, telemetry monitoring, serial EKGs -echo 04/2020 1-Normal left ventricular cavity size. Moderately reduced left ventricular systolic function. Left ventricular ejection fraction is estimated at 44 %. Global left ventricular hypokinesis. 2-No significant valve abnormalities. 3-There is no pericardial effusion. 4-The right ventricle is normal in size and function. RVSP could not be calculated due to incomplete tricuspid regurgitation velocity profile. Paroxysmal atrial fibrillation, continue Cardizem, continue Eliquis Status: Acute (2) Pneumonia: Status: Acute (3) Paroxysmal A-fib: Status: Acute (4) Hypertension: Status: Acute (5) Urinary retention: Status: Acute (6) LAYTON (obstructive sleep apnea): Status: Acute (7) Diabetes mellitus: Status: Acute (8) Ischemic cardiomyopathy: Status: Acute (9) Congestive heart failure: Status: Acute Qualifiers: Heart failure chronicity: acute on chronic Heart failure type: systolic Qualified Code(s): I50.23 - Acute on chronic systolic (congestive) heart failure (10) COPD (chronic obstructive pulmonary disease): Status: Acute Qualifiers: COPD type: chronic bronchitis Chronic bronchitis type: mixed simple and mucopurulent Qualified Code(s): J41.8 - Mixed simple and mucopurulent chronic b ronchitis (11) CKD (chronic kidney disease) stage 2, GFR 60-89 ml/min: Status: Acute (12) GERD (gastroesophageal reflux disease): Status: Acute (13) Depression: Status: Acute (14) Hyperlipidemia: Status: Acute (15) Morbid obesity with BMI of 40.0-44.9, adult: Status: Acute Attestations Medical Necessity Statement*: Patient requires hospitalization for acute respiratory failure secondary to multifocal pneumonia Coding Level of Care Code 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 [facility] Diagnoses Acute and chronic respiratory failure with hypoxia J96.21 Pneumonia J18.9 Paroxysmal A-fib I48.0 Hypertension I10 Urinary retention R33.9 LAYTON (obstructive sleep apnea) G47.33 Diabetes mellitus E11.9 Ischemic cardiomyopathy I25.5 Congestive heart failure I50.23 Heart failure chronicity: acute on chronic Heart failure type: systolic COPD (chronic obstructive pulmonary disease) J41.8 COPD type: chronic bronchitis Chronic bronchitis type: mixed simple and mucopurulent CKD (chronic kidney disease) stage 2, GFR 60-89 ml/min N18.2 GERD (gastroesophageal reflux disease) K21.9 Depression F32.9 Hyperlipidemia E78.5 Morbid obesity with BMI of 40.0-44.9, adult E66.01; Z68.41
[2020-11-27 17:14] LABS: Glucose Point of Care 378 mg/dL (70-110)
[2020-11-27 20:40] LABS: Glucose Point of Care 333 mg/dL (70-110)
[2020-11-27 22:28] LABS: Quest SARS-CoV-2 RNA NOT DETECTED (NOT DETECTED)
[2020-11-28] VITALS (8 sets, daily range): BP systolic 112–144; BP diastolic 68–92; PULSE 59–95; RESP 18–24; TEMP 36.4–36.6; O2SAT 95–99
[2020-11-28] MEDS: insulin glargine 100 units/1 mL 10 UNIT SUBCUT ×2 (00:37→12:40)
[2020-11-28] MEDS: tamsulosin 0.4 mg Capsule PO (05:12)
[2020-11-28] MEDS: pyridoxine 50 mg Tablet 100 MG PO (05:12)
[2020-11-28] MEDS: cholecalciferol (vitamin D3) 1,000 unit Tablet 1000 UNIT PO (05:12)
[2020-11-28] MEDS: dilTIAZem ER (24HR) 240 mg Capsule PO (05:12)
[2020-11-28] MEDS: aspirin 81 mg EC Tablet PO (05:12)
[2020-11-28 05:49] LABS: Basophils % 0.1 %; Eosinophils % 0.1 %; Hematocrit 32.9 % (42.0-52.0); Hemoglobin 10.5 g/dL (11.7-16.6); Lymphocytes # 1.2 10^3/uL (0.8-4.8); Lymphocytes % 8.1 %; Mean Corpuscular HGB Conc 31.9 g/dL (30.0-36.0); Mean Corpuscular Hemoglobin 29.9 pg (28.0-34.0); Mean Corpuscular Volume 93.7 fl (80-94); Mean Platelet Volume 9.7 fL (7.4-10.4); Monocytes # 1.3 10^3/uL (0.2-0.9); Monocytes % 8.4 %; Neutrophils # 12.42 10^3/uL (1.8-7.7); Neutrophils % 82.6 %; Nucleated Red Blood Cells % 0 %; Platelet Count 249 10^3/cmm (130-400); Red Blood Count 3.51 10^6/uL (4.1-5.3); Red Cell Distribution Width 14.6 % (12.1-15.1)
--- NOTE | 2020-11-28 06:00 | ECG_ITS ---
[facility] Test Date: 2020-11-28 Pat Name: Ming Sanchez Department: Room: 260 Gender: Male Pharmacy Tech: : [id number] Requested By: Brandon Madrigal Order Number: [id number] Gustavo MD: Terry Dudley M.D. Measurements Intervals [place] Rate: 75 P: 64 WI: 249 QRS: -13 QRSD: 110 T: -29 QT: 417 QTc: 466 Interpretive Statements SINUS RHYTHM WITH FIRST DEGREE AV BLOCK MODERATE T-WAVE ABNORMALITY, CONSIDER ANTEROLATERAL ISCHEMIA [-0.1+ mV T-WAVE IN V3-V6] Compared to ECG 11/27/2020 06:36:31 T-wave abnormality now present Possible ischemia now present Incomplete right bundle-branch block no longer present Electronically Signed On 11-28-2020 19:47:57 CDT by Terry Dudley M.D. [email or web address]
[2020-11-28 06:05] LABS: INR 1.33 (0.8-1.2)
[2020-11-28 06:06] LABS: Fibrinogen 586 mg/dL (174-498); Partial Thromboplastin Time 39.3 SECONDS (23.9-36.7)
[2020-11-28 06:09] LABS: D Dimer 0.55 ug/mIFEU (0-0.59)
[2020-11-28 06:12] LABS: Lactate (Lactic Acid level) 1.1 mmol/L (0.5-2.2)
[2020-11-28 06:14] LABS: Alanine Aminotransferase 18 U/L (0-41); Albumin Level 3.2 g/dL (3.5-5.2); Alkaline Phosphatase 76 IU/L (40-130); Anion Gap 14.5 (5-19); Aspartate Amino Transferase 33 U/L (0-40); Blood Urea Nitrogen 25 mg/dL (8-23); C Reactive Protein 103.9 mg/L (0.0-4.9); Calcium 8.8 mg/dL (8.5-10.5); Carbon Dioxide 24 mmol/L (22-29); Chloride 103 mmol/L (98-107); Globulin 3.7 g/dL (1.3-4.6); Glucose 223 mg/dL (65-115); Magnesium 2.2 mg/dL (1.7-2.3); Osmolality Calculated 295 mOsm/kg (285-295); Phosphorus 2.8 mg/dL (2.5-4.5); Potassium 4.5 mmol/L (3.5-5.1); Sodium 137 mmol/L (136-145); Total Bilirubin 0.4 mg/dL (0.15-1.2); Total Protein 6.9 g/dL (6.6-8.7)
[2020-11-28 06:23] LABS: NT Pro B Type Natriuretic Pept 857 pg/mL (0-450)
[2020-11-28 06:34] LABS: Glucose Point of Care 248 mg/dL (70-110)
[2020-11-28] MEDS: gabapentin 100 mg Capsule 200 MG PO ×3 (06:36→22:36)
--- NOTE | 2020-11-28 08:13 | PC.OT ---
Occupational therapy evaluation held yesterday, 11/27/2020, as patient was still in the emergency department. Will attempt evaluation today
[2020-11-28] MEDS: budesonide 0.5 mg/2 mL Neb INHALATION ×2 (08:26→21:05)
[2020-11-28] MEDS: ipratropium-albuterol 3 mL Neb INHALATION ×2 (08:26→21:05)
[2020-11-28] MEDS: famotidine 20 mg Tablet PO ×2 (08:51→17:08)
[2020-11-28] MEDS: apixaban 5 mg Tablet PO ×2 (08:51→17:08)
[2020-11-28] MEDS: FUROsemide 10 mg/mL SDV 4mL 40 MG IVP ×2 (08:51→20:34)
[2020-11-28] MEDS: potassium chloride ER 20 mEq Tablet PO (08:51)
--- NOTE | 2020-11-28 12:10 | P.PN_ITS ---
Subjective Subjective: Interval history: Patient was seen this morning, he is currently on 6 L, he tells me he feels a lot better, no fevers reported, has a cough, has increased sputum production, he is ambulating to the bathroom with minimal symptomatology Vitals/I&O/Wt Last Vital Signs Temp 97.7 F 11/28/20 08:00 Pulse 95 11/28/20 08:38 Resp 22 H 11/28/20 08:26 BP 119/69 11/28/20 08:00 Pulse Ox 98 11/28/20 08:26 11/27/20 11/28/20 11/28/20 22:59 06:59 14:59 Intake Total 960 / 1060 100 / 1160 100 / 100 Output Total 300 / 1200 Balance 660 / -140 100 / -40 100 / 100 Weight last 48 hrs Weight 127.913 kg Weight 127.913 kg Physical Exam Const: COMMON NORMALS: no acute distress and patient oriented x3 Neck/C-Spine: OTHER: Tracheostomy in place Resp: COMMON NORMALS: normal respiratory effort, No retractions and No use of accessory muscles AUSCULTATION: wheezes Cardio: COMMON NORMALS: regular rate, regular rhythm, S1 normal heart sound present and S2 normal heart sound present RATE: regular rate RHYTHM: regular rhythm HEART SOUNDS: S1 normal heart sound present and S2 normal heart sound present GI: COMMON NORMALS: Normal to inspection, nondistended, normoactive bowel sounds present, Soft to palpation, non-tender and No hepatosplenomegaly present PALPATION: Yes Soft to palpation and Yes No hepatosplenomegaly present Extremity: NARRATIVE EXTREMITY EXAM: 1+ edema Neuro: COMMON NORMALS: patient oriented x3 Psych: COMMON NORMALS: mental status grossly normal Data : 11/28/20 05:26 11/28/20 05:26 Micro: Microbiology 11/26/20 20:16 Throat Culture - Preliminary Throat 11/27/20 08:40 Urine Culture - Preliminary Urine,Clean Catch 11/26/20 16:25 Blood Culture - Preliminary Blood Gram positive cocci 11/27/20 21:17 Gram Stain - Final Sputum - Endotracheal Tube Aspirate 11/26/20 16:35 Blood Culture - Preliminary Blood NEGATIVE TO DATE 11/26/20 20:16 MRSA Culture - Final Nose A&P Assessment and plan (1) Acute and chronic respiratory failure with hypoxia: Acute respiratory failure with hypoxia -Likely secondary to multifocal pneumonia -Highly suspicious for recurrent aspiration events -Tracheostomy in good position -Does have Covid positive contacts, rapid Covid negative, Covid PCR negative -CT of the chest negative for pulmonary emboli,Mosaic attenuation changes of the lungs with scattered ground-glas opacities. This could represent pneumonitis changes, or alternatively air trapping changes secondary to underlying small airways disease. Plan -Oxygen protocol, wean oxygen as tolerated -Aspiration precautions, consult speech therapy, dysphagia diet -Vancomycin, Primaxin -Sputum cultures, blood cultures, urine bacterial antigens, MRSA nares -1 blood culture positive for gram-positive cocci, likely contamination, but will repeat blood cultures -Albuterol, budesonide -Full code -SCDs and Eliquis for DVT prophylaxis Ischemic cardiomyopathy, recent ejection fraction shows EF of 44%, BNP 627 -Continue Lasix 40 mg IV twice daily -Follow creatinine, monitor urine output, monitor creatinine, -Fluid restriction 1500 cc Fall, no pain complaints, sounds like it is mechanical, PT OT Acute urinary retention, follow UA positive for UTI, on Primaxin as above Insulin-dependent type 2 diabetes mellitus, decrease Lantus to 10 units twice daily, insulin sliding scale CKD, creatinine 1.0 CAD, status post ID -Troponin 43, no complaints of chest pain -No acute ST-T wave changes, did show Q waves in anterior leads -Continue aspirin, statin, telemetry monitoring, serial EKGs -echo 04/2020 1-Normal left ventricular cavity size. Moderately reduced left ventricular systolic function. Left ventricular ejection fraction is estimated at 44 %. Global left ventricular hypokinesis. 2-No significant valve abnormalities. 3-There is no pericardial effusion. 4-The right ventricle is normal in size and function. RVSP could not be calculated due to incomplete tricuspid regurgitation velocity profile. Paroxysmal atrial fibrillation, continue Cardizem, continue Eliquis Plan for today for, follow cultures, continue antibiotics, continue diuretics, PT OT, likely discharge the next 24 hours Status: Acute (2) Pneumonia: Status: Acute (3) Paroxysmal A-fib: Status: Acute (4) Hypertension: Status: Acute (5) Urinary retention: Status: Acute (6) LAYTON (obstructive sleep apnea): Status: Acute (7) Diabetes mellitus: Status: Acute (8) Ischemic cardiomyopathy: Status: Acute (9) Congestive heart failure: Status: Acute Qualifiers: Heart failure chronicity: acute on chronic Heart failure type: systolic Qualified Code(s): I50.23 - Acute on chronic systolic (congestive) heart f ailure (10) COPD (chronic obstructive pulmonary disease): Status: Acute Qualifiers: COPD type: chronic bronchitis Chronic bronchitis type: mixed simple and mucopurulent Qualified Code(s): J41.8 - Mixed simple and mucopurulent chronic bronchitis (11) CKD (chronic kidney disease) stage 2, GFR 60-89 ml/min: Status: Acute (12) GERD (gastroesophageal reflux disease): Status: Acute (13) Depression: Status: Acute (14) Hyperlipidemia: Status: Acute (15) Morbid obesity with BMI of 40.0-44.9, adult: Status: Acute Attestations Medical Necessity Statement*: Patient requires hospitalization for acute respiratory for acute respiratory failure secondary multifocal pneumonia, dchf Coding Level of Care Code 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 [facility] Diagnoses Acute and chronic respiratory failure with hypoxia J96.21 Pneumonia J18.9 Paroxysmal A-fib I48.0 Hypertension I10 Urinary retention R33.9 LAYTON (obstructive sleep apnea) G47.33 Diabetes mellitus E11.9 Ischemic cardiomyopathy I25.5 Congestive heart failure I50.23 Heart failure chronicity: acute on chronic Heart failure type: systolic COPD (chronic obstructive pulmonary disease) J41.8 COPD type: chronic bronchitis Chronic bronchitis type: mixed simple and mucopurulent CKD (chronic kidney disease) stage 2, GFR 60-89 ml/min N18.2 GERD (gastroesophageal reflux disease) K21.9 Depression F32.9 Hyperlipidemia E78.5 Morbid obesity with BMI of 40.0-44.9, adult E66.01; Z68.41
[2020-11-28 12:31] LABS: Glucose Point of Care 317 mg/dL (70-110)
[2020-11-28 17:17] LABS: Glucose Point of Care 237 mg/dL (70-110)
[2020-11-28] MEDS: citalopram 20 mg Tablet PO (20:34)
[2020-11-28] MEDS: atorvastatin 40 mg Tablet PO (20:34)
[2020-11-28] MEDS: magnesium oxide 400 mg tablet PO (20:34)
[2020-11-28] MEDS: ropinirole 1 mg Tablet PO (20:34)
[2020-11-28 21:40] LABS: Glucose Point of Care 234 mg/dL (70-110)
[2020-11-29] VITALS (13 sets, daily range): BP systolic 82–120; BP diastolic 44–75; PULSE 72–125; RESP 16–22; TEMP 36.4–36.9; O2SAT 91–99
[2020-11-29] MEDS: insulin glargine 100 units/1 mL 10 UNIT SUBCUT ×3 (00:17→23:38)
[2020-11-29] MEDS: pyridoxine 50 mg Tablet 100 MG PO (05:18)
[2020-11-29] MEDS: dilTIAZem ER (24HR) 240 mg Capsule PO (05:18)
[2020-11-29] MEDS: cholecalciferol (vitamin D3) 1,000 unit Tablet 1000 UNIT PO (05:18)
[2020-11-29] MEDS: tamsulosin 0.4 mg Capsule PO (05:19)
[2020-11-29] MEDS: aspirin 81 mg EC Tablet PO (05:19)
[2020-11-29 06:22] LABS: Basophils % 0.3 %; Eosinophils # 0.3 10^3/uL (0.0-0.8); Eosinophils % 3.7 %; Hematocrit 35.9 % (42.0-52.0); Hemoglobin 11.8 g/dL (11.7-16.6); Lymphocytes # 1.1 10^3/uL (0.8-4.8); Lymphocytes % 14.6 %; Mean Corpuscular HGB Conc 32.9 g/dL (30.0-36.0); Mean Corpuscular Hemoglobin 29.9 pg (28.0-34.0); Mean Corpuscular Volume 90.9 fl (80-94); Mean Platelet Volume 9.4 fL (7.4-10.4); Monocytes # 0.7 10^3/uL (0.2-0.9); Monocytes % 9.3 %; Neutrophils % 71.7 %; Nucleated Red Blood Cells % 0 %; Platelet Count 222 10^3/cmm (130-400); Red Blood Count 3.95 10^6/uL (4.1-5.3); Red Cell Distribution Width 14.7 % (12.1-15.1); White Blood Count 7.7 10^3/uL (4.0-10.0)
[2020-11-29 06:32] LABS: INR 1.22 (0.8-1.2); Partial Thromboplastin Time 34.8 SECONDS (23.9-36.7)
[2020-11-29 06:33] LABS: Fibrinogen 528 mg/dL (174-498)
[2020-11-29 06:42] LABS: Alanine Aminotransferase 23 U/L (0-41); Albumin Level 3.2 g/dL (3.5-5.2); Alkaline Phosphatase 53 IU/L (40-130); Anion Gap 12.5 (5-19); Aspartate Amino Transferase 30 U/L (0-40); Blood Urea Nitrogen 25 mg/dL (8-23); C Reactive Protein 36.7 mg/L (0.0-4.9); Calcium 8.1 mg/dL (8.5-10.5); Carbon Dioxide 26 mmol/L (22-29); Chloride 104 mmol/L (98-107); Globulin 3.1 g/dL (1.3-4.6); Glucose 154 mg/dL (65-115); Osmolality Calculated 295 mOsm/kg (285-295); Phosphorus 2.9 mg/dL (2.5-4.5); Potassium 3.5 mmol/L (3.5-5.1); Sodium 139 mmol/L (136-145); Total Bilirubin 0.3 mg/dL (0.15-1.2); Total Protein 6.3 g/dL (6.6-8.7)
[2020-11-29 06:45] LABS: Glucose Point of Care 162 mg/dL (70-110)
[2020-11-29] MEDS: gabapentin 100 mg Capsule 200 MG PO ×3 (06:46→23:12)
[2020-11-29 06:48] LABS: NT Pro B Type Natriuretic Pept 524 pg/mL (0-450); Procalcitonin 0.64 ng/mL (0-0.5)
[2020-11-29 07:10] LABS: D Dimer 0.36 ug/mIFEU (0-0.59)
[2020-11-29] MEDS: famotidine 20 mg Tablet PO ×2 (08:41→17:03)
[2020-11-29] MEDS: apixaban 5 mg Tablet PO ×2 (08:41→17:03)
[2020-11-29] MEDS: FUROsemide 10 mg/mL SDV 4mL 40 MG IVP ×2 (08:41→20:06)
[2020-11-29] MEDS: ipratropium-albuterol 3 mL Neb INHALATION ×2 (08:54→20:02)
[2020-11-29] MEDS: budesonide 0.5 mg/2 mL Neb INHALATION ×2 (08:54→20:02)
[2020-11-29 11:12] LABS: Glucose Point of Care 390 mg/dL (70-110)
[2020-11-29] MEDS: sodium chloride 0.9% 250 ML IV ×2 (13:22→17:06)
[2020-11-29 15:53] LABS: Lactate (Lactic Acid level) 1.2 mmol/L (0.5-2.2)
--- NOTE | 2020-11-29 16:15 | PC.SOCIAL ---
IMM Update pg 2 of IMM updated and reviewed w/ patient. Copy provided.
[2020-11-29 17:09] LABS: Glucose Point of Care 194 mg/dL (70-110)
--- NOTE | 2020-11-29 18:33 | PC.RESP ---
PULMONARY REHAB INFORMATION SENT TO PATIENT.
[2020-11-29] MEDS: sodium chloride 0.9% 1,000 ML 75 ML IV (18:55)
--- NOTE | 2020-11-29 18:56 | P.PN_ITS ---
Subjective Subjective: Interval history: Blood pressure noted to be soft today. Given multiple boluses of fluid. Nurses report loose stools. C. difficile positive. Currently receiving oxygen over trach FiO2 28%. Vitals/I&O/Wt Last Vital Signs Temp 98.5 F 11/29/20 15:04 Pulse 87 11/29/20 15:04 Resp 19 H 11/29/20 15:04 BP 88/51 11/29/20 15:04 Pulse Ox 91 11/29/20 15:04 11/29/20 11/29/20 11/29/20 06:59 14:59 22:59 Intake Total 320 / 1360 1330 / 1330 710 / 2040 Balance 320 / 1360 1330 / 1330 710 / 2040 Physical Exam Const: COMMON NORMALS: no acute distress Resp: EFFORT & INSPECTION: Yes symmetric chest movement AUSCULTATION: rhonchi Cardio: COMMON NORMALS: regular rate and regular rhythm RATE: regular rate RHYTHM: regular rhythm GI: COMMON NORMALS: Soft to palpation and non-tender PALPATION: Yes Soft to palpation Extremity: COMMON NORMALS: no pedal edema Data : 11/29/20 06:10 11/29/20 06:10 Micro: Microbiology 11/29/20 11:40 C.difficile Toxin B Gene (PCR) - Final Stool Routine Collection 11/28/20 14:05 Blood Culture - Preliminary Blood NEGATIVE TO DATE 11/28/20 14:10 Blood Culture - Preliminary Blood NEGATIVE TO DATE 11/26/20 16:25 Blood Culture - Preliminary Blood Staphylococcus sp coag neg 11/26/20 20:16 Throat Culture - Final Throat 11/27/20 21:17 Gram Stain - Final Sputum - Endotracheal Tube Aspirate Sputum Culture - Preliminary 11/27/20 08:40 Urine Culture - Final Urine,Clean Catch A&P Assessment and plan (1) Pneumonia: Status: Acute (2) Acute and chronic respiratory failure with hypoxia: Status: Acute (3) Hypoxemia: Status: Acute (4) C. difficile diarrhea: Status: Acute Additional A&P Information #Acute on chronic respiratory failure #Tracheostomy #Aspiration pneumonia #1 blood culture positive gram-positive cocci concern for contamination --Wean oxygen --Continue vancomycin and Primaxin --Continue albuterol, budesonide #Cdiff diarrhea --Start IV fluids, p.o. 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 difficile diarrhea A04.72
[2020-11-29] MEDS: ropinirole 1 mg Tablet PO (20:06)
[2020-11-29] MEDS: citalopram 20 mg Tablet PO (20:06)
[2020-11-29] MEDS: magnesium oxide 400 mg tablet PO (20:06)
[2020-11-29] MEDS: atorvastatin 40 mg Tablet PO (20:06)
[2020-11-29 20:28] LABS: Glucose Point of Care 214 mg/dL (70-110)
--- NOTE | 2020-11-29 22:33 | PC.NURSE ---
Patients IV in left AC infiltrated during vancamyacin infusion. Noticed lump in arm and asked patient if it was hurting. He said that it was hurting and feeling tight. I immediately stopped the Vancamyacin, pulled the IV and started a new IV in the right AC to restart Vanc. Will notify doc and continue to monitor for issues.
[2020-11-30] VITALS (11 sets, daily range): BP systolic 110–147; BP diastolic 62–97; PULSE 71–93; RESP 17–20; TEMP 36.5–36.9; O2SAT 93–99
[2020-11-30 05:12] LABS: Basophils % 0.5 %; Eosinophils # 0.3 10^3/uL (0.0-0.8); Eosinophils % 4.2 %; Hematocrit 37.2 % (42.0-52.0); Hemoglobin 12.1 g/dL (11.7-16.6); Lymphocytes # 1.3 10^3/uL (0.8-4.8); Lymphocytes % 20.3 %; Mean Corpuscular HGB Conc 32.5 g/dL (30.0-36.0); Mean Corpuscular Hemoglobin 29.6 pg (28.0-34.0); Mean Platelet Volume 9.6 fL (7.4-10.4); Monocytes # 0.6 10^3/uL (0.2-0.9); Monocytes % 9.9 %; Neutrophils # 4.12 10^3/uL (1.8-7.7); Neutrophils % 64.8 %; Nucleated Red Blood Cells % 0 %; Platelet Count 217 10^3/cmm (130-400); Red Blood Count 4.09 10^6/uL (4.1-5.3); Red Cell Distribution Width 14.5 % (12.1-15.1); White Blood Count 6.4 10^3/uL (4.0-10.0)
[2020-11-30 05:28] LABS: Alanine Aminotransferase 15 U/L (0-41); Albumin Level 3.1 g/dL (3.5-5.2); Alkaline Phosphatase 54 IU/L (40-130); Anion Gap 10.2 (5-19); Aspartate Amino Transferase 20 U/L (0-40); Blood Urea Nitrogen 21 mg/dL (8-23); Calcium 7.7 mg/dL (8.5-10.5); Carbon Dioxide 26 mmol/L (22-29); Chloride 105 mmol/L (98-107); Globulin 2.8 g/dL (1.3-4.6); Glucose 139 mg/dL (65-115); Osmolality Calculated 291 mOsm/kg (285-295); Potassium 3.2 mmol/L (3.5-5.1); Sodium 138 mmol/L (136-145); Total Bilirubin 0.4 mg/dL (0.15-1.2); Total Protein 5.9 g/dL (6.6-8.7)
[2020-11-30] MEDS: cholecalciferol (vitamin D3) 1,000 unit Tablet 1000 UNIT PO (06:03)
[2020-11-30] MEDS: aspirin 81 mg EC Tablet PO (06:03)
[2020-11-30] MEDS: pyridoxine 50 mg Tablet 100 MG PO (06:04)
[2020-11-30] MEDS: tamsulosin 0.4 mg Capsule PO (06:04)
[2020-11-30] MEDS: dilTIAZem ER (24HR) 240 mg Capsule PO (06:05)
[2020-11-30 06:39] LABS: Glucose Point of Care 129 mg/dL (70-110)
--- NOTE | 2020-11-30 07:10 | PC.NURSE ---
Shift Report: Multiple IVs placed throughout the night. Patient oriented but slightly non-compliant rolling and pulling on IVs. Patient did not rest well. No acute events noted.
[2020-11-30] MEDS: budesonide 0.5 mg/2 mL Neb INHALATION ×2 (07:41→20:28)
[2020-11-30] MEDS: gabapentin 100 mg Capsule 200 MG PO ×2 (10:36→15:12)
[2020-11-30] MEDS: apixaban 5 mg Tablet PO ×2 (10:36→17:26)
[2020-11-30] MEDS: potassium chloride ER 20 mEq Tablet PO (10:37)
[2020-11-30] MEDS: famotidine 20 mg Tablet PO ×2 (10:37→17:26)
[2020-11-30 11:14] LABS: Glucose Point of Care 264 mg/dL (70-110)
[2020-11-30] MEDS: insulin glargine 100 units/1 mL 10 UNIT SUBCUT (12:55)
--- NOTE | 2020-11-30 13:39 | P.PN_ITS ---
Subjective Subjective: Interval history: IV replaced today. Trach briefly came out. This was replaced. Reports feeling better. Still having loose stools. Medications: Reviewed: Yes Vitals/I&O/Wt Last Vital Signs Temp 98.2 F 11/30/20 12:00 Pulse 80 11/30/20 12:00 Resp 18 11/30/20 12:00 BP 147/97 11/30/20 12:00 Pulse Ox 95 11/30/20 12:00 11/29/20 11/30/20 11/30/20 22:59 06:59 14:59 Intake Total 710 / 2040 100 / 2140 1600 / 1600 Output Total 100 / 100 Balance 710 / 2040 100 / 2140 1500 / 1500 Physical Exam Const: COMMON NORMALS: no acute distress and patient oriented x3 HENMT: OTHER: Trach Chest: COMMONS NORMALS: normal inspection of the chest Resp: COMMON NORMALS: normal respiratory effort and No retractions Cardio: COMMON NORMALS: regular rate and regular rhythm RATE: regular rate RHYTHM: regular rhythm GI: COMMON NORMALS: non-tender Extremity: COMMON NORMALS: no pedal edema Neuro: COMMON NORMALS: patient oriented x3 Psych: COMMON NORMALS: mental status grossly normal and normal affect Data : 11/30/20 04:52 11/30/20 04:52 Micro: Microbiology 11/27/20 21:17 Gram Stain - Final Sputum - Endotracheal Tube Aspirate Sputum Culture - Preliminary 11/29/20 11:40 C.difficile Toxin B Gene (PCR) - Final Stool Routine Collection 11/28/20 14:05 Blood Culture - Preliminary Blood NEGATIVE TO DATE 11/28/20 14:10 Blood Culture - Preliminary Blood NEGATIVE TO DATE 11/26/20 16:25 Blood Culture - Preliminary Blood Staphylococcus sp coag neg 11/26/20 20:16 Throat Culture - Final Throat 11/27/20 08:40 Urine Culture - Final Urine,Clean Catch A&P Assessment and plan (1) C. difficile diarrhea: Status: Acute (2) Pneumonia: Status: Acute (3) Acute and chronic respiratory failure with hypoxia: Status: Acute (4) Hypoxemia: Status: Acute (5) CKD (chronic kidney disease) stage 2, GFR 60-89 ml/min: Status: Acute (6) Diabetes mellitus: Status: Acute (7) Congestive heart failure: Status: Acute Qualifiers: Heart failure chronicity: acute on chronic Heart failure type: systolic Qualified Code(s): I50.23 - Acute on chronic systolic (congestive) heart failure Additional A&P Information #Acute on chronic respiratory failure #Tracheostomy #Aspiration pneumonia #1 blood culture positive gram-positive cocci concern for contamination --Sputum culture Pseudomonas, --Wean oxygen --Continue Primaxin --Continue albuterol, budesonide #Cdiff diarrhea --IV fluids, p.o. 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 difficile diarrhea A04.72 Pneumonia J18.9 Acute and chronic respiratory failure with hypoxia J96.21 Hypoxemia R09.02 CKD (chronic kidney disease) stage 2, GFR 60-89 ml/min N18.2 Diabetes mellitus E11.9 Congestive heart failure I50.23 Heart failure chronicity: acute on chronic Heart failure type: systolic
--- NOTE | 2020-11-30 13:58 | PC.OT ---
OT TREATMENT ATTEMPTED. PATIENT IS SLEEPING SOUNDLY AND DOES NOT AWAKEN TO VOICE. WILL ATTEMPT AGAIN AT A LATER TIME.
[2020-11-30] MEDS: ipratropium-albuterol 3 mL Neb INHALATION (14:28)
[2020-11-30] MEDS: FUROsemide 10 mg/mL SDV 4mL 40 MG IVP (15:12)
[2020-11-30] MEDS: sodium chloride 0.9% 1,000 ML 75 ML IV ×2 (15:13→21:03)
[2020-11-30 16:47] LABS: Glucose Point of Care 261 mg/dL (70-110)
[2020-11-30 20:57] LABS: Glucose Point of Care 220 mg/dL (70-110)
[2020-11-30] MEDS: citalopram 20 mg Tablet PO (21:03)
[2020-11-30] MEDS: ropinirole 1 mg Tablet PO (21:03)
[2020-11-30] MEDS: magnesium oxide 400 mg tablet PO (21:03)
[2020-11-30] MEDS: atorvastatin 40 mg Tablet PO (21:03)
[2020-12-01] VITALS (7 sets, daily range): BP systolic 104–153; BP diastolic 50–87; PULSE 65–81; RESP 17–22; TEMP 36.4–36.9; O2SAT 93–99
[2020-12-01] MEDS: insulin glargine 100 units/1 mL 10 UNIT SUBCUT ×2 (00:36→13:51)
[2020-12-01] MEDS: gabapentin 100 mg Capsule 200 MG PO ×3 (00:37→17:56)
[2020-12-01] MEDS: FUROsemide 10 mg/mL SDV 4mL 40 MG IVP ×2 (03:02→13:50)
[2020-12-01] MEDS: tamsulosin 0.4 mg Capsule PO (05:31)
[2020-12-01] MEDS: pyridoxine 50 mg Tablet 100 MG PO (05:31)
[2020-12-01] MEDS: dilTIAZem ER (24HR) 240 mg Capsule PO (05:31)
[2020-12-01] MEDS: cholecalciferol (vitamin D3) 1,000 unit Tablet 1000 UNIT PO (05:31)
[2020-12-01] MEDS: aspirin 81 mg EC Tablet PO (05:31)
[2020-12-01 06:30] LABS: Glucose Point of Care 141 mg/dL (70-110)
[2020-12-01] MEDS: budesonide 0.5 mg/2 mL Neb INHALATION ×2 (08:30→19:30)
[2020-12-01] MEDS: ipratropium-albuterol 3 mL Neb INHALATION (08:30)
[2020-12-01] MEDS: famotidine 20 mg Tablet PO ×2 (09:57→17:56)
[2020-12-01] MEDS: apixaban 5 mg Tablet PO ×2 (09:57→17:57)
[2020-12-01 10:19] LABS: Glucose Point of Care 296 mg/dL (70-110)
[2020-12-01 10:44] LABS: Basophils % 0.3 %; Eosinophils # 0.3 10^3/uL (0.0-0.8); Eosinophils % 4.3 %; Hematocrit 37.7 % (42.0-52.0); Hemoglobin 11.8 g/dL (11.7-16.6); Lymphocytes % 14.7 %; Mean Corpuscular HGB Conc 31.3 g/dL (30.0-36.0); Mean Corpuscular Hemoglobin 29.6 pg (28.0-34.0); Mean Corpuscular Volume 94.7 fl (80-94); Mean Platelet Volume 9.6 fL (7.4-10.4); Monocytes # 0.5 10^3/uL (0.2-0.9); Neutrophils # 4.72 10^3/uL (1.8-7.7); Neutrophils % 72.2 %; Nucleated Red Blood Cells % 0 %; Platelet Count 207 10^3/cmm (130-400); Red Blood Count 3.98 10^6/uL (4.1-5.3); Red Cell Distribution Width 14.5 % (12.1-15.1); White Blood Count 6.5 10^3/uL (4.0-10.0)
[2020-12-01 11:06] LABS: Alanine Aminotransferase 23 U/L (0-41); Alkaline Phosphatase 59 IU/L (40-130); Anion Gap 11.6 (5-19); Aspartate Amino Transferase 22 U/L (0-40); Blood Urea Nitrogen 14 mg/dL (8-23); Calcium 8.4 mg/dL (8.5-10.5); Carbon Dioxide 26 mmol/L (22-29); Chloride 103 mmol/L (98-107); Globulin 2.9 g/dL (1.3-4.6); Glucose 270 mg/dL (65-115); Osmolality Calculated 294 mOsm/kg (285-295); Potassium 3.6 mmol/L (3.5-5.1); Sodium 137 mmol/L (136-145); Total Bilirubin 0.5 mg/dL (0.15-1.2); Total Protein 5.9 g/dL (6.6-8.7)
--- NOTE | 2020-12-01 13:32 | PC.SOCIAL ---
IMM Updated Updated pt on Pg 2 IMM. No questions voiced. Provided pt a copy. Initialed, dated, & timed copy in chart.
--- NOTE | 2020-12-01 15:49 | PC.NUTR ---
Nutrition assessment completed for LOS. Recommend consideration of consistent carb and low sodium to diet due to pt having diabetes and CHF. See full assessment for more details.
--- NOTE | 2020-12-01 16:32 | PC.NURSE ---
Pharmacy called about rescheduled pt's vancomycin appropriately to last admin at 1351 due to med being unavailable. 1300 dose expected to be rescheduled
[2020-12-01 17:11] LABS: Glucose Point of Care 228 mg/dL (70-110)
[2020-12-01] MEDS: sodium chloride 0.9% 1,000 ML 75 ML IV (19:26)
--- NOTE | 2020-12-01 19:58 | PM.PN ---
Subjective Subjective: Interval history: Seen with staff. Reports feeling better. Physical therapy reports that he has ambulated about the same distance with less fatigue. trach CAG FIO2 28 Medications: Reviewed: Yes Vitals/I&O/Wt Last Vital Signs Temp 98.4 F 12/01/20 16:00 Pulse 81 12/01/20 16:00 Resp 20 H 12/01/20 16:00 BP 145/68 12/01/20 16:00 Pulse Ox 99 12/01/20 16:00 12/01/20 12/01/20 12/01/20 06:59 14:59 22:59 Intake Total 420 / 3137.5 1300 / 1300 1400 / 2700 Output Total 240 / 340 1125 / 1125 Balance 180 / 2797.5 1300 / 1300 275 / 1575 Physical Exam Const: COMMON NORMALS: no acute distress and patient oriented x3 HENMT: OTHER: trach Resp: COMMON NORMALS: No use of accessory muscles and clear to auscultation bilaterally AUSCULTATION: clear to auscultation bilaterally Cardio: COMMON NORMALS: regular rate and regular rhythm RATE: regular rate RHYTHM: regular rhythm GI: COMMON NORMALS: Soft to palpation and non-tender PALPATION: Yes Soft to palpation Extremity: COMMON NORMALS: no pedal edema Neuro: COMMON NORMALS: patient oriented x3 Data : 12/01/20 10:35 12/01/20 10:35 Micro: Microbiology 11/29/20 11:30 C.difficile Toxin B Gene (PCR) - Final Stool 11/29/20 11:30 Stool Lactoferrin - Final Stool Occult Blood (FIT) - Final 11/26/20 16:35 Blood Culture - Final Blood NO GROWTH AFTER 5 DAYS 11/27/20 21:17 Gram Stain - Final Sputum - Endotracheal Tube Aspirate Sputum Culture - Final Pseudomonas aeruginosa 11/26/20 16:25 Blood Culture - Preliminary Blood Staphylococcus sp coag neg A&P Assessment and plan (1) C. difficile diarrhea: Status: Acute (2) Pneumonia: Status: Acute (3) Acute and chronic respiratory failure with hypoxia: Status: Acute (4) Hypoxemia: Status: Acute (5) CHF (congestive heart failure): Status: Acute (6) CKD (chronic kidney disease) stage 2, GFR 60-89 ml/min: Status: Acute Additional A&P Information #Acute on chronic respiratory failure #Tracheostomy #Aspiration pneumonia #1 blood culture positive gram-positive cocci concern for contamination --Sputum culture Pseudomonas, --Wean oxygen --Continue Primaxin --Continue albuterol, budesonide #Cdiff diarrhea --IV fluids, p.o. vancomycin --dc fluids once diarrhea resolved #Ischemic cardiomyopathy #Coronary artery disease --ECHO 04/22 EF 44% RVSP not calculated --continue Eliquis, asa --dec lasix #Paroxysomal atrial fibrillation --Continue Eliquis, Cardizem if tolerated #Urinary tract infection #Urinary retention --Urine culture Enterobacter Cloacae, --On antibiotics #Insulin-dependent type 2 diabetes --History of blood sugars Lantus 10 units twice daily with sliding scale insulin Attestations Medical Necessity Statement*: Ming Sanchez's hospital stay will require greater than 2 midnights for cdiff Coding Level of Care Code Acute 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 difficile diarrhea A04.72 Pneumonia J18.9 Acute and chronic respiratory failure with hypoxia J96.21 Hypoxemia R09.02 CHF (congestive heart failure) I50.9 CKD (chronic kidney disease) stage 2, GFR 60-89 ml/min N18.2
[2020-12-01] MEDS: ropinirole 1 mg Tablet PO (21:33)
[2020-12-01] MEDS: magnesium oxide 400 mg tablet PO (21:33)
[2020-12-01] MEDS: citalopram 20 mg Tablet PO (21:33)
[2020-12-01] MEDS: atorvastatin 40 mg Tablet PO (21:34)
[2020-12-02] VITALS (9 sets, daily range): BP systolic 128–144; BP diastolic 76–88; PULSE 68–88; RESP 16–24; TEMP 36.6–37.3; O2SAT 91–98
[2020-12-02] MEDS: gabapentin 100 mg Capsule 200 MG PO ×4 (02:03→23:54)
[2020-12-02] MEDS: insulin glargine 100 units/1 mL 10 UNIT SUBCUT ×2 (02:04→23:54)
[2020-12-02] MEDS: cholecalciferol (vitamin D3) 1,000 unit Tablet 1000 UNIT PO (05:57)
[2020-12-02] MEDS: aspirin 81 mg EC Tablet PO (05:57)
[2020-12-02] MEDS: pyridoxine 50 mg Tablet 100 MG PO (05:57)
[2020-12-02] MEDS: tamsulosin 0.4 mg Capsule PO (05:58)
[2020-12-02] MEDS: dilTIAZem ER (24HR) 240 mg Capsule PO (05:58)
[2020-12-02 06:41] LABS: Glucose Point of Care 155 mg/dL (70-110)
[2020-12-02] MEDS: potassium chloride ER 20 mEq Tablet PO (08:12)
[2020-12-02] MEDS: famotidine 20 mg Tablet PO ×2 (08:13→17:11)
[2020-12-02] MEDS: apixaban 5 mg Tablet PO ×2 (08:13→17:11)
[2020-12-02] MEDS: ipratropium-albuterol 3 mL Neb INHALATION (09:35)
[2020-12-02] MEDS: budesonide 0.5 mg/2 mL Neb INHALATION ×2 (09:35→19:52)
[2020-12-02] MEDS: FUROsemide 10 mg/mL SDV 4mL 40 MG IVP (10:08)
[2020-12-02 11:39] LABS: Glucose Point of Care 302 mg/dL (70-110)
--- NOTE | 2020-12-02 12:28 | P.PN_ITS ---
Subjective Subjective: Interval history: No new clinical events overnight Patient was not wearing his trach collor Medications: Reviewed: Yes Vitals/I&O/Wt Last Vital Signs Temp 98.4 F 12/02/20 07:42 Pulse 82 12/02/20 09:46 Resp 17 12/02/20 09:35 BP 133/78 12/02/20 07:42 Pulse Ox 98 12/02/20 09:35 12/01/20 12/02/20 12/02/20 22:59 06:59 14:59 Intake Total 1666.25 / 2966.25 100 / 3066.25 330 / 330 Output Total 1125 / 1125 0 / 1125 Balance 541.25 / 1841.25 100 / 1941.25 330 / 330 Data : 12/01/20 10:35 12/01/20 10:35 Micro: Microbiology 11/29/20 11:30 C.difficile Toxin B Gene (PCR) - Final Stool 11/29/20 11:30 Stool Lactoferrin - Final Stool Occult Blood (FIT) - Final 11/26/20 16:35 Blood Culture - Final Blood NO GROWTH AFTER 5 DAYS 11/27/20 21:17 Gram Stain - Final Sputum - Endotracheal Tube Aspirate Sputum Culture - Final Pseudomonas aeruginosa 11/26/20 16:25 Blood Culture - Preliminary Blood Staphylococcus sp coag neg A&P Assessment and plan (1) C. difficile diarrhea: Status: Acute (2) Pneumonia: Status: Acute (3) Acute and chronic respiratory failure with hypoxia: Acute respiratory failure with hypoxia -Likely secondary to multifocal pneumonia -Highly suspicious for recurrent aspiration events -Tracheostomy in good position -Does have Covid positive contacts, rapid Covid negative, Covid PCR negative -CT of the chest negative for pulmonary emboli,Mosaic attenuation changes of the lungs with scattered ground-glas opacities. This could represent pneumonitis changes, or alternatively air trapping changes secondary to underlying small airways disease. Plan -Oxygen protocol, wean oxygen as tolerated -Aspiration precautions, consult speech therapy, dysphagia diet -Vancomycin, Primaxin -Sputum cultures, blood cultures, urine bacterial antigens, MRSA nares -1 blood culture positive for gram-positive cocci, likely contamination, but will repeat blood cultures -Albuterol, budesonide -Full code -SCDs and Eliquis for DVT prophylaxis Ischemic cardiomyopathy, recent ejection fraction shows EF of 44%, BNP 627 -Continue Lasix 40 mg IV twice daily -Follow creatinine, monitor urine output, monitor creatinine, -Fluid restriction 1500 cc Fall, no pain complaints, sounds like it is mechanical, PT OT Acute urinary retention, follow UA positive for UTI, on Primaxin as above Insulin-dependent type 2 diabetes mellitus, decrease Lantus to 10 units twice daily, insulin sliding scale CKD, creatinine 1.0 CAD, status post [place] -Troponin 43, no complaints of chest pain -No acute ST-T wave changes, did show Q waves in anterior leads -Continue aspirin, statin, telemetry monitoring, serial EKGs -echo 04/2020 1-Normal left ventricular cavity size. Moderately reduced left ventricular systolic function. Left ventricular ejection fraction is estimated at 44 %. Global left ventricular hypokinesis. 2-No significant valve abnormalities. 3-There is no pericardial effusion. 4-The right ventricle is normal in size and function. RVSP could not be calculated due to incomplete tricuspid regurgitation velocity profile. Paroxysmal atrial fibrillation, continue Cardizem, continue Eliquis Plan for today for, follow cultures, continue antibiotics, continue diuretics, PT OT, likely discharge the next 24 hours Status: Acute (4) Hypoxemia: Status: Acute (5) CHF (congestive heart failure): Status: Acute (6) CKD (chronic kidney disease) stage 2, GFR 60-89 ml/min: Status: Acute Additional A&P Information #Acute on chronic respiratory failure #Tracheostomy #Aspiration pneumonia #1 blood culture positive gram-positive cocci concern for contamination --Sputum culture Pseudomonas, --Wean oxygen --Continue Primaxin --Continue albuterol, budesonide #Cdiff diarrhea --IV fluids, p.o. vancomycin --dc fluids once diarrhea resolved #Ischemic cardiomyopathy #Coronary artery disease --ECHO 04/22 EF 44% RVSP not calculated --continue Eliquis, asa --dec lasix #Paroxysomal atrial fibrillation --Continue Eliquis, Cardizem if tolerated #Urinary tract infection #Urinary retention --Urine culture Enterobacter [place], --On antibiotics #Insulin-dependent type 2 diabetes --History of blood sugars Lantus 10 units twice daily with sliding scale insulin Attestations Medical Necessity Statement*: Continue hospitalization for management of respiratory failure Coding Level of Care Code Acute Membership Advisor for [facility]wsulema Diagnoses C. difficile diarrhea A04.72 Pneumonia J18.9 Acute and chronic respiratory failure with hypoxia J96.21 Hypoxemia R09.02 CHF (congestive heart failure) I50.9 CKD (chronic kidney disease) stage 2, GFR 60-89 ml/min N18.2
[2020-12-02 17:15] LABS: Glucose Point of Care 259 mg/dL (70-110)
[2020-12-02 20:56] LABS: Glucose Point of Care 250 mg/dL (70-110)
[2020-12-02] MEDS: atorvastatin 40 mg Tablet PO (21:00)
[2020-12-02] MEDS: citalopram 20 mg Tablet PO (21:00)
[2020-12-02] MEDS: ropinirole 1 mg Tablet PO (21:00)
[2020-12-02] MEDS: magnesium oxide 400 mg tablet PO (21:00)
[2020-12-03] VITALS (7 sets, daily range): BP systolic 115–150; BP diastolic 66–82; PULSE 68–87; RESP 16–19; TEMP 36.5–37.1; O2SAT 91–98
[2020-12-03] MEDS: cholecalciferol (vitamin D3) 1,000 unit Tablet 1000 UNIT PO (05:06)
[2020-12-03] MEDS: pyridoxine 50 mg Tablet 100 MG PO (05:06)
[2020-12-03] MEDS: dilTIAZem ER (24HR) 240 mg Capsule PO (05:06)
[2020-12-03] MEDS: aspirin 81 mg EC Tablet PO (05:06)
[2020-12-03] MEDS: tamsulosin 0.4 mg Capsule PO (05:07)
[2020-12-03 06:27] LABS: Glucose Point of Care 222 mg/dL (70-110)
[2020-12-03] MEDS: gabapentin 100 mg Capsule 200 MG PO ×2 (08:38→14:28)
[2020-12-03] MEDS: FUROsemide 10 mg/mL SDV 4mL 40 MG IVP (08:38)
[2020-12-03] MEDS: apixaban 5 mg Tablet PO (08:38)
[2020-12-03] MEDS: famotidine 20 mg Tablet PO (08:39)
[2020-12-03] MEDS: ipratropium-albuterol 3 mL Neb INHALATION (10:52)
[2020-12-03] MEDS: budesonide 0.5 mg/2 mL Neb INHALATION (10:52)
--- NOTE | 2020-12-03 10:53 | PC.SOCIAL ---
IMM Update pg 2 of IMM updated and reviewed w/ patient. Copy provided.
[2020-12-03] MEDS: insulin glargine 100 units/1 mL 10 UNIT SUBCUT (13:05)
--- NOTE | 2020-12-03 15:08 | PC.CHAP ---
Pastoral Care Encounter/Spiritual Assessment Type of Contact [] Declined minister helper visit [] Patient/Family/Request visit [] Outpatient visit [] Follow-up visit [] Physician referral [] Code/Alert [] Routine visit [] Staff referral [] Actively dying [] Patient sleeping [] Family support [] [] Out of room [] Palliative care [] [] Receiving care in room [] Pre-surgical visit [] Trauma [] Long length of stay [] ICU visit [] Other: Relational/Emotional Strength [] Patient feels connected with others/family/visitors/staff [] Distress [] Loneliness/isolation [] Abandonment Spirituality of Patient [] Person of Calista [] Attends Gnosticist of their Calista [] Believes in Prayer [] Reads Bible or Jewish materials [] There are Spiritual issues to be addressed Buffing Wheel Inspector Interventions [] Prayer [] Active listening [] Non-anxious presence [] Spiritual/emotional support [] Crisis/trauma care [] Spiritual counseling [] Bereavement support [] Provided bereavement packet [] Provided Bible/devotional materials [] Provided toy/stuffed animal, coloring book to patient or family member [] Provided Communion [] Anointing/[place] [] Salvation [] Completed spiritual assessment [] Other: Impact on Illness or Injury [] Angry [] Fearful [] Anxious [] Often cries [] Exhaustion [] Unable to work [] Unable to attend gnosticist [] Unable to walk/stand [] Unable to read [] Unable to drive [] Unable to eat/drink [] Unable to sleep [] Unable to be with family [] Patient intubated [] Other: Summary Time spent with patient Pastoral Care Encounter/Spiritual Assessment Type of Contact [] Declined minister helper visit [] Patient/Family/Request visit [] Outpatient visit [xx] Follow-up visit [] Physician referral [] Code/Alert [] Routine visit [] Staff referral [] Actively dying [] Patient sleeping [] Family support [] [] Out of room [] Palliative care [] [] Receiving care in room [] Pre-surgical visit [] Trauma [xx] Long length of stay [] ICU visit [xx] Other: ISOLATION Relational/Emotional Strength [] Patient feels connected with others/family/visitors/staff [] Distress [] Loneliness/isolation [] Abandonment Spirituality of Patient [] Person of Calista [] Attends Gnosticist of their Calista [] Believes in Prayer [] Reads Bible or Jewish materials [] There are Spiritual issues to be addressed Buffing Wheel Inspector Interventions [] Prayer [] Active listening [] Non-anxious presence [] Spiritual/emotional support [] Crisis/trauma care [] Spiritual counseling [] Bereavement support [] Provided bereavement packet [] Provided Bible/devotional materials [] Provided toy/stuffed animal, coloring book to patient or family member [] Provided Communion [] Anointing/[place] [] Salvation [] Completed spiritual assessment [] Other: Impact on Illness or Injury [] Angry [] Fearful [] Anxious [] Often cries [] Exhaustion [] Unable to work [] Unable to attend gnosticist [] Unable to walk/stand [] Unable to read [] Unable to drive [] Unable to eat/drink [] Unable to sleep [] Unable to be with family [] Patient intubated [] Other: Summary Time spent with patient
--- NOTE | 2020-12-03 19:32 | PM.DCS ---
Discharge Providers Date of Admission: 11/26/20 23:36 Date of Discharge: December 03, 2020 Attending Provider at Admission: Brandon Madrigal MD Attending Provider at Discharge: Yehuda Javed Primary Care Provider: Rudi Lima MD Diagnoses at Discharge Discharge Diagnosis (1) C. difficile diarrhea: Status: Acute (2) Pneumonia: Status: Resolved (3) Acute and chronic respiratory failure with hypoxia: Status: Resolved (4) Hypoxemia: Status: Resolved (5) CHF (congestive heart failure): Status: Resolved (6) CKD (chronic kidney disease) stage 2, GFR 60-89 ml/min: Status: Resolved Reason for Visit Reason for Visit: COVID, RESP DISTRESS, SEPSIS Hospital Course Hospital Course 80 year old male with a past medical history of insulin-dependent type 2 diabetes mellitus, morbid obesity, diabetic neuropathy, GERD, depression, hyperlipidemia, atrial fibrillation on Eliquis, history of urinary tension, [place], history of ischemic cardiomyopathy, systolic CHF, status post [place], on aspirin, statin, hospitalization for COVID-19 pneumonia 12/21/2019, with tracheostomy placement, 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 Patient tells me that he has been experiencing more shortness of breath with exertion recently, more productive cough, increased sputum production from his tracheostomy site, he has been trying to adhere to his dysphagia diet, no fevers, but does have positive Covid contacts in his house, has not received the Covid vaccine as of yet. Upon admission patient was noted to have clostridium colitis. Started on PO vancomycin which was continued at the time of discharge. Stool was more formed. Also noted to have acute on chronic hypoxic respiratory failure due to multi-focal pneumonia. COVID-[address] of the chest negative for pulmonary emboli,Mosaic attenuation changes of the lungs with scattered ground-glas opacities. This could represent pneumonitis changes, or alternatively air trapping changes secondary to underlying small airways disease.Cultures did not show any growth. Patient was on RA at time of discharge. Due to c-diff coliits and antibiotics were not continued at discharge. Likely suspected to have fluid overload. Lasix 40 mg IV BID during hospitalization. Patient was discharge with close outpatient follow up Physical Exam Const: COMMON NORMALS: no acute distress and patient oriented x3 Eye: COMMON NORMALS: Equal, round and reactive pupils present and EOMs intact bilaterally GENERAL EYE: appearance normal, both eyes and all related structures PUPIL: Yes Equal, round and reactive pupils present Neck/C-Spine: COMMON NORMALS: full ROM, no lymphadenopathy and Thyroid normal THYROID: Thyroid normal OTHER: Tracheostomy in place Lymph: LYMPHATIC: no lymphadenopathy noted Resp: COMMON NORMALS: normal respiratory effort, No retractions and No use of accessory muscles EFFORT & INSPECTION: Yes symmetric chest movement AUSCULTATION: crackles, rhonchi and wheezes Cardio: COMMON NORMALS: regular rate, regular rhythm, S1 normal heart sound present, S2 normal heart sound present, No gallops present (Cardio), No clicks present (Cardio) and No murmurs present (Cardio) RATE: regular rate RHYTHM: regular rhythm HEART SOUNDS: S1 normal heart sound present and S2 normal heart sound present GI: COMMON NORMALS: Normal to inspection, nondistended, normoactive bowel sounds present, Soft to palpation, non-tender and No hepatosplenomegaly present PALPATION: Yes Soft to palpation and Yes No hepatosplenomegaly present Extremity: COMMON NORMALS: no pedal edema NARRATIVE EXTREMITY EXAM: 1+ edema Neuro: COMMON NORMALS: patient oriented x3, CN's II-XII intact bilaterally, moves all extremities and no focal motor deficits Psych: COMMON NORMALS: mental status grossly normal, Normal thought process present and cooperative THOUGHT PROCESS: Normal thought process present Discharge Data Data Completed and Pending: Completed Studies During Hospitalization Category Date Time Status CT angio chest PE protcl [id number] Urge nt Cat Scan 11/26/20 18:[address] head wo con* 7 0450 Urgent Cat Scan 11/26/20 17:[address] neck wo con 70 490 Urgent Cat Scan 11/26/20 18:02 Completed XR chest 1V ganesh ble [id number] Routine Exams 11/27/20 07:00 Completed XR chest 1V ganesh ble [id number] Stat Exams 11/26/20 16:25 Completed XR shoulder LT 1V 44488 Urgent Exams 11/26/20 18:03 Completed XR shoulder RT 1V 98005 Urgent Exams 11/26/20 18:03 Completed Vitals: Last Vital Signs Temp 98.7 F 12/03/20 16:00 Pulse 87 12/03/20 16:00 Resp 17 12/03/20 16:00 BP 143/78 12/03/20 16:00 Pulse Ox 94 12/03/20 16:00 Discharge Plan Discharge Patient Disposition: Home Condition: Stable Prescriptions: New vancomycin 125 mg capsule 125 mg PO Q6H 10 Days Qty: 40 RF: 0 Continued atorvastatin 40 mg tablet 40 mg PO BEDTIME Qty: 30 RF: 5 citalopram 20 mg tablet 20 mg PO BEDTIME Qty: 30 RF: 5 famotidine 20 mg tablet 20 mg PO BID Qty: 60 RF: 5 losartan 100 mg tablet 100 mg PO QAM Qty: 30 RF: 5 potassium chloride 20 mEq tablet,ER particles/crystals 20 meq PO EVERY OTHER DAY Qty: 30 RF: 5 ropinirole 1 mg tablet 1 mg PO BEDTIME Qty: 30 RF: 5 insulin lispro 100 unit/mL solution See Rx Instructions .ROUTE .COMPLEX Qty: 10 RF: 5 guaifenesin [Mucinex] 600 mg tablet extended release 12hr 600 mg PO Q12H PRN (Reason: Congestion) Qty: 60 RF: 3 furosemide 20 mg tablet See Rx Instructions .ROUTE .COMPLEX RF: 0 diltiazem HCl [Cartia XT] 240 mg capsule,extended release 24hr 240 mg PO QAM Qty: 90 RF: 3 Eliquis 5 mg tablet 5 mg PO BID Qty: 180 RF: 3 gabapentin 100 mg capsule 200 mg PO Q8H Qty: 90 RF: 5 calcium polycarbophil [FiberCon] 625 mg Tablet 625 mg PO DAILY PRN (Reason: unknown) RF: 0 magnesium oxide 400 mg magnesium tablet 400 mg PO BEDTIME RF: 0 aspirin 81 mg Tablet,Delayed Release (Dr/Ec) 81 mg PO QAM RF: 0 Refresh Plus 0.5 % Dropperette 1 drp OPHTHALMIC (EYE) TID PRN (Reason: Dry Eyes) RF: 0 chlorhexidine gluconate 0.12 % Mouthwash 15 ml PO BID PRN (Reason: unknown) RF: 0 acetaminophen 650 mg Tablet Extended Release 650 mg PO Q8H PRN (Reason: Pain) RF: 0 Vitamin B-6 100 mg Tablet 100 mg PO QAM RF: 0 Vitamin D3 25 mcg (1,000 unit) Capsule 25 mcg PO QAM RF: 0 ipratropium-albuterol 0.5 mg-3 mg(2.5 mg base)/3 mL solution for nebulization 3 ml inhalation Q6H PRN (Reason: Shortness Of Breath) RF: 0 Flomax 0.4 mg capsule 0.4 mg PO QAM RF: 0 Lantus Solostar U-100 Insulin 100 unit/mL (3 mL) insulin pen 20 unit SUBCUT BID RF: 0 Discharge Orders: Discharge Order (Routine); Ordered 12/03/20 Ordered By: Yehuda Javed Referrals: Rudi Lima MD [Primary Care Provider] - 12/09/20 1:30 pm Discharge Diet: Usual diet Discharge Activity: Increase activity as tolerated Patient Instructions: Clostridium Difficile, Vancomycin (By mouth), Viral Pneumonia (GEN), Opioid Safety, Pneumonia Stoplight Discharge Attestations Time Spent in Discharge Care*: greater than 30 min Specific Discharge Activities: educating patient, educating and/or supporting family/caregiver, discussing with pcp/other providers, discussing with employment evaluator/case manager/social workers/dc planners, documenting/other paperwork and evaluating patient/reviewing data Status at Discharge: Cognitive status at discharge: cognitively intact, Behavioral status at discharge: cooperative, Functional status at discharge: other assisted ambulation Overall status at discharge: patient is progressing back to baseline Quality Metrics Clinical Quality Measures During this hospital stay, did patient experience: None Coding Level of Care Code Acute g DC note Diagnoses C. difficile diarrhea A04.72 Pneumonia J18.9 Acute and chronic respiratory failure with hypoxia J96.21 Hypoxemia R09.02 CHF (congestive heart failure) I50.9 CKD (chronic kidney disease) stage 2, GFR 60-89 ml/min N18.2
[2020-12-05 08:06] LABS: Glucose Point of Care 236 mg/dL (70-110)
[2020-12-05 08:06] LABS: Glucose Point of Care 303 mg/dL (70-110)
--- NOTE | 2020-12-07 06:30 | PC.SOCIAL ---
PA completed for Vancomycin PO and approved.
== END 2020-12-03 16:59 | disposition home or self-care (01) | DRG 177 ==
LOC: ER 22:09 → ER IP 11-27 05:49 → MEDSURG 11-28 18:31
PROVIDERS: Internal Medicine; Admitting Provider Family Medicine; Emergency Provider Emergency Medicine; PCP Family Medicine; Visit Provider Hospitalist
DX: J69.0 Pneumonitis due to inhalation of food and vomit (principal); J96.21 Acute and chronic respiratory failure with hypoxia; I50.23 Acute on chronic systolic (congestive) heart failure; A04.72 Enterocolitis due to Clostridium difficile, not specified as recurrent; I13.0 Hypertensive heart and chronic kidney disease with heart failure and stage 1 through stage 4 chronic kidney disease, or unspecified chronic kidney disease; Z68.41 Body mass index [BMI] 40.0-44.9, adult; N39.0 Urinary tract infection, site not specified; J18.9 Pneumonia, unspecified organism; E11.22 Type 2 diabetes mellitus with diabetic chronic kidney disease; N18.2 Chronic kidney disease, stage 2 (mild); I48.0 Paroxysmal atrial fibrillation; I25.5 Ischemic cardiomyopathy; R33.9 Retention of urine, unspecified; I25.10 Atherosclerotic heart disease of native coronary artery without angina pectoris; J41.8 Mixed simple and mucopurulent chronic bronchitis; K21.9 Gastro-esophageal reflux disease without esophagitis; F32.9 Major depressive disorder, single episode, unspecified; E78.5 Hyperlipidemia, unspecified; E66.01 Morbid (severe) obesity due to excess calories; E11.40 Type 2 diabetes mellitus with diabetic neuropathy, unspecified; G25.81 Restless legs syndrome; I25.2 Old myocardial infarction; G47.33 Obstructive sleep apnea (adult) (pediatric); M25.511 Pain in right shoulder; M25.512 Pain in left shoulder; W18.30XA Fall on same level, unspecified, initial encounter; Z79.4 Long term (current) use of insulin; Z93.0 Tracheostomy status; Z86.16 Personal history of COVID-19; Z79.01 Long term (current) use of anticoagulants; Z79.82 Long term (current) use of aspirin; Z91.81 History of falling
CPT/HCPCS: 36415; 36416; 36600; 70450; 70490; 71045; 71275; 73020; 80053; 81001; 82274; 82550; 82728; 82803; 82962; 83036; 83605; 83630; 83690; 83735; 83880; 84100; 84145; 84443; 84484; 85025; 85362; 85378; 85384; 85610; 85730; 86140; 87040; 87070; 87077; 87086; 87186; 87205; 87426; 87493; 87506; 87635; 87641; 92507; 92526; 92610; 93005; 94640; 94664; 96365; 96367; 96372; 96375; 97110; 97116; 97161; 97165; 97530; 97535; 99291; J0692; J0743; J1815 ×2; J1940; J3370; J7030; J7040; J7050; J7626; Q9967

== ENCOUNTER 2020-12-15 17:40 | Emergency (ER) | payer MEDICARE, SELFPAY ==
--- NOTE | 2020-12-15 18:07 | XRR_ITS ---
PROCEDURE INFORMATION: Exam: XR Right Foot Exam date and time: 12/15/2020 6:07 PM Age: 80 years old Clinical indication: Pain; Right; Prior surgery; Surgery date: 1-6 months; Surgery type: RT foot; Additional info: Injury TECHNIQUE: Imaging protocol: XR Right foot. Views: 3 or more views. COMPARISON: No relevant prior studies available. FINDINGS: Bones/joints: Negative for acute bony abnormalities. There is fusion of the proximal interphalangeal articulation of the 2nd toe. Chronic bony erosions are seen in the distal aspect of the 2nd metatarsal. A bone spur is present on the inferior calcaneus; Metatarsophalangeal articulation. Soft tissue edema is seen in the dorsal foot. Soft tissues: A large soft tissue bunion is seen near the medial aspect of the great toe. XR/XR foot RT min 3V* [id number] IMPRESSION: 1. No acute bone abnormality. 2. Fusion proximal interphalangeal joint 2nd digit 3. Large bunion near the 1st metatarsophalangeal joint 4. Bone spur inferior calcaneus 5. Soft tissue edema dorsal foot
[2020-12-15 18:12] VITALS: PULSE 80; RESP 22; TEMP 36.4; O2SAT 94; BMI 48.2
--- NOTE | 2020-12-15 19:03 | W.ED.EXTPRO ---
HPI - Extremity Problem General: Chief complaint: Extremity Injury, Lower Stated complaint: RIGHT FOOT INJURY Time Seen by Provider: 12/15/20 18:38 Source: patient Mode of arrival: ambulatory Limitations: no limitations History of Present Illness: HPI Narrative: 72-year-old male states he has had some erythema and a blister to his right foot over the last 3 to 4 days. He states he was placed on Bactrim recently. States he has had issues with that foot in the past due to diabetic infections and has had surgery on it years ago as well. Denies any fevers. States he had slight pain. Denies any worsening improving factors. Associated symptoms: Deny chest pain, fever(s) or rash Review of Systems Const: Denies: fever(s), chills, body aches or change in appetite Eyes: Denies: blurry vision or eye discomfort ENMT: Denies: throat pain or dental pain Card: Denies: chest pain Resp: Denies: dyspnea GI: Denies: abdominal pain, nausea, vomiting or diarrhea : Denies: dysuria Musc: Denies: neck pain or back pain Skin/Breast: Denies: rash Neuro: Denies: headache(s) Psych: Denies: depression Alex/Lymph: Denies: easy bruising All/Imm: Denies: urticaria PFSH ED PFSH: Medical History Acute cystitis Aspiration into lower respiratory tract CKD (chronic kidney disease) stage 2, GFR 60-89 ml/min COPD (chronic obstructive pulmonary disease) Depression Diabetes mellitus case management patient Fatigue Carlson catheter in place GERD (gastroesophageal reflux disease) Healthcare-associated pneumonia HTN (hypertension) Hyperlipidemia Hypertension Male circumcision Morbid obesity with BMI of 40.0-44.9, adult Neuropathy Osteoarthritis Phimosis Restless legs syndrome (RLS) Tracheostomy care Urinary retention Surgical History History of cholecystectomy History of total left knee replacement Hx of tonsillectomy Status post routine circumcision Status post tracheostomy Family History Other Cancer Diabetes Social History Smoking and tobacco status: never smoked Alcohol intake: never Current occupational status: unemployed and retired Financial difficulty paying for basics: Somewhat Hard Physical Exam Const: COMMON NORMALS: no acute distress, patient oriented x3 and healthy appearing HENMT: COMMON NORMALS: normocephalic and atraumatic HEAD & SCALP: normocephalic and atraumatic Eye: COMMON NORMALS: Equal, round and reactive pupils present and EOMs intact bilaterally PUPIL: Yes Equal, round and reactive pupils present Neck/C-Spine: COMMON NORMALS: full ROM and supple Chest: COMMONS NORMALS: normal inspection of the chest and normal palpation of entire chest wall Resp: COMMON NORMALS: normal respiratory effort, No retractions, No use of accessory muscles and clear to auscultation bilaterally AUSCULTATION: clear to auscultation bilaterally Cardio: COMMON NORMALS: regular rate, regular rhythm and No murmurs present (Cardio) RATE: regular rate RHYTHM: regular rhythm GI: COMMON NORMALS: Normal to inspection, nondistended, normoactive bowel sounds present, Soft to palpation, non-tender and no masses PALPATION: Yes Soft to palpation Extremity: COMMON NORMALS: full ROM NARRATIVE EXTREMITY EXAM: Slight cellulitis at the base of the great toe of the right foot. Does have a large what appears to be blood-filled blister on the lateral portion at the base of his right great toe as well. Neuro: COMMON NORMALS: patient oriented x3, moves all extremities and no focal motor deficits Psych: COMMON NORMALS: mental status grossly normal, Normal thought process present and cooperative THOUGHT PROCESS: Normal thought process present Skin: COMMON NORMALS: no rashes or lesions noted and no wounds GENERAL SKIN EXAM: no rashes or lesions noted Course Vital Signs: Vital signs: Vital Signs Temperature 97.6 F 12/15/20 18:12 Pulse Rate 80 12/15/20 20:05 Respiratory Rate 20 H 12/15/20 20:05 Blood Pressure 112/73 12/15/20 20:05 Pulse Oximetry 94 12/15/20 20:05 MDM - Extremity (Nontraumatic) MDM Narrative: Medical decision making narrative: Patient presents here with slight cellulitis to his right foot. X-ray shows no signs of osteomyelitis his white count here is normal as well. I did popped his blister with 18-gauge needle just had serosanguineous fluid. No purulent fluid was drained. Did give him vancomycin he is to continue his Bactrim and will have him follow-up with podiatry Dr. Lindsey. He is to return if worsening. He understands agrees to plan. Lab Data: Labs: Lab Results 12/15/20 Range/Units 19:10 WBC 7.0 (4.0-10.0) 10^3/ uL RBC 4.41 (4.1-5.3) 10^6/u L Hgb 12.8 (11.7-16.6) g/dL Hct 40.9 L (42.0-52.0) % MCV 92.7 (80-94) fl MCH 29.0 (28.0-34.0) pg MCHC 31.3 (30.0-36.0) g/dL RDW 15.1 (12.1-15.1) % Plt Count 352 (130-400) 10^3/c mm MPV 9.0 (7.4-10.4) fL Neut % (Auto) 62.0 % Lymph % (Auto) 21.6 % Storey % (Auto) 10.6 % Eos % (Auto) 4.9 % Baso % (Auto) 0.6 % Neut # (Auto) 4.35 (1.8-7.7) 10^3/u L Lymph # (Auto) 1.5 (0.8-4.8) 10^3/u L Storey # (Auto) 0.7 (0.2-0.9) 10^3/u L Eos # (Auto) 0.3 (0.0-0.8) 10^3/u L Baso # (Auto) 0.0 (0.0-0.1) 10^3/u L Nucleated RBC % (a uto) 0 % Nucleated RBCs # 0.0 /100WBC Imaging Data^: Other Xray: Attestation: I personally reviewed and interpreted this imaging study as follows: Radiologist's impression: [address] [place] [address] XRay Report Signed Patient: Ming Sanhcez Unit #: [id number] : 1940 Age/Sex: 80 / M ADM Date: 12/15/20 Loc: ER Room/Bed: Attending Dr: Ordering Provider/Ordering MD: Jj Harley MD Date of Service: 12/15/20 Procedure(s): XR foot RT min 3V* [id number] Accession Number(s): [id number] Report Number: [id number] PROCEDURE INFORMATION: Exam: XR Right Foot Exam date and time: 12/15/2020 6:07 PM Age: 80 years old Clinical indication: Pain; Right; Prior surgery; Surgery date: 1-6 months; Surgery type: RT foot; Additional info: Injury TECHNIQUE: Imaging protocol: XR Right foot. Views: 3 or more views. COMPARISON: No relevant prior studies available. FINDINGS: Bones/joints: Negative for acute bony abnormalities. There is fusion of the proximal interphalangeal articulation of the 2nd toe. Chronic bony erosions are seen in the distal aspect of the 2nd metatarsal. A bone spur is present on the inferior calcaneus; Metatarsophalangeal articulation. Soft tissue edema is seen in the dorsal foot. Soft tissues: A large soft tissue bunion is seen near the medial aspect of the great toe. XR/XR foot RT min 3V* [id number] IMPRESSION: 1. No acute bone abnormality. 2. Fusion proximal interphalangeal joint 2nd digit 3. Large bunion near the 1st metatarsophalangeal joint 4. Bone spur inferior calcaneus 5. Soft tissue edema dorsal foot Dictated By: Larry Mccarty Signed By: Larry Mccarty Signed Date/Time: 12/15/201913 DD/ 11 Discharge Plan Discharge Patient Disposition: Home Clinical Impression: Cellulitis Qualifiers: Site of cellulitis: extremity Site of cellulitis of extremity: lower extremity Laterality: right Qualified Code(s): L03.115 - Cellulitis of right lower limb Condition: Stable Prescriptions: No Action atorvastatin 40 mg tablet 40 mg PO BEDTIME Qty: 30 RF: 5 citalopram 20 mg tablet 20 mg PO BEDTIME Qty: 30 RF: 5 famotidine 20 mg tablet 20 mg PO BID Qty: 60 RF: 5 losartan 100 mg tablet 100 mg PO QAM Qty: 30 RF: 5 potassium chloride 20 mEq tablet,ER particles/crystals 20 meq PO EVERY OTHER DAY Qty: 30 RF: 5 ropinirole 1 mg tablet 1 mg PO BEDTIME Qty: 30 RF: 5 insulin lispro 100 unit/mL solution See Rx Instructions .ROUTE .COMPLEX Qty: 10 RF: 5 guaifenesin [Mucinex] 600 mg tablet extended release 12hr 600 mg PO Q12H PRN (Reason: Congestion) Qty: 60 RF: 3 furosemide 20 mg tablet See Rx Instructions .ROUTE .COMPLEX RF: 0 diltiazem HCl [Cartia XT] 240 mg capsule,extended release 24hr 240 mg PO QAM Qty: 90 RF: 3 Eliquis 5 mg tablet 5 mg PO BID Qty: 180 RF: 3 gabapentin 100 mg capsule 200 mg PO Q8H Qty: 90 RF: 5 calcium polycarbophil [FiberCon] 625 mg Tablet 625 mg PO DAILY PRN (Reason: unknown) RF: 0 magnesium oxide 400 mg magnesium tablet 400 mg PO BEDTIME RF: 0 aspirin 81 mg Tablet,Delayed Release (Dr/Ec) 81 mg PO QAM RF: 0 Refresh Plus 0.5 % Dropperette 1 drp OPHTHALMIC (EYE) TID PRN (Reason: Dry Eyes) RF: 0 chlorhexidine gluconate 0.12 % Mouthwash 15 ml PO BID PRN (Reason: unknown) RF: 0 acetaminophen 650 mg Tablet Extended Release 650 mg PO Q8H PRN (Reason: Pain) RF: 0 Vitamin B-6 100 mg Tablet 100 mg PO QAM RF: 0 Vitamin D3 25 mcg (1,000 unit) Capsule 25 mcg PO QAM RF: 0 ipratropium-albuterol 0.5 mg-3 mg(2.5 mg base)/3 mL solution for nebulization 3 ml inhalation Q6H PRN (Reason: Shortness Of Breath) RF: 0 Flomax 0.4 mg capsule 0.4 mg PO QAM RF: 0 Lantus Solostar U-100 Insulin 100 unit/mL (3 mL) insulin pen 20 unit SUBCUT BID RF: 0 Discharge Orders: Discharge ED (Routine); Ordered 12/15/20 Ordered By: Jj Harley Referrals: Chao Lindsey DPM [Physician] - 1-3 days Rudi Lima MD [Primary Care Provider] - Discharge Diet: Advance as tolerated Discharge Activity: Resume usual activity Patient Instructions: Cellulitis (ED) Coding Level of Care Code ED [employer] Consultant for Chg Fwd Exam Comprehensive
[2020-12-15] MEDS: vancomycin 1,000 MG in sodium chloride 0.9% 250 ML 250 MG IV (19:15)
[2020-12-15] MEDS: morphine 4 mg/mL SDV 1 mL IVP (19:15)
[2020-12-15] MEDS: ondansetron 2 mg/ML SDV 2 mL 4 MG IVP (19:15)
[2020-12-15 19:31] LABS: Basophils % 0.6 %; Eosinophils # 0.3 10^3/uL (0.0-0.8); Eosinophils % 4.9 %; Hematocrit 40.9 % (42.0-52.0); Hemoglobin 12.8 g/dL (11.7-16.6); Lymphocytes # 1.5 10^3/uL (0.8-4.8); Lymphocytes % 21.6 %; Mean Corpuscular HGB Conc 31.3 g/dL (30.0-36.0); Mean Corpuscular Volume 92.7 fl (80-94); Monocytes # 0.7 10^3/uL (0.2-0.9); Monocytes % 10.6 %; Neutrophils # 4.35 10^3/uL (1.8-7.7); Nucleated Red Blood Cells % 0 %; Platelet Count 352 10^3/cmm (130-400); Red Blood Count 4.41 10^6/uL (4.1-5.3); Red Cell Distribution Width 15.1 % (12.1-15.1)
[2020-12-15 20:05] VITALS: BP 112/73; PULSE 80; RESP 20; O2SAT 94
[2020-12-15 20:59] VITALS: BP 112/78; PULSE 81; RESP 20; O2SAT 93
--- NOTE | 2020-12-15 21:01 | PC.NURSE ---
Nonadherent dressing and kerlix applied to R foot.
--- NOTE | 2020-12-16 11:38 | DCPLANNER ---
quality assurance project manager had message to schedule a follow up appointment for patient with ortho. quality assurance project manager called the ortho clinic, spoke with Ayanna, gave clinic patients information. quality assurance project manager was told that patients information would be printed and reviewed. Clinic will call patient with appointment information.
--- NOTE | 2020-12-17 11:21 | DCPLANNER ---
Patient has a follow up appointment scheduled for Sunday, December at 2:[address] Lindsey at [facility]. Clinic will call patient with appointment information.
--- NOTE | 2020-12-23 08:03 | DCPLANNER ---
Patient had a follow up appointment scheduled for 12.17.[address] Lindsey - patient did attend appointment.
== END 2020-12-15 21:01 | disposition home or self-care (01) ==
PROVIDERS: Emergency Provider Emergency Medicine; PCP Family Medicine
DX: L03.115 Cellulitis of right lower limb (principal); Z79.4 Long term (current) use of insulin; Z79.01 Long term (current) use of anticoagulants; Z79.82 Long term (current) use of aspirin; I12.9 Hypertensive chronic kidney disease with stage 1 through stage 4 chronic kidney disease, or unspecified chronic kidney disease; E11.22 Type 2 diabetes mellitus with diabetic chronic kidney disease; N18.2 Chronic kidney disease, stage 2 (mild); J44.9 Chronic obstructive pulmonary disease, unspecified; E78.5 Hyperlipidemia, unspecified; E11.40 Type 2 diabetes mellitus with diabetic neuropathy, unspecified
CPT/HCPCS: 73630; 85025; 96365; 96375; 99284; J2270; J2405; J3370; J7050

== ENCOUNTER 2020-12-17 15:41 | Outpatient (CLI) | payer MEDICARE, SELFPAY | END 2020-12-17 15:42 | disposition home or self-care (01) | LOC: SPT 15:42 | PROVIDERS: PCP Family Medicine; Visit Provider Podiatrist Foot & Ankle Surgery | DX: Z46.89 Encounter for fitting and adjustment of other specified devices (principal); L97.512 Non-pressure chronic ulcer of other part of right foot with fat layer exposed | CPT/HCPCS: 97760; L4361 ==

== ENCOUNTER 2021-01-10 14:50 | Outpatient (RCR) | payer MEDICARE, SELFPAY | END 2021-01-30 23:59 | disposition home or self-care (01) | LOC: SST 14:50 | PROVIDERS: PCP Family Medicine; Referring Provider Family Medicine; Visit Provider Family Medicine | DX: J69.0 Pneumonitis due to inhalation of food and vomit (principal) | CPT/HCPCS: 92610 ==

== ENCOUNTER 2021-01-18 09:38 | Outpatient (CLI) | payer MEDICARE, SELFPAY ==
--- NOTE | 2021-01-18 09:46 | FL_ITS ---
WS: [id number] MODIFIED BARIUM SWALLOW TECHNIQUE: Modified barium swallow with speech therapy using multiple consistencies. FLUOROSCOPY TIME: 1.9 minutes. CLINICAL INFORMATION: Other dysphagia COMPARISON: None. FINDINGS: Multiple consistencies utilized. No evidence of aspiration or penetration. Normal oropharyngeal phase . No difficulties with barium tablet. FL/FL barium swallow modifd [id number] IMPRESSION: Normal barium swallow.
== END 2021-01-18 09:39 | disposition home or self-care (01) ==
LOC: RAD 09:45
PROVIDERS: PCP Family Medicine; Visit Provider Family Medicine
DX: J69.0 Pneumonitis due to inhalation of food and vomit (principal)
CPT/HCPCS: 74230; 92611

== ENCOUNTER 2021-02-07 16:35 | Inpatient (IN) | payer MEDICARE, SELFPAY ==
[2021-02-07] VITALS (8 sets, daily range): BP systolic 128–147; BP diastolic 81–85; PULSE 76–93; RESP 16–26; TEMP 36.8–37.4; O2SAT 94–99; BMI 48.2; BMI 48.8
--- NOTE | 2021-02-07 16:55 | XRR_ITS ---
PROCEDURE INFORMATION: Exam: XR Chest Exam date and time: 02/07/2021 4:55 PM Age: 80 years old Clinical indication: Cough and dyspnea; Additional info: Dyspnea/cough TECHNIQUE: Imaging protocol: XR of the chest. Views: 1 view. COMPARISON: CR XR chest 1V portable [id number] 11/27/2020 6:05 AM FINDINGS: Tracheostomy tube remains in place. There is cardiomegaly which is stable. The lung gomez remain hypoventilated. Basilar infiltrates are increased. There are bilateral pleural effusions right greater than left. There is no pneumothorax. There is pulmonary vascular congestion. XR/XR chest 1V portable [id number] IMPRESSION: 1. Increased pulmonary infiltrates. 2. Cardiomegaly, stable. 3. Pulmonary vascular congestion. 4. Bilateral pleural effusions. Radiation Dose CTDIVOL = (mGy): DLP = (mGy-cm)
--- NOTE | 2021-02-07 17:15 | ED_ITS ---
Documented by User: Jameel Isidro DO 02/10/21 10:36 HPI - SOB/Dyspnea General: Chief Complaint: Shortness of Breath/Dyspnea Stated Complaint: SOB, Sent by Smiley Time Seen by Provider: 02/07/21 16:55 History of Present Illness: HPI Narrative: 80-year-old male presents emergency room with complaint of shortness of breath. He states he has difficulty breathing. He has a trach in place due to complications from Covid a year ago. He denies any fever he does state he has increased mucus production from the trach. Denies any vomiting or diarrhea he has a little bit of chest discomfort. Is not had any chest comfort into the neck or the arms. His main complaint is of shortness of breath, cough and mucus production. MD elicited complaint: shortness of breath and cough Pertinent past history: COPD Onset (ago): hour(s) Context: recent illness (Call with 1 area) Timing: constant Severity: mild Exacerbating factors: nothing Relieving factors: nothing Known history of: COPD Associated symptoms: Reports cough and sense of impending doom; Deny abdominal pain, chest congestion, chest pain, diaphoresis, dizziness, extremity pain, fever(s), hemoptysis, lightheadedness, myalgias, nausea, orthopnea, palpitations, paresthesias, polydipsia, polyuria, rash, syncope or vomiting Treatment prior to arrival: none Review of Systems Const: Denies: fever(s) or diaphoresis ENMT: Denies: throat pain, ear or mastoid pain, nasal discharge or nasal congestion Card: Denies: chest pain, palpitations, lightheadedness, syncope or orthopnea Resp: Denies: hemoptysis or chest congestion GI: Denies: abdominal pain, nausea or vomiting : Denies: flank pain, dysuria, urinary frequency or urinary urgency Musc: Denies: extremity pain Skin/Breast: Denies: rash or pruritus Neuro: Denies: dizziness Endo: Denies: polyuria or polydipsia PFS ED PFSH: Medical History C. difficile diarrhea CKD (chronic kidney disease) stage 2, GFR 60-89 ml/min COPD (chronic obstructive pulmonary disease) COVID-19 COVID Positive 12/21/2019 vent and trach placement. Depression Carlson catheter in place GERD (gastroesophageal reflux disease) Hospital discharge follow-up HTN (hypertension) Hyperlipidemia Hypertension Male circumcision Morbid obesity with BMI of 40.0-44.9, adult Osteoarthritis Phimosis Restless legs syndrome (RLS) Tracheostomy care Urinary retention Surgical History History of cholecystectomy History of total left knee replacement Hx of tonsillectomy Status post routine circumcision Status post tracheostomy Family History Father , at age 92 Hypertension Mother , at age 56 Cancer breast Other Diabetes Social History Alcohol intake: never Marital status: Current occupational status: retired History of recent travel: No Financial difficulty paying for basics: Somewhat Hard Physical Exam Const: COMMON NORMALS: no acute distress GENERAL APPEARANCE: cooperative and comfortable ORIENTATION/CONSCIOUSNESS: Yes awake, Yes oriented to person, Yes oriented to place and Yes oriented to time HENMT: COMMON NORMALS: normocephalic, atraumatic and hearing grossly normal bilaterally HEAD & SCALP: normocephalic and atraumatic Neck/C-Spine: COMMON NORMALS: no JVD Resp: COMMON NORMALS: normal respiratory effort, No retractions, No use of accessory muscles and clear to auscultation bilaterally AUSCULTATION: clear to auscultation bilaterally Cardio: COMMON NORMALS: no JVD, regular rate, regular rhythm and No murmurs present (Cardio) RATE: regular rate RHYTHM: regular rhythm GI: COMMON NORMALS: Soft to palpation and No hepatosplenomegaly present AUSCULTATION: Yes normoactive bowel sounds PALPATION: Yes Soft to palpation, No Tenderness to palpation present (GI), No Guarding due to palpation present (GI) and Yes No hepatosplenomegaly present Extremity: COMMON NORMALS: normal to inspection, capillary refill normal, no clubbing, cyanosis or edema, no calf tenderness and no pedal edema Neuro: SENSORIUM/ORIENTATION: Yes oriented to person, Yes oriented to place and Yes oriented to time Skin: COMMON NORMALS: no rashes or lesions noted GENERAL SKIN EXAM: no rashes or lesions noted Course Vital Signs: Vital signs: Vital Signs Temperature 98.4 F 02/10/21 07:40 Pulse Rate 69 02/10/21 07:41 Respiratory Rate 20 H 02/10/21 07:41 Blood Pressure 96/70 02/10/21 07:40 Pulse Oximetry 100 02/10/21 07:41 MDM - SOB/Dyspnea MDM Narrative: Medical decision making narrative: Care turned over to Dr. Harley at change of shift see his note for final diagnosis and disposition. Lab Data: Labs: Lab Results 02/07/21 02/07/21 02/07/21 18:10 18:10 18:10 WBC 8.3 10^3/uL 10^3/ uL (4.0-10.0) RBC 4.12 10^6/uL 10^6 /uL (4.1-5.3) Hgb 12.3 g/dL g/dL (11.7-16.6) Hct 37.4 % L % (42.0-52.0) MCV 90.8 fl fl (80-94) MCH 29.9 pg pg (28.0-34.0) MCHC 32.9 g/dL g/dL (30.0-36.0) RDW 14.4 % % (12.1-15.1) Plt Count 243 10^3/cmm 10^3 /cmm (130-400) MPV 9.4 fL fL (7.4-10.4) Neut % (Auto) 65.0 % % Lymph % (Auto) 19.1 % % [place] % (Auto) 12.6 % % Eos % (Auto) 2.5 % % Baso % (Auto) 0.6 % % Neut # (Auto) 5.42 10^3/uL 10^3 /uL (1.8-7.7) Lymph # (Auto) 1.6 10^3/uL 10^3/ uL (0.8-4.8) [place] # (Auto) 1.1 10^3/uL H 10^ 3/uL (0.2-0.9) Eos # (Auto) 0.2 10^3/uL 10^3/ uL (0.0-0.8) Baso # (Auto) 0.1 10^3/uL 10^3/ uL (0.0-0.1) Nucleated RBC % (a uto) 0 % % Nucleated RBCs # 0.0 /100WBC /100W BC Specimen Type Arterial Sample Site Brachial, right ABG pH 7.46 H (7.35-7.45) ABG pCO2 33.3 mmHg L mmHg (35-45) ABG pO2 137.0 mmHg H mmHg (80.0-100.0) ABG HCO3 23.6 mmol/L mmol/ L (22-26) ABG O2 Saturation 99.6 ABG Base Excess 0.3 mmol/L mmol/L (-2.0-2.0) Manjeet Test Pos A-a O2 Gradient 50.9 mmHg H mmHg (5-10) Hematocrit 40.3 % L % (42-52) Hgb O2 Saturation 97.7 % % (95-100) Carboxyhemoglobin 1.1 %THgb %THgb (0.4-20.1) Methemoglobin 0.9 % % (0.4-1.5) Total Hemoglobin 13.2 g/dL L g/dL (14-18) Sodium 137 mmol/L mmol/L 137.0 mmol/L mmol /L (136-145) (131-143) Potassium 4.5 mmol/L mmol/L 4.4 mmol/L mmol/L (3.5-5.1) (3.5-5.0) Glucose 160 mg/dL H mg/dL 162.0 mg/dL H mg/ dL (65-115) (70-115) Ionized Calcium 1.1 mmol/L mmol/L (1.1-1.4) O2 Delivery Device Hag FiO2 80.0 % % Coin Teller ID Bd Chloride 102 mmol/L mmol/L (98-107) Carbon Dioxide 22 mmol/L mmol/L (22-29) Anion Gap 17.5 (5-19) BUN 15 mg/dL mg/dL (8-23) Creatinine 1.3 mg/dL H mg/dL (0.7-1.2) GFR Calculation Not Reportable Calculated Osmolal ity 288 mOsm/kg mOsm/ kg (285-295) Calcium 8.6 mg/dL mg/dL (8.5-10.5) Total Bilirubin 0.6 mg/dL mg/dL (0.15-1.2) AST 13 U/L U/L (0-40) ALT 10 U/L U/L (0-41) Alkaline Phosphata se 62 IU/L IU/L (40-130) Creatine Kinase 164 U/L U/L (39-308) NT-Pro-B Natriuret Pep Total Protein 7.0 g/dL g/dL (6.6-8.7) Albumin 3.5 g/dL g/dL (3.5-5.2) Globulin 3.5 g/dL g/dL (1.3-4.6) Procalcitonin Urine Color Urine Appearance Urine pH Ur Specific Gravit y Urine Protein Urine Glucose (UA) Urine Ketones Urine Blood Urine Nitrate Urine Bilirubin Urine Urobilinogen Ur Leukocyte Berenice ase Urine RBC Urine WBC Ur Squamous Epith Cells Amorphous Sediment Urine Bacteria Urine Mucus Nasal/Oral COVID-1 9 PCR SARS-CoV-2 Ag (Rap id) 02/07/21 02/07/21 02/07/21 18:10 19:18 19:18 WBC RBC Hgb Hct MCV MCH MCHC RDW Plt Count MPV Neut % (Auto) Lymph % (Auto) [place] % (Auto) Eos % (Auto) Baso % (Auto) Neut # (Auto) Lymph # (Auto) [place] # (Auto) Eos # (Auto) Baso # (Auto) Nucleated RBC % (a uto) Nucleated RBCs # Specimen Type Sample Site ABG pH ABG pCO2 ABG pO2 ABG HCO3 ABG O2 Saturation ABG Base Excess Manjeet Test A-a O2 Gradient Hematocrit Hgb O2 Saturation Carboxyhemoglobin Methemoglobin Total Hemoglobin Sodium Potassium Glucose Ionized Calcium O2 Delivery Device FiO2 Coin Teller ID Chloride Carbon Dioxide Anion Gap BUN Creatinine GFR Calculation Calculated Osmolal ity Calcium Total Bilirubin AST ALT Alkaline Phosphata se Creatine Kinase NT-Pro-B Natriuret Pep 1297 pg/mL H pg/m L (0-450) Total Protein Albumin Globulin Procalcitonin 0.19 ng/mL ng/mL (0-0.5) Urine Color Urine Appearance Urine pH Ur Specific Gravit y Urine Protein Urine Glucose (UA) Urine Ketones Urine Blood Urine Nitrate Urine Bilirubin Urine Urobilinogen Ur Leukocyte Berenice ase Urine RBC Urine WBC Ur Squamous Epith Cells Amorphous Sediment Urine Bacteria Urine Mucus Nasal/Oral COVID-1 9 PCR Not detected SARS-CoV-2 Ag (Rap id) Negative (Negative) 02/07/21 19:48 WBC RBC Hgb Hct MCV MCH MCHC RDW Plt Count MPV Neut % (Auto) Lymph % (Auto) [place] % (Auto) Eos % (Auto) Baso % (Auto) Neut # (Auto) Lymph # (Auto) [place] # (Auto) Eos # (Auto) Baso # (Auto) Nucleated RBC % (a uto) Nucleated RBCs # Specimen Type Sample Site ABG pH ABG pCO2 ABG pO2 ABG HCO3 ABG O2 Saturation ABG Base Excess Manjeet Test A-a O2 Gradient Hematocrit Hgb O2 Saturation Carboxyhemoglobin Methemoglobin Total Hemoglobin Sodium Potassium Glucose Ionized Calcium O2 Delivery Device FiO2 Coin Teller ID Chloride Carbon Dioxide Anion Gap BUN Creatinine GFR Calculation Calculated Osmolal ity Calcium Total Bilirubin AST ALT Alkaline Phosphata se Creatine Kinase NT-Pro-B Natriuret Pep Total Protein Albumin Globulin Procalcitonin Urine Color Yellow (Yellow) Urine Appearance Hazy A (CLEAR) Urine pH 5 (5-7) Ur Specific Gravit y 1.010 (1.005-1.030) Urine Protein Neg (Negative) Urine Glucose (UA) Trace H (Normal) Urine Ketones Negative (Negative) Urine Blood 2+ H (Negative) Urine Nitrate Negative (Negative) Urine Bilirubin Neg (Negative) Urine Urobilinogen 1 mg/dL H mg/dL (Negative) Ur Leukocyte Berenice ase 1+ H (Negative) Urine RBC 0-4 /hpf H /hpf (0-2) Urine WBC 10-15 /hpf H /hpf (0-5) Ur Squamous Epith Cells 5-10 /hpf H /hpf (0-5) Amorphous Sediment Not Reportable Urine Bacteria 1+ /hpf H /hpf (NONE) Urine Mucus 2+ /hpf /hpf Nasal/Oral COVID-1 9 PCR SARS-CoV-2 Ag (Rap id) Discharge Plan Discharge Admit Provider: Wes Carnes Coding Level of Care Code ED Care Administrative Tech for Chg Fwd Exam Comprehensive Documented by User: Jj Harley MD 02/07/21 21:26 HPI - SOB/Dyspnea General: Chief Complaint: Shortness of Breath/Dyspnea Stated Complaint: SOB, Sent by Smiley Time Seen by Provider: 02/07/21 16:55 PFS ED PFS: Medical History C. difficile diarrhea CKD (chronic kidney disease) stage 2, GFR 60-89 ml/min COPD (chronic obstructive pulmonary disease) COVID-19 COVID Positive 12/21/2019 vent and trach placement. Depression Carlson catheter in place GERD (gastroesophageal reflux disease) Hospital discharge follow-up HTN (hypertension) Hyperlipidemia Hypertension Male circumcision Morbid obesity with BMI of 40.0-44.9, adult Osteoarthritis Phimosis Restless legs syndrome (RLS) Tracheostomy care Urinary retention Surgical History History of cholecystectomy History of total left knee replacement Hx of tonsillectomy Status post routine circumcision Status post tracheostomy Family History Father , at age 92 Hypertension Mother , at age 56 Cancer breast Other Diabetes Social History Alcohol intake: never Marital status: Current occupational status: retired History of recent travel: No Financial difficulty paying for basics: Somewhat Hard Course Vital Signs: Vital signs: Vital Signs Temperature 98.4 F 02/10/21 07:40 Pulse Rate 69 02/10/21 07:41 Respiratory Rate 20 H 02/10/21 07:41 Blood Pressure 96/70 02/10/21 07:40 Pulse Oximetry 100 02/10/21 07:41 MDM - SOB/Dyspnea MDM Narrative: Medical decision making narrative: Patient presents here with increasing dyspnea and does have bilateral pneumonia Covid here is negative patient started on IV antibiotics I spoke to hospitalist who will admit. Patient has been stable while here. Lab Data: Labs: Lab Results 02/07/21 02/07/21 02/07/21 18:10 18:10 18:10 WBC 8.3 10^3/uL 10^3/ uL (4.0-10.0) RBC 4.12 10^6/uL 10^6 /uL (4.1-5.3) Hgb 12.3 g/dL g/dL (11.7-16.6) Hct 37.4 % L % (42.0-52.0) MCV 90.8 fl fl (80-94) MCH 29.9 pg pg (28.0-34.0) MCHC 32.9 g/dL g/dL (30.0-36.0) RDW 14.4 % % (12.1-15.1) Plt Count 243 10^3/cmm 10^3 /cmm (130-400) MPV 9.4 fL fL (7.4-10.4) Neut % (Auto) 65.0 % % Lymph % (Auto) 19.1 % % [place] % (Auto) 12.6 % % Eos % (Auto) 2.5 % % Baso % (Auto) 0.6 % % Neut # (Auto) 5.42 10^3/uL 10^3 /uL (1.8-7.7) Lymph # (Auto) 1.6 10^3/uL 10^3/ uL (0.8-4.8) [place] # (Auto) 1.1 10^3/uL H 10^ 3/uL (0.2-0.9) Eos # (Auto) 0.2 10^3/uL 10^3/ uL (0.0-0.8) Baso # (Auto) 0.1 10^3/uL 10^3/ uL (0.0-0.1) Nucleated RBC % (a uto) 0 % % Nucleated RBCs # 0.0 /100WBC /100W BC Specimen Type Arterial Sample Site Brachial, right ABG pH 7.46 H (7.35-7.45) ABG pCO2 33.3 mmHg L mmHg (35-45) ABG pO2 137.0 mmHg H mmHg (80.0-100.0) ABG HCO3 23.6 mmol/L mmol/ L (22-26) ABG O2 Saturation 99.6 ABG Base Excess 0.3 mmol/L mmol/L (-2.0-2.0) Manjeet Test Pos A-a O2 Gradient 50.9 mmHg H mmHg (5-10) Hematocrit 40.3 % L % (42-52) Hgb O2 Saturation 97.7 % % (95-100) Carboxyhemoglobin 1.1 %THgb %THgb (0.4-20.1) Methemoglobin 0.9 % % (0.4-1.5) Total Hemoglobin 13.2 g/dL L g/dL (14-18) Sodium 137 mmol/L mmol/L 137.0 mmol/L mmol /L (136-145) (131-143) Potassium 4.5 mmol/L mmol/L 4.4 mmol/L mmol/L (3.5-5.1) (3.5-5.0) Glucose 160 mg/dL H mg/dL 162.0 mg/dL H mg/ dL (65-115) (70-115) Ionized Calcium 1.1 mmol/L mmol/L (1.1-1.4) O2 Delivery Device Hag FiO2 80.0 % % Coin Teller ID Bd Chloride 102 mmol/L mmol/L (98-107) Carbon Dioxide 22 mmol/L mmol/L (22-29) Anion Gap 17.5 (5-19) BUN 15 mg/dL mg/dL (8-23) Creatinine 1.3 mg/dL H mg/dL (0.7-1.2) GFR Calculation Not Reportable Calculated Osmolal ity 288 mOsm/kg mOsm/ kg (285-295) Calcium 8.6 mg/dL mg/dL (8.5-10.5) Total Bilirubin 0.6 mg/dL mg/dL (0.15-1.2) AST 13 U/L U/L (0-40) ALT 10 U/L U/L (0-41) Alkaline Phosphata se 62 IU/L IU/L (40-130) Creatine Kinase 164 U/L U/L (39-308) NT-Pro-B Natriuret Pep Total Protein 7.0 g/dL g/dL (6.6-8.7) Albumin 3.5 g/dL g/dL (3.5-5.2) Globulin 3.5 g/dL g/dL (1.3-4.6) Procalcitonin Urine Color Urine Appearance Urine pH Ur Specific Gravit y Urine Protein Urine Glucose (UA) Urine Ketones Urine Blood Urine Nitrate Urine Bilirubin Urine Urobilinogen Ur Leukocyte Berenice ase Urine RBC Urine WBC Ur Squamous Epith Cells Amorphous Sediment Urine Bacteria Urine Mucus Nasal/Oral COVID-1 9 PCR SARS-CoV-2 Ag (Rap id) 02/07/21 02/07/21 02/07/21 18:10 19:18 19:18 WBC RBC Hgb Hct MCV MCH MCHC RDW Plt Count MPV Neut % (Auto) Lymph % (Auto) [place] % (Auto) Eos % (Auto) Baso % (Auto) Neut # (Auto) Lymph # (Auto) [place] # (Auto) Eos # (Auto) Baso # (Auto) Nucleated RBC % (a uto) Nucleated RBCs # Specimen Type Sample Site ABG pH ABG pCO2 ABG pO2 ABG HCO3 ABG O2 Saturation ABG Base Excess Manjeet Test A-a O2 Gradient Hematocrit Hgb O2 Saturation Carboxyhemoglobin Methemoglobin Total Hemoglobin Sodium Potassium Glucose Ionized Calcium O2 Delivery Device FiO2 Coin Teller ID Chloride Carbon Dioxide Anion Gap BUN Creatinine GFR Calculation Calculated Osmolal ity Calcium Total Bilirubin AST ALT Alkaline Phosphata se Creatine Kinase NT-Pro-B Natriuret Pep 1297 pg/mL H pg/m L (0-450) Total Protein Albumin Globulin Procalcitonin 0.19 ng/mL ng/mL (0-0.5) Urine Color Urine Appearance Urine pH Ur Specific Gravit y Urine Protein Urine Glucose (UA) Urine Ketones Urine Blood Urine Nitrate Urine Bilirubin Urine Urobilinogen Ur Leukocyte Berenice ase Urine RBC Urine WBC Ur Squamous Epith Cells Amorphous Sediment Urine Bacteria Urine Mucus Nasal/Oral COVID-1 9 PCR Not detected SARS-CoV-2 Ag (Rap id) Negative (Negative) 02/07/21 19:48 WBC RBC Hgb Hct MCV MCH MCHC RDW Plt Count MPV Neut % (Auto) Lymph % (Auto) [place] % (Auto) Eos % (Auto) Baso % (Auto) Neut # (Auto) Lymph # (Auto) [place] # (Auto) Eos # (Auto) Baso # (Auto) Nucleated RBC % (a uto) Nucleated RBCs # Specimen Type Sample Site ABG pH ABG pCO2 ABG pO2 ABG HCO3 ABG O2 Saturation ABG Base Excess Manjeet Test A-a O2 Gradient Hematocrit Hgb O2 Saturation Carboxyhemoglobin Methemoglobin Total Hemoglobin Sodium Potassium Glucose Ionized Calcium O2 Delivery Device FiO2 Coin Teller ID Chloride Carbon Dioxide Anion Gap BUN Creatinine GFR Calculation Calculated Osmolal ity Calcium Total Bilirubin AST ALT Alkaline Phosphata se Creatine Kinase NT-Pro-B Natriuret Pep Total Protein Albumin Globulin Procalcitonin Urine Color Yellow (Yellow) Urine Appearance Hazy A (CLEAR) Urine pH 5 (5-7) Ur Specific Gravit y 1.010 (1.005-1.030) Urine Protein Neg (Negative) Urine Glucose (UA) Trace H (Normal) Urine Ketones Negative (Negative) Urine Blood 2+ H (Negative) Urine Nitrate Negative (Negative) Urine Bilirubin Neg (Negative) Urine Urobilinogen 1 mg/dL H mg/dL (Negative) Ur Leukocyte Berenice ase 1+ H (Negative) Urine RBC 0-4 /hpf H /hpf (0-2) Urine WBC 10-15 /hpf H /hpf (0-5) Ur Squamous Epith Cells 5-10 /hpf H /hpf (0-5) Amorphous Sediment Not Reportable Urine Bacteria 1+ /hpf H /hpf (NONE) Urine Mucus 2+ /hpf /hpf Nasal/Oral COVID-1 9 PCR SARS-CoV-2 Ag (Rap id) Imaging Data^: CT Chest: Attestation: I personally reviewed and interpreted this imaging study as follows: Radiologist's impression: [place] [address] CT Scan Report Signed Patient: Ming Sanchez Unit #: [id number] : 1940 Age/Sex: 80 / M ADM Date: 02/07/21 Loc: ER Room/Bed: Attending Dr: Ordering Provider/Ordering MD: Jameel Isidro DO Date of Service: 02/07/21 Procedure(s): CT angio chest PE protcl [id number] Accession Number(s): [id number] Report Number: [id number] PROCEDURE INFORMATION: Exam: CTA Chest With Contrast Exam date and time: 02/07/2021 5:13 PM Age: 80 years old Clinical indication: Cough and shortness of breath; Prior surgery; Surgery type: Trach; Additional info: Chest pain/dyspnea TECHNIQUE: Imaging protocol: Computed tomographic angiography of the chest with contrast. 3D rendering (Not supervised by radiologist): MIP and/or 3D reconstructed images were created by the technologist. Radiation optimization: All CT scans at this facility use at least one of these dose optimization techniques: automated exposure control; mA and/or kV adjustment per patient size (includes targeted exams where dose is matched to clinical indication); or iterative reconstruction. Contrast material: VISI 320; Contrast volume: 95 ml; Contrast route: INTRAVENOUS (IV); COMPARISON: CT angio chest PE protcl [id number] 11/26/2020 7:25 PM RADIATION DOSE METRICS: Total DLP (mGy-cm): 580.09 FINDINGS: There are degenerative changes of the spine. There is a tracheostomy tube in place. There are bilateral upper lobe infiltrates. These are greater on the right than the left. There is bilateral pleural thickening. No definite pleural effusion is seen. There is no pneumothorax. There are no suspicious pulmonary nodules. The central airways are normal in caliber. The thyroid gland is unremarkable. There is no axillary adenopathy. There is no mediastinal adenopathy. There is no hilar adenopathy. Interrogation of the pulmonary arteries in multiple planes shows no evidence for pulmonary embolism. The aorta is normal in caliber with no evidence for aneurysm or dissection. There is cardiomegaly. There is no evidence for right heart failure. There is a large hiatal hernia. CT/CT angio chest PE protcl [id number] IMPRESSION: 1. No evidence for pulmonary embolism. 2. Bilateral upper lobe infiltrates right greater than left. 3. Bilateral pleural thickening without definite pleural effusion. 4. Cardiomegaly. 5. Tracheostomy tube in place. Radiation Dose CTDIVOL = (mGy): DLP = 580.09 (mGy-cm) Dictated By: Malachi Juan MD Signed By: Malachi Juan MD Signed Date/Time: 02/07/212012 DD/ 1711 Discharge Plan Discharge Admit Provider: Wes Carnes Coding Level of Care Code ED Care Administrative Tech for Chg Fwd Exam Comprehensive
[2021-02-07 18:15] LABS: ABG PCO2 33.3 mmHg (35-45); ABG PH Result 7.46 (7.35-7.45); Alveolar-Arterial Oxygen Gradi 50.9 mmHg (5-10); Arterial Blood Gas Hematocrit 40.3 % (42-52); Base Excess ABG 0.3 mmol/L (-2.0-2.0); Blood Gas Allen Test Pos; Blood Gas Operator Identificat BD; Blood Gas Sample Site Brachial, right; Blood Gas Sample Type Arterial; Carboxyhemoglobin 1.1 %THgb (0.4-20.1); HCO3 ABG 23.6 mmol/L (22-26); HGB O2 Sat 97.7 % (95-100); Ionized Calcium Level - ABG 1.1 mmol/L (1.1-1.4); Methemoglobin 0.9 % (0.4-1.5); Oxygen Device HAG; Oxygen Saturation ABG 99.6; Potassium Level - ABG 4.4 mmol/L (3.5-5.0); Total Hemoglobin 13.2 g/dL (14-18)
[2021-02-07 18:25] LABS: Basophils # 0.1 10^3/uL (0.0-0.1); Basophils % 0.6 %; Eosinophils # 0.2 10^3/uL (0.0-0.8); Eosinophils % 2.5 %; Hematocrit 37.4 % (42.0-52.0); Hemoglobin 12.3 g/dL (11.7-16.6); Lymphocytes # 1.6 10^3/uL (0.8-4.8); Lymphocytes % 19.1 %; Mean Corpuscular HGB Conc 32.9 g/dL (30.0-36.0); Mean Corpuscular Hemoglobin 29.9 pg (28.0-34.0); Mean Corpuscular Volume 90.8 fl (80-94); Mean Platelet Volume 9.4 fL (7.4-10.4); Monocytes # 1.1 10^3/uL (0.2-0.9); Monocytes % 12.6 %; Neutrophils # 5.42 10^3/uL (1.8-7.7); Nucleated Red Blood Cells % 0 %; Platelet Count 243 10^3/cmm (130-400); Red Blood Count 4.12 10^6/uL (4.1-5.3); Red Cell Distribution Width 14.4 % (12.1-15.1); White Blood Count 8.3 10^3/uL (4.0-10.0)
[2021-02-07 18:42] LABS: Alanine Aminotransferase 10 U/L (0-41); Albumin Level 3.5 g/dL (3.5-5.2); Alkaline Phosphatase 62 IU/L (40-130); Anion Gap 17.5 (5-19); Aspartate Amino Transferase 13 U/L (0-40); Blood Urea Nitrogen 15 mg/dL (8-23); Calcium 8.6 mg/dL (8.5-10.5); Carbon Dioxide 22 mmol/L (22-29); Chloride 102 mmol/L (98-107); Creatine Phosphokinase 164 U/L (39-308); Globulin 3.5 g/dL (1.3-4.6); Glucose 160 mg/dL (65-115); Osmolality Calculated 288 mOsm/kg (285-295); Potassium 4.5 mmol/L (3.5-5.1); Sodium 137 mmol/L (136-145); Total Bilirubin 0.6 mg/dL (0.15-1.2)
[2021-02-07 19:52] LABS: SARS Covid-2 Antigen Negative (Negative)
[2021-02-07] MEDS: iodixanol 320 mg/mL 100mL Btl IV (19:52)
[2021-02-07 20:26] LABS: Add Urine Microscopic? YES; Bilirubin Urine Neg (Negative); Blood Urine 2+ (Negative); Glucose Urine UA Trace (Normal); Ketones Urine Negative (Negative); Leukocyte Esterase Urine 1+ (Negative); Nitrate Urine Negative (Negative); Protein Urine Neg (Negative); Urine Appearance Hazy (CLEAR); Urine Color Yellow (Yellow); Urobilinogen Urine 1 mg/dL (Negative); pH Urine 5 (5-7)
[2021-02-07 20:35] LABS: RBC Urine 0-4 /hpf (0-2)
[2021-02-07 20:36] LABS: Add Urine Culture? Yes; Bacteria Urine 1+ /hpf; Mucus Urine 2+ /hpf
--- NOTE | 2021-02-07 21:46 | P.HP_ITS ---
Providers/Chief Complaint Admitting Physician: Wes Carnes Primary Care Provider: Rudi Lima MD Chief Complaint: SOB, Sent by [facility] History of Present Illness Ming Sanchez is a 80 year old male with past medical history of diabetes, atrial fibrillation, hypertension, sleep apnea, cardiomyopathy, CHF, COPD, severe Covid infection requiring tracheostomy placement who is presenting with complaints of shortness of breath and increasing cough. No fever or chills. No nausea or vomiting. Reports increased colored mucus production. The symptoms were present for several days and worsening. The patient reports history of C. difficile. Reports loose stools without any recent worsening. Denies similar episodes in the past. Review of Systems General: Reports: 10 or more systems reviewed and unremarkable except in HPI and below Medications/Allergies Home Medications Medication Instructions Recorded Confirmed Last Taken Type calcium polycarbophil [FiberCon] 625 mg PO DAILY PRN 03/31/20 01/27/21 04/20/20 History Refresh Plus 1 drp OPHTHALMIC (EYE) TID PRN 04/20/20 01/27/21 Unknown History aspirin 81 mg PO QAM 04/20/20 01/27/21 11/26/20 12:00 History chlorhexidine gluconate 15 ml PO BID PRN 04/20/20 01/27/21 Unknown History magnesium oxide 400 mg PO BEDTIME tab 04/22/20 01/27/21 11/25/20 History insulin lispro 100 unit/mL See Rx Instructions .ROUTE 10/28/20 01/27/21 11/26/20 12:00 Rx subcutaneous solution .COMPLEX #10 ml 8 units gabapentin 100 mg capsule 200 mg PO Q8H #90 cap 11/22/20 01/27/21 11/26/20 12:00 Rx Lantus Solostar U-100 Insulin 20 unit SUBCUT BID 11/26/20 01/27/21 Unknown History Vitamin B-6 100 mg PO QAM 11/26/20 01/27/21 11/26/20 12:00 History Vitamin D3 25 mcg PO QAM 11/26/20 01/27/21 11/26/20 12:00 History acetaminophen 650 mg PO Q8H PRN 11/26/20 01/27/21 11/26/20 11:00 History ipratropium-albuterol 3 ml INHALATION Q6H PRN 11/26/20 01/27/21 Unknown History CAM walker #1 ea 12/17/20 01/27/21 Unknown Rx fluoxetine 20 mg capsule 20 mg PO DAILY 12/29/20 01/27/21 Unknown History mupirocin 2 % topical ointment 1 applic TOPICAL BID #15 g 01/13/21 01/27/21 Unknown Rx apixaban 5 mg tablet 5 mg PO BID #180 tab 01/27/21 01/27/21 Unknown Rx atorvastatin 40 mg tablet 40 mg PO BEDTIME #30 tab 01/27/21 01/27/21 Unknown Rx diltiazem HCl 240 mg 240 mg PO QAM #90 cap 01/27/21 01/27/21 Unknown Rx capsule,extended release 24 hr famotidine 20 mg tablet 20 mg PO BID #60 tab 01/27/21 01/27/21 Unknown Rx furosemide 20 mg tablet 20 mg PO BID #90 tab 01/27/21 01/27/21 Unknown Rx guaifenesin 600 mg tablet, 600 mg PO Q12H PRN #60 tab 01/27/21 01/27/21 Unknown Rx extended release 12 hr losartan 100 mg tablet 100 mg PO QAM #30 tab 01/27/21 01/27/21 Unknown Rx potassium chloride 20 mEq 20 meq PO EVERY OTHER DAY #30 tab 01/27/21 01/27/21 Unknown Rx tablet,extended release(part/cryst) ropinirole 1 mg tablet 1 mg PO BEDTIME #30 tab 01/27/21 01/27/21 Unknown Rx tamsulosin 0.4 mg capsule 0.4 mg PO QAM #30 cap 01/27/21 01/27/21 Unknown Rx Allergies Allergy/AdvReac Type Severity Reaction Status Date / Time Penicillins Allergy Unknown Verified 01/27/21 13:31 PFSH Acute PFSH: Medical History C. difficile diarrhea CKD (chronic kidney disease) stage 2, GFR 60-89 ml/min COPD (chronic obstructive pulmonary disease) COVID-19 COVID Positive 12/21/2019 vent and trach placement. Depression Carlson catheter in place GERD (gastroesophageal reflux disease) Hospital discharge follow-up HTN (hypertension) Hyperlipidemia Hypertension Male circumcision Morbid obesity with BMI of 40.0-44.9, adult Osteoarthritis Phimosis Restless legs syndrome (RLS) Tracheostomy care Urinary retention Surgical History History of cholecystectomy History of total left knee replacement Hx of tonsillectomy Status post routine circumcision Status post tracheostomy Family History Father , at age 92 Hypertension Mother , at age 56 Cancer breast Other Diabetes Social History Alcohol intake: never Marital status: Current occupational status: retired History of recent travel: No Financial difficulty paying for basics: Somewhat Hard Vitals/I&O/Wt Last Vital Signs Temp 99.4 F 02/07/21 16:45 Pulse 87 02/07/21 20:20 Resp 20 H 02/07/21 20:20 BP 147/85 02/07/21 20:20 Pulse Ox 94 02/07/21 20:20 Weight last 48 hrs Weight 131.542 kg Physical Exam Narrative: EXAM NARRATIVE: Patient is awake alert oriented x4. No acute distress. Mood and affect are appropriate. Responses are adequate. Skin is warm and dry. Moist mucous membranes Neck supple. No JVD. Tracheostomy. Lungs bilateral crackles are present. No significant wheezes. No respiratory distress Heart S1, S2, regular Abdomen soft, nontender, bowel sounds are present Extremities trace edema no cyanosis no calf tenderness bilaterally No focal deficits. Data : 02/07/21 18:10 02/07/21 18:10 Other Labs: Laboratory Results WBC 8.3 10^3/uL (4.0-10.0) 02/07/21 18:10 RBC 4.12 10^6/uL (4.1-5.3) 02/07/21 18:10 Hgb 12.3 g/dL (11.7-16.6) 02/07/21 18:10 Hct 37.4 % (42.0-52.0) L 02/07/21 18:10 MCV 90.8 fl (80-94) 02/07/21 18:10 MCH 29.9 pg (28.0-34.0) 02/07/21 18:10 MCHC 32.9 g/dL (30.0-36.0) 02/07/21 18:10 RDW 14.4 % (12.1-15.1) 02/07/21 18:10 Plt Count 243 10^3/cmm (130-400) 02/07/21 18:10 MPV 9.4 fL (7.4-10.4) 02/07/21 18:10 Neut % (Auto) 65.0 % 02/07/21 18:10 Lymph % (Auto) 19.1 % 02/07/21 18:10 Cassia % (Auto) 12.6 % 02/07/21 18:10 Eos % (Auto) 2.5 % 02/07/21 18:10 Baso % (Auto) 0.6 % 02/07/21 18:10 Neut # (Auto) 5.42 10^3/uL (1.8-7.7) 02/07/21 18:10 Lymph # (Auto) 1.6 10^3/uL (0.8-4.8) 02/07/21 18:10 Cassia # (Auto) 1.1 10^3/uL (0.2-0.9) H 02/07/21 18:10 Eos # (Auto) 0.2 10^3/uL (0.0-0.8) 02/07/21 18:10 Baso # (Auto) 0.1 10^3/uL (0.0-0.1) 02/07/21 18:10 Nucleated RBC % (auto) 0 % 02/07/21 18:10 Nucleated RBCs # 0.0 /100WBC 02/07/21 18:10 Specimen Type Arterial 02/07/21 18:10 Sample Site Brachial, right 02/07/21 18:10 ABG pH 7.46 (7.35-7.45) H 02/07/21 18:10 ABG pCO2 33.3 mmHg (35-45) L 02/07/21 18:10 ABG pO2 137.0 mmHg (80.0-100.0) H 02/07/21 18:10 ABG HCO3 23.6 mmol/L (22-26) 02/07/21 18:10 ABG O2 Saturation 99.6 02/07/21 18:10 ABG Base Excess 0.3 mmol/L (-2.0-2.0) 02/07/21 18:10 Manjeet Test Pos 02/07/21 18:10 A-a O2 Gradient 50.9 mmHg (5-10) H 02/07/21 18:10 Hematocrit 40.3 % (42-52) L 02/07/21 18:10 Hgb O2 Saturation 97.7 % (95-100) 02/07/21 18:10 Carboxyhemoglobin 1.1 %THgb (0.4-20.1) 02/07/21 18:10 Methemoglobin 0.9 % (0.4-1.5) 02/07/21 18:10 Total Hemoglobin 13.2 g/dL (14-18) L 02/07/21 18:10 Sodium 137.0 mmol/L (131-143) 02/07/21 18:10 Potassium 4.4 mmol/L (3.5-5.0) 02/07/21 18:10 Glucose 162.0 mg/dL (70-115) H 02/07/21 18:10 Ionized Calcium 1.1 mmol/L (1.1-1.4) 02/07/21 18:10 O2 Delivery Device Hag 02/07/21 18:10 FiO2 80.0 % 02/07/21 18:10 Head Of Business Development ID Bd 02/07/21 18:10 Sodium 137 mmol/L (136-145) 02/07/21 18:10 Potassium 4.5 mmol/L (3.5-5.1) 02/07/21 18:10 Chloride 102 mmol/L (98-107) 02/07/21 18:10 Carbon Dioxide 22 mmol/L (22-29) 02/07/21 18:10 Anion Gap 17.5 (5-19) 02/07/21 18:10 BUN 15 mg/dL (8-23) 02/07/21 18:10 Creatinine 1.3 mg/dL (0.7-1.2) H 02/07/21 18:10 GFR Calculation Not Reportable 02/07/21 18:10 Glucose 160 mg/dL (65-115) H 02/07/21 18:10 Calculated Osmolality 288 mOsm/kg (285-295) 02/07/21 18:10 Calcium 8.6 mg/dL (8.5-10.5) 02/07/21 18:10 Total Bilirubin 0.6 mg/dL (0.15-1.2) 02/07/21 18:10 AST 13 U/L (0-40) 02/07/21 18:10 ALT 10 U/L (0-41) 02/07/21 18:10 Alkaline Phosphatase 62 IU/L (40-130) 02/07/21 18:10 Creatine Kinase 164 U/L (39-308) 02/07/21 18:10 Total Protein 7.0 g/dL (6.6-8.7) 02/07/21 18:10 Albumin 3.5 g/dL (3.5-5.2) 02/07/21 18:10 Globulin 3.5 g/dL (1.3-4.6) 02/07/21 18:10 Urine Color Yellow (Yellow) 02/07/21 19:48 Urine Appearance Hazy (CLEAR) A 02/07/21 19:48 Urine pH 5 (5-7) 02/07/21 19:48 Ur Specific [place] 1.010 (1.005-1.030) 02/07/21 19:48 Urine Protein Neg (Negative) 02/07/21 19:48 Urine Glucose (UA) Trace (Normal) H 02/07/21 19:48 Urine Ketones Negative (Negative) 02/07/21 19:48 Urine Blood 2+ (Negative) H 02/07/21 19:48 Urine Nitrate Negative (Negative) 02/07/21 19:48 Urine Bilirubin Neg (Negative) 02/07/21 19:48 Urine Urobilinogen 1 mg/dL (Negative) H 02/07/21 19:48 Ur Leukocyte Esterase 1+ (Negative) H 02/07/21 19:48 Urine RBC 0-4 /hpf (0-2) H 02/07/21 19:48 Urine WBC 10-15 /hpf (0-5) H 02/07/21 19:48 Ur Squamous Epith Cells 5-10 /hpf (0-5) H 02/07/21 19:48 Amorphous Sediment Not Reportable 02/07/21 19:48 Urine Bacteria 1+ /hpf (NONE) H 02/07/21 19:48 Urine Mucus 2+ /hpf 02/07/21 19:48 SARS-CoV-2 Ag (Rapid) Negative (Negative) 02/07/21 19:18 Impressions Chest X-Ray 02/07/21 16:55 IMPRESSION: 1. Increased pulmonary infiltrates. 2. Cardiomegaly, stable. 3. Pulmonary vascular congestion. 4. Bilateral pleural effusions. Radiation Dose CTDIVOL = (mGy): DLP = (mGy-cm) Chest CTA 02/07/21 17:13 IMPRESSION: 1. No evidence for pulmonary embolism. 2. Bilateral upper lobe infiltrates right greater than left. 3. Bilateral pleural thickening without definite pleural effusion. 4. Cardiomegaly. 5. Tracheostomy tube in place. Radiation Dose CTDIVOL = (mGy): DLP = 580.09 (mGy-cm) Micro: Microbiology 02/07/21 18:46 Blood Culture - Preliminary Blood SPECIMEN COLLECTED 02/07/21 18:40 Blood Culture - Preliminary Blood SPECIMEN COLLECTED A&P Assessment and plan (1) Bilateral pneumonia: Status: Acute (2) Acute and chronic respiratory failure with hypoxia: Status: Acute (3) LAYTON (obstructive sleep apnea): Status: Acute (4) Congestive heart failure: Status: Acute Qualifiers: Heart failure chronicity: acute on chronic Heart failure type: systolic Qualified Code(s): I50.23 - Acute on chronic systolic (congestive) heart failure (5) COPD (chronic obstructive pulmonary disease): Status: Acute Qualifiers: COPD type: chronic bronchitis Chronic bronchitis type: mixed simple and mucopurulent Qualified Code(s): J41.8 - Mixed simple and mucopurulent chronic bronchitis (6) Paroxysmal A-fib: Status: Acute (7) Hypertension: Status: Acute (8) Diabetes mellitus: Status: Acute Additional A&P Information 80 year old male with past medical history of diabetes, atrial fibrillation, hypertension, sleep apnea, cardiomyopathy, CHF, COPD, severe Covid infection requiring tracheostomy, C. difficile colitis who is presenting with complaints of shortness of breath and increasing cough. Bilateral pneumonia. The patient received Levaquin in the emergency room. I w ill order procalcitonin and BNP to confirm pneumonia or identify other possible causes of his infiltrates. I will not order new antibiotics at this time. We will continue supplemental oxygen. There is no evidence of COPD exacerbation. History of hypertension, A. fib, diabetes, CHF. We will continue his home medications. Will order as needed coverage. Mild acute kidney injury. We will try to avoid nephrotoxic medications. We will maintain p.o. hydration. We will recheck his labs in the morning. History of C. difficile infection. He has loose stools which are chronic. We will try to minimize antibiotics if possible. DVT prophylaxis. He is on Eliquis. CODE STATUS. He wants to be full code. The plan of care was discussed with the patient and his . They verbalized understanding and agreement. Attestations Medical Necessity Statement*: Based on my assessment of patient's current condition, findings and diagnosis I expect that the patient will spend more than 2 midnights in the hospital. Coding Level of Care Code Acute Memory Care Director for [facility] Fwd Diagnoses Bilateral pneumonia J18.9 Acute and chronic respiratory failure with hypoxia J96.21 LAYTON (obstructive sleep apnea) G47.33 Congestive heart failure I50.23 Heart failure chronicity: acute on chronic Heart failure type: systolic COPD (chronic obstructive pulmonary disease) J41.8 COPD type: chronic bronchitis Chronic bronchitis type: mixed simple and mucopurulent Paroxysmal A-fib I48.0 Hypertension I10 Diabetes mellitus E11.9
[2021-02-07 22:44] LABS: NT Pro B Type Natriuretic Pept 1297 pg/mL (0-450); Procalcitonin 0.19 ng/mL (0-0.5)
[2021-02-07] MEDS: gabapentin 100 mg Capsule 200 MG PO (23:40)
[2021-02-08] VITALS (10 sets, daily range): BP systolic 100–146; BP diastolic 59–76; PULSE 74–83; RESP 16–24; TEMP 36.7–37.1; O2SAT 92–100
[2021-02-08] MEDS: aspirin 81 mg EC Tablet PO (05:25)
[2021-02-08] MEDS: tamsulosin 0.4 mg Capsule PO (05:26)
[2021-02-08] MEDS: losartan 50 mg Tablet 100 MG PO (05:26)
[2021-02-08] MEDS: gabapentin 100 mg Capsule 200 MG PO ×2 (05:27→21:13)
[2021-02-08] MEDS: dilTIAZem ER (24HR) 240 mg Capsule PO (05:29)
[2021-02-08 05:57] LABS: Basophils % 0.4 %; Eosinophils # 0.4 10^3/uL (0.0-0.8); Eosinophils % 4.6 %; Hematocrit 38.8 % (42.0-52.0); Hemoglobin 12.7 g/dL (11.7-16.6); Lymphocytes # 1.6 10^3/uL (0.8-4.8); Mean Corpuscular HGB Conc 32.7 g/dL (30.0-36.0); Mean Corpuscular Hemoglobin 29.7 pg (28.0-34.0); Mean Corpuscular Volume 90.9 fl (80-94); Mean Platelet Volume 9.6 fL (7.4-10.4); Monocytes # 1.2 10^3/uL (0.2-0.9); Monocytes % 14.7 %; Neutrophils # 4.75 10^3/uL (1.8-7.7); Nucleated Red Blood Cells % 0 %; Platelet Count 256 10^3/cmm (130-400); Red Blood Count 4.27 10^6/uL (4.1-5.3); Red Cell Distribution Width 14.4 % (12.1-15.1); White Blood Count 7.9 10^3/uL (4.0-10.0)
[2021-02-08 06:13] LABS: Anion Gap 14.5 (5-19); Blood Urea Nitrogen 13 mg/dL (8-23); Calcium 8.8 mg/dL (8.5-10.5); Carbon Dioxide 24 mmol/L (22-29); Chloride 102 mmol/L (98-107); Glucose 144 mg/dL (65-115); Magnesium 2.1 mg/dL (1.7-2.3); Osmolality Calculated 285 mOsm/kg (285-295); Potassium 4.5 mmol/L (3.5-5.1); Sodium 136 mmol/L (136-145)
[2021-02-08 06:39] LABS: Glucose Point of Care 148 mg/dL (70-110)
[2021-02-08] MEDS: FUROsemide 20 mg Tablet PO ×2 (09:20→17:14)
[2021-02-08] MEDS: famotidine 20 mg Tablet PO ×2 (09:20→17:14)
[2021-02-08] MEDS: apixaban 5 mg Tablet PO ×2 (09:20→17:13)
[2021-02-08] MEDS: insulin lispro 100 unit/1 mL SUBCUT ×6 (09:23→22:54)
--- NOTE | 2021-02-08 10:52 | PC.PHAR ---
pts daughter luis alberto [phone] verified pts medications-notes are made in the pharmacy comments
[2021-02-08 11:39] LABS: Glucose Point of Care 210 mg/dL (70-110)
[2021-02-08 14:34] LABS: Coronavirus Test Green County Not Detected
--- NOTE | 2021-02-08 15:58 | PM.PN ---
Subjective Subjective: Interval history: This morning he is in some distress due to depletion of water in the O2 humidification system, complaining of drying of secretions, difficulty with suctioning secretions. Did not know how to activate the call button. Arranged for humidifier to be refilled, new suction cannula requested, call button explained and placed bedside. Discussed with him pending additional assessment including COVID-19. He tells me he had previously had COVID-19. He does state he had also been vaccinated for it as well. States he is usually on 6 L oxygen at home. Recently has been more short of breath. Discussed with him current oxygen requirement. Vitals/I&O/Wt Last Vital Signs Temp 98.8 F 02/08/21 15:56 Pulse 82 02/08/21 15:56 Resp 24 H 02/08/21 15:56 BP 146/73 02/08/21 15:56 Pulse Ox 97 02/08/21 15:56 02/08/21 02/08/21 02/08/21 06:59 14:59 22:59 Intake Total 340 / 340 360 / 360 Output Total 0 / 0 Balance 340 / 340 360 / 360 Weight last 48 hrs Weight 131.406 kg Weight 133.158 kg Weight 131.542 kg Physical Exam Const: COMMON NORMALS: no acute distress, patient oriented x3 and alert GENERAL APPEARANCE: cooperative and anxious NUTRITIONAL APPEARANCE: obese ORIENTATION/CONSCIOUSNESS: Yes awake HENMT: COMMON NORMALS: oropharynx normal Neck/C-Spine: COMMON NORMALS: no JVD Resp: COMMON NORMALS: normal respiratory effort AUSCULTATION: wheezes and diminished lung sounds Cardio: COMMON NORMALS: no JVD, regular rhythm, S1 normal heart sound present, S2 normal heart sound present and No murmurs present (Cardio) RHYTHM: regular rhythm HEART SOUNDS: S1 normal heart sound present and S2 normal heart sound present GI: COMMON NORMALS: Normal to inspection, nondistended, normoactive bowel sounds present, Soft to palpation and non-tender PALPATION: Yes Soft to palpation Extremity: COMMON NORMALS: no joint enlargement and no pedal edema Neuro: COMMON NORMALS: patient oriented x3 and moves all extremities SENSORIUM/ORIENTATION: Yes alert Skin: COMMON NORMALS: no rashes or lesions noted GENERAL SKIN EXAM: no rashes or lesions noted Data : 02/08/21 05:42 02/08/21 05:42 Micro: Microbiology 02/07/21 19:18 Gram Stain - Final Sputum - Expectorated Sputum 02/07/21 18:46 Blood Culture - Preliminary Blood SPECIMEN COLLECTED 02/07/21 18:40 Blood Culture - Preliminary Blood SPECIMEN COLLECTED A&P Assessment and plan (1) Bilateral pneumonia: Admitting physician documentation appreciated. Antibiotics were not continued due to lack of signs of bacterial pneumonia, with also an elevated procalcitonin. Also with concern of recent C. difficile infection. Possible viral pneumonia. Possible pulmonary edema in setting of CHF. Requested urine bacterial antigens. Respiratory viral panel. COVID-19 PCR test came back negative. Follow-up sputum cultures. At this time continue oxygen supportive care. Humidification device ran out of over this morning, thick sputum noted at that time. Once this improves, may consider escalating diuretic further. For now continue as has been ordered so as not to cause further drying of secretions. Continue neb treatments as needed. Add scheduled. Will reassess condition, make additional adjustments. Status: Acute (2) Acute and chronic respiratory failure with hypoxia: Acute on chronic hypoxic respiratory failure, requiring 9 L of oxygen, compared to usual 6. As above. Status: Acute (3) LAYTON (obstructive sleep apnea): Status: Acute (4) Congestive heart failure: Status: Acute Qualifiers: Heart failure chronicity: acute on chronic Heart failure type: systolic Qualified Code(s): I50.23 - Acute on chronic systolic (congestive) heart failure (5) COPD (chronic obstructive pulmonary disease): Status: Acute Qualifiers: COPD type: chronic bronchitis Chronic bronchitis type: mixed simple and mucopurulent Qualified Code(s): J41.8 - Mixed simple and mucopurulent chronic bronchitis (6) Paroxysmal A-fib: Status: Acute (7) Hypertension: Status: Acute (8) Diabetes mellitus: Status: Acute (9) MARYLOU (acute kidney injury): Improved Status: Acute Additional A&P Information History of hypertension, A. fib, diabetes, CHF. We will continue his home medications. Will order as needed coverage. History of C. difficile infection. He has loose stools which are chronic. We will try to minimize antibiotics if possible. DVT prophylaxis. He is on Eliquis. CODE STATUS. He wants to be full code. Attestations Medical Necessity Statement*: Continue admission for additional assessment of acute on chronic hypoxic respiratory failure of unclear etiology, possible congestive heart failure complicated by dry secretions at tracheostomy, also complicated by recent C. difficile infection. Coding Level of Care Code Acute Electric Stop Installer for [facility] Fwd Exam Comprehensive Diagnoses Bilateral pneumonia J18.9 Acute and chronic respiratory failure with hypoxia J96.21 LAYTON (obstructive sleep apnea) G47.33 Congestive heart failure I50.23 Heart failure chronicity: acute on chronic Heart failure type: systolic COPD (chronic obstructive pulmonary disease) J41.8 COPD type: chronic bronchitis Chronic bronchitis type: mixed simple and mucopurulent Paroxysmal A-fib I48.0 Hypertension I10 Diabetes mellitus E11.9 MARYLOU (acute kidney injury) N17.9
[2021-02-08] MEDS: ipratropium-albuterol 3 mL Neb INHALATION ×2 (16:12→19:58)
[2021-02-08 16:34] LABS: Glucose Point of Care 170 mg/dL (70-110)
[2021-02-08] MEDS: mupirocin oint 22 gm 1 APPLIC TOPICAL (17:14)
[2021-02-08] MEDS: insulin glargine 100 units/1 mL 20 UNIT SUBCUT (17:18)
--- NOTE | 2021-02-08 19:14 | PC.NURSE ---
Report to Ledy MIRANDA at this time.
[2021-02-08] MEDS: ropinirole 1 mg Tablet PO (21:14)
[2021-02-08] MEDS: atorvastatin 40 mg Tablet PO (21:14)
[2021-02-08 22:07] LABS: Glucose Point of Care 219 mg/dL (70-110)
[2021-02-09] VITALS (17 sets, daily range): BP systolic 105–136; BP diastolic 65–72; PULSE 71–108; RESP 16–22; TEMP 36.6–37.1; O2SAT 92–99
[2021-02-09] MEDS: ipratropium-albuterol 3 mL Neb INHALATION ×7 (00:04→23:34)
[2021-02-09] MEDS: aspirin 81 mg EC Tablet PO (05:11)
[2021-02-09] MEDS: losartan 50 mg Tablet 100 MG PO (05:11)
[2021-02-09] MEDS: gabapentin 100 mg Capsule 200 MG PO ×3 (05:11→20:30)
[2021-02-09] MEDS: tamsulosin 0.4 mg Capsule PO (05:15)
[2021-02-09] MEDS: dilTIAZem ER (24HR) 240 mg Capsule PO (05:15)
[2021-02-09 05:48] LABS: Basophils % 0.3 %; Eosinophils # 0.2 10^3/uL (0.0-0.8); Eosinophils % 3.2 %; Hematocrit 37.5 % (42.0-52.0); Hemoglobin 11.9 g/dL (11.7-16.6); Lymphocytes # 1.3 10^3/uL (0.8-4.8); Lymphocytes % 19.9 %; Mean Corpuscular HGB Conc 31.7 g/dL (30.0-36.0); Mean Corpuscular Hemoglobin 29.5 pg (28.0-34.0); Mean Corpuscular Volume 93.1 fl (80-94); Mean Platelet Volume 9.5 fL (7.4-10.4); Monocytes # 0.9 10^3/uL (0.2-0.9); Monocytes % 14.2 %; Neutrophils # 4.07 10^3/uL (1.8-7.7); Neutrophils % 62.2 %; Nucleated Red Blood Cells % 0 %; Platelet Count 240 10^3/cmm (130-400); Red Blood Count 4.03 10^6/uL (4.1-5.3); Red Cell Distribution Width 14.1 % (12.1-15.1); White Blood Count 6.5 10^3/uL (4.0-10.0)
[2021-02-09 06:07] LABS: Blood Urea Nitrogen 18 mg/dL (8-23); Calcium 8.5 mg/dL (8.5-10.5); Carbon Dioxide 22 mmol/L (22-29); Chloride 102 mmol/L (98-107); Creatinine Clr Calc Pharmacy 85.5967; Glucose 163 mg/dL (65-115); Osmolality Calculated 283 mOsm/kg (285-295); Sodium 134 mmol/L (136-145)
[2021-02-09 06:56] LABS: Glucose Point of Care 180 mg/dL (70-110)
[2021-02-09] MEDS: famotidine 20 mg Tablet PO ×2 (08:52→18:06)
[2021-02-09] MEDS: guaiFENesin 600 mg Tablet 1200 MG PO ×2 (08:52→18:06)
[2021-02-09] MEDS: insulin lispro 100 unit/1 mL SUBCUT ×7 (08:52→21:49)
[2021-02-09] MEDS: insulin glargine 100 units/1 mL 20 UNIT SUBCUT ×2 (08:52→18:06)
[2021-02-09] MEDS: apixaban 5 mg Tablet PO ×2 (08:52→18:06)
[2021-02-09] MEDS: FUROsemide 10 mg/mL SDV 2mL 20 MG IVP ×2 (09:04→20:31)
[2021-02-09 11:34] LABS: Glucose Point of Care 286 mg/dL (70-110)
--- NOTE | 2021-02-09 17:10 | PM.PN ---
Subjective Subjective: Interval history: Tenacious secretions. Intermittent cough. Intermittent dyspnea. Slightly better than yesterday. Vitals/I&O/Wt Last Vital Signs Temp 98.3 F 02/09/21 15:34 Pulse 77 02/09/21 15:34 Resp 20 H 02/09/21 15:34 BP 117/69 02/09/21 15:34 Pulse Ox 98 02/09/21 15:34 02/09/21 02/09/21 02/09/21 06:59 14:59 22:59 Intake Total 20 / 500 Output Total 350 / 350 Balance 20 / 500 -350 / -350 Weight last 48 hrs Weight 131.406 kg Weight 133.158 kg Physical Exam Const: COMMON NORMALS: no acute distress, patient oriented x3 and alert GENERAL APPEARANCE: cooperative and anxious NUTRITIONAL APPEARANCE: obese ORIENTATION/CONSCIOUSNESS: Yes awake HENMT: COMMON NORMALS: oropharynx normal Neck/C-Spine: COMMON NORMALS: no JVD Resp: COMMON NORMALS: normal respiratory effort AUSCULTATION: wheezes (mild) and diminished lung sounds Cardio: COMMON NORMALS: no JVD, regular rhythm, S1 normal heart sound present, S2 normal heart sound present and No murmurs present (Cardio) RHYTHM: regular rhythm HEART SOUNDS: S1 normal heart sound present and S2 normal heart sound present GI: COMMON NORMALS: Normal to inspection, nondistended, normoactive bowel sounds present, Soft to palpation and non-tender PALPATION: Yes Soft to palpation Extremity: COMMON NORMALS: no joint enlargement and no pedal edema Neuro: COMMON NORMALS: patient oriented x3 and moves all extremities SENSORIUM/ORIENTATION: Yes alert Skin: COMMON NORMALS: no rashes or lesions noted GENERAL SKIN EXAM: no rashes or lesions noted Data : 02/09/21 05:08 02/09/21 05:08 Micro: Microbiology 02/07/21 18:46 Blood Culture - Preliminary Blood NEGATIVE TO DATE 02/09/21 10:53 Legionella Urinary Antigen - Final Urine,Clean Catch 02/09/21 10:53 Bacterial Antigens - Final Urine,Clean Catch 02/07/21 19:18 Gram Stain - Final Sputum - Expectorated Sputum Sputum Culture - Preliminary 02/07/21 19:48 Urine Culture - Final Urine,Clean Catch 02/07/21 18:40 Blood Culture - Preliminary Blood NEGATIVE TO DATE A&P Assessment and plan (1) Bilateral pneumonia: COVID-19 negative. Persistent nasal secretions. Some dyspnea. Mild cough. Persistent dyspnea, hypoxia. Wheezing. Discussed with him possibility of other viral reaction apart from COVID-19, possibly contributing to her symptoms. We discussed also possibility of bacterial infection, some gram-positive cocci noted in sputum, although otherwise no suggestion of focal consolidation, again with no fever, symptoms, unremarkable procalcitonin, and recent C. difficile concern is so as not to trigger significantly again. He presents with some mild improvement. With current supportive measures, humidified air, breathing treatments. Added guaifenesin. We may consider. Mucomyst in case of persistently thick secretions. Discussed with him possible also contribution of CHF, possibly causing the infiltrates as well. Change Lasix to IV 20 mg twice daily. We will go cautiously due to the thick and difficult to clear secretions. Concern that with overaggressive diuresis secretions become thicker. Follow-up sputum cultures. Continue neb treatments. Will reassess condition, make additional adjustments. Status: Acute (2) Acute and chronic respiratory failure with hypoxia: Acute on chronic hypoxic respiratory failure, requiring 9 L of oxygen, compared to usual 6. As above. Status: Acute (3) LAYTON (obstructive sleep apnea): Status: Acute (4) Congestive heart failure: As above. Cautious diuresis due to very thick secretions. Status: Acute Qualifiers: Heart failure chronicity: acute on chronic Heart failure type: systolic Qualified Code(s): I50.23 - Acute on chronic systolic (congestive) heart failure (5) COPD (chronic obstructive pulmonary disease): Status: Acute Qualifiers: COPD type: chronic bronchitis Chronic bronchitis type: mixed simple and mucopurulent Qualified Code(s): J41.8 - Mixed simple and mucopurulent chronic bronchitis (6) Paroxysmal A-fib: Status: Acute (7) Hypertension: Status: Acute (8) Diabetes mellitus: Status: Acute (9) MARYLOU (acute kidney injury): Improved Status: Acute Additional A&P Information History of hypertension, A. fib, diabetes, CHF. We will continue his home medications. Will order as needed coverage. Abnormal UA: More than 100,000 mixed superficial awilda culture. History of C. difficile infection. He has loose stools which are chronic. We will try to minimize antibiotics if possible. DVT prophylaxis. He is on Eliquis. CODE STATUS. He wants to be full code. Attestations Medical Necessity Statement*: Continued in-hospital care required due to persistent dyspnea and hypoxia, congestive heart failure exacerbation but also with thick difficulty treat secretions with tracheostomy, at risk of deterioration of respiratory status. Coding Level of Care Code Acute [employer] Director for [place] Fwd Exam Comprehensive Diagnoses Bilateral pneumonia J18.9 Acute and chronic respiratory failure with hypoxia J96.21 LAYTON (obstructive sleep apnea) G47.33 Congestive heart failure I50.23 Heart failure chronicity: acute on chronic Heart failure type: systolic COPD (chronic obstructive pulmonary disease) J41.8 COPD type: chronic bronchitis Chronic bronchitis type: mixed simple and mucopurulent Paroxysmal A-fib I48.0 Hypertension I10 Diabetes mellitus E11.9 MARYLOU (acute kidney injury) N17.9
[2021-02-09 17:21] LABS: Glucose Point of Care 168 mg/dL (70-110)
--- NOTE | 2021-02-09 19:33 | PC.NURSE ---
Report to Laney MIRANDA at this time.
[2021-02-09] MEDS: ropinirole 1 mg Tablet PO (20:30)
[2021-02-09] MEDS: atorvastatin 40 mg Tablet PO (20:31)
[2021-02-09 21:58] LABS: Glucose Point of Care 247 mg/dL (70-110)
[2021-02-10] VITALS (13 sets, daily range): BP systolic 84–142; BP diastolic 56–74; PULSE 69–120; RESP 18–24; TEMP 36.6–37.1; O2SAT 87–100
[2021-02-10] MEDS: ipratropium-albuterol 3 mL Neb INHALATION ×4 (04:11→17:05)
[2021-02-10 05:33] LABS: Basophils % 0.3 %; Eosinophils # 0.3 10^3/uL (0.0-0.8); Eosinophils % 4.3 %; Hematocrit 37.2 % (42.0-52.0); Hemoglobin 12.3 g/dL (11.7-16.6); Lymphocytes # 1.4 10^3/uL (0.8-4.8); Lymphocytes % 18.3 %; Mean Corpuscular HGB Conc 33.1 g/dL (30.0-36.0); Mean Corpuscular Hemoglobin 30.7 pg (28.0-34.0); Mean Corpuscular Volume 92.8 fl (80-94); Mean Platelet Volume 9.7 fL (7.4-10.4); Monocytes % 13.7 %; Neutrophils # 4.74 10^3/uL (1.8-7.7); Neutrophils % 63.1 %; Nucleated Red Blood Cells % 0 %; Platelet Count 277 10^3/cmm (130-400); Red Blood Count 4.01 10^6/uL (4.1-5.3); Red Cell Distribution Width 14.4 % (12.1-15.1); White Blood Count 7.5 10^3/uL (4.0-10.0)
[2021-02-10] MEDS: aspirin 81 mg EC Tablet PO (05:51)
[2021-02-10] MEDS: tamsulosin 0.4 mg Capsule PO (05:51)
[2021-02-10] MEDS: gabapentin 100 mg Capsule 200 MG PO ×2 (05:52→14:54)
[2021-02-10] MEDS: dilTIAZem ER (24HR) 240 mg Capsule PO (05:52)
[2021-02-10] MEDS: losartan 50 mg Tablet 100 MG PO (05:52)
[2021-02-10 06:00] LABS: Anion Gap 17.2 (5-19); Blood Urea Nitrogen 21 mg/dL (8-23); Calcium 8.6 mg/dL (8.5-10.5); Carbon Dioxide 23 mmol/L (22-29); Chloride 103 mmol/L (98-107); Glucose 127 mg/dL (65-115); Osmolality Calculated 293 mOsm/kg (285-295); Potassium 4.2 mmol/L (3.5-5.1); Sodium 139 mmol/L (136-145)
[2021-02-10 06:43] LABS: Glucose Point of Care 175 mg/dL (70-110)
[2021-02-10] MEDS: famotidine 20 mg Tablet PO ×2 (08:45→17:48)
[2021-02-10] MEDS: apixaban 5 mg Tablet PO ×2 (08:45→17:48)
[2021-02-10] MEDS: guaiFENesin 600 mg Tablet 1200 MG PO ×2 (08:45→17:48)
[2021-02-10] MEDS: insulin lispro 100 unit/1 mL SUBCUT ×6 (08:46→17:49)
[2021-02-10] MEDS: FUROsemide 10 mg/mL SDV 2mL 20 MG IVP (08:46)
[2021-02-10] MEDS: insulin glargine 100 units/1 mL 20 UNIT SUBCUT ×2 (08:47→17:50)
--- NOTE | 2021-02-10 09:16 | PC.SOCIAL ---
IMM update IMM updated with patient, verbalized an understanding. Copy pg2 provided. Initialled, dated, timed, and placed in chart.
[2021-02-10 12:09] LABS: Glucose Point of Care 333 mg/dL (70-110)
--- NOTE | 2021-02-10 12:35 | PM.DCS ---
Discharge Providers Date of Admission: 02/07/21 21:04 Date of Discharge: February 10, 2021 Attending Provider at Admission: Wes Carnes Attending Provider at Discharge: Wojciech Hu Primary Care Provider: Rudi Lima MD Diagnoses at Discharge Discharge Diagnosis (1) Bilateral pneumonia: Status: Acute (2) Acute and chronic respiratory failure with hypoxia: Status: Acute (3) LAYTON (obstructive sleep apnea): Status: Acute (4) Congestive heart failure: Status: Acute Qualifiers: Heart failure chronicity: acute on chronic Heart failure type: systolic Qualified Code(s): I50.23 - Acute on chronic systolic (congestive) heart failure (5) COPD (chronic obstructive pulmonary disease): Status: Acute Qualifiers: COPD type: chronic bronchitis Chronic bronchitis type: mixed simple and mucopurulent Qualified Code(s): J41.8 - Mixed simple and mucopurulent chronic bronchitis (6) Paroxysmal A-fib: Status: Acute (7) Hypertension: Status: Acute (8) Diabetes mellitus: Status: Acute (9) MARYLOU (acute kidney injury): Status: Acute Reason for Visit Reason for Visit: SOB, Sent by [facility] Course Hospital Course Pleasant 80-year-old gentleman with recent history of COVID-19, status post tracheostomy, at home usually on 6 L as per patient, per discussion with oxygen company really set up for 8 L with history of COPD, cardiomyopathy, CHF, recent C. difficile colitis, was admitted due to worsening shortness of breath, increasing cough, copious secretions from tracheostomy which have been difficult to clear. He has been requiring up to 9-10 L of oxygen compared to his usual. On presentation he was assessed by CT angiogram of the chest which showed no evidence of PE. Noted bilateral upper lobe infiltrates, right greater than left, bilateral pleural thickening without definite pleural effusion. Cardiomegaly noted. He was admitted for additional assessment and care. He remained afebrile, without leukocytosis. Initially after dose of antibiotics antibiotics were no longer continued due to low suspicion of bacterial infection, as well as due to concern of recurrence of recent C. difficile colitis. Procalcitonin was negative. Sputum cultures were collected, so far with heavy normal awilda on preliminary results. Will need to be followed up. COVID-19 PCR was negative. Other studies included urine bacterial antigens, including Legionella which were negative. Blood cultures negative. His condition remained steady. Given lack of convincing evidence of bacterial infection as per discussions with him, he may have had an viral infection as cause of symptoms. Hypertension is congestive heart exacerbation, given dyspnea, BNP elevation of presentation. While in hospital Lasix was switched to IV 20 mg, although was there is cautiously so as not to cause secretions to become thicker. He was additionally started on rifaximin. Continued on pulmonary toilet. With guaifenesin, humidification, his condition has been gradually improving. With history of COPD, he is started also on 5 days of prednisone as per discussion with him, for possible COPD exacerbation contributing to the copious secretions. He is otherwise feeling he is improved significantly enough to able to return home. He has gotten up today and set up in the chair. Becoming more comfortable and more mobile. Discussed also with his daughter regarding cautious discharge home. Discussed that may be at high risk of readmission given multiple contributing medical problems. They are aware to watch out for any concerning symptoms and return if needed. Physical Exam Narrative: EXAM NARRATIVE: In chair Const: COMMON NORMALS: no acute distress, patient oriented x3 and alert GENERAL APPEARANCE: cooperative and anxious NUTRITIONAL APPEARANCE: obese ORIENTATION/CONSCIOUSNESS: Yes awake HENMT: COMMON NORMALS: oropharynx normal Neck/C-Spine: COMMON NORMALS: no JVD OTHER: Tracheostomy Resp: COMMON NORMALS: normal respiratory effort AUSCULTATION: wheezes (minimal) and diminished lung sounds (Better air entry) Cardio: COMMON NORMALS: no JVD, regular rhythm, S1 normal heart sound present, S2 normal heart sound present and No murmurs present (Cardio) RHYTHM: regular rhythm HEART SOUNDS: S1 normal heart sound present and S2 normal heart sound present GI: COMMON NORMALS: Normal to inspection, nondistended, normoactive bowel sounds present, Soft to palpation and non-tender PALPATION: Yes Soft to palpation Extremity: COMMON NORMALS: no joint enlargement and no pedal edema Neuro: COMMON NORMALS: patient oriented x3 and moves all extremities SENSORIUM/ORIENTATION: Yes alert Skin: COMMON NORMALS: no rashes or lesions noted GENERAL SKIN EXAM: no rashes or lesions noted Discharge Data Data Completed and Pending: Completed Studies During Hospitalization Category Date Time Status CT angio chest PE protcl [id number] Stat Cat Scan 02/07/21 17:13 Completed XR chest 1V ganesh ble [id number] Stat Exams 02/07/21 16:55 Completed Pending at discharge Category Date Time Status Basic Metabolic P michael AM LABS Lab 02/11/21 04:00 Ordered Basic Metabolic P michael AM LABS Lab 02/12/21 04:00 Ordered Blood Culture Sta t Lab 02/07/21 18:46 Results Complete Blood Co unt w/Auto AM LABS Lab 02/11/21 04:00 Ordered Respiratory Viral Panel PCR Routine Lab 02/08/21 10:57 Received Sputum Culture an d Gram Stain Stat Lab 02/07/21 19:18 Results Labs from last 24 hours 02/10/21 02/10/21 02/10/21 11:06 06:11 04:17 WBC RBC Hgb Hct MCV MCH MCHC RDW Plt Count MPV Neut % (Auto) Lymph % (Auto) [place] % (Auto) Eos % (Auto) Baso % (Auto) Neut # (Auto) Lymph # (Auto) [place] # (Auto) Eos # (Auto) Baso # (Auto) Nucleated RBC % (a uto) Nucleated RBCs # Sodium 139 Potassium 4.2 Chloride 103 Carbon Dioxide 23 Anion Gap 17.2 BUN 21 Creatinine 1.2 GFR Calculation Not Reportable Glucose 127 H POC Glucose 333 H 175 H Calculated Osmolal ity 293 Calcium 8.6 02/10/21 02/09/21 02/09/21 04:17 21:42 17:15 WBC 7.5 RBC 4.01 L Hgb 12.3 Hct 37.2 L MCV 92.8 MCH 30.7 MCHC 33.1 RDW 14.4 Plt Count 277 MPV 9.7 Neut % (Auto) 63.1 Lymph % (Auto) 18.3 [place] % (Auto) 13.7 Eos % (Auto) 4.3 Baso % (Auto) 0.3 Neut # (Auto) 4.74 Lymph # (Auto) 1.4 [place] # (Auto) 1.0 H Eos # (Auto) 0.3 Baso # (Auto) 0.0 Nucleated RBC % (a uto) 0 Nucleated RBCs # 0.0 Sodium Potassium Chloride Carbon Dioxide Anion Gap BUN Creatinine GFR Calculation Glucose POC Glucose 247 H 168 H Calculated Osmolal ity Calcium Vitals: Last Vital Signs Temp 98.3 F 02/10/21 11:18 Pulse 90 02/10/21 11:18 Resp 24 H 02/10/21 11:18 BP 100/62 02/10/21 11:41 Pulse Ox 97 02/10/21 11:18 Discharge Plan Discharge Patient Disposition: Home Condition: Stable Prescriptions: New Mucinex 600 mg Tablet Extended Release 12hr 1,200 mg PO BID PRN (Reason: cough) 7 Days Qty: 28 RF: 3 prednisolone 5 mg tablet 5 mg PO DAILY Qty: 5 RF: 0 Continued fluoxetine [Prozac] 20 mg capsule 20 mg PO DAILY RF: 0 Eliquis 5 mg tablet 5 mg PO BID Qty: 180 RF: 3 atorvastatin 40 mg tablet 40 mg PO BEDTIME Qty: 30 RF: 5 diltiazem HCl [Cartia XT] 240 mg capsule,extended release 24hr 240 mg PO QAM Qty: 90 RF: 3 losartan 100 mg tablet 100 mg PO QAM Qty: 30 RF: 5 ropinirole 1 mg tablet 1 mg PO BEDTIME Qty: 30 RF: 5 potassium chloride 20 mEq tablet,ER particles/crystals 20 meq PO EVERY OTHER DAY Qty: 30 RF: 5 famotidine 20 mg tablet 20 mg PO BID Qty: 60 RF: 5 insulin lispro 100 unit/mL solution See Rx Instructions .ROUTE .COMPLEX Qty: 10 RF: 5 (DME) CAM walker See Rx Instructions .Route .MEDSUPPLY Qty: 1 RF: 0 gabapentin 100 mg capsule 200 mg PO Q8H Qty: 90 RF: 5 calcium polycarbophil [FiberCon] 625 mg Tablet 625 mg PO DAILY PRN (Reason: unknown) RF: 0 magnesium oxide 400 mg magnesium tablet 400 mg PO BEDTIME RF: 0 aspirin 81 mg Tablet,Delayed Release (Dr/Ec) 81 mg PO QAM RF: 0 Refresh Plus 0.5 % Dropperette 1 drp OPHTHALMIC (EYE) TID PRN (Reason: Dry Eyes) RF: 0 chlorhexidine gluconate 0.12 % Mouthwash 15 ml PO BID PRN (Reason: unknown) RF: 0 acetaminophen 650 mg Tablet Extended Release 650 mg PO Q8H PRN (Reason: Pain) RF: 0 pyridoxine (vitamin B6) [Vitamin B-6] 100 mg Tablet 100 mg PO QAM RF: 0 cholecalciferol (vitamin D3) [Vitamin D3] 25 mcg (1,000 unit) Capsule 25 mcg PO QAM RF: 0 ipratropium-albuterol 0.5 mg-3 mg(2.5 mg base)/3 mL solution for nebulization 3 ml inhalation Q6H PRN (Reason: Shortness Of Breath) RF: 0 Lantus Solostar U-100 Insulin 100 unit/mL (3 mL) insulin pen 20 unit SUBCUT BID RF: 0 dextromethorphan-guaifenesin 10-100 mg/5 mL Syrup 10 ml PO Q4H PRN (Reason: Cough) RF: 0 tamsulosin 0.4 mg capsule 0.4 mg PO QPM RF: 0 furosemide 20 mg tablet See Rx Instructions .ROUTE .COMPLEX RF: 0 fluticasone propionate 50 mcg/actuation Mccormick,Suspension 2 spray INTRANASAL DAILY PRN (Reason: Allergy Symptoms) RF: 0 guaifenesin 600 mg Tablet Extended Release 12hr 600 mg PO Q12H RF: 0 Discharge Orders: Discharge Order (Routine); Ordered 02/10/21 Ordered By: Wojciech Hu Referrals: Rudi Lima MD [Primary Care Provider] - 02/16/21 1:45 pm Pulmonary [Provider Group] - 1 week Pulmonary, rehabilitation [Other] - 1-3 days Discharge Diet: Advance as tolerated and Diabetic Discharge Activity: Increase activity as tolerated Patient Instructions: Prednisone (By mouth), Tracheostomy Care (GEN), Using Oxygen at Home (GEN), COPD (Chronic Obstructive Pulmonary Disease) (GEN), Opioid Safety Activity Restrictions/Additional Instructions: Continue oxygen at home, maintain saturation targeting 92%. Continue tracheostomy care with suctioning. Please follow-up with your primary doctor for reassessment. Please note that sputum culture has been collected, so far with growth of normal awilda, but the culture still preliminary, pending final result. Continue Lasix at home, and to double the dose to 40 mg in case you notice increasing swelling of lower extremities, get more short of breath when lying flat in bed. In case your secretions are becoming progressively thicker and difficult to clear, please hold Lasix and discuss with your primary doctor. In case you are spiking fever at home, becoming more short of breath, having more copious or difficulty clear secretions, secretions with color change, or other concerning symptoms, please seek medical attention. Please have your primary care doctor follow-up your kidney function to make sure that acute kidney injury is completely resolved. Discharge Attestations Time Spent in Discharge Care*: greater than 30 min Status at Discharge: Cognitive status at discharge: cognitively intact, Behavioral status at discharge: cooperative, Quality Metrics Clinical Quality Measures During this hospital stay, did patient experience: None Coding Level of Care Code Acute Chg FW DC note Diagnoses Bilateral pneumonia J18.9 Acute and chronic respiratory failure with hypoxia J96.21 LAYTON (obstructive sleep apnea) G47.33 Congestive heart failure I50.23 Heart failure chronicity: acute on chronic Heart failure type: systolic COPD (chronic obstructive pulmonary disease) J41.8 COPD type: chronic bronchitis Chronic bronchitis type: mixed simple and mucopurulent Paroxysmal A-fib I48.0 Hypertension I10 Diabetes mellitus E11.9 MARYLOU (acute kidney injury) N17.9
[2021-02-10 16:27] LABS: Glucose Point of Care 149 mg/dL (70-110)
--- NOTE | 2021-02-10 19:08 | PC.NURSE ---
Report to Dian SY at this time.
[2021-02-12 16:58] LABS: Adenovirus Not Detected (Not Detected); Human Metapneumovirus Not Detected (Not Detected); Human Parainflu Virus 1 Not Detected (Not Detected); Human Parainflu Virus 2 Not Detected (Not Detected); Human Parainflu Virus 3 Not Detected (Not Detected); Human Rsv A Not Detected (Not Detected); Influenza A Not Detected (Not Detected); Influenza B Not Detected (Not Detected); Rhinovirus/Enterovirus Not Detected (Not Detected)
== END 2021-02-10 20:12 | disposition home or self-care (01) | DRG 291 ==
LOC: ER 21:45 → MEDSURG 21:46
PROVIDERS: Family Medicine; Admitting Provider Internal Medicine; Emergency Provider Emergency Medicine; PCP Family Medicine; Visit Provider Internal Medicine
DX: I13.0 Hypertensive heart and chronic kidney disease with heart failure and stage 1 through stage 4 chronic kidney disease, or unspecified chronic kidney disease (principal); I50.23 Acute on chronic systolic (congestive) heart failure; J96.21 Acute and chronic respiratory failure with hypoxia; Z68.42 Body mass index [BMI] 45.0-49.9, adult; N17.9 Acute kidney failure, unspecified; N18.2 Chronic kidney disease, stage 2 (mild); E11.22 Type 2 diabetes mellitus with diabetic chronic kidney disease; Z86.16 Personal history of COVID-19; F32.A Depression, unspecified; K21.9 Gastro-esophageal reflux disease without esophagitis; E78.5 Hyperlipidemia, unspecified; E66.01 Morbid (severe) obesity due to excess calories; M19.90 Unspecified osteoarthritis, unspecified site; G25.81 Restless legs syndrome; Z96.652 Presence of left artificial knee joint; I48.0 Paroxysmal atrial fibrillation; G47.33 Obstructive sleep apnea (adult) (pediatric); I42.9 Cardiomyopathy, unspecified; Z99.81 Dependence on supplemental oxygen; Z79.82 Long term (current) use of aspirin; Z79.4 Long term (current) use of insulin; Z79.01 Long term (current) use of anticoagulants; Z93.0 Tracheostomy status
CPT/HCPCS: 36415; 36416; 36600; 71045; 71275; 80048; 80051; 80053; 81001; 82330; 82550; 82805; 82962; 83735; 83880; 84145; 85025; 86403; 87040; 87070; 87086; 87205; 87426; 87449; 87635; 94640; 94664; 96365; 96372; 99285; J1815 ×2; J1940; Q9967